=== PATIENT | female | born 1940 | race Caucasian/White ===

== ENCOUNTER → 2017-11-18 | Outpatient (CLI) | payer MEDICARE ==
--- NOTE | 2017-11-18 20:31 | PE ---
EXAMINATION TYPE: PET CT fusion skull to thigh DATE OF EXAM: 11/18/2017 COMPARISON: CT chest April 08, 2012. 3-D mammogram October 05, 2017 and right breast ultrasound same day. HISTORY: Breast cancer progress study. History of right breast surgery 1990 with radiation treatment completed chemotherapy 1991. Recent abnormal mammogram and ultrasound October 05 With repeat biopsy on biopsy October 2017. Not specified if was positive on patient screening sheet. TECHNIQUE: Following the intravenous administration of 14.4 mCi of F-18 FDG, whole body images are p erformed from the skull base to the midthigh. Images are reviewed on the computer in the coronal, ax ial, and sagittal planes. Reconstructed rotating images are created on independent workstation and r eviewed on the computer. A noncontrast CT is performed in conjunction with the PET scan. SCAN: Subsequent Scan FINDINGS: SKULL BASE AND NECK: No suspicious hypermetabolic uptake. CHEST, MEDIASTINUM, AND HILAR REGION: No suspicious hypermetabolic uptake. Surgical clips right axillary region are redemonstrated. There is biopsy clip along posterior aspect of higher right breast mass that corresponds to area of mammogram and ultrasound, mass lesion measure s 1.9 x 1.8 cm axial image 87 and is new from 2012 CT. Mass measures over 2.0 cm roughly 2.5 cm crani ocaudal dimension. There is subcentimeter fat plane from adjacent chest wall noted. There is stable prominent fibroglandular tissue superior and medial to this axial image 67 without hy permetabolic uptake from prior CT. No suspicious hypermetabolic or enlarged right axillary lymph node s are seen. No suspicious hypermetabolic uptake or masses are clearly identified in the left breast w hich shows heterogeneously dense tissue subareolar region symmetric to right breast. Numerous clips f rom lumpectomy medial aspect right breast are redemonstrated. ABDOMEN AND PELVIS: No suspicious hypermetabolic uptake is identified. OSSEOUS STRUCTURES: No suspicious hypermetabolic uptake is identified. OTHER CT: There is moderate to severe calcified plaque at bilateral carotid bulbs, consider carotid u ltrasound follow-up. Cardiomegaly is present. There is moderate biatrial dilatation. There is moderate coronary artery chhaya cification which is noted marker for coronary artery disease. There is enlarged main pulmonary artery measuring 3.6 cm in diameter on axial image 91, CT findings suggesting underlying pulmonary artery h ypertension. Cholecystectomy clips are identified. There are diverticula in the sigmoid colon. Uterus is surgically absent. There are pelvic calcified phleboliths. There is postsurgical change with laminectomy defects and spinous process resection in the lower lumb ar spine. There is moderate to severe multilevel facet arthropathy. There is multilevel disc space na rrowing. There is grade 1 anterolisthesis L4 on L5. There is multilevel spurring in the thoracolumbar spine. There is moderate to severe vascular desiccation abdominal aorta extending into branch vessel s. IMPRESSION: New right upper slightly lateral breast mass 10:[address] does not show hy permetabolic uptake. Correlate with pathology biopsy results. No hypermetabolic uptake or additional significant suspicious masses seen to suggest additional or metastatic malignancy.
== END | disposition home or self-care (01) ==
LOC: RADPETMAIN 07:30
PROVIDERS: ATTEND Internal Medicine Hematology & Oncology
DX: C50.411 Malignant neoplasm of upper-outer quadrant of right female breast (principal)
CPT/HCPCS: 78815; A9552

== ENCOUNTER 2018-01-26 13:49 | Inpatient (IN) | payer MEDICARE ==
[2018-01-26] MEDS ORDERED: SODIUM CHLORIDE 0.9% 500 ML IV STA (14:31)
[2018-01-26] MEDS ORDERED: SODIUM CHLORIDE 0.9% 1,000 ML IV STA (14:31)
--- NOTE | 2018-01-26 14:34 | ED ---
General Adult HPI - General Chief complaint: Weakness Stated complaint: Weakness Time Seen by Provider: 01/26/18 14:16 Source: patient, family, RN notes reviewed, old records reviewed Mode of arrival: wheelchair Limitations: no limitations - History of Present Illness Initial comments: 77-year-old female presenting with generalized weakness. Patient is currently undergoing chemotherapy for breast cancer. She received her last treatment 8 days ago. She has had progressive weakness over the past one week. She poured some mild cough which is nonproductive. She has some nausea and has had several small episodes of vomiting with liquids. She's had decreased appetite. No change in her bowel habits. No dysuria. No rectal bleeding. Denies abdominal pain. Denies chest pain or dyspnea. Patient denies fever or chills. Additional past medical history of hypertension and diabetes. Patient was scheduled for outpatient laboratory studies yesterday, she was unable to complete this secondary to her weakness. - Related Data Home Medications Medication Instructions Recorded Confirmed Atenolol/Chlorthalidone 1 tab PO DAILY 01/26/18 01/26/18 [Atenolol-Chlorthalidone 50-25] Atorvastatin [Lipitor] 20 mg PO HS 01/26/18 01/26/18 Lisinopril [Zestril] 10 mg PO DAILY 01/26/18 01/26/18 metFORMIN HCL ER [Glucophage Xr] 500 mg PO BID 01/26/18 01/26/18 Allergies Allergy/AdvReac Type Severity Reaction Status Date / Time No Known Allergies Allergy Verified 01/26/18 14:46 Review of Systems ROS Statement: Those systems with pertinent positive or pertinent negative responses have been documented in the HPI. ROS Other: All systems not noted in ROS Statement are negative. Past Medical History Past Medical History: Diabetes Mellitus, Hypertension Additional Past Medical History / Comment(s): Breast CA. History of Any Multi-Drug Resistant Organisms: None Reported Past Surgical History: Appendectomy, Back Surgery Additional Past Surgical History / Comment(s): Medi port, Past Psychological History: No Psychological Hx Reported Smoking Status: Never smoker Past Alcohol Use History: None Reported Past Drug Use History: None Reported General Exam Limitations: no limitations General appearance: alert, in no apparent distress Head exam: Present: atraumatic, normocephalic Eye exam: Present: normal appearance, PERRL, EOMI ENT exam: Present: mucous membranes dry Neck exam: Present: normal inspection. Absent: tenderness, meningismus Respiratory exam: Absent: normal lung sounds bilaterally, respiratory distress, wheezes Cardiovascular Exam: Present: normal rhythm, tachycardia GI/Abdominal exam: Present: soft. Absent: distended, tenderness, guarding Extremities exam: Present: normal inspection, full ROM, normal capillary refill. Absent: tenderness, calf tenderness Neurological exam: Present: alert, oriented X3, CN II-XII intact. Absent: motor sensory deficit Psychiatric exam: Present: normal affect, normal mood Skin exam: Present: warm, dry, intact, pallor (Patient is very pale.). Absent: cyanosis, diaphoretic Course Vital Signs 01/26/18 01/26/18 01/26/18 14:02 14:18 15:09 Temperature 96.9 F L Pulse Rate 74 161 H Respiratory 22 20 Rate Blood Pressure 161/104 112/52 O2 Sat by Pulse 95 95 Oximetry 01/26/18 01/26/18 15:43 16:28 Temperature Pulse Rate 150 H 148 H Respiratory 20 20 Rate Blood Pressure 120/54 124/47 O2 Sat by Pulse 100 95 Oximetry EKG Findings - EKG Comments: EKG Findings:: EKG, a flutter with RVR and variable AV block, rate of 157, no ST segment elevation, QRS duration 78, QTC 459. Medical Decision Making - Medical Decision Making 77-year-old female with active breast cancer on chemotherapy presenting with generalized weakness. She was found to be in A. flutter with RVR rate in the 150s. Patient appears very pale on exam. Blood pressure is stable. She is afebrile. Laboratory studies reveal hemoglobin 6.5. She will receive 2 unit transfusion of irradiated RBCs for this anemia. No blood cell count is 0.1, patient is profoundly neutropenic. Platelet count 35, this represents pancytopenia. Patient findings are discussed with Dr. Rios, she agrees with transfusion and recommends patient also be started on antibiotics prophylactically. She started on vancomycin and given a dose of cefepime in the emergency department. Regarding the patient's a flutter, patient is given Cardizem bolus, started on Cardizem infusion, heart rate improves modestly she is given metoprolol IV push. Laboratory studies reveal mild lactic acidosis of 2.1, patient does receive IV hydration for this. Creatinine 1.43 from previous of 1.06. Troponin is 0.087, this is likely demand ischemia, given the patient's hemoglobin, no blood thinners will be ordered at this time. Magnesium is 1.4 and this is replaced. Chest x-ray negative for pneumonia. Urinalysis and urine culture are pending. Blood culture is obtained prior to antibiotics. Patient will be admitted to [facility] with oncology and cardiology on consult. She is currently awaiting transfusion. Case discussed with Dr. Bowling who will accept the admission. - Lab Data Result diagrams: 01/26/18 15:10 01/26/18 15:10 Lab Results 01/26/18 01/26/18 01/26/18 Range/Units 15:10 15:10 15:10 WBC 0.1 L* (3.8-10.6) k/uL RBC 2.16 L (3.80-5.40) m/uL Hgb 6.5 L* (11.4-16.0) gm/dL Hct 18.2 L* (34.0-46.0) % MCV 84.6 (80.0-100.0) fL MCH 30.0 (25.0-35.0) pg MCHC 35.5 (31.0-37.0) g/dL RDW 14.2 (11.5-15.5) % Plt Count 35 L* (150-450) k/uL Neutrophils % Not Reportable Lymphocytes % Not Reportable Monocytes % Not Reportable Eosinophils % Not Reportable Basophils % Not Reportable Neutrophils # Not Reportable Lymphocytes # Not Reportable Monocytes # Not Reportable Eosinophils # Not Reportable Basophils # Not Reportable Manual Slide Review Performed Poikilocytosis (manual Present Rouleaux Present PT (9.0-12.0) sec INR (<1.2) APTT (22.0-30.0) sec Sodium 137 (137-145) mmol/L Potassium 4.1 (3.5-5.1) mmol/L Chloride 100 (98-107) mmol/L Carbon Dioxide 21 L (22-30) mmol/L Anion Gap 16 mmol/L BUN 46 H (7-17) mg/dL Creatinine 1.43 H (0.52-1.04) mg/dL Est GFR (CKD-EPI)AfAm 41 (>60 ml/min/1.73 sqM) Est GFR (CKD-EPI)NonAf 36 (>60 ml/min/1.73 sqM) Glucose 172 H (74-99) mg/dL Plasma Lactic Acid Héctor (0.7-2.0) mmol/L Calcium 8.7 (8.4-10.2) mg/dL Phosphorus 5.0 H (2.5-4.5) mg/dL Magnesium 1.4 L (1.6-2.3) mg/dL Total Bilirubin 1.0 (0.2-1.3) mg/dL AST 12 L (14-36) U/L ALT 25 (9-52) U/L Alkaline Phosphatase 60 (38-126) U/L Total Creatine Kinase 26 L (30-135) U/L CK-MB (CK-2) 0.4 (0.0-2.4) ng/mL CK-MB (CK-2) Rel Index 1.5 Troponin I 0.087 H* (0.000-0.034) ng/mL Total Protein 5.4 L (6.3-8.2) g/dL Albumin 3.1 L (3.5-5.0) g/dL Influenza Type A RNA (Not Detectd) Influenza Type B (PCR) (Not Detectd) 01/26/18 01/26/18 01/26/18 Range/Units 15:10 15:25 15:28 WBC (3.8-10.6) k/uL RBC (3.80-5.40) m/uL Hgb (11.4-16.0) gm/dL Hct (34.0-46.0) % MCV (80.0-100.0) fL MCH (25.0-35.0) pg MCHC (31.0-37.0) g/dL RDW (11.5-15.5) % Plt Count (150-450) k/uL Neutrophils % Lymphocytes % Monocytes % Eosinophils % Basophils % Neutrophils # Lymphocytes # Monocytes # Eosinophils # Basophils # Manual Slide Review Poikilocytosis (manual Rouleaux PT 12.5 H (9.0-12.0) sec INR 1.3 H (<1.2) APTT 23.7 (22.0-30.0) sec Sodium (137-145) mmol/L Potassium (3.5-5.1) mmol/L Chloride (98-107) mmol/L Carbon Dioxide (22-30) mmol/L Anion Gap mmol/L BUN (7-17) mg/dL Creatinine (0.52-1.04) mg/dL Est GFR (CKD-EPI)AfAm (>60 ml/min/1.73 sqM) Est GFR (CKD-EPI)NonAf (>60 ml/min/1.73 sqM) Glucose (74-99) mg/dL Plasma Lactic Acid Héctor 2.1 H* (0.7-2.0) mmol/L Calcium (8.4-10.2) mg/dL Phosphorus (2.5-4.5) mg/dL Magnesium (1.6-2.3) mg/dL Total Bilirubin (0.2-1.3) mg/dL AST (14-36) U/L ALT (9-52) U/L Alkaline Phosphatase (38-126) U/L Total Creatine Kinase (30-135) U/L CK-MB (CK-2) (0.0-2.4) ng/mL CK-MB (CK-2) Rel Index Troponin I (0.000-0.034) ng/mL Total Protein (6.3-8.2) g/dL Albumin (3.5-5.0) g/dL Influenza Type A RNA Not Detected (Not Detectd) Influenza Type B (PCR) Not Detected (Not Detectd) Critical Care Time Critical Care Time: Yes Total Critical Care Time: 35 Disposition Clinical Impression: Pancytopenia, Neutropenia, Atrial flutter with rapid ventricular response, Acute kidney injury Disposition: ADMITTED IP TO THIS [facility] Condition: Serious Referrals: Omkar Gotti MD [Primary Care Provider] - 1-2 days Decision to Admit Reason: Admit from EC Decision Date: 01/26/18 Decision Time: 17:16
[2018-01-26] MEDS ORDERED: DILTIAZEM 125 MG in SODIUM CHLORIDE 0.9% 100 ML IV ONE (14:41)
[2018-01-26] MEDS ORDERED: DILTIAZEM 5 MG/1 ML (25ML VIAL) IV STA ×2 (14:41→16:28)
[2018-01-26] MEDS ORDERED: DILTIAZEM 50 MG in SODIUM CHLORIDE 0.9% 40 ML IV ONE (14:45)
[2018-01-26 15:26] LABS: MCHC 35.5 g/dL (31.0-37.0); MCV 84.6 fL (80.0-100.0); RBC 2.16 m/uL (3.80-5.40); RDW 14.2 % (11.5-15.5)
[2018-01-26 15:36] LABS: INR 1.3 (<1.2); Partial Thromboplastin Time 23.7 sec (22.0-30.0); Prothrombin Time 12.5 sec (9.0-12.0)
[2018-01-26 15:40] LABS: HGB 6.5 gm/dL (11.4-16.0)
[2018-01-26 15:41] LABS: HCT 18.2 % (34.0-46.0)
[2018-01-26 15:45] LABS: Poikilocytosis (M) Present; WBC 0.1 k/uL (3.8-10.6)
[2018-01-26 15:46] LABS: Platelet Count 35 k/uL (150-450); Rouleaux Present
[2018-01-26 15:50] LABS: Creatine Kinase MB 0.4 ng/mL (0.0-2.4)
[2018-01-26] MEDS ORDERED: CEFEPIME 2 GM in SODIUM CHLORIDE 0.9% 50 ML IVPB STA (15:53)
[2018-01-26] MEDS ORDERED: VANCOMYCIN IV PER PHARMACY 1 EACH MISC MISCELLANE PRN (15:53)
[2018-01-26 15:55] LABS: Troponin I 0.087 ng/mL (0.000-0.034)
--- NOTE | 2018-01-26 16:01 | XR ---
EXAMINATION TYPE: XR chest 2V DATE OF EXAM: 01/26/2018 COMPARISON: NONE INDICATION: Weakness TECHNIQUE: Frontal and lateral views of the chest are obtained. FINDINGS: The heart size is normal. The pulmonary vasculature is normal. The lungs are clear. Postsurgical changes are within the right breast and right axillary region. Port is present on the left tip in the superior vena cava region. Spondylosis is through the thoracic spine. IMPRESSION: 1. No acute pulmonary process.
[2018-01-26 16:10] LABS: Albumin 3.1 g/dL (3.5-5.0); Calcium 8.7 mg/dL (8.4-10.2); Magnesium 1.4 mg/dL (1.6-2.3); Potassium 4.1 mmol/L (3.5-5.1); Total Protein 5.4 g/dL (6.3-8.2)
[2018-01-26] MEDS ORDERED: VANCOMYCIN 1,500 MG in SODIUM CHLORIDE 0.9% 250 ML IVPB STA (16:10)
[2018-01-26] MEDS ORDERED: SODIUM CHLORIDE 0.9% 500 ML IV ONE (16:27)
[2018-01-26] MEDS ORDERED: MAGNESIUM SULFATE-D5W PMX 1 GM in DEXTROSE/WATER 1 100ML.BAG IVPB ONE (17:04)
[2018-01-26] MEDS ORDERED: ACETAMINOPHEN TAB 325 MG TAB PO PRN (17:07)
[2018-01-26] MEDS ORDERED: NALOXONE 0.4 MG/ML 1 ML VIAL IV PRN (17:07)
[2018-01-26] MEDS ORDERED: ONDANSETRON 4 MG/2 ML VIAL IVP PRN (17:07)
[2018-01-26] MEDS: METOPROLOL TARTRATE 5 MG/5 ML VIAL IVP SCH ×6 (17:23→21:26)
[2018-01-26 20:54] LABS: Glucose,Whole Blood 134 mg/dL (75-99)
[2018-01-26] MEDS: MAGNESIUM OXIDE 400 MG TAB PO SCH (22:14)
--- NOTE | 2018-01-26 22:26 | HP ---
HISTORY AND PHYSICAL DATE OF ADMISSION: 01/26/2018 PRESENTING COMPLAINT: Weak, tired. HISTORY OF PRESENTING COMPLAINT: This is a very pleasant 77-year-old patient of Dr. Gotti who had a breast cancer back in 1990 that was treated with chemo and lumpectomy; recurred; now undergoing chemotherapy by Dr. Poole. Chemotherapy was about a week ago. The patient felt weak, tired, rundown today. Denied any fever. No chills. No urinary symptoms. No rash on the body; just extremity tired and rundown. The patient in the ER was found to be in atrial flutter with a rapid ventricular rate. She was put on a Cardizem drip. Also hemoglobin was found to be low at 6.5. A unit of blood has been ordered. Chronic stable medical conditions include diabetes, hyperlipidemia, hypertension. REVIEW OF SYSTEMS: CONSTITUTIONAL: Weak, tired. HEENT: Loss of hair. RESPIRATORY: None. CARDIOVASCULAR: As above. GASTROINTESTINAL: None. GENITOURINARY: None. MUSCULOSKELETAL: None. DERMATOLOGICAL: None. HEMATOLOGICAL: None. LYMPHATICS: None. PSYCHIATRY: None. NEUROLOGICAL: None. PAST MEDICAL HISTORY: 1. Diabetes. 2. Hypertension. 3. Hyperlipidemia. 4. Breast cancer. PAST SURGICAL HISTORY: 1. Appendectomy. 2. Back surgery. 3. Cholecystectomy. 4. Hysterectomy. 5. Tonsillectomy. 6. Mediport on the left chest. 7. Right breast lumpectomy. 8. EGD. 9. Colonoscopy. 10.Cataract surgery. SOCIAL HISTORY: . Patient smoked for 10 years, stopped in 1974. Alcohol none. FAMILY HISTORY: Close family member from colon cancer at age 66. HOME MEDICATIONS: 1. Metformin 500 mg p.o. b.i.d. 2. Zestril 10 mg p.o. daily. 3. Lipitor 20 mg p.o. at bedtime. 4. Atenolol/chlorthalidone 50/25 one tablet p.o. daily. ALLERGIES: NONE. PHYSICAL EXAMINATION: Temperature 98.2, pulse 140, respiration 20, blood pressure 107/61, pulse ox 100% on 2 L. GENERAL APPEARANCE: Average build. Lying in bed, tired-appearing. EYES: Pupils equal. Conjunctivae pale. HEENT: External appearance of nose and ears normal. Oral cavity normal. Loss of hair. NECK: JVD not raised. Mass not palpable. RESPIRATORY: Effort normal. LUNGS: Fair air entry. CARDIOVASCULAR: Heart sounds irregular. No edema. ABDOMEN: Soft, nontender. Liver and spleen not palpable. LYMPHATIC: No lymph node palpable in neck or axillae. PSYCHIATRY: Alert and oriented x3. Mood and affect normal. NEUROLOGICAL: Pupils equal. Cranial nerves grossly intact. Power and sensation grossly intact. INVESTIGATIONS: White count 0.1, hemoglobin 6.5, platelets 35, potassium 4.1, BUN 46, creatinine 1.43, phosphorus 5, magnesium 1.4. Troponin 0.087. Patient's BUN and creatinine were 23 and 1.06 on 01/17/2018. EKG shows atrial flutter with a rate up to 150s. ASSESSMENT: 1. New-onset atrial flutter, rate uncontrolled, present on admission. 2. Pancytopenia from chemotherapy. 3. Metabolic acidosis. 4. Acute renal failure. Cannot rule out a chronic component. 5. Hyperphosphatemia. 6. Hypomagnesemia. 7. Troponin leak, probably from uncontrolled rate. Cannot rule out underlying ischemia. 8. Diabetes mellitus, type 2, on oral hypoglycemic. 9. Hyperlipidemia. 10.Essential hypertension. 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 PLAN: Patient is put on IV Cardizem. Patient will need a 2-D echocardiogram. Patient's Accu- Cheks will be followed. Care was discussed with the patient and family at the bedside. Consultation requests were made to Oncology and Cardiology. Patient will filgrastim. Patient has been ordered 2 units of blood. MMODL / IJN: [id number] /
[2018-01-27 00:55] LABS: Appearance,Urine Turbid (Clear); Bacteria,Urine Few /hpf; Bilirubin,Urine Negative (Negative); Blood,Urine Trace (Negative); Color,Urine Yellow; Glucose,Urine (UA) Negative (Negative); Hyaline Casts,Urine 5 /lpf (0-2); Ketones,Urine Negative (Negative); Leukocyte Esterase,Urine Trace (Negative); Mucus,Urine Rare /hpf; Nitrite,Urine Negative (Negative); PH, Urine 5.5 (5.0-8.0); Protein,Urine 1+ (Negative); RBC,Urine 6 /hpf (0-5); Specific Gravity,Urine 1.016 (1.001-1.035); Squamous Epithelial Cell,Urine 14 /hpf (0-4); Urobilinogen,Urine <2.0 mg/dL (<2.0); WBC,Urine 50 /hpf (0-5)
[2018-01-27] MEDS: DILTIAZEM 50 MG in SODIUM CHLORIDE 0.9% 40 ML IV SCH ×3 (02:51→21:30)
[2018-01-27 06:33] LABS: Glucose,Whole Blood 130 mg/dL (75-99)
[2018-01-27 06:47] LABS: HCT 22.9 % (34.0-46.0); MCH 30.2 pg (25.0-35.0); MCHC 34.7 g/dL (31.0-37.0); RBC 2.63 m/uL (3.80-5.40); RDW 14.5 % (11.5-15.5)
[2018-01-27 06:49] LABS: WBC 0.2 k/uL (3.8-10.6)
[2018-01-27 06:50] LABS: Platelet Count 20 k/uL (150-450)
[2018-01-27 07:01] LABS: Albumin 2.8 g/dL (3.5-5.0); Calcium 8.6 mg/dL (8.4-10.2); Magnesium 1.7 mg/dL (1.6-2.3); Potassium 3.7 mmol/L (3.5-5.1); Total Bilirubin 1.5 mg/dL (0.2-1.3)
[2018-01-27] MEDS: MAGNESIUM OXIDE 400 MG TAB PO SCH ×3 (07:36→19:46)
[2018-01-27] MEDS: metFORMIN 500 MG TAB PO SCH ×2 (07:38→17:23)
--- NOTE | 2018-01-27 08:04 | P.CRDCN ---
History of Present Illness Consult date: 01/27/18 Chief complaint: Tired/fatigued History of present illness: This is a pleasant 77-year-old female patient with a past medical history significant for diabetes, hypertension, dyslipidemia, and history of breast cancer where she underwent surgery long time ago and recently she was found to have recurrence in her cancer by mammogram and she is receiving chemotherapy with the last dose of chemotherapy about a week ago presented to the hospital complaining of fatigue and tiredness. The patient stated that she felt that she has no energy. She felt dizzy and lightheaded. No chest pain and no chest discomfort. No shortness of breath. She decided to come to the emergency room where in the emergency room she was found to be pancytopenic. Beside that the EKG revealed atrial fibrillation/ atrial flutter and the patient was started on Cardizem drip. The patient is not aware of any prior cardiac history. She has no history of atrial fibrillation or atrial flutter. The EKG revealed atrial fibrillation. The cardiac enzymes were checked and came in to be slightly abnormal. Hemoglobin upon presenting to the hospital was 6.5 and the patient received 2 units of packed RBC with a hemoglobin above 7 now. Past Medical History Past Medical History: Cancer, Diabetes Mellitus, Hyperlipidemia, Hypertension Additional Past Medical History / Comment(s): rt Breast CA 1990 had lumpectomy/ lymph nodes removed, chemo/radiation. in reocurrance of cancer same (rt) breast-receiving chemo . History of Any Multi-Drug Resistant Organisms: None Reported Past Surgical History: Appendectomy, Back Surgery, Breast Surgery, Cholecystectomy, Hysterectomy, Tonsillectomy Additional Past Surgical History / Comment(s): Medi port lt chest, 1 upper dental implant, rt breast lumpectomy, lymph nodes removed, egd/colonoscopu/ polypectomt, cataracts-lens implants Past Anesthesia/Blood Transfusion Reactions: No Reported Reaction Smoking Status: Former smoker - Past Family History Mother Family Medical History: Cancer Additional Family Medical History / Comment(s): age 66 from colon cancer Father Family Medical History: CVA/TIA Additional Family Medical History / Comment(s): age 48 from a stroke Medications and Allergies Home Medications Medication Instructions Recorded Confirmed Type Atenolol/Chlorthalidone 1 tab PO DAILY 01/26/18 01/26/18 History [Atenolol-Chlorthalidone 50-25] Atorvastatin [Lipitor] 20 mg PO HS 01/26/18 01/26/18 History Lisinopril [Zestril] 10 mg PO DAILY 01/26/18 01/26/18 History metFORMIN HCL ER [Glucophage Xr] 500 mg PO BID 01/26/18 01/26/18 History Allergies Allergy/AdvReac Type Severity Reaction Status Date / Time No Known Allergies Allergy Verified 01/26/18 14:46 Physical Exam Vitals: Vital Signs Temp Pulse Pulse Resp BP BP Pulse Ox 01/27/18 05:00 97.6 F 104 H 16 102/75 99 01/27/18 04:00 97.6 F 104 H 16 102/75 99 01/27/18 02:38 98.2 F 100 16 104/60 99 01/27/18 02:08 97.7 F 99 16 122/59 100 01/27/18 01:58 99.1 F 144 H 16 146/72 100 01/27/18 00:54 98.5 F 146 H 16 135/70 100 01/27/18 00:00 97.8 F 152 H 16 126/69 100 01/26/18 22:32 97.8 F 152 H 16 126/69 100 01/26/18 22:02 98 F 155 H 16 105/58 100 01/26/18 21:52 98.4 F 156 H 18 120/58 100 01/26/18 19:33 98.2 F 131 H 20 107/61 100 01/26/18 18:30 142 H 20 120/58 100 01/26/18 17:30 133 H 20 108/60 100 01/26/18 16:28 148 H 20 124/47 95 01/26/18 15:43 150 H 20 120/54 100 01/26/18 15:09 161 H 20 112/52 95 01/26/18 14:18 161/104 01/26/18 14:02 96.9 F L 74 22 95 Intake and Output 01/26/18 01/27/18 01/27/18 22:59 06:59 14:59 Intake Total 120 620 Output Total 50 Balance 120 570 Intake: Oral 120 Blood Product 0 620 Rc Irr As3 Unit 0 310 [id number] Rc Irr As3 Unit 310 [id number] Output: Urine 50 Other: Voiding Method Bedpan # Voids 2 Weight 71.5 kg - Constitutional General appearance: no acute distress - Respiratory Respiratory: bilateral: CTA - Cardiovascular Rhythm: irregularly irregular Heart sounds: normal: S1, S2 Results 01/27/18 06:14 01/27/18 06:14 Cardiac Enzymes 01/26/18 01/26/18 01/27/18 Range/Units 15:10 15:10 06:14 AST 12 L 13 L (14-36) U/L CK-MB (CK-2) 0.4 (0.0-2.4) ng/mL Troponin I 0.087 H* (0.000-0.034) ng/mL Coagulation 01/26/18 Range/Units 15:10 PT 12.5 H (9.0-12.0) sec APTT 23.7 (22.0-30.0) sec CBC 01/26/18 01/27/18 Range/Units 15:10 06:14 WBC 0.1 L* 0.2 L* (3.8-10.6) k/uL RBC 2.16 L 2.63 L (3.80-5.40) m/uL Hgb 6.5 L* 8.0 L D (11.4-16.0) gm/dL Hct 18.2 L* 22.9 L (34.0-46.0) % Plt Count 35 L* 20 L* (150-450) k/uL Comprehensive Metabolic Panel 01/26/18 01/27/18 Range/Units 15:10 06:14 Sodium 137 140 (137-145) mmol/L Potassium 4.1 3.7 (3.5-5.1) mmol/L Chloride 100 104 (98-107) mmol/L Carbon Dioxide 21 L 21 L (22-30) mmol/L BUN 46 H 37 H (7-17) mg/dL Creatinine 1.43 H 0.90 (0.52-1.04) mg/dL Glucose 172 H 119 H (74-99) mg/dL Calcium 8.7 8.6 (8.4-10.2) mg/dL AST 12 L 13 L (14-36) U/L ALT 25 17 (9-52) U/L Alkaline Phosphatase 60 45 (38-126) U/L Total Protein 5.4 L 5.0 L (6.3-8.2) g/dL Albumin 3.1 L 2.8 L (3.5-5.0) g/dL Current Medications Generic Name Dose Route Start Last Admin Trade Name Freq PRN Reason Stop Dose Admin Acetaminophen 650 mg 01/26/18 17:07 Tylenol Tab PO Q6HR PRN Mild Pain or Fever > 100.5 Atenolol 50 mg 01/27/18 09:00 Tenormin PO BID [facility] Atorvastatin Calcium 20 mg 01/27/18 21:00 Lipitor PO HS [facility] Chlorthalidone 25 mg 01/27/18 09:00 [place]groton PO DAILY [facility] Vancomycin HCl 1,500 mg/ 250 mls @ 125 mls/hr 01/27/18 12:00 Sodium Chloride IVPB Q24H [facility] Diltiazem HCl 50 mg/ Sodium 50 mls @ 5 mls/hr 01/27/18 01:45 01/27/18 02:51 Chloride IV 5 mg/hr .Q10H [facility] 5 mls/hr Protocol Administration 5 MG/HR Magnesium Oxide 400 mg 01/26/18 22:00 01/27/18 07:36 Mag-Ox PO 400 mg TID MANINDER Administration Metformin HCl 500 mg 01/27/18 07:30 01/27/18 07:38 Glucophage PO Not Given BID-W/MEALS [facility] Naloxone HCl 0.2 mg 01/26/18 17:07 Narcan IV Q2M PRN Opioid Reversal Ondansetron HCl 4 mg 01/26/18 17:07 Zofran IVP Q8HR PRN Nausea And Vomiting Intake and Output 01/26/18 01/27/18 01/27/18 22:59 06:59 14:59 Intake Total 120 620 Output Total 50 Balance 120 570 Intake: Oral 120 Blood Product 0 620 Rc Irr As3 Unit 0 310 [id number] Rc Irr As3 Unit 310 [id number] Output: Urine 50 Other: Voiding Method Bedpan # Voids 2 Weight 71.5 kg 01/27/18 06:14 01/27/18 06:14 Assessment and Plan Assessment: Assessment #1 pancytopenia likely to be induced by chemotherapy #2 severe anemia and status post blood transfusion #3 mildly abnormal cardiac enzymes likely secondary to the severe anemia and tachycardia #4 new-onset atrial fibrillation/atrial flutter #5 history of breast cancer currently on chemotherapy #6 multiple comorbid conditions Plan #1 I will increase the dose of atenolol and try to wean the patient from Cardizem IV #2 the patient is not a candidate to receive any oral anticoagulation in view of her low platelet count #3 obtain an echocardiogram with Doppler #4 the mildly abnormal cardiac enzymes is likely secondary to the tachycardia as well as severe anemia was a type II I'll cardiac infarction in somebody who probably does have underlying coronary artery disease #5 we'll continue following up with the patient. We'll try to keep the hemoglobin above 7. We'll continue following up with the patient. Thank you for allowing us participate in her care
[2018-01-27] MEDS ORDERED: ATENOLOL 50 MG TAB PO SCH (09:00)
[2018-01-27] MEDS: CHLORTHALIDONE 25 MG TAB PO SCH (09:03)
[2018-01-27] MEDS: VANCOMYCIN 1,250 MG in SODIUM CHLORIDE 0.9% 250 ML IVPB SCH (11:40)
[2018-01-27] MEDS ORDERED: VANCOMYCIN 1,500 MG in SODIUM CHLORIDE 0.9% 250 ML IVPB SCH (12:00)
[2018-01-27 12:19] LABS: Glucose,Whole Blood 178 mg/dL (75-99)
--- NOTE | 2018-01-27 12:30 | ECHOF ---
Referral Reason:nstemi MEASUREMENTS -------- HEIGHT: 160.0 cm WEIGHT: 71.2 kg BP: 102/75 IVSd: 1.2 cm (0.6 - 1.1) LVIDd: 2.6 cm (3.9 - 5.3) LVPWd: 1.3 cm (0.6 - 1.1) IVSs: 1.6 cm LVIDs: 2.0 cm LVPWs: 1.3 cm LAESV Index (A-L): 28.25 ml/m Ao Diam: 2.8 cm (2.0 - 3.7) AV Cusp: 1.7 cm (1.5 - 2.6) LA Diam: 2.0 cm (2.7 - 3.8) RAP: 5.00 mmHg RVSP: 43.88 mmHg FINDINGS -------- Atrial fibrillation. This was a technically adequate study. The left ventricular size is normal. There is mild concentric left ventricular hypertrophy. Overa ll left ventricular systolic function is normal with, an EF between 55 - 60 %. The right ventricle is normal in size and function. Normal LA size by volume 22+/-6 ml/m2. The right atrium is normal in size. The aortic valve is trileaflet, and appears structurally normal. No aortic stenosis or regurgitation. The mitral valve leaflets are mildly thickened. Mild mitral regurgitation is present. Mild tricuspid regurgitation present. There is mild pulmonary hypertension. The right ventricular systolic pressure, as measured by Doppler, is 43.88mmHg. Pulmonic valve appears structurally normal. The aortic root size is normal. Normal inferior vena cava with normal inspiratory collapse consistent with estimated right atrial pre ssure of 5 mmHg. There is a small, generalized pericardial effusion present. CONCLUSIONS -------- 1. Atrial fibrillation. 2. This was a technically adequate study. 3. The left ventricular size is normal. 4. There is mild concentric left ventricular hypertrophy. 5. Overall left ventricular systolic function is normal with, an EF between 55 - 60 %. 6. The right ventricle is normal in size and function. 7. Normal LA size by volume 22+/-6 ml/m2. 8. The right atrium is normal in size. 9. The aortic valve is trileaflet, and appears structurally normal. No aortic stenosis or regurgitati on. 10. The mitral valve leaflets are mildly thickened. 11. Mild mitral regurgitation is present. 12. Mild tricuspid regurgitation present. 13. There is mild pulmonary hypertension. 14. The right ventricular systolic pressure, as measured by Doppler, is 43.88mmHg. 15. Pulmonic valve appears structurally normal. 16. The aortic root size is normal. 17. Normal inferior vena cava with normal inspiratory collapse consistent with estimated right atrial pressure of 5 mmHg. 18. There is a small, generalized pericardial effusion present. STUDIO DATA ANALYST: Molly Price RDCS
[2018-01-27 16:37] LABS: Glucose,Whole Blood 127 mg/dL (75-99)
--- NOTE | 2018-01-27 19:17 | P.CONS ---
History of Present Illness - Reason for Consult Consult date: 01/27/18 Breast cancer, on chemo with pancytopenia Requesting physician: Ramu Bowling - Chief Complaint Severe weakness/fatigue - History of Present Illness Mrs. 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 She recieved her last cycle of chemo, cycle 4 of ddAC, on 01/18, with neulasta administered on 01/19. She has been having increasing vomiting and weakness. Called me and advised to go to ED, where she was afebrile, however had OLLIE with Cr 1.4 and pancytopenia with WBC 0.1, Hgb 6.5, and plt 23. No bleeding. Also found to be in atrial fibrillation. Cardiology consulted and rate controlled. 2D echo done with normal EF. Transfused 2 units pRBC with improvement of her Hgb to 8. Hydrated and Cr downtrending. No fevers and infectious work up negative so far except for possible UTI (UA with casts as well as WBC seen). Overall now feeling slightly better but still weak. Review of Systems All systems: negative Constitutional: Reports as per HPI Past Medical History Past Medical History: Cancer, Diabetes Mellitus, Hyperlipidemia, Hypertension Additional Past Medical History / Comment(s): rt Breast CA 1990 had lumpectomy/ lymph nodes removed, chemo/radiation. in reocurrance of cancer same (rt) breast-receiving chemo . History of Any Multi-Drug Resistant Organisms: None Reported Past Surgical History: Appendectomy, Back Surgery, Breast Surgery, Cholecystectomy, Hysterectomy, Tonsillectomy Additional Past Surgical History / Comment(s): Medi port lt chest, 1 upper dental implant, rt breast lumpectomy, lymph nodes removed, egd/colonoscopu/ polypectomt, cataracts-lens implants Past Anesthesia/Blood Transfusion Reactions: No Reported Reaction Smoking Status: Former smoker - Past Family History Mother Family Medical History: Cancer Additional Family Medical History / Comment(s): age 66 from colon cancer Father Family Medical History: CVA/TIA Additional Family Medical History / Comment(s): age 48 from a stroke Medications and Allergies Home Medications Medication Instructions Recorded Confirmed Type Atenolol/Chlorthalidone 1 tab PO DAILY 01/26/18 01/26/18 History [Atenolol-Chlorthalidone 50-25] Atorvastatin [Lipitor] 20 mg PO HS 01/26/18 01/26/18 History Lisinopril [Zestril] 10 mg PO DAILY 01/26/18 01/26/18 History metFORMIN HCL ER [Glucophage Xr] 500 mg PO BID 01/26/18 01/26/18 History Allergies Allergy/AdvReac Type Severity Reaction Status Date / Time No Known Allergies Allergy Verified 01/26/18 14:46 Physical Exam Vitals: Vital Signs Temp Pulse Pulse Resp BP BP Pulse Ox 01/27/18 15:03 97.3 F L 156 H 18 111/60 98 01/27/18 12:00 97.1 F L 117 H 18 110/65 99 01/27/18 08:00 98.7 F 137 H 18 101/62 100 01/27/18 05:00 97.6 F 104 H 16 102/75 99 01/27/18 04:00 97.6 F 104 H 16 102/75 99 01/27/18 02:38 98.2 F 100 16 104/60 99 01/27/18 02:08 97.7 F 99 16 122/59 100 01/27/18 01:58 99.1 F 144 H 16 146/72 100 01/27/18 00:54 98.5 F 146 H 16 135/70 100 01/27/18 00:00 97.8 F 152 H 16 126/69 100 01/26/18 22:32 97.8 F 152 H 16 126/69 100 01/26/18 22:02 98 F 155 H 16 105/58 100 01/26/18 21:52 98.4 F 156 H 18 120/58 100 01/26/18 19:33 98.2 F 131 H 20 107/61 100 01/26/18 18:30 142 H 20 120/58 100 01/26/18 17:30 133 H 20 108/60 100 Intake and Output 01/27/18 01/27/18 01/27/18 06:59 14:59 22:59 Intake Total 620 774 Output Total 50 200 Balance 570 574 Intake: IV 240 .9 @ 20 240 Intake, IV Titration 294 Amount Diltiazem 50 mg In Sodium 44 Chloride 0.9% 40 ml @ 5 MG/HR 5 mls/hr IV .Q10H REPLACED BY [facility] Rx#:[id number] Vancomycin 1,500 mg In 250 Sodium Chloride 0.9% 250 ml @ 125 mls/hr IVPB ONCE STA Rx#:[id number] Oral 240 Blood Product 620 Rc Irr As3 Unit 310 [id number] Rc Irr As3 Unit 310 [id number] Output: Urine 50 200 Other: Voiding Method Bedpan # Voids 2 1 Weight 71.5 kg General: In no acute distress. HEENT: EOMI. No conjunctival pallor or scleral icterus. Mucosa moist. Alopecia. Neck: Neck supple. Lymph: No cervical/supraclavicular LAD. Lungs: CTA-B without wheezing or rhonchi. Heart: Regular rate but irregular rhythm. No LE edema. Abdomen: Soft, nontender, nondistended, with positive bowel sounds. MSK: 4/4 strength in all 4 extremities. Neuro: Alert and oriented 3. No obvious gross neurologic deficits. Skin: No jaundice or rash. Psych: Appropriate affect. Results CBC & Chem 7: 01/27/18 06:14 01/27/18 06:14 Labs: Abnormal Lab Results - Last 24 Hours (Table) 01/26/18 01/26/18 01/27/18 Range/Units 15:10 20:53 00:27 WBC (3.8-10.6) k/uL RBC (3.80-5.40) m/uL Hgb (11.4-16.0) gm/dL Hct (34.0-46.0) % Plt Count (150-450) k/uL Carbon Dioxide (22-30) mmol/L BUN (7-17) mg/dL Glucose (74-99) mg/dL POC Glucose (mg/dL) 134 H (75-99) mg/dL Total Bilirubin (0.2-1.3) mg/dL AST (14-36) U/L Total Protein (6.3-8.2) g/dL Albumin (3.5-5.0) g/dL Urine Appearance Turbid H (Clear) Urine Protein 1+ H (Negative) Urine Blood Trace H (Negative) Ur Leukocyte Esterase Trace H (Negative) Urine RBC 6 H (0-5) /hpf Urine WBC 50 H (0-5) /hpf Ur Squamous Epith Cells 14 H (0-4) /hpf Urine Bacteria Few H (None) /hpf Hyaline Casts 5 H (0-2) /lpf Urine Mucus Rare H (None) /hpf Crossmatch See Detail 01/27/18 01/27/18 01/27/18 Range/Units 06:14 06:14 06:27 WBC 0.2 L* (3.8-10.6) k/uL RBC 2.63 L (3.80-5.40) m/uL Hgb 8.0 L D (11.4-16.0) gm/dL Hct 22.9 L (34.0-46.0) % Plt Count 20 L* (150-450) k/uL Carbon Dioxide 21 L (22-30) mmol/L BUN 37 H (7-17) mg/dL Glucose 119 H (74-99) mg/dL POC Glucose (mg/dL) 130 H (75-99) mg/dL Total Bilirubin 1.5 H (0.2-1.3) mg/dL AST 13 L (14-36) U/L Total Protein 5.0 L (6.3-8.2) g/dL Albumin 2.8 L (3.5-5.0) g/dL Urine Appearance (Clear) Urine Protein (Negative) Urine Blood (Negative) Ur Leukocyte Esterase (Negative) Urine RBC (0-5) /hpf Urine WBC (0-5) /hpf Ur Squamous Epith Cells (0-4) /hpf Urine Bacteria (None) /hpf Hyaline Casts (0-2) /lpf Urine Mucus (None) /hpf Crossmatch 01/27/18 01/27/18 Range/Units 11:34 16:35 WBC (3.8-10.6) k/uL RBC (3.80-5.40) m/uL Hgb (11.4-16.0) gm/dL Hct (34.0-46.0) % Plt Count (150-450) k/uL Carbon Dioxide (22-30) mmol/L BUN (7-17) mg/dL Glucose (74-99) mg/dL POC Glucose (mg/dL) 178 H 127 H (75-99) mg/dL Total Bilirubin (0.2-1.3) mg/dL AST (14-36) U/L Total Protein (6.3-8.2) g/dL Albumin (3.5-5.0) g/dL Urine Appearance (Clear) Urine Protein (Negative) Urine Blood (Negative) Ur Leukocyte Esterase (Negative) Urine RBC (0-5) /hpf Urine WBC (0-5) /hpf Ur Squamous Epith Cells (0-4) /hpf Urine Bacteria (None) /hpf Hyaline Casts (0-2) /lpf Urine Mucus (None) /hpf Crossmatch Microbiology - Last 24 Hours (Table) 01/27/18 00:27 Urine Culture - Preliminary Urine,Voided Comments: 2D echo with atrial fibrillation and normal EF. Results reviewed. Chest x-ray: report reviewed Assessment and Plan Assessment: 1. Fatigue due to chemotherapy. 2. Pancytopenia due to chemotherapy. 3. OLLIE due to dehydration and vomiting. 4. Chemotherapy induced vomiting. 5. Atrial fibrillation. 6. Breast cancer on chemotherapy with 4th cycle of ddAC administered on 01/18 with neulasta support. Plan: Ms. Guerrero is a pleasant 77 yo female with breast cancer, IDC, triple negative, who is here for weakness and chemotherapy side effects after her 4th cycle of ddAC given on 01/18. She has significant weakness and nausea/decreased PO intake. Hgb 6.5, WBC 0.2, plt 20. No bleeding. Also found to be in atrial fibrillation with RVR and in OLLIE which is improving. Cardiology on board and managing atrial fibrillation which is now under better rate control. Transfused 2 units pRBC and with Hgb increased to 8. No fevers. At this time, would recommend supportive transfusions for Hgb <8 (due to atrial fibrillation) or plt <15 or bleeding for her chemotherapy induced pancytopenia. Hydration for OLLIE, which is improving. Encouraged Ensure/Boost for nutrition due to decreased PO intake. No G-CSF as she already received neulasta on 01/19, and is likely at her tayler with expected improvement of her ANC over the next couple days. No fevers, defer antibiotic use to primary team at this time. Otherwise, encourage movement/possible PT/OT, and pt should follow up with Dr. Poole after discharge, prior to her next cycle of chemotherapy (she is due to start taxol in 2 weeks, may delay depending on how she is doing over the next week or two, although possibly she may be able to start her taxol regimen as scheduled). Discussed with pt and her family and they are agreeable to the plan. All questions answered.
[2018-01-27] MEDS: ATENOLOL 50 MG TAB PO SCH (19:46)
[2018-01-27] MEDS: ATORVASTATIN 20 MG TAB PO SCH (19:46)
[2018-01-27 20:45] LABS: Glucose,Whole Blood 136 mg/dL (75-99)
--- NOTE | 2018-01-27 21:06 | PN ---
PROGRESS NOTE DATE OF SERVICE: 01/27/2018 PRESENT COMPLAINT: Weak, tired. INTERVAL HISTORY: This patient, who has had recurrence of breast cancer, getting chemotherapy, now presented with pancytopenia and atrial flutter, rate uncontrolled. Atrial flutter still running in the 130s to 140s. Patient Cardizem drip. The patient did get a unit of blood. The patient did tolerate some diet. at the bedside. REVIEW OF SYSTEMS: Done for constitutional, cardiovascular, GI, pulmonary; relevant findings as above. CURRENT MEDICATIONS: Include: 1. Cardizem drip. 2. Tenormin 50 mg p.o. b.i.d. EXAMINATION: Temperature 97.1, pulse 140, respirations 18, blood pressure 110/65, pulse ox 99% on room air. GENERAL APPEARANCE: Lying in bed, awake. EYES: Pupils equal. Conjunctivae normal. HEENT: External nose and ears normal. Oral cavity normal. Loss of hair. NECK: JVD not raised. Mass not palpable. RESPIRATORY: Effort normal. LUNGS: Fair air entry. CARDIOVASCULAR: Heart sounds irregular. No edema. ABDOMEN: Soft, nontender. Liver and spleen not palpable. PSYCHIATRY: Alert, oriented x3. Mood and affect normal. INVESTIGATIONS: White count 0.2, hemoglobin 8, platelets 20. Potassium 3.7, creatinine 0.9. Accu- Cheks are noted. ASSESSMENT: 1. Atrial flutter, rate uncontrolled on Cardizem drip. 2. Pancytopenia on chemotherapy. 3. Metabolic acidosis. 4. Acute renal failure, probably prerenal, improved. 5. Hyperphosphatemia. 6. Hypermagnesemia. 7. Troponin leak probably from uncontrolled heart rate. 8. Diabetes mellitus type 2 on oral hypoglycemic. 9. Hyperlipidemia. 10.Essential hypertension. 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 PLAN: The patient is on Cardizem drip and Tenormin dose was adjusted today. Will see how that goes. Per Dr. 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 Follow. MMODL / IJN: [id number] /
[2018-01-28] MEDS: VANCOMYCIN 1,250 MG in SODIUM CHLORIDE 0.9% 250 ML IVPB SCH ×2 (03:49→20:30)
[2018-01-28 06:09] LABS: Glucose,Whole Blood 132 mg/dL (75-99)
[2018-01-28] MEDS: metFORMIN 500 MG TAB PO SCH ×2 (06:46→17:06)
[2018-01-28 07:03] LABS: Anion Gap 12 mmol/L; Blood Urea Nitrogen 33 mg/dL (7-17); Calcium 8.4 mg/dL (8.4-10.2); Carbon Dioxide 18 mmol/L (22-30); Chloride 108 mmol/L (98-107); Glucose 109 mg/dL (74-99); Potassium 3.9 mmol/L (3.5-5.1); Sodium 138 mmol/L (137-145)
[2018-01-28 07:07] LABS: HCT 20.4 % (34.0-46.0); HGB 7.1 gm/dL (11.4-16.0); MCH 30.4 pg (25.0-35.0); MCHC 34.8 g/dL (31.0-37.0); MCV 87.3 fL (80.0-100.0); Mean Platelet Volume 10.4; Poikilocytosis Slight; RBC 2.34 m/uL (3.80-5.40); RDW 14.5 % (11.5-15.5)
[2018-01-28 07:17] LABS: WBC 0.5 k/uL (3.8-10.6)
[2018-01-28 07:18] LABS: Platelet Count 19 k/uL (150-450)
[2018-01-28] MEDS: ATENOLOL 50 MG TAB PO SCH ×2 (08:01→21:40)
[2018-01-28] MEDS: DILTIAZEM 50 MG in SODIUM CHLORIDE 0.9% 40 ML IV SCH ×2 (08:01→17:57)
[2018-01-28] MEDS: CHLORTHALIDONE 25 MG TAB PO SCH (08:02)
[2018-01-28] MEDS: MAGNESIUM OXIDE 400 MG TAB PO SCH ×3 (08:02→21:40)
[2018-01-28 08:54] LABS: Large Platelets Present
[2018-01-28 11:18] LABS: Glucose,Whole Blood 144 mg/dL (75-99)
--- NOTE | 2018-01-28 12:12 | P.PN ---
Subjective Progress Note Date: 01/28/18 Principal diagnosis: fatigue This is a pleasant 77-year-old female patient with past medical history significant for diabetes, hypertension, hyperlipidemia, breast cancer for which she underwent surgery several years ago, recently the patient was found to have recurrence in her cancer by mammogram. She is currently receiving chemotherapy and presented to the hospital with symptoms of fatigue and weakness. Patient was found to be in atrial fibrillation, and was initiated on a Cardizem drip. Last evening patient was put back on a Cardizem drip because the heart rate was elevated, this morning's heart rate is in the 1 teens. We will discontinue the Cardizem drip and increase beta alex to 75 twice a day she did have an echo performed which revealed an LV function of 55- 60%, hemoglobin down to 7.1 today. Patient did receive blood transfusion on admission here. Objective - Vital Signs Vital signs: Vital Signs Temp 97.3 F L 01/28/18 11:32 Pulse 116 H 01/28/18 11:32 Resp 18 01/28/18 11:32 BP 106/58 01/28/18 11:32 Pulse Ox 99 01/28/18 11:32 Intake & Output 01/27/18 01/28/18 01/28/18 18:59 06:59 18:59 Intake Total 954 169.25 410 Output Total 200 150 350 Balance 754 19.25 60 Weight 71.3 kg Intake: IV 240 240 .9 @ 20 240 240 Intake, IV Titration 294 49.25 50 Amount Diltiazem 50 mg In Sodium 44 49.25 50 Chloride 0.9% 40 ml @ 5 MG/HR 5 mls/hr IV .Q10H [facility] Rx#:[id number] Vancomycin 1,500 mg In 250 Sodium Chloride 0.9% 250 ml @ 125 mls/hr IVPB ONCE STA Rx#:[id number] Oral 420 120 120 Output: Urine 200 150 350 Other: Voiding Method Toilet # Voids 1 1 1 # Bowel Movements 1 - Exam PHYSICAL EXAMINATION: HEENT: Head is atraumatic, normocephalic. Pupils equal, round. Neck is supple. There is no elevated jugular venous pressure. HEART EXAMINATION: S1 and S2 irregularly irregular CHEST EXAMINATION: Lungs are clear to auscultation and precussion. No chest wall tenderness is noted on palpation or with deep breathing. ABDOMEN: Soft, nontender. Bowel sounds are heard. No organomegaly noted. EXTREMITIES: 2+ peripheral pulses with no evidence of peripheral edema and no calf tenderness noted. NEUROLOGIC patient is awake, alert and oriented -3. . - Labs CBC & Chem 7: 01/28/18 05:58 01/28/18 05:58 Labs: Abnormal Lab Results - Last 24 Hours (Table) 01/26/18 01/27/18 01/27/18 Range/Units 15:10 11:34 16:35 WBC (3.8-10.6) k/uL RBC (3.80-5.40) m/uL Hgb (11.4-16.0) gm/dL Hct (34.0-46.0) % Plt Count (150-450) k/uL Chloride (98-107) mmol/L Carbon Dioxide (22-30) mmol/L BUN (7-17) mg/dL Glucose (74-99) mg/dL POC Glucose (mg/dL) 178 H 127 H (75-99) mg/dL Crossmatch See Detail 01/27/18 01/28/18 01/28/18 Range/Units 20:44 05:58 05:58 WBC 0.5 L* (3.8-10.6) k/uL RBC 2.34 L (3.80-5.40) m/uL Hgb 7.1 L (11.4-16.0) gm/dL Hct 20.4 L (34.0-46.0) % Plt Count 19 L* (150-450) k/uL Chloride 108 H (98-107) mmol/L Carbon Dioxide 18 L (22-30) mmol/L BUN 33 H (7-17) mg/dL Glucose 109 H (74-99) mg/dL POC Glucose (mg/dL) 136 H (75-99) mg/dL Crossmatch 01/28/18 01/28/18 Range/Units 06:07 11:16 WBC (3.8-10.6) k/uL RBC (3.80-5.40) m/uL Hgb (11.4-16.0) gm/dL Hct (34.0-46.0) % Plt Count (150-450) k/uL Chloride (98-107) mmol/L Carbon Dioxide (22-30) mmol/L BUN (7-17) mg/dL Glucose (74-99) mg/dL POC Glucose (mg/dL) 132 H 144 H (75-99) mg/dL Crossmatch Microbiology - Last 24 Hours (Table) 01/26/18 15:10 Blood Culture - Preliminary Blood No Growth after 24 hours 01/27/18 00:27 Urine Culture - Preliminary Urine,Voided Assessment and Plan Plan: Assessment and plan #1 atypical atrial flutter, paroxysmal #2 pancytopenia #3 acute on chronic renal failure, improved #4 mild troponin abnormality, likely secondary to atrial fibrillation with rapid ventricular response #5 hypertension #6 diabetes #7 hyperlipidemia #8 breast cancer on chemotherapy #9 anemia requiring blood transfusion Plan Echocardiogram with Doppler study revealed normal left ventricular systolic function. We will discontinue the IV Cardizem and increase the dose of beta alex to 75 mg by mouth twice a day. Patient is not a candidate for anticoagulation. DNP note has been reviewed, I agree with a documented findings and plan of care. Patient was seen and examined.
[2018-01-28] MEDS: LACTATED RINGERS 1,000 ML IV SCH (13:52)
--- NOTE | 2018-01-28 14:10 | PN ---
PROGRESS NOTE DATE OF SERVICE: January 28, 2018. PRESENTING COMPLAINT: Weak, tired. INTERVAL HISTORY: This is a patient has had recurrence of breast cancer, did get a chemotherapy about a week ago, presented with pancytopenia and atrial flutter. The patient remains on Cardizem drip and beta alex. Heart rate is still uncontrolled running in 130s to 140s. Patient does feel weak and tired. The patient had 2 loose stools, totally watery, no abdominal pain. No fever. Just feels tired and run down. REVIEW OF SYSTEMS: Done for constitutional, cardiovascular, GI, pulmonary; relevant findings as above. CURRENT MEDICATIONS: Reviewed that include Cardizem drip and Tenormin 75 twice a day. PHYSICAL EXAMINATION: Temperature 96.8, pulse 140, respiration 18, blood pressure 128/88, pulse ox 90% on room air. General appearance: Lying in bed, tired appearing. Eyes: Pupils equal. Conjunctivae pale. HEENT: External appearance of nose and ears normal. Oral cavity normal, loss of hair. Neck JVD not raised. Mass not palpable. Respiratory effort lungs fair entry. Cardiovascular HEART: Sounds irregular. No edema. ABDOMEN: Soft, nontender. Liver and spleen not palpable. Psychiatry: Alert and oriented x3. Mood and affect normal. INVESTIGATIONS: White count 0.5, hemoglobin 7.1, platelets 19, bicarb 18, BUN 32, creatinine 0.70. ASSESSMENT: 1. New onset atrial flutter with rapid ventricular rate uncontrolled on Cardizem drip. 2. Pancytopenia on chemotherapy, slow to respond. Patient did get stimulating factor. The patient has probably expected to come up. 3. Metabolic acidosis. 4. Acute renal failure probably prerenal improving. 5. Hyperphosphatemia. 6. Hypomagnesemia. 7. Troponin leak probably from uncontrolled heart rate. 8. Diabetes mellitus type 2 on oral hypoglycemics. 9. Hyperlipidemia. 10.Essential hypertension. 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 12.New onset diarrhea could be from metformin not eating more. It is not behaving like C diff, but need to check it out once she has had more than 3 bowel movements. Care was discussed with the patient. Will add IV fluids. Keep a close eye on the CBC and follow. MMODL / IJN: [id number] /
[2018-01-28 16:10] LABS: Glucose,Whole Blood 146 mg/dL (75-99)
[2018-01-28 21:03] LABS: Glucose,Whole Blood 114 mg/dL (75-99)
[2018-01-28] MEDS: ATORVASTATIN 20 MG TAB PO SCH (21:40)
[2018-01-29] MEDS: LACTATED RINGERS 1,000 ML IV SCH ×3 (04:30→20:16)
[2018-01-29] MEDS: DILTIAZEM 50 MG in SODIUM CHLORIDE 0.9% 40 ML IV SCH (04:30)
[2018-01-29 05:56] LABS: Glucose,Whole Blood 119 mg/dL (75-99)
[2018-01-29] MEDS: metFORMIN 500 MG TAB PO SCH ×2 (06:15→17:07)
[2018-01-29 06:53] LABS: Poikilocytosis Slight
[2018-01-29 07:00] LABS: Basophils % (A) 1 %; Eosinophils % (A) 0 %; HCT 25.3 % (34.0-46.0); HGB 8.9 gm/dL (11.4-16.0); Lymphocytes # (A) 0.2 k/uL (1.0-4.8); Lymphocytes % (A) 9 %; MCH 30.6 pg (25.0-35.0); MCV 87.2 fL (80.0-100.0); Mean Platelet Volume 10.9; Monocytes # (A) 0.2 k/uL (0-1.0); Monocytes % (A) 8 %; Neutrophils # (A) 1.9 k/uL (1.3-7.7); Neutrophils % (A) 79 %; RBC 2.89 m/uL (3.80-5.40); RDW 14.6 % (11.5-15.5); WBC 2.3 k/uL (3.8-10.6)
[2018-01-29 07:02] LABS: Platelet Count 32 k/uL (150-450)
[2018-01-29 07:13] LABS: Calcium 8.8 mg/dL (8.4-10.2); Magnesium 1.8 mg/dL (1.6-2.3); Potassium 4.4 mmol/L (3.5-5.1)
[2018-01-29] MEDS: CHLORTHALIDONE 25 MG TAB PO SCH (08:49)
[2018-01-29] MEDS: ATENOLOL 50 MG TAB PO SCH ×2 (08:49→20:18)
[2018-01-29] MEDS: MAGNESIUM OXIDE 400 MG TAB PO SCH ×3 (08:49→20:18)
[2018-01-29] MEDS: MAGNESIUM SULFATE-D5W PMX 1 GM in DEXTROSE/WATER 1 100ML.BAG IVPB SCH ×2 (09:32→10:36)
--- NOTE | 2018-01-29 09:57 | P.PN ---
Subjective Progress Note Date: 01/29/18 Principal diagnosis: fatigue This is a pleasant 77-year-old female patient with past medical history significant for diabetes, hypertension, hyperlipidemia, breast cancer for which she underwent surgery several years ago, recently the patient was found to have recurrence in her cancer by mammogram. She is currently receiving chemotherapy and presented to the hospital with symptoms of fatigue and weakness. Patient was found to be in atrial fibrillation, and was initiated on a Cardizem drip. Last evening patient was put back on a Cardizem drip because the heart rate was elevated, this morning's heart rate is in the 1 teens. We will discontinue the Cardizem drip and increase beta alex to 75 twice a day she did have an echo performed which revealed an LV function of 55- 60%, hemoglobin down to 7.1 today. Patient did receive blood transfusion on admission here. 01/29/2018 Patient seen and examined this morning, feeling well overall. No complaints this morning. Converted to normal sinus rhythm. Blood pressure 132/70 with a heart rate in the 70s. White blood cell count 2.3, hemoglobin 8.9, platelet count 32. Sodium 139, potassium 4.4, BUN 37, creatinine 0.8. Magnesium 1.8. Objective - Vital Signs Vital signs: Vital Signs Temp 96.9 F L 01/29/18 08:52 Pulse 72 01/29/18 08:52 Resp 18 01/29/18 08:52 BP 133/71 01/29/18 08:52 Pulse Ox 97 01/29/18 08:52 Intake & Output 01/28/18 01/29/18 01/29/18 18:59 06:59 18:59 Intake Total 1419.667 50 Output Total 600 2 Balance 819.667 48 Weight 74.4 kg Intake: IV 240 .9 @ 20 240 Intake, IV Titration 549.667 50 Amount Diltiazem 50 mg In Sodium 99.667 50 Chloride 0.9% 40 ml @ 5 MG/HR 5 mls/hr IV .Q10H [facility] Rx#:[id number] Lactated Ringers 1,000 ml 450 @ 75 mls/hr IV .[id number] [facility] Rx#:[id number] Oral 320 Blood Product 310 Rc Irr As3 Unit 310 [id number] Output: Urine 600 Urine/Stool Mix 2 Other: Voiding Method Toilet # Voids 1 1 # Bowel Movements 1 - Exam PHYSICAL EXAMINATION: HEENT: Head is atraumatic, normocephalic. Pupils equal, round. Neck is supple. There is no elevated jugular venous pressure. HEART EXAMINATION: S1 and S2 normal CHEST EXAMINATION: Lungs are clear to auscultation and precussion. No chest wall tenderness is noted on palpation or with deep breathing. ABDOMEN: Soft, nontender. Bowel sounds are heard. No organomegaly noted. EXTREMITIES: 2+ peripheral pulses with no evidence of peripheral edema and no calf tenderness noted. NEUROLOGIC patient is awake, alert and oriented -3. . - Labs CBC & Chem 7: 01/29/18 06:39 01/29/18 06:39 Labs: Abnormal Lab Results - Last 24 Hours (Table) 01/26/18 01/28/18 01/28/18 Range/Units 15:10 11:16 16:09 WBC (3.8-10.6) k/uL RBC (3.80-5.40) m/uL Hgb (11.4-16.0) gm/dL Hct (34.0-46.0) % Plt Count (150-450) k/uL Lymphocytes # (1.0-4.8) k/uL Carbon Dioxide (22-30) mmol/L BUN (7-17) mg/dL Glucose (74-99) mg/dL POC Glucose (mg/dL) 144 H 146 H (75-99) mg/dL Crossmatch See Detail 01/28/18 01/29/18 01/29/18 Range/Units 21:02 05:55 06:39 WBC (3.8-10.6) k/uL RBC (3.80-5.40) m/uL Hgb (11.4-16.0) gm/dL Hct (34.0-46.0) % Plt Count (150-450) k/uL Lymphocytes # (1.0-4.8) k/uL Carbon Dioxide 21 L (22-30) mmol/L BUN 37 H (7-17) mg/dL Glucose 134 H (74-99) mg/dL POC Glucose (mg/dL) 114 H 119 H (75-99) mg/dL Crossmatch 01/29/18 Range/Units 06:39 WBC 2.3 L (3.8-10.6) k/uL RBC 2.89 L (3.80-5.40) m/uL Hgb 8.9 L D (11.4-16.0) gm/dL Hct 25.3 L (34.0-46.0) % Plt Count 32 L* D (150-450) k/uL Lymphocytes # 0.2 L (1.0-4.8) k/uL Carbon Dioxide (22-30) mmol/L BUN (7-17) mg/dL Glucose (74-99) mg/dL POC Glucose (mg/dL) (75-99) mg/dL Crossmatch Microbiology - Last 24 Hours (Table) 01/26/18 15:10 Blood Culture - Preliminary Blood No Growth after 48 hours 01/27/18 00:27 Urine Culture - Final Urine,Voided Assessment and Plan Plan: Assessment and plan #1 atypical atrial flutter, paroxysmal #2 pancytopenia #3 acute on chronic renal failure, improved #4 mild troponin abnormality, likely secondary to atrial fibrillation with rapid ventricular response #5 hypertension #6 diabetes #7 hyperlipidemia #8 breast cancer on chemotherapy #9 anemia requiring blood transfusion Plan Echocardiogram with Doppler study revealed normal left ventricular systolic function. Patient converted to normal sinus rhythm this morning. Hemodynamically stable. We will continue the current dose of beta alex, replace magnesium. DNP note has been reviewed, I agree with a documented findings and plan of care. Patient was seen and examined.
[2018-01-29] MEDS ORDERED: VANCOMYCIN TROUGH DUE 1 EACH MISC MISCELLANE ONE (11:00)
[2018-01-29 11:37] LABS: Glucose,Whole Blood 149 mg/dL (75-99)
[2018-01-29] MEDS: VANCOMYCIN 1,250 MG in SODIUM CHLORIDE 0.9% 250 ML IVPB SCH (11:50)
--- NOTE | 2018-01-29 12:20 | P.PN ---
Subjective Progress Note Date: 01/29/18 Principal diagnosis: Breast Cancer, Pancytopenia, Febrile Neutroopenia Mrs. Guerrero is feeling better today, her blood counts are improving and she has remained afebrile over night. She initially presented with persistent diarrhea, she states she still has diarrhea unable to control. Intermittent abdominal cramping. Objective - Vital Signs Vital signs: Vital Signs Temp 97.6 F 01/29/18 04:00 Pulse 72 01/29/18 04:00 Resp 16 01/29/18 04:00 BP 134/62 01/29/18 04:00 Pulse Ox 95 01/29/18 04:00 Intake & Output 01/28/18 01/29/18 01/29/18 18:59 06:59 18:59 Intake Total 1419.667 50 Output Total 600 2 Balance 819.667 48 Weight 74.4 kg Intake: IV 240 .9 @ 20 240 Intake, IV Titration 549.667 50 Amount Diltiazem 50 mg In Sodium 99.667 50 Chloride 0.9% 40 ml @ 5 MG/HR 5 mls/hr IV .Q10H [facility] Rx#:[id number] Lactated Ringers 1,000 ml 450 @ 75 mls/hr IV .[id number] [facility] Rx#:[id number] Oral 320 Blood Product 310 Rc Irr As3 Unit 310 [id number] Output: Urine 600 Urine/Stool Mix 2 Other: # Voids 1 1 # Bowel Movements 1 - Exam Alopecia, Calm Cooroperative, NAD - Constitutional General appearance: Present: average body habitus, no acute distress - EENT Eyes: Present: EOMI, PERRLA, dentition normal ENT: Present: NA/AT, normal oropharynx, other (Oral Thrush noted on posterior pharynx and posterior tonigue) - Neck Details: Supple and Trachea Midline Neck: Present: normal ROM - Respiratory Respiratory: bilateral: CTA (No increased effort) - Cardiovascular Heart rate: 110 Rhythm: irregularly irregular - Gastrointestinal General gastrointestinal: Present: normal bowel sounds, soft - Neurologic Neurologic Comment(s): No focal Defecits Neurologic: Present: CNII-XII intact - Musculoskeletal Musculoskeletal: Present: gait normal, strength equal bilaterally - Psychiatric Psychiatric: Present: A&O x's 3, appropriate affect, intact judgment & insight - Labs CBC & Chem 7: 01/29/18 06:39 01/29/18 06:39 Labs: Abnormal Lab Results - Last 24 Hours (Table) 01/26/18 01/28/18 01/28/18 Range/Units 15:10 05:58 11:16 WBC 0.5 L* (3.8-10.6) k/uL RBC 2.34 L (3.80-5.40) m/uL Hgb 7.1 L (11.4-16.0) gm/dL Hct 20.4 L (34.0-46.0) % Plt Count 19 L* (150-450) k/uL Lymphocytes # (1.0-4.8) k/uL Carbon Dioxide (22-30) mmol/L BUN (7-17) mg/dL Glucose (74-99) mg/dL POC Glucose (mg/dL) 144 H (75-99) mg/dL Crossmatch See Detail 01/28/18 01/28/18 01/29/18 Range/Units 16:09 21:02 05:55 WBC (3.8-10.6) k/uL RBC (3.80-5.40) m/uL Hgb (11.4-16.0) gm/dL Hct (34.0-46.0) % Plt Count (150-450) k/uL Lymphocytes # (1.0-4.8) k/uL Carbon Dioxide (22-30) mmol/L BUN (7-17) mg/dL Glucose (74-99) mg/dL POC Glucose (mg/dL) 146 H 114 H 119 H (75-99) mg/dL Crossmatch 01/29/18 01/29/18 Range/Units 06:39 06:39 WBC 2.3 L (3.8-10.6) k/uL RBC 2.89 L (3.80-5.40) m/uL Hgb 8.9 L D (11.4-16.0) gm/dL Hct 25.3 L (34.0-46.0) % Plt Count 32 L* D (150-450) k/uL Lymphocytes # 0.2 L (1.0-4.8) k/uL Carbon Dioxide 21 L (22-30) mmol/L BUN 37 H (7-17) mg/dL Glucose 134 H (74-99) mg/dL POC Glucose (mg/dL) (75-99) mg/dL Crossmatch Microbiology - Last 24 Hours (Table) 01/26/18 15:10 Blood Culture - Preliminary Blood No Growth after 48 hours 01/27/18 00:27 Urine Culture - Final Urine,Voided Assessment and Plan (1) Triple negative malignant neoplasm of breast Current Visit: Yes Status: Acute Code(s): C50.919 - MALIGNANT NEOPLASM OF UNSP SITE OF UNSPECIFIED FEMALE BREAST SNOMED Code(s): 236240643 (2) Acute kidney injury Current Visit: Yes Status: Acute Code(s): N17.9 - ACUTE KIDNEY FAILURE, UNSPECIFIED SNOMED Code(s): 37155473 (3) Atrial flutter with rapid ventricular response Current Visit: Yes Status: Acute Code(s): I48.92 - UNSPECIFIED ATRIAL FLUTTER SNOMED Code(s): 2584430 (4) Pancytopenia Current Visit: Yes Status: Acute Code(s): D61.818 - OTHER PANCYTOPENIA SNOMED Code(s): 042212391 (5) Diarrhea Current Visit: Yes Status: Acute Code(s): R19.7 - DIARRHEA, UNSPECIFIED SNOMED Code(s): 58775722 Plan: Assessment and Plan 1. 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 Pancytopenia due to chemotherapy. S/P Cycle 4 of Dose Dense AC on 01/18, received Neulasta on 01/19. - No [place] Stimulating Factor Support required at this time secondary to patient receiving Neulasta on 01/19 *Agree with antibiotics - Monitor Daily CBC with differential and provide supportive transfusions PRN. *Hemoglobin less then 8 (secondary to Atrial fibrillation will benefit from a lower threshold for transfusion support) *Platelets less than 15 (secondary to thrombocytopenia due to chemotherapy ), if signs of bleeding transfuse platelets to maintain greater than 50 3. OLLIE due to dehydration and diarrhea/vomiting. - Renal Function improved 4. Chemotherapy induced vomiting. - Supportive care with antiemetics 5. Persistent Diarrhea - Infectious versus chemotherapy - Patient states the diarrhea has worsened - Obtain stool culture, C-diff - After result if no signs of infectious diarrhea may order lomotil or imodium - Questran ok while awaiting stools to result 6. Atrial fibrillation RVR - Per Cardiology 7. Decreased PO Intake and Fatigue due to chemotherapy. - Continue with Protein supplementation, not eating meat 8. Oral Thrush - Add Nystatin Swish and Spit Physician Attestation: I have completed the complete history and physical of this patient, discussed and agree with Shelia Sharp NP above dictation, who has documented as scribe.
[2018-01-29] MEDS: NYSTATIN 100,000 UNIT/ML SUSP 500,000 UNIT/5 ML CUP PO SCH ×3 (12:29→22:46)
[2018-01-29] MEDS: LOPERAMIDE 2 MG CAP PO PRN (14:57)
[2018-01-29 17:10] LABS: Glucose,Whole Blood 122 mg/dL (75-99)
[2018-01-29] MEDS: ATORVASTATIN 20 MG TAB PO SCH (20:18)
[2018-01-29 21:00] LABS: Glucose,Whole Blood 142 mg/dL (75-99)
[2018-01-30] MEDS: VANCOMYCIN 1,250 MG in SODIUM CHLORIDE 0.9% 250 ML IVPB SCH ×2 (04:48→20:55)
[2018-01-30 06:09] LABS: Glucose,Whole Blood 140 mg/dL (75-99)
[2018-01-30] MEDS: metFORMIN 500 MG TAB PO SCH ×2 (06:28→17:03)
[2018-01-30] MEDS: LOPERAMIDE 2 MG CAP PO PRN (06:48)
[2018-01-30 07:23] LABS: Calcium 8.5 mg/dL (8.4-10.2); Potassium 3.7 mmol/L (3.5-5.1)
[2018-01-30] MEDS: ATENOLOL 50 MG TAB PO SCH ×2 (08:28→20:58)
[2018-01-30] MEDS: NYSTATIN 100,000 UNIT/ML SUSP 500,000 UNIT/5 ML CUP PO SCH ×5 (08:28→21:00)
[2018-01-30] MEDS: MAGNESIUM OXIDE 400 MG TAB PO SCH ×3 (08:28→21:00)
[2018-01-30] MEDS: CHLORTHALIDONE 25 MG TAB PO SCH (08:28)
--- NOTE | 2018-01-30 09:45 | P.PN ---
Subjective Progress Note Date: 01/30/18 Principal diagnosis: Breast Cancer, Pancytopenia, Febrile Neutroopenia Mrs. Guerrero is feeling better today, still complains of diarrhea, c-diff was negatiove. She also complains of nausea in am. at bedside, overall she is feeling ok. Her thrush has already resolved Objective - Vital Signs Vital signs: Vital Signs Temp 96.8 F L 01/30/18 08:28 Pulse 80 01/30/18 08:28 Resp 18 01/30/18 08:28 BP 143/75 01/30/18 08:28 Pulse Ox 92 L 01/30/18 08:28 Intake & Output 01/29/18 01/30/18 01/30/18 18:59 06:59 18:59 Intake Total 635 800 100 Balance 635 800 100 Weight 75.5 kg Intake: Intake, IV Titration 275 800 Amount Lactated Ringers 1,000 ml 75 800 @ 75 mls/hr IV .[id number] [facility] Rx#:[id number] Magnesium Sulfate-D5w Pmx 200 1 gm In Dextrose/Water 1 100ml.bag @ 100 mls/hr IVPB Q1H [facility] Rx#: [id number] Oral 360 100 Other: Voiding Method Toilet Toilet Toilet # Voids 1 2 # Bowel Movements 1 - Exam Alopecia, Calm Cooroperative, NAD - Constitutional General appearance: Present: cooperative, no acute distress - EENT Eyes: Present: EOMI, PERRLA, dentition normal ENT: Present: hard of hearing, NA/AT, normal oropharynx - Neck Neck: Present: normal ROM - Respiratory Respiratory: bilateral: CTA (No increased effort) - Cardiovascular Rhythm: regular Heart sounds: normal: S1, S2 - Gastrointestinal General gastrointestinal: Present: normal bowel sounds, soft, tenderness - Integumentary Integumentary: Present: normal, pale - Neurologic Neurologic Comment(s): No focal Defects Neurologic: Present: CNII-XII intact - Musculoskeletal Musculoskeletal: Present: gait normal, generalized weakness - Psychiatric Psychiatric: Present: A&O x's 3, appropriate affect, intact judgment & insight - Labs CBC & Chem 7: 01/29/18 06:39 01/30/18 06:05 Labs: Abnormal Lab Results - Last 24 Hours (Table) 01/29/18 01/29/18 01/29/18 Range/Units 11:34 16:46 20:57 Carbon Dioxide (22-30) mmol/L BUN (7-17) mg/dL Glucose (74-99) mg/dL POC Glucose (mg/dL) 149 H 122 H 142 H (75-99) mg/dL 01/30/18 01/30/18 Range/Units 06:05 06:08 Carbon Dioxide 20 L (22-30) mmol/L BUN 36 H (7-17) mg/dL Glucose 126 H (74-99) mg/dL POC Glucose (mg/dL) 140 H (75-99) mg/dL Microbiology - Last 24 Hours (Table) 01/26/18 15:10 Blood Culture - Preliminary Blood No Growth after 72 hours Assessment and Plan (1) Triple negative malignant neoplasm of breast Current Visit: Yes Status: Acute Code(s): C50.919 - MALIGNANT NEOPLASM OF UNSP SITE OF UNSPECIFIED FEMALE BREAST SNOMED Code(s): 720820501 (2) Acute kidney injury Current Visit: Yes Status: Acute Code(s): N17.9 - ACUTE KIDNEY FAILURE, UNSPECIFIED SNOMED Code(s): 52798705 (3) Atrial flutter with rapid ventricular response Current Visit: Yes Status: Acute Code(s): I48.92 - UNSPECIFIED ATRIAL FLUTTER SNOMED Code(s): 2976030 (4) Pancytopenia Current Visit: Yes Status: Acute Code(s): D61.818 - OTHER PANCYTOPENIA SNOMED Code(s): 925518750 (5) Diarrhea Current Visit: Yes Status: Acute Code(s): R19.7 - DIARRHEA, UNSPECIFIED SNOMED Code(s): 74534510 Plan: Assessment and Plan 1. 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 Pancytopenia due to chemotherapy. S/P Cycle 4 of Dose Dense AC on 01/18, received Neulasta on 01/19. - No [place] Stimulating Factor Support required at this time secondary to patient receiving Neulasta on 01/19 *Agree with antibiotics - Monitor Daily CBC with differential and provide supportive transfusions PRN. *Hemoglobin less then 8 (secondary to Atrial fibrillation will benefit from a lower threshold for transfusion support) *Platelets less than 15 (secondary to thrombocytopenia due to chemotherapy ), if signs of bleeding transfuse platelets to maintain greater than 50 3. OLLIE due to dehydration and diarrhea/vomiting. - Renal Function improved 4. Chemotherapy induced vomiting. - Supportive care with antiemetics - Increased frequency for Jennifer as she was not asking for this. 5. Persistent Diarrhea - Infectious versus chemotherapy - Patient states the diarrhea has worsened - Obtain stool culture, C-diff Negative - Imodium without relief, started Lomotil and added questran. 6. Atrial fibrillation RVR - Per Cardiology 7. Decreased PO Intake and Fatigue due to chemotherapy. - Continue with Protein supplementation, not eating meat 8. Oral Thrush - Add Nystatin Swish and Spit - Resolved 9. Encourage Jennifer to get up and out of bed during the day to avoid muscle atrophy and increased weakness. Physician Attestation: I have completed the complete history and physical of this patient, discussed and agree with Shelia Sharp NP above dictation, who has documented as scribe.
[2018-01-30 09:57] LABS: HCT 23.9 % (34.0-46.0); HGB 8.2 gm/dL (11.4-16.0); MCH 30.4 pg (25.0-35.0); MCHC 34.4 g/dL (31.0-37.0); MCV 88.4 fL (80.0-100.0); Mean Platelet Volume 12.4; RDW 14.8 % (11.5-15.5); WBC 4.2 k/uL (3.8-10.6)
[2018-01-30] MEDS ORDERED: CHOLESTYRAMINE (WITH SUGAR) 4 GM PACKET PO SCH (10:00)
[2018-01-30 10:02] LABS: Platelet Count 40 k/uL (150-450)
[2018-01-30 10:32] LABS: Band Neutrophils % 4 %; Basophils # (M) 0.04 k/uL (0-0.2); Large Platelets Present; Lymphocytes # (M) 0.21 k/uL (1.0-4.8); Metamyelocytes # (M) 0.04 k/uL (0); Metamyelocytes % 1 %; Monocytes # (M) 0.59 k/uL (0-1.0); Myelocytes # (M) 0.04 k/uL (0); Myelocytes % 1 %; Neutrophils % (M) 76 %; Nucleated Red Blood Cells 1 /100 WBC (0-0); Total Cells Counted 200
[2018-01-30] MEDS: ONDANSETRON 4 MG/2 ML VIAL IVP PRN ×2 (11:55→18:31)
[2018-01-30] MEDS: DIPHENOX-ATROP 2.5-0.025 MG 1 EACH TAB PO PRN ×2 (11:55→21:13)
[2018-01-30] MEDS: LACTATED RINGERS 1,000 ML IV SCH (11:55)
[2018-01-30 12:04] LABS: Glucose,Whole Blood 124 mg/dL (75-99)
--- NOTE | 2018-01-30 12:04 | P.PN ---
Subjective Progress Note Date: 01/30/18 Principal diagnosis: fatigue This is a pleasant 77-year-old female patient with past medical history significant for diabetes, hypertension, hyperlipidemia, breast cancer for which she underwent surgery several years ago, recently the patient was found to have recurrence in her cancer by mammogram. She is currently receiving chemotherapy and presented to the hospital with symptoms of fatigue and weakness. Patient was found to be in atrial fibrillation, and was initiated on a Cardizem drip. Last evening patient was put back on a Cardizem drip because the heart rate was elevated, this morning's heart rate is in the 1 teens. We will discontinue the Cardizem drip and increase beta alex to 75 twice a day she did have an echo performed which revealed an LV function of 55- 60%, hemoglobin down to 7.1 today. Patient did receive blood transfusion on admission here. 01/29/2018 Patient seen and examined this morning, feeling well overall. No complaints this morning. Converted to normal sinus rhythm. Blood pressure 132/70 with a heart rate in the 70s. White blood cell count 2.3, hemoglobin 8.9, platelet count 32. Sodium 139, potassium 4.4, BUN 37, creatinine 0.8. Magnesium 1.8. 01/30/2018 Patient seen and examined this morning, she is remaining in normal sinus rhythm. Hemodynamically stable. Her main complaint this morning is of feeling nauseated, and she states that she's having diarrhea stool. Other than that, overall she feels well. Her hemoglobin today is 8.2 platelet count is 40. Objective - Vital Signs Vital signs: Vital Signs Temp 97.2 F L 01/30/18 11:00 Pulse 76 01/30/18 11:00 Resp 18 01/30/18 11:00 BP 125/70 01/30/18 11:00 Pulse Ox 93 L 01/30/18 11:00 Intake & Output 01/29/18 01/30/18 01/30/18 18:59 06:59 18:59 Intake Total 635 800 100 Balance 635 800 100 Weight 75.5 kg Intake: Intake, IV Titration 275 800 Amount Lactated Ringers 1,000 ml 75 800 @ 75 mls/hr IV .[id number] [facility] Rx#:[id number] Magnesium Sulfate-D5w Pmx 200 1 gm In Dextrose/Water 1 100ml.bag @ 100 mls/hr IVPB Q1H [facility] Rx#: [id number] Oral 360 100 Other: Voiding Method Toilet Toilet Toilet # Voids 1 2 # Bowel Movements 1 - Exam PHYSICAL EXAMINATION: HEENT: Head is atraumatic, normocephalic. Pupils equal, round. Neck is supple. There is no elevated jugular venous pressure. HEART EXAMINATION: S1 and S2 normal CHEST EXAMINATION: Lungs are clear to auscultation and precussion. No chest wall tenderness is noted on palpation or with deep breathing. ABDOMEN: Soft, nontender. Bowel sounds are heard. No organomegaly noted. EXTREMITIES: 2+ peripheral pulses with no evidence of peripheral edema and no calf tenderness noted. NEUROLOGIC patient is awake, alert and oriented -3. . - Labs CBC & Chem 7: 01/30/18 06:05 01/30/18 06:05 Labs: Abnormal Lab Results - Last 24 Hours (Table) 01/29/18 01/29/18 01/30/18 Range/Units 16:46 20:57 06:05 RBC (3.80-5.40) m/uL Hgb (11.4-16.0) gm/dL Hct (34.0-46.0) % Plt Count (150-450) k/uL Lymphocytes # (Manual) (1.0-4.8) k/uL Metamyelocytes # (Man) (0) k/uL Myelocytes # (Manual) (0) k/uL Nucleated RBCs (0-0) /100 WBC Carbon Dioxide 20 L (22-30) mmol/L BUN 36 H (7-17) mg/dL Glucose 126 H (74-99) mg/dL POC Glucose (mg/dL) 122 H 142 H (75-99) mg/dL 01/30/18 01/30/18 Range/Units 06:05 06:08 RBC 2.70 L (3.80-5.40) m/uL Hgb 8.2 L (11.4-16.0) gm/dL Hct 23.9 L (34.0-46.0) % Plt Count 40 L* (150-450) k/uL Lymphocytes # (Manual) 0.21 L (1.0-4.8) k/uL Metamyelocytes # (Man) 0.04 H (0) k/uL Myelocytes # (Manual) 0.04 H (0) k/uL Nucleated RBCs 1 H (0-0) /100 WBC Carbon Dioxide (22-30) mmol/L BUN (7-17) mg/dL Glucose (74-99) mg/dL POC Glucose (mg/dL) 140 H (75-99) mg/dL Microbiology - Last 24 Hours (Table) 01/26/18 15:10 Blood Culture - Preliminary Blood No Growth after 72 hours Assessment and Plan Plan: Assessment and plan #1 atypical atrial flutter, paroxysmal currently in normal sinus rhythm #2 pancytopenia #3 acute on chronic renal failure, improved #4 mild troponin abnormality, likely secondary to atrial fibrillation with rapid ventricular response #5 hypertension #6 diabetes #7 hyperlipidemia #8 breast cancer on chemotherapy #9 anemia requiring blood transfusion Plan Echocardiogram with Doppler study revealed normal left ventricular systolic function. Patient continues to be in a normal sinus rhythm this morning. Hemodynamically stable. We will continue the current dose of beta alex. Upon discharge, follow-up appointment with Dr. Victoria in the office. DNP note has been reviewed, I agree with a documented findings and plan of care. Patient was seen and examined.
--- NOTE | 2018-01-30 14:37 | P.PN ---
Progress Note - Text Progress Note Date: 01/30/18 This is an addendum to the cardiology progress note dictated. Patient's mild troponin abnormality, likely secondary to atrial flutter with rapid ventricular response. DNP note has been reviewed, I agree with a documented findings and plan of care. Patient was seen and examined.
[2018-01-30 17:02] LABS: Glucose,Whole Blood 131 mg/dL (75-99)
[2018-01-30 20:11] LABS: Glucose,Whole Blood 127 mg/dL (75-99)
[2018-01-30] MEDS: CHOLESTYRAMINE (WITH SUGAR) 4 GM PACKET PO SCH (21:00)
[2018-01-30] MEDS: ATORVASTATIN 20 MG TAB PO SCH (21:00)
[2018-01-31 07:30] LABS: Glucose,Whole Blood 130 mg/dL (75-99)
[2018-01-31 08:02] LABS: HCT 24.6 % (34.0-46.0); HGB 8.7 gm/dL (11.4-16.0); MCH 30.8 pg (25.0-35.0); MCHC 35.2 g/dL (31.0-37.0); MCV 87.4 fL (80.0-100.0); Mean Platelet Volume 10.8; Poikilocytosis Slight; RBC 2.81 m/uL (3.80-5.40); RDW 15.7 % (11.5-15.5)
[2018-01-31 08:05] LABS: Platelet Count 65 k/uL (150-450)
[2018-01-31 09:02] LABS: Band Neutrophils % 3 %; Metamyelocytes % 2 %; Myelocytes % 3 %; Neutrophils % (M) 76 %; Nucleated Red Blood Cells 2 /100 WBC (0-0); Total Cells Counted 200
[2018-01-31 09:03] LABS: Lymphocytes # (M) 0.49 k/uL (1.0-4.8); Metamyelocytes # (M) 0.16 k/uL (0); Monocytes # (M) 0.97 k/uL (0-1.0); Myelocytes # (M) 0.24 k/uL (0); Polychromasia Present; WBC 8.1 k/uL (3.8-10.6)
[2018-01-31] MEDS: ATENOLOL 50 MG TAB PO SCH ×2 (09:08→21:13)
[2018-01-31] MEDS: metFORMIN 500 MG TAB PO SCH ×2 (09:08→17:29)
[2018-01-31] MEDS: DIPHENOX-ATROP 2.5-0.025 MG 1 EACH TAB PO PRN (09:09)
[2018-01-31] MEDS: CHLORTHALIDONE 25 MG TAB PO SCH (09:09)
[2018-01-31] MEDS: NYSTATIN 100,000 UNIT/ML SUSP 500,000 UNIT/5 ML CUP PO SCH ×4 (09:09→21:14)
[2018-01-31] MEDS: MAGNESIUM OXIDE 400 MG TAB PO SCH ×3 (09:09→21:14)
[2018-01-31] MEDS: LACTATED RINGERS 1,000 ML IV SCH (12:23)
[2018-01-31 12:24] LABS: Glucose,Whole Blood 118 mg/dL (75-99)
[2018-01-31] MEDS: VANCOMYCIN 1,250 MG in SODIUM CHLORIDE 0.9% 250 ML IVPB SCH (12:42)
[2018-01-31 14:27] VITALS: BMI 29.5
--- NOTE | 2018-01-31 16:56 | CDI ---
Last Revision, September 2017 Documentation Clarification Form Date: 01/31/18 From: Ashanti Phillip RN, CCDS Admit Date: 01/26/2018 5:07:00 PM Patient Name: Jennifer Guerrero Visit Number: [id number] Discharge Date: ATTENTION: The Clinical Documentation Specialists (CDI) and [facility] Coding Staff appreciate your assistance in clarifying documentation. Please respond to the clarification below the line at the bottom and electronically sign. The CDI & [facility] Coding staff will review the response and follow-up if needed. Please note: Queries are made part of the Legal Health Record. If you have any questions, please contact the author of this message via ITS. Dr. Dhiraj Barboza History/Risk Factors: Breast Cancer on Chemo Anemia due to Chemotherapy Clinical Indicators: Chronic renal failure is in your progress notes beginning on 01/28/18 On admission: BUN 46, CR 1.43, GFR 36 01/30/18 BUN 36 CR 0.87 GFR 66 Treatment: Monitor Labs IV Fluids In order to capture the severity of condition, please further clarify if the condition signifies: CKD Stage 1 (GFR > 90) CKD Stage 2 (GFR 60-89) CKD Stage 3 (GFR 30-59) CKD Stage 4 (GFR 15-29) CKD Stage 5 (GFR <15) ESRD Other, please specify Unable to determine Please continue to document in your progress notes and discharge summary in order to capture severity of illness and risk of mortality. Include clinical findings that support your diagnosis. Paroxysmal MTDD
[2018-01-31 17:39] LABS: Glucose,Whole Blood 106 mg/dL (75-99)
[2018-01-31 20:28] LABS: Glucose,Whole Blood 118 mg/dL (75-99)
[2018-01-31] MEDS: CHOLESTYRAMINE (WITH SUGAR) 4 GM PACKET PO SCH (21:10)
[2018-01-31] MEDS: LOPERAMIDE 2 MG CAP PO PRN (21:13)
[2018-01-31] MEDS: ATORVASTATIN 20 MG TAB PO SCH (21:14)
--- NOTE | 2018-01-31 23:34 | P.PN ---
Subjective Progress Note Date: 01/29/18 Principal diagnosis: Pancytopenia and atrial fibrillation with rapid regular rate This is a pleasant 77-year-old female patient with past medical history significant for diabetes, hypertension, hyperlipidemia, breast cancer for which she underwent surgery several years ago, recently the patient was found to have recurrence in her cancer by mammogram. She is currently receiving chemotherapy and presented to the hospital with symptoms of fatigue and weakness. 01/29/2011 Hemoglobin 8.9 today. Otherwise patient is still having generalized weakness and diarrhea. Patient is pancytopenic. Platelet count around 42. Cardiology is following. Patient is being continued on atenolol. Patient was converted to sinus rhythm. Heart rate is controlled and 70s. No fever no chills. Cultures have been negative. 2-D echo showed normal EF. All other review of systems negative except the above Current medications reviewed. Objective - Vital Signs Vital signs: Vital Signs Temp 97.4 F L 01/29/18 15:00 Pulse 71 01/29/18 15:00 Resp 18 01/29/18 15:00 BP 109/59 01/29/18 15:00 Pulse Ox 92 L 01/29/18 15:00 Intake & Output 01/28/18 01/29/18 01/29/18 18:59 06:59 18:59 Intake Total 1419.667 50 515 Output Total 600 2 Balance 819.667 48 515 Weight 74.4 kg Intake: IV 240 .9 @ 20 240 Intake, IV Titration 549.667 50 275 Amount Diltiazem 50 mg In Sodium 99.667 50 Chloride 0.9% 40 ml @ 5 MG/HR 5 mls/hr IV .Q10H [facility] Rx#:[id number] Lactated Ringers 1,000 ml 450 75 @ 75 mls/hr IV .[id number] [facility] Rx#:[id number] Magnesium Sulfate-D5w Pmx 200 1 gm In Dextrose/Water 1 100ml.bag @ 100 mls/hr IVPB Q1H [facility] Rx#: [id number] Oral 320 240 Blood Product 310 Rc Irr As3 Unit 310 [id number] Output: Urine 600 Urine/Stool Mix 2 Other: Voiding Method Toilet # Voids 1 1 1 # Bowel Movements 1 1 - Exam PHYSICAL EXAMINATION: Patient is lying in the bed comfortably, no acute distress, awake alert and oriented.. HEENT: Normocephalic. Neck is supple. Pupils reactive. Nostrils clear. Oral cavity is moist. Ears reveal no drainage. Neck reveals no JVD, carotid bruits, or thyromegaly. CHEST EXAMINATION: Trachea is central. Symmetrical expansion. Lung maza clear to auscultation and percussion. CARDIAC: Normal S1, S2 with no gallops. No murmurs ABDOMEN: Soft. Bowel sounds normal. No organomegaly. No abdominal bruits. Extremities: reveal no edema. No clubbing or cyanosis Neurologically awake, alert, oriented x3 with well-coordinated movements. No focal deficits noted Skin: No rash or skin lesions. Psychiatric: Coperative. Nonsuicidal Musculoskeletal: No joint swelling or deformity. Normal range of motion. - Labs CBC & Chem 7: 01/31/18 07:38 01/30/18 06:05 Labs: Abnormal Lab Results - Last 24 Hours (Table) 01/26/18 01/28/18 01/29/18 Range/Units 15:10 21:02 05:55 WBC (3.8-10.6) k/uL RBC (3.80-5.40) m/uL Hgb (11.4-16.0) gm/dL Hct (34.0-46.0) % Plt Count (150-450) k/uL Lymphocytes # (1.0-4.8) k/uL Carbon Dioxide (22-30) mmol/L BUN (7-17) mg/dL Glucose (74-99) mg/dL POC Glucose (mg/dL) 114 H 119 H (75-99) mg/dL Crossmatch See Detail 01/29/18 01/29/18 01/29/18 Range/Units 06:39 06:39 11:34 WBC 2.3 L (3.8-10.6) k/uL RBC 2.89 L (3.80-5.40) m/uL Hgb 8.9 L D (11.4-16.0) gm/dL Hct 25.3 L (34.0-46.0) % Plt Count 32 L* D (150-450) k/uL Lymphocytes # 0.2 L (1.0-4.8) k/uL Carbon Dioxide 21 L (22-30) mmol/L BUN 37 H (7-17) mg/dL Glucose 134 H (74-99) mg/dL POC Glucose (mg/dL) 149 H (75-99) mg/dL Crossmatch Microbiology - Last 24 Hours (Table) 01/26/18 15:10 Blood Culture - Preliminary Blood No Growth after 48 hours 01/27/18 00:27 Urine Culture - Final Urine,Voided Assessment and Plan Assessment: New onset paroxysmal atrial flutter. Rate is controlled now. Continued on atenolol. Pancytopenia due to chemotherapy Metabolic acidosis Acute kidney injury. Improved Mild troponin elevation likely due to atrial fibrillation with rapid regular rate Hypertension Diabetes type 2 Hypomagnesemia Neutropenia, anemia and thrombocytopenia. Requiring PRBC transfusion. No active bleeding noted. Breast cancer currently undergoing chemotherapy Diarrhea Plan: Patient will be continued on IV hydration. Patient is being continued on empiric antibiotics. Cultures have been negative. Cardiology is following. Heart rate is better controlled now. Continue the current management and home medications. Further recommendations based on the clinical course. Time with Patient: Greater than 30
--- NOTE | 2018-01-31 23:36 | P.PN ---
Subjective Progress Note Date: 01/30/18 Principal diagnosis: Pancytopenia and atrial fibrillation with rapid regular rate This is a pleasant 77-year-old female patient with past medical history significant for diabetes, hypertension, hyperlipidemia, breast cancer for which she underwent surgery several years ago, recently the patient was found to have recurrence in her cancer by mammogram. She is currently receiving chemotherapy and presented to the hospital with symptoms of fatigue and weakness. 01/29/2011 Hemoglobin 8.9 today. Otherwise patient is still having generalized weakness and diarrhea. Patient is pancytopenic. Platelet count around 42. Cardiology is following. Patient is being continued on atenolol. Patient was converted to sinus rhythm. Heart rate is controlled and 70s. No fever no chills. Cultures have been negative. 2-D echo showed normal EF. 01/30/2011 Hemoglobin 8.2 today. Otherwise patient is complaining of diarrhea. C. diff toxin is negative. Cultures have been negative so far. Heart rate is better controlled. Cardiology and oncology is following. Encourage ambulation and oral intake. All other review of systems negative except the above Current medications reviewed. Objective - Vital Signs Vital signs: Vital Signs Temp 97.2 F L 01/30/18 20:57 Pulse 75 01/30/18 20:57 Resp 17 01/30/18 20:57 BP 118/66 01/30/18 20:57 Pulse Ox 93 L 01/30/18 20:57 Intake & Output 01/30/18 01/30/18 01/31/18 06:59 18:59 06:59 Intake Total 800 530 475 Output Total 201 Balance 800 329 475 Weight 75.5 kg Intake: Intake, IV Titration 800 475 Amount Lactated Ringers 1,000 ml 800 225 @ 75 mls/hr IV .[id number] [facility] Rx#:[id number] Vancomycin 1,250 mg In 250 Sodium Chloride 0.9% 250 ml @ 125 mls/hr IVPB Q16H [facility] Rx#:[id number] Oral 530 Output: Urine 200 Stool 1 Other: Voiding Method Toilet Toilet # Voids 2 # Bowel Movements 1 - Exam PHYSICAL EXAMINATION: Patient is lying in the bed comfortably, no acute distress, awake alert and oriented.. HEENT: Normocephalic. Neck is supple. Pupils reactive. Nostrils clear. Oral cavity is moist. Ears reveal no drainage. Neck reveals no JVD, carotid bruits, or thyromegaly. CHEST EXAMINATION: Trachea is central. Symmetrical expansion. Lung maza clear to auscultation and percussion. CARDIAC: Normal S1, S2 with no gallops. No murmurs ABDOMEN: Soft. Bowel sounds normal. No organomegaly. No abdominal bruits. Extremities: reveal no edema. No clubbing or cyanosis Neurologically awake, alert, oriented x3 with well-coordinated movements. No focal deficits noted Skin: No rash or skin lesions. Psychiatric: Coperative. Nonsuicidal Musculoskeletal: No joint swelling or deformity. Normal range of motion. - Labs CBC & Chem 7: 01/31/18 07:38 01/30/18 06:05 Labs: Abnormal Lab Results - Last 24 Hours (Table) 01/30/18 01/30/18 01/30/18 Range/Units 06:05 06:05 06:08 RBC 2.70 L (3.80-5.40) m/uL Hgb 8.2 L (11.4-16.0) gm/dL Hct 23.9 L (34.0-46.0) % Plt Count 40 L* (150-450) k/uL Lymphocytes # (Manual) 0.21 L (1.0-4.8) k/uL Metamyelocytes # (Man) 0.04 H (0) k/uL Myelocytes # (Manual) 0.04 H (0) k/uL Nucleated RBCs 1 H (0-0) /100 WBC Carbon Dioxide 20 L (22-30) mmol/L BUN 36 H (7-17) mg/dL Glucose 126 H (74-99) mg/dL POC Glucose (mg/dL) 140 H (75-99) mg/dL 01/30/18 01/30/18 01/30/18 Range/Units 11:37 16:42 20:09 RBC (3.80-5.40) m/uL Hgb (11.4-16.0) gm/dL Hct (34.0-46.0) % Plt Count (150-450) k/uL Lymphocytes # (Manual) (1.0-4.8) k/uL Metamyelocytes # (Man) (0) k/uL Myelocytes # (Manual) (0) k/uL Nucleated RBCs (0-0) /100 WBC Carbon Dioxide (22-30) mmol/L BUN (7-17) mg/dL Glucose (74-99) mg/dL POC Glucose (mg/dL) 124 H 131 H 127 H (75-99) mg/dL Microbiology - Last 24 Hours (Table) 01/26/18 15:10 Blood Culture - Preliminary Blood No Growth after 96 hours 01/30/18 03:20 Stool Culture - Preliminary Stool Assessment and Plan Assessment: New onset paroxysmal atrial flutter. Rate is controlled now. Continued on atenolol. Pancytopenia due to chemotherapy Metabolic acidosis Acute kidney injury. Improved Mild troponin elevation likely due to atrial fibrillation with rapid regular rate Hypertension Diabetes type 2 Hypomagnesemia Neutropenia, anemia and thrombocytopenia. Requiring PRBC transfusion. No active bleeding noted. Breast cancer currently undergoing chemotherapy Diarrhea. C. diff negative. Stool culture is pending. Plan: Patient will be continued on IV hydration. Patient is being continued on empiric antibiotics. Cultures have been negative. Cardiology is following. Heart rate is better controlled now. Continue the current management and home medications. Further recommendations based on the clinical course. Time with Patient: Greater than 30
--- NOTE | 2018-01-31 23:39 | P.PN ---
Subjective Progress Note Date: 01/31/18 Principal diagnosis: Pancytopenia and atrial fibrillation with rapid regular rate This is a pleasant 77-year-old female patient with past medical history significant for diabetes, hypertension, hyperlipidemia, breast cancer for which she underwent surgery several years ago, recently the patient was found to have recurrence in her cancer by mammogram. She is currently receiving chemotherapy and presented to the hospital with symptoms of fatigue and weakness. 01/29/2018 Hemoglobin 8.9 today. Otherwise patient is still having generalized weakness and diarrhea. Patient is pancytopenic. Platelet count around 42. Cardiology is following. Patient is being continued on atenolol. Patient was converted to sinus rhythm. Heart rate is controlled and 70s. No fever no chills. Cultures have been negative. 2-D echo showed normal EF. 01/30/2018 Hemoglobin 8.2 today. Otherwise patient is complaining of diarrhea. C. diff toxin is negative. Cultures have been negative so far. Heart rate is better controlled. Cardiology and oncology is following. Encourage ambulation and oral intake. 01/31/2018 Patient says that she is feeling better today. Diarrhea is improved and patient is having formed stool. Hemoglobin improved to 8.7. Platelets 65 and neutropenia resolved. No fever no chills. Cultures have been negative. No other acute overnight issues. All other review of systems negative except the above Current medications reviewed. Active Medications Generic Name Dose Route Start Last Admin Trade Name Freq PRN Reason Stop Dose Admin Acetaminophen 650 mg 01/26/18 17:07 Tylenol Tab PO Q6HR PRN Mild Pain or Fever > 100.5 Atenolol 75 mg 01/28/18 11:14 01/31/18 21:13 Tenormin PO 75 mg BID [facility] Administration Atorvastatin Calcium 20 mg 01/27/18 21:00 01/31/18 21:14 Lipitor PO 20 mg HS [facility] Administration Chlorthalidone 25 mg 01/27/18 09:00 01/31/18 09:09 Hygroton PO 25 mg DAILY [facility] Administration Cholestyramine Resin 4 gm 01/30/18 21:00 01/31/18 21:10 Questran PO Not Given HS [facility] Diphenoxylate HCl/Atropine 1 each 01/30/18 09:38 01/31/18 09:09 Lomotil PO 1 each QID PRN Administration Diarrhea Vancomycin HCl 1,250 mg/ 250 mls @ 125 mls/hr 01/27/18 12:00 01/31/18 12:42 Sodium Chloride IVPB 125 mls/hr Q16H [facility] Administration Lactated Ringer's 1,000 mls @ 75 mls/hr 01/28/18 12:30 01/31/18 12:23 Lactated Ringers IV Not Given .[id number] [facility] Loperamide HCl 2 mg 01/29/18 13:23 01/31/18 21:13 Imodium PO 2 mg QID PRN Administration Diarrhea Magnesium Oxide 400 mg 01/26/18 22:00 01/31/18 21:14 Mag-Ox PO 400 mg TID [facility] Administration Metformin HCl 500 mg 01/27/18 07:30 01/31/18 17:29 Glucophage PO 500 mg BID-W/MEALS [facility] Administration Naloxone HCl 0.2 mg 01/26/18 17:07 Narcan IV Q2M PRN Opioid Reversal Nystatin 500,000 unit 01/29/18 13:00 01/31/18 21:14 Mycostatin Oral Susp PO Not Given QID [facility] Ondansetron HCl 4 mg 01/30/18 09:38 01/30/18 18:31 Zofran IVP 4 mg Q6HR PRN Administration Nausea And Vomiting Objective - Vital Signs Vital signs: Vital Signs Temp 96.9 F L 01/31/18 07:20 Pulse 73 01/31/18 09:31 Resp 17 01/31/18 09:31 BP 109/56 01/31/18 07:20 Pulse Ox 93 L 01/30/18 20:57 Intake & Output 01/30/18 01/31/18 01/31/18 18:59 06:59 18:59 Intake Total 530 1225 240 Output Total 201 1 Balance 329 1224 240 Weight 75.5 kg Intake: Intake, IV Titration 1225 Amount Lactated Ringers 1,000 ml 975 @ 75 mls/hr IV .[id number] [facility] Rx#:[id number] Vancomycin 1,250 mg In 250 Sodium Chloride 0.9% 250 ml @ 125 mls/hr IVPB Q16H [facility] Rx#:[id number] Oral 530 240 Output: Urine 200 Stool 1 1 Other: Voiding Method Toilet Toilet Bedside Commode # Voids 1 2 # Bowel Movements 1 1 - Exam PHYSICAL EXAMINATION: Patient is lying in the bed comfortably, no acute distress, awake alert and oriented.. HEENT: Normocephalic. Neck is supple. Pupils reactive. Nostrils clear. Oral cavity is moist. Ears reveal no drainage. Neck reveals no JVD, carotid bruits, or thyromegaly. CHEST EXAMINATION: Trachea is central. Symmetrical expansion. Lung maza clear to auscultation and percussion. CARDIAC: Normal S1, S2 with no gallops. No murmurs ABDOMEN: Soft. Bowel sounds normal. No organomegaly. No abdominal bruits. Extremities: reveal no edema. No clubbing or cyanosis Neurologically awake, alert, oriented x3 with well-coordinated movements. No focal deficits noted Skin: No rash or skin lesions. Psychiatric: Coperative. Nonsuicidal Musculoskeletal: No joint swelling or deformity. Normal range of motion. - Labs CBC & Chem 7: 01/31/18 07:38 01/30/18 06:05 Labs: Abnormal Lab Results - Last 24 Hours (Table) 01/30/18 01/31/18 01/31/18 Range/Units 20:09 07:27 07:38 RBC 2.81 L (3.80-5.40) m/uL Hgb 8.7 L (11.4-16.0) gm/dL Hct 24.6 L (34.0-46.0) % RDW 15.7 H (11.5-15.5) % Plt Count 65 L D (150-450) k/uL Lymphocytes # (Manual) 0.49 L (1.0-4.8) k/uL Metamyelocytes # (Man) 0.16 H (0) k/uL Myelocytes # (Manual) 0.24 H (0) k/uL Nucleated RBCs 2 H (0-0) /100 WBC POC Glucose (mg/dL) 127 H 130 H (75-99) mg/dL 01/31/18 01/31/18 Range/Units 12:07 17:34 RBC (3.80-5.40) m/uL Hgb (11.4-16.0) gm/dL Hct (34.0-46.0) % RDW (11.5-15.5) % Plt Count (150-450) k/uL Lymphocytes # (Manual) (1.0-4.8) k/uL Metamyelocytes # (Man) (0) k/uL Myelocytes # (Manual) (0) k/uL Nucleated RBCs (0-0) /100 WBC POC Glucose (mg/dL) 118 H 106 H (75-99) mg/dL Microbiology - Last 24 Hours (Table) 01/26/18 15:10 Blood Culture - Preliminary Blood No Growth after 120 hours 01/30/18 03:20 Stool Culture - Preliminary Stool Assessment and Plan Assessment: New onset paroxysmal atrial flutter. Rate is controlled now. Continued on atenolol. Pancytopenia due to chemotherapy Metabolic acidosis Acute kidney injury. Improved Mild troponin elevation likely due to atrial fibrillation with rapid regular rate Hypertension Diabetes type 2 Hypomagnesemia Neutropenia, anemia and thrombocytopenia. Requiring PRBC transfusion. No active bleeding noted. Breast cancer currently undergoing chemotherapy Diarrhea. C. diff negative. Stool culture is pending. Plan: Patient will be continued on IV hydration. Patient is being continued on empiric antibiotics. Cultures have been negative. Cardiology is following. Heart rate is better controlled now. Diarrhea is improving. Anticipate discharge in next 1-2 days. Continue the current management and home medications. Further recommendations based on the clinical course. Time with Patient: Greater than 30
[2018-02-01] MEDS: VANCOMYCIN 1,250 MG in SODIUM CHLORIDE 0.9% 250 ML IVPB SCH ×2 (03:44→21:11)
[2018-02-01] MEDS: LACTATED RINGERS 1,000 ML IV SCH (05:18)
[2018-02-01 07:03] LABS: Glucose,Whole Blood 132 mg/dL (75-99)
[2018-02-01 07:13] LABS: Calcium 8.7 mg/dL (8.4-10.2)
[2018-02-01] MEDS: metFORMIN 500 MG TAB PO SCH ×2 (08:04→18:08)
[2018-02-01] MEDS: DIPHENOX-ATROP 2.5-0.025 MG 1 EACH TAB PO PRN ×3 (08:04→21:21)
[2018-02-01] MEDS: ATENOLOL 50 MG TAB PO SCH ×2 (08:04→21:20)
[2018-02-01] MEDS: MAGNESIUM OXIDE 400 MG TAB PO SCH ×3 (08:05→21:21)
[2018-02-01] MEDS: NYSTATIN 100,000 UNIT/ML SUSP 500,000 UNIT/5 ML CUP PO SCH ×4 (08:05→21:21)
[2018-02-01] MEDS: CHLORTHALIDONE 25 MG TAB PO SCH (08:05)
[2018-02-01 11:24] LABS: Glucose,Whole Blood 112 mg/dL (75-99)
--- NOTE | 2018-02-01 12:40 | P.PN ---
Subjective Progress Note Date: 02/01/18 Principal diagnosis: Breast Cancer, Pancytopenia, Febrile Neutroopenia Mrs. Guerrero seen in follow-up today. She is stilling having quite a bit of diarrhea and states she was up all night with it, although she has not started the questran ordered a couple days ago and/or has been taking the lomotil as much as she could. She has been re-educated on this. She denies any abdominal pain, her nausea has improved. Objective - Vital Signs Vital signs: Vital Signs Temp 98 F 02/01/18 07:10 Pulse 67 02/01/18 07:10 Resp 18 02/01/18 07:10 BP 122/68 02/01/18 07:10 Pulse Ox 93 L 02/01/18 07:10 Intake & Output 01/31/18 02/01/18 02/01/18 18:59 06:59 18:59 Intake Total 240 Output Total 1 Balance 240 -1 Weight 75.5 kg Intake: Oral 240 Output: Stool 1 Other: Voiding Method Bedside Commode Bedside Commode Bedside Commode # Voids 2 1 1 # Bowel Movements 3 - Constitutional General appearance: Present: average body habitus, cooperative, no acute distress - EENT EENT Comment(s): Bilateral conjuctivitis Eyes: Present: EOMI, PERRLA, dentition normal ENT: Present: NA/AT, normal oropharynx - Neck Details: Supple, Trachea Midline Neck: Present: normal ROM - Respiratory Respiratory: bilateral: CTA (No increased effort) - Cardiovascular Rhythm: regular Heart sounds: normal: S1, S2 - Gastrointestinal General gastrointestinal: Present: normal bowel sounds, soft - Integumentary Integumentary: Present: normal - Neurologic Neurologic: Present: CNII-XII intact - Musculoskeletal Musculoskeletal: Present: gait normal, generalized weakness, strength equal bilaterally - Psychiatric Psychiatric: Present: A&O x's 3, appropriate affect, intact judgment & insight - Labs CBC & Chem 7: 01/31/18 07:38 02/01/18 06:39 Labs: Abnormal Lab Results - Last 24 Hours (Table) 01/31/18 01/31/18 02/01/18 Range/Units 17:34 20:27 06:39 Carbon Dioxide 21 L (22-30) mmol/L BUN 42 H (7-17) mg/dL Creatinine 1.17 H (0.52-1.04) mg/dL Glucose 112 H (74-99) mg/dL POC Glucose (mg/dL) 106 H 118 H (75-99) mg/dL 02/01/18 02/01/18 Range/Units 06:57 11:20 Carbon Dioxide (22-30) mmol/L BUN (7-17) mg/dL Creatinine (0.52-1.04) mg/dL Glucose (74-99) mg/dL POC Glucose (mg/dL) 132 H 112 H (75-99) mg/dL Microbiology - Last 24 Hours (Table) 01/30/18 03:20 Stool Culture - Preliminary Stool 01/26/18 15:10 Blood Culture - Preliminary Blood No Growth after 120 hours Assessment and Plan (1) Triple negative malignant neoplasm of breast Current Visit: Yes Status: Acute Code(s): C50.919 - MALIGNANT NEOPLASM OF UNSP SITE OF UNSPECIFIED FEMALE BREAST SNOMED Code(s): 265021852 (2) Acute kidney injury Current Visit: Yes Status: Acute Code(s): N17.9 - ACUTE KIDNEY FAILURE, UNSPECIFIED SNOMED Code(s): 83562518 (3) Atrial flutter with rapid ventricular response Current Visit: Yes Status: Acute Code(s): I48.92 - UNSPECIFIED ATRIAL FLUTTER SNOMED Code(s): 9876475 (4) Pancytopenia Current Visit: Yes Status: Acute Code(s): D61.818 - OTHER PANCYTOPENIA SNOMED Code(s): 643599078 (5) Diarrhea Current Visit: Yes Status: Acute Code(s): R19.7 - DIARRHEA, UNSPECIFIED SNOMED Code(s): 84480839 Plan: Assessment and Plan 1. 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 Pancytopenia due to chemotherapy. S/P Cycle 4 of Dose Dense AC on 01/18, received Neulasta on 01/19. - No [place] Stimulating Factor Support required at this time secondary to patient receiving Neulasta on 01/19 *Agree with antibiotics - Monitor Daily CBC with differential and provide supportive transfusions PRN. *Hemoglobin less then 8 (secondary to Atrial fibrillation will benefit from a lower threshold for transfusion support) *Platelets less than 15 (secondary to thrombocytopenia due to chemotherapy ), if signs of bleeding transfuse platelets to maintain greater than 50 3. OLLIE due to dehydration and diarrhea/vomiting. - Renal Function improved 4. Chemotherapy induced vomiting. - Supportive care with antiemetics - Increased frequency for Jennifer as she was not asking for this. 5. Persistent Diarrhea - Infectious versus chemotherapy - Patient states the diarrhea has worsened - Obtain stool culture, C-diff Negative - Imodium without relief, started Lomotil and added questran. - Re-educated today on purpose of questran and patient agreed to utilize when offered at night as well as re--educated on lomotil and imodium use. - Check CMP and Magnesium in am to reassess electrolytes and renal function - COntinue IVF 6. Atrial fibrillation RVR - Per Cardiology 7. Decreased PO Intake and Fatigue due to chemotherapy. - Continue with Protein supplementation, not eating meat 8. Oral Thrush - Add Nystatin Swish and Spit - Resolved 9. Encourage Jennifer to get up and out of bed during the day to avoid muscle atrophy and increased weakness. 10. Bilateral COnjunctivities - Likely side effect from chemotherapy although with immunocompromised state may be underlying bacterial component - Add maxitrol eye drops Physician Attestation: I have completed the complete history and physical of this patient, discussed and agree with Shelia Sharp NP above dictation, who has documented as scribe.
[2018-02-01] MEDS: LOPERAMIDE 2 MG CAP PO PRN ×2 (12:46→18:08)
[2018-02-01] MEDS: NEOMYCIN-POLYMYXIN-DEXAMETH (3.5-10,000-0.1) DROPS 5 ML BTL BOTH EYES SCH ×3 (15:06→21:19)
[2018-02-01 17:16] LABS: Glucose,Whole Blood 112 mg/dL (75-99)
[2018-02-01 20:09] LABS: Glucose,Whole Blood 122 mg/dL (75-99)
[2018-02-01] MEDS: ATORVASTATIN 20 MG TAB PO SCH (21:20)
[2018-02-01] MEDS: CHOLESTYRAMINE (WITH SUGAR) 4 GM PACKET PO SCH (21:21)
--- NOTE | 2018-02-01 23:29 | P.PN ---
Subjective Progress Note Date: 02/01/18 Principal diagnosis: Pancytopenia and atrial fibrillation with rapid regular rate This is a pleasant 77-year-old female patient with past medical history significant for diabetes, hypertension, hyperlipidemia, breast cancer for which she underwent surgery several years ago, recently the patient was found to have recurrence in her cancer by mammogram. She is currently receiving chemotherapy and presented to the hospital with symptoms of fatigue and weakness. 01/29/2018 Hemoglobin 8.9 today. Otherwise patient is still having generalized weakness and diarrhea. Patient is pancytopenic. Platelet count around 42. Cardiology is following. Patient is being continued on atenolol. Patient was converted to sinus rhythm. Heart rate is controlled and 70s. No fever no chills. Cultures have been negative. 2-D echo showed normal EF. 01/30/2018 Hemoglobin 8.2 today. Otherwise patient is complaining of diarrhea. C. diff toxin is negative. Cultures have been negative so far. Heart rate is better controlled. Cardiology and oncology is following. Encourage ambulation and oral intake. 01/31/2018 Patient says that she is feeling better today. Diarrhea is improved and patient is having formed stool. Hemoglobin improved to 8.7. Platelets 65 and neutropenia resolved. No fever no chills. Cultures have been negative. No other acute overnight issues. 02 01 2018 Patient had multiple episodes of diarrhea this morning. Stool studies were sent again. Cholestyramine dose has been increased. Otherwise patient feels symptomatically better today. We'll recheck CBC and BMP tomorrow. No fever no chills no chest pain no shortness of breath. No other acute overnight issues. Renal function has been stable continued on IV hydration.. All other review of systems negative except the above Current medications reviewed. Active Medications Generic Name Dose Route Start Last Admin Trade Name Freq PRN Reason Stop Dose Admin Acetaminophen 650 mg 01/26/18 17:07 Tylenol Tab PO Q6HR PRN Mild Pain or Fever > 100.5 Atenolol 75 mg 01/28/18 11:14 01/31/18 21:13 Tenormin PO 75 mg BID [facility] Administration Atorvastatin Calcium 20 mg 01/27/18 21:00 01/31/18 21:14 Lipitor PO 20 mg HS [facility] Administration Chlorthalidone 25 mg 01/27/18 09:00 01/31/18 09:09 Hygroton PO 25 mg DAILY [facility] Administration Cholestyramine Resin 4 gm 01/30/18 21:00 01/31/18 21:10 Questran PO Not Given HS [facility] Diphenoxylate HCl/Atropine 1 each 01/30/18 09:38 01/31/18 09:09 Lomotil PO 1 each QID PRN Administration Diarrhea Vancomycin HCl 1,250 mg/ 250 mls @ 125 mls/hr 01/27/18 12:00 01/31/18 12:42 Sodium Chloride IVPB 125 mls/hr Q16H [facility] Administration Lactated Ringer's 1,000 mls @ 75 mls/hr 01/28/18 12:30 01/31/18 12:23 Lactated Ringers IV Not Given .[id number] [facility] Loperamide HCl 2 mg 01/29/18 13:23 01/31/18 21:13 Imodium PO 2 mg QID PRN Administration Diarrhea Magnesium Oxide 400 mg 01/26/18 22:00 01/31/18 21:14 Mag-Ox PO 400 mg TID [facility] Administration Metformin HCl 500 mg 01/27/18 07:30 01/31/18 17:29 Glucophage PO 500 mg BID-W/MEALS [facility] Administration Naloxone HCl 0.2 mg 01/26/18 17:07 Narcan IV Q2M PRN Opioid Reversal Nystatin 500,000 unit 01/29/18 13:00 01/31/18 21:14 Mycostatin Oral Susp PO Not Given QID [facility] Ondansetron HCl 4 mg 01/30/18 09:38 01/30/18 18:31 Zofran IVP 4 mg Q6HR PRN Administration Nausea And Vomiting Objective - Vital Signs Vital signs: Vital Signs Temp 97.4 F L 02/01/18 14:40 Pulse 68 02/01/18 16:10 Resp 16 02/01/18 14:40 BP 130/88 02/01/18 14:40 Pulse Ox 99 02/01/18 14:40 Intake & Output 01/31/18 02/01/18 02/01/18 18:59 06:59 18:59 Intake Total 240 Output Total 1 Balance 240 -1 Weight 75.5 kg Intake: Oral 240 Output: Stool 1 Other: Voiding Method Bedside Commode Bedside Commode Bedside Commode # Voids 2 1 3 # Bowel Movements 3 3 - Exam PHYSICAL EXAMINATION: Patient is lying in the bed comfortably, no acute distress, awake alert and oriented.. HEENT: Normocephalic. Neck is supple. Pupils reactive. Nostrils clear. Oral cavity is moist. Ears reveal no drainage. Neck reveals no JVD, carotid bruits, or thyromegaly. CHEST EXAMINATION: Trachea is central. Symmetrical expansion. Lung maza clear to auscultation and percussion. CARDIAC: Normal S1, S2 with no gallops. No murmurs ABDOMEN: Soft. Bowel sounds normal. No organomegaly. No abdominal bruits. Extremities: reveal no edema. No clubbing or cyanosis Neurologically awake, alert, oriented x3 with well-coordinated movements. No focal deficits noted Skin: No rash or skin lesions. Psychiatric: Coperative. Nonsuicidal Musculoskeletal: No joint swelling or deformity. Normal range of motion. - Labs CBC & Chem 7: 01/31/18 07:38 02/01/18 06:39 Labs: Abnormal Lab Results - Last 24 Hours (Table) 01/31/18 01/31/18 02/01/18 Range/Units 17:34 20:27 06:39 Carbon Dioxide 21 L (22-30) mmol/L BUN 42 H (7-17) mg/dL Creatinine 1.17 H (0.52-1.04) mg/dL Glucose 112 H (74-99) mg/dL POC Glucose (mg/dL) 106 H 118 H (75-99) mg/dL 02/01/18 02/01/18 02/01/18 Range/Units 06:57 11:20 17:02 Carbon Dioxide (22-30) mmol/L BUN (7-17) mg/dL Creatinine (0.52-1.04) mg/dL Glucose (74-99) mg/dL POC Glucose (mg/dL) 132 H 112 H 112 H (75-99) mg/dL Microbiology - Last 24 Hours (Table) 01/26/18 15:10 Blood Culture - Final Blood No Growth after 144 hours 01/30/18 03:20 Stool Culture - Preliminary Stool Assessment and Plan Assessment: New onset paroxysmal atrial flutter. Rate is controlled now. Continued on atenolol. Pancytopenia due to chemotherapy Diarrhea. C. diff negative. Stool culture is pending. Metabolic acidosis. Improving Acute kidney injury. Improved Mild troponin elevation likely due to atrial fibrillation with rapid regular rate Hypertension Diabetes type 2 Hypomagnesemia Neutropenia, anemia and thrombocytopenia. Requiring PRBC transfusion. No active bleeding noted. Breast cancer currently undergoing chemotherapy Plan: Patient will be continued on IV hydration. Patient is being continued on empiric antibiotics. Cultures have been negative. Cardiology is following. Heart rate is better controlled now. Diarrhea is improving. Anticipate discharge in next 1-2 days. Continue the current management and home medications. Further recommendations based on the clinical course. Time with Patient: Greater than 30
[2018-02-02] MEDS: LOPERAMIDE 2 MG CAP PO PRN ×2 (00:33→08:05)
[2018-02-02] MEDS: NEOMYCIN-POLYMYXIN-DEXAMETH (3.5-10,000-0.1) DROPS 5 ML BTL BOTH EYES SCH ×6 (00:34→21:15)
[2018-02-02] MEDS: LACTATED RINGERS 1,000 ML IV SCH ×3 (00:56→14:19)
[2018-02-02] MEDS: DIPHENOX-ATROP 2.5-0.025 MG 1 EACH TAB PO PRN ×2 (04:12→10:55)
[2018-02-02 07:04] LABS: Glucose,Whole Blood 106 mg/dL (75-99)
[2018-02-02 07:51] LABS: Albumin 2.7 g/dL (3.5-5.0); Calcium 8.7 mg/dL (8.4-10.2); Magnesium 2.1 mg/dL (1.6-2.3); Potassium 3.7 mmol/L (3.5-5.1); Total Bilirubin 0.6 mg/dL (0.2-1.3); Total Protein 4.8 g/dL (6.3-8.2)
[2018-02-02] MEDS: metFORMIN 500 MG TAB PO SCH (08:03)
[2018-02-02 08:04] LABS: Anisocytosis Slight; HCT 24.4 % (34.0-46.0); HGB 8.6 gm/dL (11.4-16.0); MCH 31.2 pg (25.0-35.0); MCHC 35.1 g/dL (31.0-37.0); MCV 88.9 fL (80.0-100.0); Mean Platelet Volume 10.2; Platelet Count 66 k/uL (150-450); Poikilocytosis Slight; RBC 2.75 m/uL (3.80-5.40); RDW 18.1 % (11.5-15.5); WBC 13.1 k/uL (3.8-10.6)
[2018-02-02] MEDS: ATENOLOL 50 MG TAB PO SCH ×2 (08:04→21:15)
[2018-02-02] MEDS: NYSTATIN 100,000 UNIT/ML SUSP 500,000 UNIT/5 ML CUP PO SCH ×4 (08:05→21:15)
[2018-02-02] MEDS: MAGNESIUM OXIDE 400 MG TAB PO SCH ×3 (08:05→21:15)
[2018-02-02] MEDS: CHLORTHALIDONE 25 MG TAB PO SCH (08:05)
[2018-02-02 09:25] LABS: Band Neutrophils % 3 %; Lymphocytes # (M) 0.26 k/uL (1.0-4.8); Metamyelocytes # (M) 0.52 k/uL (0); Metamyelocytes % 4 %; Monocytes # (M) 1.31 k/uL (0-1.0); Myelocytes # (M) 0.13 k/uL (0); Myelocytes % 1 %; Neutrophils % (M) 81 %; Nucleated Red Blood Cells 0 /100 WBC (0-0); Total Cells Counted 200
[2018-02-02 09:26] LABS: Polychromasia Present; Spherocytes Present
[2018-02-02 11:06] LABS: Glucose,Whole Blood 117 mg/dL (75-99)
[2018-02-02] MEDS ORDERED: RX INFO: IV CONTRAST WAS GIVEN 1 EACH MISC MISCELLANE PRN (14:17)
[2018-02-02] MEDS: VANCOMYCIN 1,250 MG in SODIUM CHLORIDE 0.9% 250 ML IVPB SCH (14:19)
--- NOTE | 2018-02-02 16:23 | P.PN ---
Subjective Progress Note Date: 02/02/18 The patient has noted significant improvement in her diarrhea and had about 3- 4 episodes today. Appetite is improving. She feels that she is getting adequate fluids. She denies any nausea, vomiting, fever, chills, or mouth sores. Overall she feels somewhat stronger. Objective - Vital Signs Vital signs: Vital Signs Temp 97.7 F 02/02/18 15:03 Pulse 68 02/02/18 15:03 Resp 16 02/02/18 15:03 BP 101/65 02/02/18 15:03 Pulse Ox 96 02/02/18 15:03 Intake & Output 02/01/18 02/02/18 02/02/18 18:59 06:59 18:59 Intake Total 750 Balance 750 Intake: Intake, IV Titration 750 Amount Lactated Ringers 1,000 ml 750 @ 75 mls/hr IV .[id number] [facility] Rx#:[id number] Other: Voiding Method Bedside Commode Bedside Commode Bedside Commode # Voids 3 2 1 # Bowel Movements 3 1 - Constitutional General appearance: Present: no acute distress - EENT Eyes: Present: EOMI, PERRLA ENT: Present: hearing grossly normal, normal oropharynx - Neck Thyroid: bilateral: normal size - Respiratory Respiratory: bilateral: CTA - Cardiovascular Rhythm: regular Heart sounds: normal: S1, S2 - Gastrointestinal General gastrointestinal: Present: normal bowel sounds, soft - Integumentary Integumentary: Present: normal - Neurologic Neurologic: Present: CNII-XII intact - Musculoskeletal Musculoskeletal: Present: generalized weakness, strength equal bilaterally - Psychiatric Psychiatric: Present: A&O x's 3, appropriate affect - Labs CBC & Chem 7: 02/02/18 07:05 02/02/18 07:05 Labs: Abnormal Lab Results - Last 24 Hours (Table) 02/01/18 02/01/18 02/02/18 Range/Units 17:02 20:08 06:56 WBC (3.8-10.6) k/uL RBC (3.80-5.40) m/uL Hgb (11.4-16.0) gm/dL Hct (34.0-46.0) % RDW (11.5-15.5) % Plt Count (150-450) k/uL Neutrophils # (Manual) (1.3-7.7) k/uL Lymphocytes # (Manual) (1.0-4.8) k/uL Monocytes # (Manual) (0-1.0) k/uL Metamyelocytes # (Man) (0) k/uL Myelocytes # (Manual) (0) k/uL BUN (7-17) mg/dL Creatinine (0.52-1.04) mg/dL POC Glucose (mg/dL) 112 H 122 H 106 H (75-99) mg/dL AST (14-36) U/L ALT (9-52) U/L Alkaline Phosphatase (38-126) U/L Total Protein (6.3-8.2) g/dL Albumin (3.5-5.0) g/dL 02/02/18 02/02/18 02/02/18 Range/Units 07:05 07:05 11:04 WBC 13.1 H (3.8-10.6) k/uL RBC 2.75 L (3.80-5.40) m/uL Hgb 8.6 L (11.4-16.0) gm/dL Hct 24.4 L (34.0-46.0) % RDW 18.1 H (11.5-15.5) % Plt Count 66 L (150-450) k/uL Neutrophils # (Manual) 11.00 H (1.3-7.7) k/uL Lymphocytes # (Manual) 0.26 L (1.0-4.8) k/uL Monocytes # (Manual) 1.31 H (0-1.0) k/uL Metamyelocytes # (Man) 0.52 H (0) k/uL Myelocytes # (Manual) 0.13 H (0) k/uL BUN 38 H (7-17) mg/dL Creatinine 1.09 H (0.52-1.04) mg/dL POC Glucose (mg/dL) 117 H (75-99) mg/dL AST 80 H (14-36) U/L ALT 184 H (9-52) U/L Alkaline Phosphatase 160 H (38-126) U/L Total Protein 4.8 L (6.3-8.2) g/dL Albumin 2.7 L (3.5-5.0) g/dL Microbiology - Last 24 Hours (Table) 01/30/18 03:20 Stool Culture - Final Stool 01/26/18 15:10 Blood Culture - Final Blood No Growth after 144 hours Assessment and Plan (1) Diarrhea Narrative/Plan: The patient's diarrhea had worsened yesterday, but is somewhat improved today with more regular use of antidiarrheals. CT of the abdomen and pelvis will be ordered. We'll also consider consultation to GI. However if diarrhea continues to improve with recommended use of antidiarrheals, the patient can likely be discharged in the near future, assuming no significant abnormalities noted on CT scans. Current Visit: Yes Status: Acute Code(s): R19.7 - DIARRHEA, UNSPECIFIED SNOMED Code(s): 31706656 (2) Acute kidney injury Narrative/Plan: This has progressively improved with ongoing IV hydration Current Visit: Yes Status: Acute Code(s): N17.9 - ACUTE KIDNEY FAILURE, UNSPECIFIED SNOMED Code(s): 97046045 (3) Pancytopenia Narrative/Plan: Neutropenia low platelets have resolved. Hemoglobin is also slowly improving as she gets further away from chemotherapy. Current Visit: Yes Status: Acute Code(s): D61.818 - OTHER PANCYTOPENIA SNOMED Code(s): 714619432 (4) Triple negative malignant neoplasm of breast Narrative/Plan: The patient's scheduled chemotherapy (cycle #1 of dose dense Taxol) has been held and rescheduled for next week. Current Visit: Yes Status: Acute Code(s): C50.919 - MALIGNANT NEOPLASM OF UNSP SITE OF UNSPECIFIED FEMALE BREAST SNOMED Code(s): 202868693
[2018-02-02 17:13] LABS: Glucose,Whole Blood 101 mg/dL (75-99)
[2018-02-02 19:28] LABS: Glucose,Whole Blood 101 mg/dL (75-99)
[2018-02-02] MEDS: IOPAMIDOL-300 CONTRAST 30 ML VIAL (ORAL USE) PO PRN ×2 (19:30→20:34)
--- NOTE | 2018-02-02 19:52 | US ---
EXAMINATION TYPE: US abdomen complete DATE OF EXAM: 02/02/2018 COMPARISON: PET Scan CLINICAL HISTORY: elevated liver function, diarrhea, . EXAM MEASUREMENTS: Liver Length: 16.6 cm Gallbladder Wall: Surgically absent CBD: 0.9 cm Spleen: 9.5 cm Right Kidney: 11.0 x 4.7 x 4.2 cm Left Kidney: 9.6 x 4.3 x 4.8 cm Patient of large body habitus, with extensive overlying bowel gas. Technically difficult study. Right pleural effusion noted. Pancreas: portions visualized wnl partially obscured by overlying bowel gas Liver: wnl Gallbladder: Surgically absent Evidence for sonographic Johns's sign: no CBD: wnl Spleen: wnl Right Kidney: Inferior pole partially obscured by bowel gas, no mass or hydro identified Left Kidney: Inferior pole partially obscured by bowel gas, no mass or hydro identified Upper IVC: wnl Abd Aorta: px portions only viewed due to bowel gas, appeared wnl IMPRESSION: Right pleural effusion. No focal liver defect. No dilated ducts. Limited exam due to the obesity.
[2018-02-02] MEDS: CHOLESTYRAMINE (WITH SUGAR) 4 GM PACKET PO SCH (21:15)
--- NOTE | 2018-02-02 21:33 | CT ---
EXAMINATION TYPE: CT abdomen pelvis w con DATE OF EXAM: 02/02/2018 COMPARISON: NONE HISTORY: Diarrhea and generalized abd pain. CT DLP: 1046 mGycm Automated exposure control for dose reduction was used. TECHNIQUE: Helical acquisition of images was performed from the lung bases through the pelvis. CONTRAST: Performed with Oral Contrast and with IV Contrast, patient injected with 80ml mL of Isovue 300. FINDINGS: The heart is enlarged. There are bilateral pleural effusions larger on the right side. There is some atelectasis at both lung bases and more on the right side. There is some heterogeneity in the liver. I see no definite discrete liver mass. The spleen has carey l size. There is no evidence of pancreatic mass. Bile ducts are not dilated. There are clips from cho lecystectomy. There is no adrenal mass. Kidneys show satisfactory contrast opacification. There is no hydronephrosi s. Bladder distends smoothly. There is no ascites. There is no free fluid in the pelvis. I see no pel jesús mass. Uterus is absent. Appendix is not seen. There is no sign of appendicitis. There is minimal fat stranding around both kidneys. There is no retroperitoneal adenopathy. Abdominal aorta is atherom atous. I see no intestinal wall thickening. There are no dilated loops. There is mild subcutaneous edema sumit und the abdomen. There is laminectomy defect in the lower lumbar spine. I see no bony destructive pro cess. There is a degenerative 6 mm subluxation spondylolisthesis at L4-5. There is no compression fra cture. There is moderate narrowing of the disc spaces in the lower and mid lumbar spine. Urinary blad rajeev is enlarged and measures 17 cm in length. There is minimal fluid in the paracolic gutters. IMPRESSION: CARDIOMEGALY. BILATERAL PLEURAL EFFUSIONS WITH BASILAR PULMONARY ATELECTASIS AND MILD INFILTRATE. SUBCUTANEOUS EDEMA. MILD FAT STRANDING AROUND THE KIDNEYS. THIS PROBABLY RELATES TO CHRONIC CONGESTIV E HEART FAILURE. SPONDYLOTIC CHANGES IN THE LUMBAR SPINE. NO FRACTURE. URINARY BLADDER ENLARGEMENT SUGGESTIVE OF BLADDER OUTLET OBSTRUCTION.
[2018-02-02] MEDS: ATORVASTATIN 20 MG TAB PO SCH (21:40)
[2018-02-03] MEDS: NEOMYCIN-POLYMYXIN-DEXAMETH (3.5-10,000-0.1) DROPS 5 ML BTL BOTH EYES SCH ×7 (00:36→23:43)
[2018-02-03] MEDS: VANCOMYCIN 1,250 MG in SODIUM CHLORIDE 0.9% 250 ML IVPB SCH ×2 (04:03→20:07)
[2018-02-03] MEDS: LACTATED RINGERS 1,000 ML IV SCH ×3 (04:04→21:51)
[2018-02-03 07:42] LABS: Calcium 8.6 mg/dL (8.4-10.2); Potassium 3.7 mmol/L (3.5-5.1)
[2018-02-03 07:46] LABS: Glucose,Whole Blood 110 mg/dL (75-99)
[2018-02-03] MEDS: CHLORTHALIDONE 25 MG TAB PO SCH (08:18)
[2018-02-03] MEDS: ATENOLOL 50 MG TAB PO SCH ×2 (08:18→21:51)
[2018-02-03] MEDS: MAGNESIUM OXIDE 400 MG TAB PO SCH ×3 (08:18→21:51)
[2018-02-03] MEDS: NYSTATIN 100,000 UNIT/ML SUSP 500,000 UNIT/5 ML CUP PO SCH ×4 (08:18→21:52)
[2018-02-03 11:32] LABS: Glucose,Whole Blood 122 mg/dL (75-99)
[2018-02-03 17:04] LABS: Anisocytosis Slight; HCT 26.1 % (34.0-46.0); HGB 8.7 gm/dL (11.4-16.0); MCHC 33.1 g/dL (31.0-37.0); MCV 90.7 fL (80.0-100.0); Mean Platelet Volume 10.2; Poikilocytosis Slight; RBC 2.88 m/uL (3.80-5.40); RDW 19.2 % (11.5-15.5)
[2018-02-03 17:08] LABS: Platelet Count 115 k/uL (150-450)
[2018-02-03 17:23] LABS: Metamyelocytes % 1 %; Nucleated Red Blood Cells 5 /100 WBC (0-0)
[2018-02-03 17:27] LABS: Anisocytosis (M) Present; Band Neutrophils % 6 %; Large Platelets Present; Lymphocytes # (M) 2.39 k/uL (1.0-4.8); Metamyelocytes # (M) 0.16 k/uL (0); Monocytes # (M) 0.16 k/uL (0-1.0); Neutrophils % (M) 78 %; Polychromasia Present; Reactive Lymphocytes Present; Total Cells Counted 200; WBC 15.9 k/uL (3.8-10.6)
[2018-02-03 17:44] LABS: Glucose,Whole Blood 134 mg/dL (75-99)
[2018-02-03] MEDS ORDERED: VANCOMYCIN IV PER PHARMACY 1 EACH MISC MISCELLANE PRN (18:28)
[2018-02-03 19:56] LABS: Glucose,Whole Blood 122 mg/dL (75-99)
[2018-02-03] MEDS: ATORVASTATIN 20 MG TAB PO SCH (21:51)
[2018-02-03] MEDS: CHOLESTYRAMINE (WITH SUGAR) 4 GM PACKET PO SCH (21:52)
[2018-02-03] MEDS: PIPERACILLIN-TAZOBACTAM 3.375 GM in DEXTROSE/WATER 1 50ML.BAG IVPB SCH (23:42)
--- NOTE | 2018-02-04 01:12 | P.PN ---
Subjective Progress Note Date: 02/02/18 Principal diagnosis: Pancytopenia and atrial fibrillation with rapid regular rate This is a pleasant 77-year-old female patient with past medical history significant for diabetes, hypertension, hyperlipidemia, breast cancer for which she underwent surgery several years ago, recently the patient was found to have recurrence in her cancer by mammogram. She is currently receiving chemotherapy and presented to the hospital with symptoms of fatigue and weakness. 01/29/2018 Hemoglobin 8.9 today. Otherwise patient is still having generalized weakness and diarrhea. Patient is pancytopenic. Platelet count around 42. Cardiology is following. Patient is being continued on atenolol. Patient was converted to sinus rhythm. Heart rate is controlled and 70s. No fever no chills. Cultures have been negative. 2-D echo showed normal EF. 01/30/2018 Hemoglobin 8.2 today. Otherwise patient is complaining of diarrhea. C. diff toxin is negative. Cultures have been negative so far. Heart rate is better controlled. Cardiology and oncology is following. Encourage ambulation and oral intake. 01/31/2018 Patient says that she is feeling better today. Diarrhea is improved and patient is having formed stool. Hemoglobin improved to 8.7. Platelets 65 and neutropenia resolved. No fever no chills. Cultures have been negative. No other acute overnight issues. 02 01 2018 Patient had multiple episodes of diarrhea this morning. Stool studies were sent again. Cholestyramine dose has been increased. Otherwise patient feels symptomatically better today. We'll recheck CBC and BMP tomorrow. No fever no chills no chest pain no shortness of breath. No other acute overnight issues. Renal function has been stable continued on IV hydration.. 02/02/2018 Patient is still having diarrhea. But improving as per patient. WBC 13.1 today. Ultrasound of the abdomen was done due to elevated liver enzymes which showed right pleural effusion. No focal liver defect. No dilated ducts. Oncology is following. Otherwise no fever no chills. No acute overnight issues. All other review of systems negative except the above Current medications reviewed. Active Medications Generic Name Dose Route Start Last Admin Trade Name Freq PRN Reason Stop Dose Admin Acetaminophen 650 mg 01/26/18 17:07 Tylenol Tab PO Q6HR PRN Mild Pain or Fever > 100.5 Atenolol 75 mg 01/28/18 11:14 01/31/18 21:13 Tenormin PO 75 mg BID [facility] Administration Atorvastatin Calcium 20 mg 01/27/18 21:00 01/31/18 21:14 Lipitor PO 20 mg HS [facility] Administration Chlorthalidone 25 mg 01/27/18 09:00 01/31/18 09:09 Hygroton PO 25 mg DAILY [facility] Administration Cholestyramine Resin 4 gm 01/30/18 21:00 01/31/18 21:10 Questran PO Not Given HS [facility] Diphenoxylate HCl/Atropine 1 each 01/30/18 09:38 01/31/18 09:09 Lomotil PO 1 each QID PRN Administration Diarrhea Vancomycin HCl 1,250 mg/ 250 mls @ 125 mls/hr 01/27/18 12:00 01/31/18 12:42 Sodium Chloride IVPB 125 mls/hr Q16H [facility] Administration Lactated Ringer's 1,000 mls @ 75 mls/hr 01/28/18 12:30 01/31/18 12:23 Lactated Ringers IV Not Given .[id number] [facility] Loperamide HCl 2 mg 01/29/18 13:23 01/31/18 21:13 Imodium PO 2 mg QID PRN Administration Diarrhea Magnesium Oxide 400 mg 01/26/18 22:00 01/31/18 21:14 Mag-Ox PO 400 mg TID [facility] Administration Metformin HCl 500 mg 01/27/18 07:30 01/31/18 17:29 Glucophage PO 500 mg BID-W/MEALS [facility] Administration Naloxone HCl 0.2 mg 01/26/18 17:07 Narcan IV Q2M PRN Opioid Reversal Nystatin 500,000 unit 01/29/18 13:00 01/31/18 21:14 Mycostatin Oral Susp PO Not Given QID [facility] Ondansetron HCl 4 mg 01/30/18 09:38 01/30/18 18:31 Zofran IVP 4 mg Q6HR PRN Administration Nausea And Vomiting Objective - Vital Signs Vital signs: Vital Signs Temp 97.7 F 02/02/18 15:03 Pulse 68 02/02/18 15:03 Resp 16 02/02/18 15:03 BP 101/65 02/02/18 15:03 Pulse Ox 96 02/02/18 15:03 Intake & Output 02/02/18 02/02/18 02/03/18 06:59 18:59 06:59 Intake Total 750 Output Total 1 Balance 750 -1 Intake: Intake, IV Titration 750 Amount Lactated Ringers 1,000 ml 750 @ 75 mls/hr IV .[id number] [facility] Rx#:[id number] Output: Stool 1 Other: Voiding Method Bedside Commode Bedside Commode # Voids 2 1 # Bowel Movements 1 - Exam PHYSICAL EXAMINATION: Patient is lying in the bed comfortably, no acute distress, awake alert and oriented.. HEENT: Normocephalic. Neck is supple. Pupils reactive. Nostrils clear. Oral cavity is moist. Ears reveal no drainage. Neck reveals no JVD, carotid bruits, or thyromegaly. CHEST EXAMINATION: Trachea is central. Symmetrical expansion. Lung maza clear to auscultation and percussion. CARDIAC: Normal S1, S2 with no gallops. No murmurs ABDOMEN: Soft. Bowel sounds normal. No organomegaly. No abdominal bruits. Extremities: reveal no edema. No clubbing or cyanosis Neurologically awake, alert, oriented x3 with well-coordinated movements. No focal deficits noted Skin: No rash or skin lesions. Psychiatric: Coperative. Nonsuicidal Musculoskeletal: No joint swelling or deformity. Normal range of motion. - Labs CBC & Chem 7: 02/03/18 16:56 02/03/18 06:54 Labs: Abnormal Lab Results - Last 24 Hours (Table) 02/02/18 02/02/18 02/02/18 Range/Units 06:56 07:05 07:05 WBC 13.1 H (3.8-10.6) k/uL RBC 2.75 L (3.80-5.40) m/uL Hgb 8.6 L (11.4-16.0) gm/dL Hct 24.4 L (34.0-46.0) % RDW 18.1 H (11.5-15.5) % Plt Count 66 L (150-450) k/uL Neutrophils # (Manual) 11.00 H (1.3-7.7) k/uL Lymphocytes # (Manual) 0.26 L (1.0-4.8) k/uL Monocytes # (Manual) 1.31 H (0-1.0) k/uL Metamyelocytes # (Man) 0.52 H (0) k/uL Myelocytes # (Manual) 0.13 H (0) k/uL BUN 38 H (7-17) mg/dL Creatinine 1.09 H (0.52-1.04) mg/dL POC Glucose (mg/dL) 106 H (75-99) mg/dL AST 80 H (14-36) U/L ALT 184 H (9-52) U/L Alkaline Phosphatase 160 H (38-126) U/L Total Protein 4.8 L (6.3-8.2) g/dL Albumin 2.7 L (3.5-5.0) g/dL 02/02/18 02/02/18 02/02/18 Range/Units 11:04 17:12 19:27 WBC (3.8-10.6) k/uL RBC (3.80-5.40) m/uL Hgb (11.4-16.0) gm/dL Hct (34.0-46.0) % RDW (11.5-15.5) % Plt Count (150-450) k/uL Neutrophils # (Manual) (1.3-7.7) k/uL Lymphocytes # (Manual) (1.0-4.8) k/uL Monocytes # (Manual) (0-1.0) k/uL Metamyelocytes # (Man) (0) k/uL Myelocytes # (Manual) (0) k/uL BUN (7-17) mg/dL Creatinine (0.52-1.04) mg/dL POC Glucose (mg/dL) 117 H 101 H 101 H (75-99) mg/dL AST (14-36) U/L ALT (9-52) U/L Alkaline Phosphatase (38-126) U/L Total Protein (6.3-8.2) g/dL Albumin (3.5-5.0) g/dL Microbiology - Last 24 Hours (Table) 01/30/18 03:20 Stool Culture - Final Stool 01/26/18 15:10 Blood Culture - Final Blood No Growth after 144 hours Assessment and Plan Assessment: New onset paroxysmal atrial flutter. Rate is controlled now. Continued on atenolol. Pancytopenia due to chemotherapy Diarrhea. C. diff negative. Stool culture is negative. Elevated liver enzymes Metabolic acidosis. Improving Acute kidney injury. Improved Mild troponin elevation likely due to atrial fibrillation with rapid regular rate Hypertension Diabetes type 2 Hypomagnesemia Neutropenia, anemia and thrombocytopenia. Requiring PRBC transfusion. No active bleeding noted. Breast cancer currently undergoing chemotherapy Plan: Patient will be continued on IV hydration. Patient is being continued on empiric antibiotics. Cultures have been negative. Cardiology is following. Heart rate is better controlled now. Diarrhea is improving. Anticipate discharge in next 1-2 days. Continue the current management and home medications. Further recommendations based on the clinical course. Time with Patient: Greater than 30
--- NOTE | 2018-02-04 01:17 | P.PN ---
Subjective Progress Note Date: 02/03/18 Principal diagnosis: Pancytopenia and atrial fibrillation with rapid regular rate This is a pleasant 77-year-old female patient with past medical history significant for diabetes, hypertension, hyperlipidemia, breast cancer for which she underwent surgery several years ago, recently the patient was found to have recurrence in her cancer by mammogram. She is currently receiving chemotherapy and presented to the hospital with symptoms of fatigue and weakness. 01/29/2018 Hemoglobin 8.9 today. Otherwise patient is still having generalized weakness and diarrhea. Patient is pancytopenic. Platelet count around 42. Cardiology is following. Patient is being continued on atenolol. Patient was converted to sinus rhythm. Heart rate is controlled and 70s. No fever no chills. Cultures have been negative. 2-D echo showed normal EF. 01/30/2018 Hemoglobin 8.2 today. Otherwise patient is complaining of diarrhea. C. diff toxin is negative. Cultures have been negative so far. Heart rate is better controlled. Cardiology and oncology is following. Encourage ambulation and oral intake. 01/31/2018 Patient says that she is feeling better today. Diarrhea is improved and patient is having formed stool. Hemoglobin improved to 8.7. Platelets 65 and neutropenia resolved. No fever no chills. Cultures have been negative. No other acute overnight issues. 02 01 2018 Patient had multiple episodes of diarrhea this morning. Stool studies were sent again. Cholestyramine dose has been increased. Otherwise patient feels symptomatically better today. We'll recheck CBC and BMP tomorrow. No fever no chills no chest pain no shortness of breath. No other acute overnight issues. Renal function has been stable continued on IV hydration.. 02/02/2018 Patient is still having diarrhea. But improving as per patient. WBC 13.1 today. Ultrasound of the abdomen was done due to elevated liver enzymes which showed right pleural effusion. No focal liver defect. No dilated ducts. Oncology is following. Otherwise no fever no chills. No acute overnight issues. 02/03/2018 Patient denied any complaints of chest pain or shortness of breath. Afebrile. Otherwise patient has leukocytosis 15.9 CT abdomen and pelvis showed cardiomegaly, bilateral pleural effusion, with basilar pulmonary atelectasis and mild infiltrate. Patient was started on antibiotics in the form of vancomycin and Zosyn. Encourage incentive spirometry. Patient had bladder scan showed greater than 600 cc and this straight catheter as needed was ordered if the patient does not wide spontaneously. IV fluids decreased to KVO and encourage oral intake. Diarrhea seems to improving. All other review of systems negative except the above Current medications reviewed. Active Medications Generic Name Dose Route Start Last Admin Trade Name Freq PRN Reason Stop Dose Admin Acetaminophen 650 mg 01/26/18 17:07 Tylenol Tab PO Q6HR PRN Mild Pain or Fever > 100.5 Atenolol 75 mg 01/28/18 11:14 01/31/18 21:13 Tenormin PO 75 mg BID [facility] Administration Atorvastatin Calcium 20 mg 01/27/18 21:00 01/31/18 21:14 Lipitor PO 20 mg HS [facility] Administration Chlorthalidone 25 mg 01/27/18 09:00 01/31/18 09:09 Hygroton PO 25 mg DAILY [facility] Administration Cholestyramine Resin 4 gm 01/30/18 21:00 01/31/18 21:10 Questran PO Not Given HS [facility] Diphenoxylate HCl/Atropine 1 each 01/30/18 09:38 01/31/18 09:09 Lomotil PO 1 each QID PRN Administration Diarrhea Vancomycin HCl 1,250 mg/ 250 mls @ 125 mls/hr 01/27/18 12:00 01/31/18 12:42 Sodium Chloride IVPB 125 mls/hr Q16H [facility] Administration Lactated Ringer's 1,000 mls @ 75 mls/hr 01/28/18 12:30 01/31/18 12:23 Lactated Ringers IV Not Given .[id number] [facility] Loperamide HCl 2 mg 01/29/18 13:23 01/31/18 21:13 Imodium PO 2 mg QID PRN Administration Diarrhea Magnesium Oxide 400 mg 01/26/18 22:00 01/31/18 21:14 Mag-Ox PO 400 mg TID [facility] Administration Metformin HCl 500 mg 01/27/18 07:30 01/31/18 17:29 Glucophage PO 500 mg BID-W/MEALS [facility] Administration Naloxone HCl 0.2 mg 01/26/18 17:07 Narcan IV Q2M PRN Opioid Reversal Nystatin 500,000 unit 01/29/18 13:00 01/31/18 21:14 Mycostatin Oral Susp PO Not Given QID [facility] Ondansetron HCl 4 mg 01/30/18 09:38 01/30/18 18:31 Zofran IVP 4 mg Q6HR PRN Administration Nausea And Vomiting Objective - Vital Signs Vital signs: Vital Signs Temp 97.8 F 02/03/18 15:36 Pulse 70 02/03/18 16:00 Resp 16 02/03/18 16:00 BP 131/73 02/03/18 15:36 Pulse Ox 90 L 02/03/18 15:36 Intake & Output 02/03/18 02/03/18 02/04/18 06:59 18:59 06:59 Intake Total 1190 240 Output Total 1168 Balance 1190 -928 Intake: Intake, IV Titration 600 Amount Lactated Ringers 1,000 ml 600 @ 75 mls/hr IV .[id number] [facility] Rx#:[id number] Oral 590 240 Output: Urine 500 Post Void Residual 663 Stool 5 Other: Voiding Method Bedside Commode Bedside Commode # Voids 3 2 # Bowel Movements 3 - Exam PHYSICAL EXAMINATION: Patient is lying in the bed comfortably, no acute distress, awake alert and oriented.. HEENT: Normocephalic. Neck is supple. Pupils reactive. Nostrils clear. Oral cavity is moist. Ears reveal no drainage. Neck reveals no JVD, carotid bruits, or thyromegaly. CHEST EXAMINATION: Trachea is central. Symmetrical expansion. Lung maza clear to auscultation and percussion. Left basilar crackles. CARDIAC: Normal S1, S2 with no gallops. No murmurs ABDOMEN: Soft. Bowel sounds normal. No organomegaly. No abdominal bruits. Extremities: reveal no edema. No clubbing or cyanosis Neurologically awake, alert, oriented x3 with well-coordinated movements. No focal deficits noted Skin: No rash or skin lesions. Psychiatric: Coperative. Nonsuicidal Musculoskeletal: No joint swelling or deformity. Normal range of motion. - Labs CBC & Chem 7: 02/03/18 16:56 02/03/18 06:54 Labs: Abnormal Lab Results - Last 24 Hours (Table) 02/03/18 02/03/18 02/03/18 Range/Units 06:54 07:44 11:31 WBC (3.8-10.6) k/uL RBC (3.80-5.40) m/uL Hgb (11.4-16.0) gm/dL Hct (34.0-46.0) % RDW (11.5-15.5) % Plt Count (150-450) k/uL Neutrophils # (Manual) (1.3-7.7) k/uL Metamyelocytes # (Man) (0) k/uL Nucleated RBCs (0-0) /100 WBC BUN 36 H (7-17) mg/dL Creatinine 1.14 H (0.52-1.04) mg/dL POC Glucose (mg/dL) 110 H 122 H (75-99) mg/dL 02/03/18 02/03/18 02/03/18 Range/Units 16:56 17:42 19:55 WBC 15.9 H (3.8-10.6) k/uL RBC 2.88 L (3.80-5.40) m/uL Hgb 8.7 L (11.4-16.0) gm/dL Hct 26.1 L (34.0-46.0) % RDW 19.2 H (11.5-15.5) % Plt Count 115 L D (150-450) k/uL Neutrophils # (Manual) 13.30 H (1.3-7.7) k/uL Metamyelocytes # (Man) 0.16 H (0) k/uL Nucleated RBCs 5 H (0-0) /100 WBC BUN (7-17) mg/dL Creatinine (0.52-1.04) mg/dL POC Glucose (mg/dL) 134 H 122 H (75-99) mg/dL Microbiology - Last 24 Hours (Table) 01/30/18 03:20 Stool Culture - Final Stool Assessment and Plan Assessment: New onset paroxysmal atrial flutter. Rate is controlled now. Continued on atenolol. Pancytopenia due to chemotherapy. Improving Bibasilar atelectasis with infiltrate. Possible pneumonia Diarrhea. C. diff negative. Stool culture is negative. Elevated liver enzymes Metabolic acidosis. Improving Acute kidney injury. Improved Mild troponin elevation likely due to atrial fibrillation with rapid regular rate Hypertension Diabetes type 2 Hypomagnesemia Neutropenia, anemia and thrombocytopenia. Requiring PRBC transfusion. No active bleeding noted. Breast cancer currently undergoing chemotherapy Plan: Patient will be continued on gentle IV hydration. Patient is being continued on empiric antibiotics. Cultures have been negative. Cardiology is following. Heart rate is better controlled now. Diarrhea is improving. Continue the current management and home medications. Further recommendations based on the clinical course. Time with Patient: Greater than 30
[2018-02-04] MEDS: NEOMYCIN-POLYMYXIN-DEXAMETH (3.5-10,000-0.1) DROPS 5 ML BTL BOTH EYES SCH ×5 (03:15→21:13)
[2018-02-04 07:32] LABS: Glucose,Whole Blood 123 mg/dL (75-99)
[2018-02-04 07:35] LABS: Albumin 2.7 g/dL (3.5-5.0); Calcium 8.3 mg/dL (8.4-10.2); Potassium 3.6 mmol/L (3.5-5.1); Total Bilirubin 0.8 mg/dL (0.2-1.3); Total Protein 4.7 g/dL (6.3-8.2)
[2018-02-04] MEDS: CHLORTHALIDONE 25 MG TAB PO SCH (08:43)
[2018-02-04] MEDS: PIPERACILLIN-TAZOBACTAM 3.375 GM in DEXTROSE/WATER 1 50ML.BAG IVPB SCH ×2 (08:43→17:09)
[2018-02-04] MEDS: MAGNESIUM OXIDE 400 MG TAB PO SCH ×3 (08:43→21:12)
[2018-02-04] MEDS: ATENOLOL 50 MG TAB PO SCH ×2 (08:43→21:12)
[2018-02-04] MEDS: NYSTATIN 100,000 UNIT/ML SUSP 500,000 UNIT/5 ML CUP PO SCH ×4 (08:44→21:11)
[2018-02-04 11:26] LABS: Glucose,Whole Blood 161 mg/dL (75-99)
[2018-02-04 13:14] LABS: Anisocytosis Moderate; HCT 24.5 % (34.0-46.0); HGB 8.4 gm/dL (11.4-16.0); MCH 31.5 pg (25.0-35.0); MCHC 34.3 g/dL (31.0-37.0); Macrocytosis Slight; Mean Platelet Volume 10.6; Poikilocytosis Moderate; RBC 2.66 m/uL (3.80-5.40); RDW 20.7 % (11.5-15.5)
[2018-02-04 13:15] LABS: Platelet Count 96 k/uL (150-450)
[2018-02-04] MEDS: VANCOMYCIN 1,250 MG in SODIUM CHLORIDE 0.9% 250 ML IVPB SCH (13:27)
[2018-02-04 13:42] LABS: Band Neutrophils % 5 %; Metamyelocytes % 4 %; Myelocytes % 5 %; Neutrophils % (M) 74 %; Nucleated Red Blood Cells 3 /100 WBC (0-0); Promyelocytes % 1 %; Total Cells Counted 200
[2018-02-04 13:43] LABS: Basophils # (M) 0.14 k/uL (0-0.2); Lymphocytes # (M) 0.42 k/uL (1.0-4.8); Metamyelocytes # (M) 0.56 k/uL (0); Monocytes # (M) 1.41 k/uL (0-1.0); Myelocytes # (M) 0.71 k/uL (0); Promyelocytes # (M) 0.14 k/uL (0); WBC 14.1 k/uL (3.8-10.6)
[2018-02-04 13:44] LABS: Polychromasia Present; Toxic Granulation Present; Toxic Vacuolation Present
[2018-02-04] MEDS: LACTATED RINGERS 1,000 ML IV SCH ×2 (17:10→19:53)
[2018-02-04 17:23] LABS: Glucose,Whole Blood 131 mg/dL (75-99)
[2018-02-04 17:38] LABS: Appearance,Urine Cloudy (Clear); Bilirubin,Urine Negative (Negative); Blood,Urine Negative (Negative); Color,Urine Yellow; Glucose,Urine (UA) Negative (Negative); Ketones,Urine Negative (Negative); Leukocyte Esterase,Urine Negative (Negative); Nitrite,Urine Negative (Negative); PH, Urine 5.5 (5.0-8.0); Protein,Urine Trace (Negative); RBC,Urine 1 /hpf (0-5); Specific Gravity,Urine 1.021 (1.001-1.035); Squamous Epithelial Cell,Urine <1 /hpf (0-4); Uric Acid Crystals,Urine Occasional /hpf; Urobilinogen,Urine <2.0 mg/dL (<2.0); WBC,Urine 5 /hpf (0-5)
[2018-02-04 20:26] LABS: Glucose,Whole Blood 132 mg/dL (75-99)
[2018-02-04] MEDS: ATORVASTATIN 20 MG TAB PO SCH (21:12)
[2018-02-04] MEDS: CHOLESTYRAMINE (WITH SUGAR) 4 GM PACKET PO SCH (21:12)
--- NOTE | 2018-02-04 23:12 | P.PN ---
Subjective Progress Note Date: 02/04/18 Principal diagnosis: Pancytopenia and atrial fibrillation with rapid regular rate This is a pleasant 77-year-old female patient with past medical history significant for diabetes, hypertension, hyperlipidemia, breast cancer for which she underwent surgery several years ago, recently the patient was found to have recurrence in her cancer by mammogram. She is currently receiving chemotherapy and presented to the hospital with symptoms of fatigue and weakness. 01/29/2018 Hemoglobin 8.9 today. Otherwise patient is still having generalized weakness and diarrhea. Patient is pancytopenic. Platelet count around 42. Cardiology is following. Patient is being continued on atenolol. Patient was converted to sinus rhythm. Heart rate is controlled and 70s. No fever no chills. Cultures have been negative. 2-D echo showed normal EF. 01/30/2018 Hemoglobin 8.2 today. Otherwise patient is complaining of diarrhea. C. diff toxin is negative. Cultures have been negative so far. Heart rate is better controlled. Cardiology and oncology is following. Encourage ambulation and oral intake. 01/31/2018 Patient says that she is feeling better today. Diarrhea is improved and patient is having formed stool. Hemoglobin improved to 8.7. Platelets 65 and neutropenia resolved. No fever no chills. Cultures have been negative. No other acute overnight issues. 02 01 2018 Patient had multiple episodes of diarrhea this morning. Stool studies were sent again. Cholestyramine dose has been increased. Otherwise patient feels symptomatically better today. We'll recheck CBC and BMP tomorrow. No fever no chills no chest pain no shortness of breath. No other acute overnight issues. Renal function has been stable continued on IV hydration.. 02/02/2018 Patient is still having diarrhea. But improving as per patient. WBC 13.1 today. Ultrasound of the abdomen was done due to elevated liver enzymes which showed right pleural effusion. No focal liver defect. No dilated ducts. Oncology is following. Otherwise no fever no chills. No acute overnight issues. 02/03/2018 Patient denied any complaints of chest pain or shortness of breath. Afebrile. Otherwise patient has leukocytosis 15.9 CT abdomen and pelvis showed cardiomegaly, bilateral pleural effusion, with basilar pulmonary atelectasis and mild infiltrate. Patient was started on antibiotics in the form of vancomycin and Zosyn. Encourage incentive spirometry. Patient had bladder scan showed greater than 600 cc and this straight catheter as needed was ordered if the patient does not wide spontaneously. IV fluids decreased to KVO and encourage oral intake. Diarrhea seems to improving. 02/04/2018 Patient denied any abdominal pain today. Diarrhea is much improved. Otherwise patient feels nauseated and unable to tolerate oral diet. Continued on IV hydration. Continue with antibiotics in form of Zosyn. We will repeat chest x- ray tomorrow. Patient is using incentive spirometry. Otherwise leukocytosis slightly improved. No fever no chills overnight. No chest pain no shortness of breath no cough or sputum production. No dysuria or hematuria. All other review of systems negative except the above Current medications reviewed. Active Medications Generic Name Dose Route Start Last Admin Trade Name Freq PRN Reason Stop Dose Admin Acetaminophen 650 mg 01/26/18 17:07 Tylenol Tab PO Q6HR PRN Mild Pain or Fever > 100.5 Atenolol 75 mg 01/28/18 11:14 02/04/18 21:12 Tenormin PO 75 mg BID MANINDER Administration Atorvastatin Calcium 20 mg 01/27/18 21:00 02/04/18 21:12 Lipitor PO 20 mg HS MANINDER Administration Chlorthalidone 25 mg 01/27/18 09:00 02/04/18 08:43 Hygroton PO 25 mg DAILY MANINDER Administration Cholestyramine Resin 4 gm 01/30/18 21:00 02/04/18 21:12 Questran PO Not Given HS MANINDER Diphenoxylate HCl/Atropine 1 each 01/30/18 09:38 02/02/18 10:55 Lomotil PO 1 each QID PRN Administration Diarrhea Enoxaparin Sodium 30 mg 02/05/18 09:00 Lovenox SQ DAILY MANINDER Lactated Ringer's 1,000 mls @ 75 mls/hr 02/03/18 16:45 02/04/18 19:53 Lactated Ringers IV Not Given .[id number] MANINDER Piperacillin/Tazobactam/ 50 mls @ 12.5 mls/hr 02/04/18 00:00 02/04/18 17:09 Dextrose 3.375 gm/ IV Solution IVPB 12.5 mls/hr Q8HR MANINDER Administration Loperamide HCl 2 mg 01/29/18 13:23 02/02/18 08:05 Imodium PO 2 mg QID PRN Administration Diarrhea Magnesium Oxide 400 mg 01/26/18 22:00 02/04/18 21:12 Mag-Ox PO 400 mg TID MANINDER Administration Naloxone HCl 0.2 mg 01/26/18 17:07 Narcan IV Q2M PRN Opioid Reversal Neomycin/Polymyxin/Dexamethasone 1 drops 02/01/18 13:00 02/04/18 21:13 Maxitrol Ophth Susp BOTH EYES 1 drops Q4HR [facility] Administration Nystatin 500,000 unit 01/29/18 13:00 02/04/18 21:11 Mycostatin Oral Susp PO Not Given QID [facility] Ondansetron HCl 4 mg 01/30/18 09:38 01/30/18 18:31 Zofran IVP 4 mg Q6HR PRN Administration Nausea And Vomiting Objective - Vital Signs Vital signs: Vital Signs Temp 97.8 F 02/04/18 17:48 Pulse 68 02/04/18 17:48 Resp 18 02/04/18 17:48 BP 123/69 02/04/18 17:48 Pulse Ox 94 L 02/04/18 17:48 Intake & Output 02/04/18 02/04/18 02/05/18 06:59 18:59 06:59 Intake Total 1130 240 Output Total 593 Balance 1130 -353 Weight 85.5 kg Intake: Intake, IV Titration 540 Amount Lactated Ringers 1,000 ml 240 @ 40 mls/hr IV .Q24H [facility] Rx#:[id number] Piperacillin-Tazobactam 3 50 .375 gm In Dextrose/Water 1 50ml.bag @ 12.5 mls/hr IVPB Q8HR [facility] Rx#: [id number] Vancomycin 1,250 mg In 250 Sodium Chloride 0.9% 250 ml @ 125 mls/hr IVPB Q16H [facility] Rx#:[id number] Oral 590 240 Output: Urine 500 Post Void Residual 90 Stool 3 Other: Voiding Method Bedside Commode Bedside Commode # Voids 3 3 - Exam PHYSICAL EXAMINATION: Patient is lying in the bed comfortably, no acute distress, awake alert and oriented.. HEENT: Normocephalic. Neck is supple. Pupils reactive. Nostrils clear. Oral cavity is moist. Ears reveal no drainage. Neck reveals no JVD, carotid bruits, or thyromegaly. CHEST EXAMINATION: Trachea is central. Symmetrical expansion. Lung maza clear to auscultation and no wheezing. Left basilar crackles. CARDIAC: Normal S1, S2 with no gallops. No murmurs ABDOMEN: Soft. Bowel sounds normal. No organomegaly. No abdominal bruits. Extremities: reveal no edema. No clubbing or cyanosis Neurologically awake, alert, oriented x3 with well-coordinated movements. No focal deficits noted Skin: No rash or skin lesions. Psychiatric: Coperative. Nonsuicidal Musculoskeletal: No joint swelling or deformity. Normal range of motion. - Labs CBC & Chem 7: 02/04/18 06:45 02/04/18 06:45 Labs: Abnormal Lab Results - Last 24 Hours (Table) 02/04/18 02/04/18 02/04/18 Range/Units 06:45 06:45 07:30 WBC 14.1 H (3.8-10.6) k/uL RBC 2.66 L (3.80-5.40) m/uL Hgb 8.4 L (11.4-16.0) gm/dL Hct 24.5 L (34.0-46.0) % RDW 20.7 H (11.5-15.5) % Plt Count 96 L (150-450) k/uL Neutrophils # (Manual) 11.10 H (1.3-7.7) k/uL Lymphocytes # (Manual) 0.42 L (1.0-4.8) k/uL Monocytes # (Manual) 1.41 H (0-1.0) k/uL Metamyelocytes # (Man) 0.56 H (0) k/uL Myelocytes # (Manual) 0.71 H (0) k/uL Promyelocytes # (Man) 0.14 H (0) k/uL Nucleated RBCs 3 H (0-0) /100 WBC BUN 32 H (7-17) mg/dL Creatinine 1.10 H (0.52-1.04) mg/dL Glucose 103 H (74-99) mg/dL POC Glucose (mg/dL) 123 H (75-99) mg/dL Calcium 8.3 L (8.4-10.2) mg/dL AST 52 H (14-36) U/L ALT 139 H (9-52) U/L Alkaline Phosphatase 198 H (38-126) U/L Total Protein 4.7 L (6.3-8.2) g/dL Albumin 2.7 L (3.5-5.0) g/dL Urine Appearance (Clear) Urine Protein (Negative) Uric Acid Crystals (None) /hpf 02/04/18 02/04/18 02/04/18 Range/Units 11:24 17:21 17:25 WBC (3.8-10.6) k/uL RBC (3.80-5.40) m/uL Hgb (11.4-16.0) gm/dL Hct (34.0-46.0) % RDW (11.5-15.5) % Plt Count (150-450) k/uL Neutrophils # (Manual) (1.3-7.7) k/uL Lymphocytes # (Manual) (1.0-4.8) k/uL Monocytes # (Manual) (0-1.0) k/uL Metamyelocytes # (Man) (0) k/uL Myelocytes # (Manual) (0) k/uL Promyelocytes # (Man) (0) k/uL Nucleated RBCs (0-0) /100 WBC BUN (7-17) mg/dL Creatinine (0.52-1.04) mg/dL Glucose (74-99) mg/dL POC Glucose (mg/dL) 161 H 131 H (75-99) mg/dL Calcium (8.4-10.2) mg/dL AST (14-36) U/L ALT (9-52) U/L Alkaline Phosphatase (38-126) U/L Total Protein (6.3-8.2) g/dL Albumin (3.5-5.0) g/dL Urine Appearance Cloudy H (Clear) Urine Protein Trace H (Negative) Uric Acid Crystals Occasional H (None) /hpf 02/04/18 Range/Units 20:16 WBC (3.8-10.6) k/uL RBC (3.80-5.40) m/uL Hgb (11.4-16.0) gm/dL Hct (34.0-46.0) % RDW (11.5-15.5) % Plt Count (150-450) k/uL Neutrophils # (Manual) (1.3-7.7) k/uL Lymphocytes # (Manual) (1.0-4.8) k/uL Monocytes # (Manual) (0-1.0) k/uL Metamyelocytes # (Man) (0) k/uL Myelocytes # (Manual) (0) k/uL Promyelocytes # (Man) (0) k/uL Nucleated RBCs (0-0) /100 WBC BUN (7-17) mg/dL Creatinine (0.52-1.04) mg/dL Glucose (74-99) mg/dL POC Glucose (mg/dL) 132 H (75-99) mg/dL Calcium (8.4-10.2) mg/dL AST (14-36) U/L ALT (9-52) U/L Alkaline Phosphatase (38-126) U/L Total Protein (6.3-8.2) g/dL Albumin (3.5-5.0) g/dL Urine Appearance (Clear) Urine Protein (Negative) Uric Acid Crystals (None) /hpf Assessment and Plan Assessment: New onset paroxysmal atrial flutter. Rate is controlled now. Continued on atenolol. Pancytopenia due to chemotherapy. Improving Bibasilar atelectasis with infiltrate. Possible pneumonia Diarrhea. C. diff negative. Stool culture is negative. Diarrhea is improving now. Elevated liver enzymes Metabolic acidosis. Improving Acute kidney injury. Mild troponin elevation likely due to atrial fibrillation with rapid regular rate Hypertension Diabetes type 2 Hypomagnesemia Neutropenia, anemia and thrombocytopenia. Requiring PRBC transfusion. No active bleeding noted. Breast cancer currently undergoing chemotherapy Plan: Patient will be continued on gentle IV hydration. Patient is being continued on antibiotics. Repeat chest x-ray tomorrow. Follow-up CBC and BMP. Cultures have been negative. Cardiology is following. Heart rate is better controlled now. Diarrhea is improving. Continue the current management and home medications. Further recommendations based on the clinical course. Time with Patient: Greater than 30
[2018-02-04 23:41] VITALS: RESP 16
[2018-02-05] MEDS: LACTATED RINGERS 1,000 ML IV SCH ×2 (00:08→09:02)
[2018-02-05] MEDS: PIPERACILLIN-TAZOBACTAM 3.375 GM in DEXTROSE/WATER 1 50ML.BAG IVPB SCH ×3 (00:08→17:09)
[2018-02-05] MEDS: NEOMYCIN-POLYMYXIN-DEXAMETH (3.5-10,000-0.1) DROPS 5 ML BTL BOTH EYES SCH ×5 (00:09→17:10)
--- NOTE | 2018-02-05 05:30 | CONS ---
CONSULTATION DATE OF SERVICE: 02/04/2018 REASON FOR CONSULTATION: Urinary tract infection. HISTORY OF PRESENT ILLNESS: The patient is a 77-year-old female with a past medical history significant for breast cancer that was initially treated with lumpectomy and chemo. Subsequently did have recurrence and is currently undergoing chemotherapy, the last chemo about a week ago. The patient presented to the ER at [facility] on 2017 with chief complaints of weak, tired and run down. There was no clear history of any high- grade fever, rigors or any chills. On arrival to the ER, patient noticed to be neutropenic with a white count of 0.1. Her hemoglobin was 6.5. The patient did have a UA that was mildly positive. The patient also complaining of diarrhea. The patient did have blood culture has been negative and urine came back to be negative as well as stool culture was negative and stool for C difficile was negative as well. The patient subsequently has been admitted to the hospital and has undergone workup with a CT of abdomen and pelvis completed on 02/02/2018, which did show some cardiomegaly, bilateral pleural effusion, subcutaneous edema and urinary bladder enlargement suggestive of bladder outlet obstruction. The patient noticed to have significant postvoid residual, but no significant burning with concern for possible urinary tract infection. The patient was started on Zosyn. Infectious Disease was consulted for further recommendation regarding antibiotic therapy. REVIEW OF SYSTEMS: CONSTITUTIONAL: Positive for weakness, but no high-grade fever. EYES: No complaint. ENT: No complaint. RESPIRATORY: No complaint, CARDIOVASCULAR: No complaint. GENITOURINARY: As per HPI. GASTROINTESTINAL: As per HPI. MUSCULOSKELETAL: No complaint. INTEGUMENTARY: No complaint. PSYCHOLOGICAL: No complaint. ENDOCRINE: No complaint, NEUROLOGIC: No complaint. PAST MEDICAL HISTORY: Diabetes mellitus, hypertension, breast cancer. PAST SURGICAL HISTORY: Appendectomy, back surgery, Mediport placement. SOCIAL HISTORY: No history of smoking, drinking, or drug use. FAMILY HISTORY: No pertinent findings noticed. ALLERGIES: No known drug allergies. MEDICATIONS: Medications include the patient is currently on Tylenol, Tenormin, Lipitor, Questran, Lomotil, Lovenox, Imodium, magnesium oxide, Narcan, nystatin swish and swallow, Zofran, and piperacillin tazobactam. PHYSICAL EXAMINATION: On examination, blood pressure is 126/78, pulse is 67, temperature 97.3. She is 91% on room air. General description is an elderly female lying in bed in no distress. HEENT EXAMINATION: Pallor, no scleral icterus. Oral mucous membranes dry. No pharyngeal erythema or thrush. NECK: Trachea central. No thyromegaly. LUNGS: Unlabored breathing, decreased breath sounds in the bases. No wheeze or crackle. HEART: S1, S2. Regular rate and rhythm. ABDOMEN: Soft, no tenderness. No guarding or rigidity. EXTREMITIES: No edema of the feet. SKIN EXAMINATION: No rashes or mass palpable. NEUROLOGICAL: The patient is awake, alert, oriented x3. Mood and affect normal. LABS: Hemoglobin 8.4, white count 14.1.BUN of 32, creatinine 1.10. Admission UA slightly positive. Repeat UA has been requested, currently pending. Stool culture negative. Stool for C difficile was negative. DIAGNOSTIC IMPRESSION AND PLAN: 1. Patient with recurrent breast cancer. Currently has been on chemotherapy admitted to the hospital with generalized weakness in a patient who did have evidence of neutropenia that subsequently has resolved and now has evidence of leukocytosis, more likely drug-induced and clinically doubt secondary to any infectious etiology. The patient is currently not running any fever. 2. Patient who does have some symptoms of urinary outlet obstruction, but no significant burning. She did have mild positive urine though the culture negative. PLAN: 1. We will recommend to obtain a repeat UA and culture. 2. May continue short course of antibiotic while waiting for the repeat urine culture to finalize. 3. Depending upon the clinical response as well as cultures will adjust her medications further if needed. Thank you for this consultation. Will follow this patient along with you. MMODL / IJN: [id number] / GARY
[2018-02-05 07:14] LABS: Glucose,Whole Blood 127 mg/dL (75-99)
[2018-02-05 08:05] LABS: Calcium 8.6 mg/dL (8.4-10.2); Potassium 3.2 mmol/L (3.5-5.1)
[2018-02-05 08:21] LABS: Anisocytosis Moderate; HCT 24.6 % (34.0-46.0); HGB 8.6 gm/dL (11.4-16.0); Hyperchromasia Slight; MCH 31.2 pg (25.0-35.0); MCHC 34.9 g/dL (31.0-37.0); MCV 89.6 fL (80.0-100.0); Macrocytosis Slight; Mean Platelet Volume 9.9; Platelet Count 115 k/uL (150-450); Poikilocytosis Moderate; RBC 2.74 m/uL (3.80-5.40); RDW 21.7 % (11.5-15.5)
[2018-02-05] MEDS: ATENOLOL 50 MG TAB PO SCH (08:59)
[2018-02-05] MEDS ORDERED: ENOXAPARIN 30 MG/0.3 ML SYRINGE SQ SCH (09:00)
[2018-02-05] MEDS: CHLORTHALIDONE 25 MG TAB PO SCH (09:01)
[2018-02-05] MEDS: MAGNESIUM OXIDE 400 MG TAB PO SCH ×2 (09:02→17:11)
[2018-02-05] MEDS: NYSTATIN 100,000 UNIT/ML SUSP 500,000 UNIT/5 ML CUP PO SCH ×3 (09:02→17:16)
[2018-02-05 09:55] LABS: Band Neutrophils % 4 %; Eosinophils # (M) 0.16 k/uL (0-0.7); Lymphocytes # (M) 0.47 k/uL (1.0-4.8); Metamyelocytes # (M) 0.31 k/uL (0); Metamyelocytes % 2 %; Monocytes # (M) 0.62 k/uL (0-1.0); Myelocytes # (M) 0.31 k/uL (0); Myelocytes % 2 %; Neutrophils % (M) 86 %; Nucleated Red Blood Cells 2 /100 WBC (0-0); Total Cells Counted 200; WBC 15.6 k/uL (3.8-10.6)
[2018-02-05 09:57] LABS: Poikilocytosis (M) Present; Spherocytes Present
[2018-02-05 10:57] LABS: Glucose,Whole Blood 124 mg/dL (75-99)
--- NOTE | 2018-02-05 11:25 | XR ---
EXAMINATION TYPE: XR chest 1V DATE OF EXAM: 02/05/2018 COMPARISON: 01/26/2018 HISTORY: 77 year-old female shortness of breath TECHNIQUE: Single frontal view of the chest is obtained. FINDINGS: Left-sided chest wall injection port with catheter tip at the mid SVC level. Heart mildly enlarged. S mall left greater than right pleural effusions are new with patchy bibasilar densities. Some perihila r densities. Surgical clips in the right axilla and right breast. IMPRESSION: 1. Correlate for mild CHF with pulmonary vascular congestion. 2. New small pleural effusions with adjacent atelectasis and/or consolidation.
[2018-02-05 16:52] VITALS: BP 139/81; PULSE 66; TEMP 97.9
[2018-02-05] MEDS ORDERED: POTASSIUM CHLORIDE ER 20 MEQ TAB.ER PO STA (16:52)
--- NOTE | 2018-02-05 22:46 | PN ---
PROGRESS NOTE DATE OF SERVICE: 02/05/2018. REASON FOR FOLLOWUP: UTI. INTERVAL HISTORY: The patient is seen on rounds this morning. The patient has been afebrile. She has been breathing comfortably. Denies having any chest pain, shortness of breath, cough. No abdominal pain and no difficulty urination or any burning. EXAMINATION: Blood pressure 139/81 with a pulse of 56, temperature 97.9. She is 92% on room air. General description is an elderly female, lying in bed in no distress. Respiratory system: Unlabored breathing, clear to auscultation anteriorly. Heart S1, S2. Regular rate and rhythm. Abdomen soft, no tenderness. LABS: Hemoglobin 8.6, white count 15.6 with a BUN of 28, creatinine 1.13. Urine yesterday was negative. Culture negative. DIAGNOSTIC IMPRESSION AND PLAN: 1. Patient with possible concern for urinary tract infection. However, the urine is negative. The patient do have some urinary retention/ obstruction and not the urinary tract infection. Antibiotic can be safely discontinued. 2. Patient with elevated white count more likely secondary to the drug effect. Continue supportive care. MMODL / IJN: [id number] / GARY
--- NOTE | 2018-02-06 06:59 | DS ---
DISCHARGE SUMMARY DATE OF ADMISSION: 01/26/2018 DATE OF DISCHARGE: 02/05/2018 FINAL DIAGNOSES: 1. Paroxysmal atrial flutter with rapid ventricular rate, present on admission. 2. Severe pancytopenia due to chemotherapy. 3. Metabolic acidosis. 4. Acute renal failure, possibly prerenal, present on admission. 5. Hyperphosphatemia. 6. Hypomagnesemia. 7. Troponin leak likely due to uncontrolled heart rate. 8. Diabetes mellitus type 2 on oral hypoglycemic. 9. Hyperlipidemia. 10.Essential hypertension. 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 12.Noninfectious diarrhea, acute. HOSPITAL COURSE: This patient who has a recurrence of breast cancer, received chemotherapy, presented with pancytopenia and atrial flutter with rapid ventricular rate. A 2-D echo showed preserved LV function. The patient went back into sinus rhythm. Seen by Dr. Barboza from Cardiology. At this point decided not to put the patient on anticoagulation. The patient cultures all came back negative and eventually patient's white count did go up. The patient did receive colony-stimulating factor prior to coming in. The patient's appetite is still not very good and some of that she attributed to the hospital food. On the day of discharge, care was discussed with the patient and her also spoke to patient's son at length. CONSULTATIONS: Dr. Poole from Oncology; Dr. Scanlon from Infectious Disease; Dr. Barboza from Cardiology. DISCHARGE MEDICATIONS: 1. Atenolol chlorthalidone 50/25 one tablet p.o. daily. 2. Lipitor 20 mg p.o. at bedtime. 3. Questran 4 grams p.o. at bedtime. 4. Imodium 2 mg q.i.d. p.r.n. 5. Magnesium oxide 400 mg p.o. daily. The patient's metformin has been held for now and is probably contributing to her diarrhea including from not eating much. If the appetite goes up, she can go back on the metformin. Followup with her oncologist in one week; Dr. Barboza in one week; Dr. Omkar Gotti in 3 days. LABS: BMP in 3 days. Discussion and discharge planning more than 35 minutes. MMODL / IJN: [id number] /
--- NOTE | 2018-02-06 13:53 | CDI ---
Last Revision, September 2017 Documentation Clarification Form Date: 02/06/18 From: Aiyana Lakhwinder Fawn Harman, Res Counselor between 8:30 am & 5 pm Elena Admit Date: 01/26/2018 5:07:00 PM Patient Name: Jennifer Guerrero Visit Number: [id number] Discharge Date: 02/05/18 ATTENTION: The Clinical Documentation Specialists (CDI) and [facility] Coding Staff appreciate your assistance in clarifying documentation. Please respond to the clarification below the line at the bottom and electronically sign. The CDI & [facility] Coding staff will review the response and follow-up if needed. Please note: Queries are made part of the Legal Health Record. If you have any questions, please contact the author of this message via ITS. Dr. Dhiraj Barboza Atrial fibrillation is documented in the your consult, echo and PNs.She has atypical atrial flutter, OLLIE, breast cancer under treatment, HTN w CKD disease, anemia and DM. Treatment: IV Cardizem, discharged on Atenolol. In your professional opinion, can you please clarify the type of atrial fibrillation, if known? Chronic/Permanent Paroxysmal Persistent Other, please specify Unable to determine Please continue to document in your progress notes and discharge summary in order to capture severity of illness and risk of mortality. Include clinical findings that support your diagnosis. MTDD
== END 2018-02-05 17:45 | disposition home or self-care (01) | DRG 308 ==
LOC: EC 13:49 → 6SEL 17:07 → 5MS5E 01-30 19:12 → 5ONC 01-31 20:55
PROVIDERS: ADMIT Hospitalist; ATTEND Hospitalist
PROC: 30233N1 Transfusion of Nonautologous Red Blood Cells into Peripheral Vein, Percutaneous Approach (ICD-10-PCS; principal; 2018-01-26)
DX: I48.4 Atypical atrial flutter (principal); D61.810 Antineoplastic chemotherapy induced pancytopenia; N17.9 Acute kidney failure, unspecified; J90 Pleural effusion, not elsewhere classified; E87.2 Acidosis; K52.1 Toxic gastroenteritis and colitis; B37.0 Candidal stomatitis; J98.11 Atelectasis; D69.59 Other secondary thrombocytopenia; E11.22 Type 2 diabetes mellitus with diabetic chronic kidney disease; E83.39 Other disorders of phosphorus metabolism; E83.42 Hypomagnesemia; E86.0 Dehydration; C50.911 Malignant neoplasm of unspecified site of right female breast; I48.91 Unspecified atrial fibrillation; I13.10 Hypertensive heart and chronic kidney disease without heart failure, with stage 1 through stage 4 chronic kidney disease, or unspecified chronic kidney disease; N18.9 Chronic kidney disease, unspecified; E78.5 Hyperlipidemia, unspecified; N32.0 Bladder-neck obstruction; R50.81 Fever presenting with conditions classified elsewhere; R11.2 Nausea with vomiting, unspecified; H10.9 Unspecified conjunctivitis; R33.9 Retention of urine, unspecified; L65.9 Nonscarring hair loss, unspecified; T45.1X5A Adverse effect of antineoplastic and immunosuppressive drugs, initial encounter; T38.3X5A Adverse effect of insulin and oral hypoglycemic [antidiabetic] drugs, initial encounter; Z79.84 Long term (current) use of oral hypoglycemic drugs; Z79.899 Other long term (current) drug therapy; Z17.1 Estrogen receptor negative status [ER-]; Z87.891 Personal history of nicotine dependence; Z90.11 Acquired absence of right breast and nipple; Z90.49 Acquired absence of other specified parts of digestive tract; Z90.710 Acquired absence of both cervix and uterus; Z98.42 Cataract extraction status, left eye; Z98.41 Cataract extraction status, right eye; Z96.1 Presence of intraocular lens; Z80.0 Family history of malignant neoplasm of digestive organs; Z82.3 Family history of stroke
CPT/HCPCS: 36415; 71045; 71046; 74177; 76700; 80048; 80053; 80202; 81001; 82550; 82553; 83605; 83735; 84100; 84484; 85025; 85610; 85730; 86850; 86900; 86901; 86920; 87040; 87045; 87046; 87086; 87324; 87328; 87329; 87502; 93005; 93306; 94760; 96365; 96366; 96368; 96375; 96376; 99291

== ENCOUNTER 2018-02-05 21:21 | Inpatient (IN) | payer MEDICARE ==
[2018-02-05] MEDS ORDERED: SODIUM CHLORIDE 0.9% 500 ML IV STA (21:46)
--- NOTE | 2018-02-05 21:51 | ED ---
General Adult HPI - General Chief complaint: Weakness Stated complaint: WEAKNESS Time Seen by Provider: 02/05/18 21:25 Source: patient, EMS, RN notes reviewed Mode of arrival: EMS Limitations: no limitations - History of Present Illness Initial comments: This is a 77-year-old female presents emergency Department with a past medical history significant for breast cancer. Patient's has been on chemotherapy and she was admitted to the hospital for a little over a week and was just released yesterday. Patient states when she was in the hospital she was able to ambulate with the use of a walking device. Patient states at home she was unable to get up at all so she eventually came back to the hospital. Patient denies any headache patient denies lightheadedness or dizziness. Patient denies any chest pain palpitations difficulty breathing shortness breath per patient denies any abdominal pain patient denies nausea vomiting diarrhea. Patient denies any fever patient denies any chills. Patient denies any recent cough. Patient denies any dysuria hematuria urinary frequency. Patient states her only complaint is she's just weak overall. - Related Data Home Medications Medication Instructions Recorded Confirmed Atenolol/Chlorthalidone 1 tab PO DAILY 01/26/18 02/05/18 [Atenolol-Chlorthalidone 50-25] Atorvastatin [Lipitor] 20 mg PO HS 01/26/18 02/05/18 Previous Rx's Medication Instructions Recorded Cholestyramine (with Sugar) 4 gm PO HS #14 packet 02/05/18 [Questran Packet] Loperamide [Imodium] 2 mg PO QID PRN #0 cap 02/05/18 Magnesium Oxide [Mag-Ox] 400 mg PO DAILY #30 tab 02/05/18 Ufikkuvj-Nmvjcnueo-Aokltoxc 1 drops BOTH EYES Q4HR bottle 02/05/18 [Maxitrol Ophth Susp] Allergies Allergy/AdvReac Type Severity Reaction Status Date / Time No Known Allergies Allergy Verified 02/05/18 21:25 Review of Systems ROS Statement: Those systems with pertinent positive or pertinent negative responses have been documented in the HPI. ROS Other: All systems not noted in ROS Statement are negative. Past Medical History Past Medical History: Cancer, Diabetes Mellitus, Hyperlipidemia, Hypertension Additional Past Medical History / Comment(s): rt Breast CA 1990 had lumpectomy/ lymph nodes removed, chemo/radiation. in 1-2018 reocurrance of cancer same (rt) breast-receiving chemo . History of Any Multi-Drug Resistant Organisms: None Reported Past Surgical History: Appendectomy, Back Surgery, Breast Surgery, Cholecystectomy, Hysterectomy, Tonsillectomy Additional Past Surgical History / Comment(s): Medi port lt chest, 1 upper dental implant, rt breast lumpectomy, lymph nodes removed, egd/colonoscopu/ polypectomt, cataracts-lens implants Past Anesthesia/Blood Transfusion Reactions: No Reported Reaction Past Psychological History: No Psychological Hx Reported Smoking Status: Former smoker Past Alcohol Use History: None Reported Past Drug Use History: None Reported - Past Family History Mother Family Medical History: Cancer Additional Family Medical History / Comment(s): age 66 from colon cancer Father Family Medical History: CVA/TIA Additional Family Medical History / Comment(s): age 48 from a stroke General Exam - General Exam Comments Initial Comments: GENERAL: Patient is well-developed and well-nourished. Patient is nontoxic and well- hydrated and is in mild distress. ENT: Neck is soft and supple. No significant lymphadenopathy is noted. Oropharynx is clear. Moist mucous membranes. Neck has full range of motion without eliciting any pain. EYES: The sclera were anicteric and conjunctiva were pink and moist. Extraocular movements were intact and pupils were equal round and reactive to light. Eyelids were unremarkable. PULMONARY: Unlabored respirations. Good breath sounds bilaterally. No audible rales rhonchi or wheezing was noted. CARDIOVASCULAR: There is a regular rate and rhythm without any murmurs gallops or rubs. ABDOMEN: Soft and nontender with normal bowel sounds. No palpable organomegaly was noted. There is no palpable pulsatile mass. SKIN: Pale skin NEUROLOGIC: Patient is alert and oriented x3. Cranial nerves II through XII are grossly intact. Motor and sensory are also intact. Normal speech, volume and content. Symmetrical smile. MUSCULOSKELETAL: Normal extremities with adequate strength and full range of motion. LYMPHATICS: No significant lymphadenopathy is noted PSYCHIATRIC: Normal psychiatric evaluation. Normal interpersonal interactions appears functionally intact in deals appropriately with others. No signs of depression. No signs of anxiety. Limitations: no limitations Course Vital Signs 02/05/18 02/06/18 21:25 01:05 Temperature 98.4 F 97.4 F L Pulse Rate 75 68 Respiratory 18 18 Rate Blood Pressure 138/62 134/72 O2 Sat by Pulse 92 L 97 Oximetry Medical Decision Making - Medical Decision Making EKG shows sinus rhythm 75 bpm with occasional PVC patient's MN interval is 152 QRS is 96 Q-T intervals 460 QTC is 513 per patient's EKG shows T-wave inversions in precordial leads V3 through V6. Patient refused chest x-ray. Patient remained weak in the emergency department family stated she couldn't even make it into the house without quite a bit of assistance. - Lab Data Result diagrams: 02/05/18 22:27 02/05/18 22:27 Lab Results 02/05/18 02/05/18 02/05/18 Range/Units 22:27 22:27 22:27 WBC 14.8 H (3.8-10.6) k/uL RBC 2.85 L (3.80-5.40) m/uL Hgb 8.7 L (11.4-16.0) gm/dL Hct 25.8 L (34.0-46.0) % MCV 90.8 (80.0-100.0) fL MCH 30.6 (25.0-35.0) pg MCHC 33.8 (31.0-37.0) g/dL RDW 21.6 H (11.5-15.5) % Plt Count 126 L (150-450) k/uL Neutrophils % (Manual) 84 % Band Neutrophils % 2 % Lymphocytes % (Manual) 3 % Monocytes % (Manual) 8 % Myelocytes % 4 % Neutrophils # (Manual) 12.70 H (1.3-7.7) k/uL Lymphocytes # (Manual) 0.44 L (1.0-4.8) k/uL Monocytes # (Manual) 1.18 H (0-1.0) k/uL Myelocytes # (Manual) 0.59 H (0) k/uL Nucleated RBCs 5 H (0-0) /100 WBC Manual Slide Review Performed Polychromasia Present Hypochromasia Slight Poikilocytosis Moderate Anisocytosis Moderate Macrocytosis Slight PT 13.9 H (9.0-12.0) sec INR 1.5 H (<1.2) APTT 25.3 (22.0-30.0) sec Sodium 141 (137-145) mmol/L Potassium 3.4 L (3.5-5.1) mmol/L Chloride 102 (98-107) mmol/L Carbon Dioxide 24 (22-30) mmol/L Anion Gap 15 mmol/L BUN 28 H (7-17) mg/dL Creatinine 1.20 H (0.52-1.04) mg/dL Est GFR (CKD-EPI)AfAm 51 (>60 ml/min/1.73 sqM) Est GFR (CKD-EPI)NonAf 44 (>60 ml/min/1.73 sqM) Glucose 141 H (74-99) mg/dL Lactic Ac Sepsis Rflx Plasma Lactic Acid Héctor (0.7-2.0) mmol/L Calcium 8.8 (8.4-10.2) mg/dL Magnesium 2.0 (1.6-2.3) mg/dL Total Bilirubin 1.1 (0.2-1.3) mg/dL AST 59 H (14-36) U/L ALT 123 H (9-52) U/L Alkaline Phosphatase 259 H (38-126) U/L Total Creatine Kinase (30-135) U/L CK-MB (CK-2) (0.0-2.4) ng/mL CK-MB (CK-2) Rel Index Troponin I (0.000-0.034) ng/mL Total Protein 4.9 L (6.3-8.2) g/dL Albumin 2.9 L (3.5-5.0) g/dL Urine Color Urine Appearance (Clear) Urine pH (5.0-8.0) Ur Specific [place] (1.001-1.035) Urine Protein (Negative) Urine Glucose (UA) (Negative) Urine Ketones (Negative) Urine Blood (Negative) Urine Nitrite (Negative) Urine Bilirubin (Negative) Urine Urobilinogen (<2.0) mg/dL Ur Leukocyte Esterase (Negative) Urine RBC (0-5) /hpf Urine WBC (0-5) /hpf Ur Squamous Epith Cells (0-4) /hpf Urine Mucus (None) /hpf Blood Type Blood Type Recheck Antibody Screen Spec Expiration Date 02/05/18 02/05/18 02/05/18 Range/Units 22:27 22:27 22:27 WBC (3.8-10.6) k/uL RBC (3.80-5.40) m/uL Hgb (11.4-16.0) gm/dL Hct (34.0-46.0) % MCV (80.0-100.0) fL MCH (25.0-35.0) pg MCHC (31.0-37.0) g/dL RDW (11.5-15.5) % Plt Count (150-450) k/uL Neutrophils % (Manual) % Band Neutrophils % % Lymphocytes % (Manual) % Monocytes % (Manual) % Myelocytes % % Neutrophils # (Manual) (1.3-7.7) k/uL Lymphocytes # (Manual) (1.0-4.8) k/uL Monocytes # (Manual) (0-1.0) k/uL Myelocytes # (Manual) (0) k/uL Nucleated RBCs (0-0) /100 WBC Manual Slide Review Polychromasia Hypochromasia Poikilocytosis Anisocytosis Macrocytosis PT (9.0-12.0) sec INR (<1.2) APTT (22.0-30.0) sec Sodium (137-145) mmol/L Potassium (3.5-5.1) mmol/L Chloride (98-107) mmol/L Carbon Dioxide (22-30) mmol/L Anion Gap mmol/L BUN (7-17) mg/dL Creatinine (0.52-1.04) mg/dL Est GFR (CKD-EPI)AfAm (>60 ml/min/1.73 sqM) Est GFR (CKD-EPI)NonAf (>60 ml/min/1.73 sqM) Glucose (74-99) mg/dL Lactic Ac Sepsis Rflx Plasma Lactic Acid Héctor 3.3 H* (0.7-2.0) mmol/L Calcium (8.4-10.2) mg/dL Magnesium (1.6-2.3) mg/dL Total Bilirubin (0.2-1.3) mg/dL AST (14-36) U/L ALT (9-52) U/L Alkaline Phosphatase (38-126) U/L Total Creatine Kinase 302 H (30-135) U/L CK-MB (CK-2) 4.0 H* (0.0-2.4) ng/mL CK-MB (CK-2) Rel Index 1.3 Troponin I 0.043 H* (0.000-0.034) ng/mL Total Protein (6.3-8.2) g/dL Albumin (3.5-5.0) g/dL Urine Color Urine Appearance (Clear) Urine pH (5.0-8.0) Ur Specific [place] (1.001-1.035) Urine Protein (Negative) Urine Glucose (UA) (Negative) Urine Ketones (Negative) Urine Blood (Negative) Urine Nitrite (Negative) Urine Bilirubin (Negative) Urine Urobilinogen (<2.0) mg/dL Ur Leukocyte Esterase (Negative) Urine RBC (0-5) /hpf Urine WBC (0-5) /hpf Ur Squamous Epith Cells (0-4) /hpf Urine Mucus (None) /hpf Blood Type A Negative Blood Type Recheck No Antibody Screen NEGATIVE Spec Expiration Date 02/08/2018 - 232602/05/18 02/05/18 Range/Units 22:57 23:00 WBC (3.8-10.6) k/uL RBC (3.80-5.40) m/uL Hgb (11.4-16.0) gm/dL Hct (34.0-46.0) % MCV (80.0-100.0) fL MCH (25.0-35.0) pg MCHC (31.0-37.0) g/dL RDW (11.5-15.5) % Plt Count (150-450) k/uL Neutrophils % (Manual) % Band Neutrophils % % Lymphocytes % (Manual) % Monocytes % (Manual) % Myelocytes % % Neutrophils # (Manual) (1.3-7.7) k/uL Lymphocytes # (Manual) (1.0-4.8) k/uL Monocytes # (Manual) (0-1.0) k/uL Myelocytes # (Manual) (0) k/uL Nucleated RBCs (0-0) /100 WBC Manual Slide Review Polychromasia Hypochromasia Poikilocytosis Anisocytosis Macrocytosis PT (9.0-12.0) sec INR (<1.2) APTT (22.0-30.0) sec Sodium (137-145) mmol/L Potassium (3.5-5.1) mmol/L Chloride (98-107) mmol/L Carbon Dioxide (22-30) mmol/L Anion Gap mmol/L BUN (7-17) mg/dL Creatinine (0.52-1.04) mg/dL Est GFR (CKD-EPI)AfAm (>60 ml/min/1.73 sqM) Est GFR (CKD-EPI)NonAf (>60 ml/min/1.73 sqM) Glucose (74-99) mg/dL Lactic Ac Sepsis Rflx Y Plasma Lactic Acid Héctor (0.7-2.0) mmol/L Calcium (8.4-10.2) mg/dL Magnesium (1.6-2.3) mg/dL Total Bilirubin (0.2-1.3) mg/dL AST (14-36) U/L ALT (9-52) U/L Alkaline Phosphatase (38-126) U/L Total Creatine Kinase (30-135) U/L CK-MB (CK-2) (0.0-2.4) ng/mL CK-MB (CK-2) Rel Index Troponin I (0.000-0.034) ng/mL Total Protein (6.3-8.2) g/dL Albumin (3.5-5.0) g/dL Urine Color Yellow Urine Appearance Clear (Clear) Urine pH 5.5 (5.0-8.0) Ur Specific [place] 1.021 (1.001-1.035) Urine Protein Trace H (Negative) Urine Glucose (UA) Negative (Negative) Urine Ketones Negative (Negative) Urine Blood Trace H (Negative) Urine Nitrite Negative (Negative) Urine Bilirubin Negative (Negative) Urine Urobilinogen <2.0 (<2.0) mg/dL Ur Leukocyte Esterase Negative (Negative) Urine RBC <1 (0-5) /hpf Urine WBC <1 (0-5) /hpf Ur Squamous Epith Cells <1 (0-4) /hpf Urine Mucus Rare H (None) /hpf Blood Type Blood Type Recheck Antibody Screen Spec Expiration Date Disposition Clinical Impression: History of breast cancer, Generalized weakness Disposition: ADMITTED IP TO THIS HOSP Is patient prescribed a controlled substance at discharge?: No Time of Disposition: 00:35
[2018-02-05 22:36] LABS: Anisocytosis Moderate; HCT 25.8 % (34.0-46.0); HGB 8.7 gm/dL (11.4-16.0); Hypochromasia Slight; MCH 30.6 pg (25.0-35.0); MCHC 33.8 g/dL (31.0-37.0); MCV 90.8 fL (80.0-100.0); Macrocytosis Slight; Mean Platelet Volume 10.7; Platelet Count 126 k/uL (150-450); Poikilocytosis Moderate; RBC 2.85 m/uL (3.80-5.40); RDW 21.6 % (11.5-15.5)
[2018-02-05 22:47] LABS: Albumin 2.9 g/dL (3.5-5.0); Calcium 8.8 mg/dL (8.4-10.2); Potassium 3.4 mmol/L (3.5-5.1); Total Bilirubin 1.1 mg/dL (0.2-1.3); Total Protein 4.9 g/dL (6.3-8.2)
[2018-02-05 22:49] LABS: INR 1.5 (<1.2); Partial Thromboplastin Time 25.3 sec (22.0-30.0); Prothrombin Time 13.9 sec (9.0-12.0)
[2018-02-05 23:06] LABS: Band Neutrophils % 2 %; Lymphocytes # (M) 0.44 k/uL (1.0-4.8); Monocytes # (M) 1.18 k/uL (0-1.0); Myelocytes # (M) 0.59 k/uL (0); Myelocytes % 4 %; Neutrophils % (M) 84 %; Nucleated Red Blood Cells 5 /100 WBC (0-0); Total Cells Counted 200; WBC 14.8 k/uL (3.8-10.6)
[2018-02-05 23:07] LABS: Polychromasia Present
[2018-02-05 23:10] LABS: Appearance,Urine Clear (Clear); Bilirubin,Urine Negative (Negative); Blood,Urine Trace (Negative); Color,Urine Yellow; Glucose,Urine (UA) Negative (Negative); Ketones,Urine Negative (Negative); Leukocyte Esterase,Urine Negative (Negative); Mucus,Urine Rare /hpf; Nitrite,Urine Negative (Negative); PH, Urine 5.5 (5.0-8.0); Protein,Urine Trace (Negative); RBC,Urine <1 /hpf (0-5); Specific Gravity,Urine 1.021 (1.001-1.035); Squamous Epithelial Cell,Urine <1 /hpf (0-4); Urobilinogen,Urine <2.0 mg/dL (<2.0); WBC,Urine <1 /hpf (0-5)
[2018-02-05] MEDS ORDERED: SODIUM CHLORIDE 0.9% 500 ML IV ONE (23:12)
[2018-02-05 23:36] LABS: Troponin I 0.043 ng/mL (0.000-0.034)
[2018-02-06] MEDS ORDERED: SODIUM CHLORIDE 0.9% 1,000 ML IV ONE (00:35)
[2018-02-06 01:58] VITALS: BMI 34.2
[2018-02-06 07:49] LABS: Glucose,Whole Blood 127 mg/dL (75-99)
[2018-02-06] MEDS ORDERED: LOPERAMIDE 2 MG CAP PO PRN (10:13)
[2018-02-06] MEDS ORDERED: NALOXONE 0.4 MG/ML 1 ML VIAL IV PRN (10:14)
[2018-02-06] MEDS ORDERED: ONDANSETRON 4 MG/2 ML VIAL IVP PRN (10:14)
[2018-02-06] MEDS ORDERED: MELATONIN 3 MG TABLET PO PRN (10:14)
[2018-02-06] MEDS ORDERED: ACETAMINOPHEN TAB 325 MG TAB PO PRN (10:14)
[2018-02-06] MEDS ORDERED: CALCIUM CARBONATE 500 MG CHEWABLE PO PRN (10:14)
[2018-02-06] MEDS ORDERED: ALPRAZolam 0.25 MG TAB PO PRN (10:14)
[2018-02-06 11:16] LABS: Glucose,Whole Blood 183 mg/dL (75-99)
[2018-02-06 11:31] LABS: Albumin 2.7 g/dL (3.5-5.0); Calcium 8.3 mg/dL (8.4-10.2); Potassium 3.2 mmol/L (3.5-5.1); Total Bilirubin 0.9 mg/dL (0.2-1.3); Total Protein 4.9 g/dL (6.3-8.2)
[2018-02-06 12:03] LABS: Anisocytosis Moderate; HCT 26.7 % (34.0-46.0); HGB 8.9 gm/dL (11.4-16.0); Hypochromasia Slight; MCH 31.1 pg (25.0-35.0); MCHC 33.3 g/dL (31.0-37.0); MCV 93.4 fL (80.0-100.0); Macrocytosis Slight; Mean Platelet Volume 10.3; Platelet Count 139 k/uL (150-450); Poikilocytosis Moderate; RBC 2.86 m/uL (3.80-5.40); RDW 21.9 % (11.5-15.5)
--- NOTE | 2018-02-06 12:19 | P.CONS ---
History of Present Illness - Reason for Consult Consult date: 02/06/18 Breast Cancer Status Post Chemo Requesting physician: He Loomis - Chief Complaint Progressive Weakness - History of Present Illness Mrs. 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 She recieved her last cycle of chemo, cycle 4 of ddAC, on 01/18, with neulasta administered on 01/19. She was recently hospitalized and discharged yesterday with increasing vomiting and weakness. During hospital stay developed continuous diarrhea, which has now improved. Although when she went home she was so weak she could not walk into house. She states there is only one step into house and could not lift leg up to walk in. During assessment this am, she is also wearing ocygen. She had not been wearing ocygen previously. She denies chest pain but does have increased effort of breathing when talking. Recent Chest xray does show atelectasis. Review of Systems A 14 point review of systems assessed and completed and all negative except HPI Past Medical History Past Medical History: Cancer, Diabetes Mellitus, Hyperlipidemia, Hypertension Additional Past Medical History / Comment(s): rt Breast CA 1990 had lumpectomy/ lymph nodes removed, chemo/radiation. in reocurrance of cancer same (rt) breast-receiving chemo . History of Any Multi-Drug Resistant Organisms: None Reported Past Surgical History: Appendectomy, Back Surgery, Breast Surgery, Cholecystectomy, Hysterectomy, Tonsillectomy Additional Past Surgical History / Comment(s): Medi port lt chest, 1 upper dental implant, rt breast lumpectomy, lymph nodes removed, egd/colonoscopu/ polypectomt, cataracts-lens implants Past Anesthesia/Blood Transfusion Reactions: No Reported Reaction Past Psychological History: No Psychological Hx Reported Smoking Status: Former smoker Past Alcohol Use History: None Reported Past Drug Use History: None Reported - Past Family History Mother Family Medical History: Cancer Additional Family Medical History / Comment(s): age 66 from colon cancer Father Family Medical History: CVA/TIA Additional Family Medical History / Comment(s): age 48 from a stroke Medications and Allergies Home Medications Medication Instructions Recorded Confirmed Type Atenolol/Chlorthalidone 1 tab PO DAILY 01/26/18 02/05/18 History [Atenolol-Chlorthalidone 50-25] Atorvastatin [Lipitor] 20 mg PO HS 01/26/18 02/05/18 History Cholestyramine (with Sugar) 4 gm PO HS #14 packet 02/05/18 02/05/18 Rx [Questran Packet] Loperamide [Imodium] 2 mg PO QID PRN #0 cap 02/05/18 02/05/18 Rx Magnesium Oxide [Mag-Ox] 400 mg PO DAILY #30 tab 02/05/18 02/05/18 Rx Ujmechas-Xspxwuiqs-Gzamwjiv 1 drops BOTH EYES Q4HR bottle 02/05/18 02/05/18 Rx [Maxitrol Ophth Susp] Allergies Allergy/AdvReac Type Severity Reaction Status Date / Time No Known Allergies Allergy Verified 02/05/18 21:25 Physical Exam Vitals: Vital Signs Temp Pulse Pulse Resp BP BP Pulse Ox 02/06/18 10:11 72 16 94 L 02/06/18 07:45 98.6 F 71 18 151/90 87 L 02/06/18 01:59 18 02/06/18 01:13 98.7 F 66 18 154/67 97 02/06/18 01:05 97.4 F L 68 18 134/72 97 02/05/18 21:25 98.4 F 75 18 138/62 92 L Intake and Output 02/05/18 02/06/18 02/06/18 22:59 06:59 14:59 Intake Total 300 Output Total 500 275 Balance -200 -275 Intake: Intake, IV Titration 300 Amount Sodium Chloride 0.9% 1, 300 000 ml @ 75 mls/hr IV . [id number] Rx#:[id number] Output: Urine 500 275 Uretheral (Juarez) 500 Other: Voiding Method Indwelling Catheter # Bowel Movements 1 Weight 87.543 kg 87.5 kg - Constitutional General appearance: average body habitus, cooperative, no acute distress - EENT Left eye with a little conjuctiva swelling and right with crusting, improved from previously Eyes: PERRLA ENT: hard of hearing, NA/AT, normal oropharynx - Neck Neck: normal ROM - Respiratory Respiratory: bilateral: diminished (Bilateral Bases, Mild Increased Effort, with talking) - Cardiovascular Rhythm: regular Heart sounds: normal: S1, S2 - Gastrointestinal General gastrointestinal: normal bowel sounds, soft, tenderness - Integumentary Integumentary: normal, pale - Neurologic Neurologic: CNII-XII intact - Musculoskeletal Musculoskeletal: generalized weakness, right sided weakness, left sided weakness - Psychiatric Psychiatric: A&O x's 3, appropriate affect, intact judgment & insight Results CBC & Chem 7: 02/06/18 10:35 02/06/18 10:35 Labs: Abnormal Lab Results - Last 24 Hours (Table) 02/05/18 02/05/18 02/05/18 Range/Units 22:27 22:27 22:27 WBC 14.8 H (3.8-10.6) k/uL RBC 2.85 L (3.80-5.40) m/uL Hgb 8.7 L (11.4-16.0) gm/dL Hct 25.8 L (34.0-46.0) % RDW 21.6 H (11.5-15.5) % Plt Count 126 L (150-450) k/uL Neutrophils # (Manual) 12.70 H (1.3-7.7) k/uL Lymphocytes # (Manual) 0.44 L (1.0-4.8) k/uL Monocytes # (Manual) 1.18 H (0-1.0) k/uL Myelocytes # (Manual) 0.59 H (0) k/uL Nucleated RBCs 5 H (0-0) /100 WBC PT 13.9 H (9.0-12.0) sec INR 1.5 H (<1.2) Potassium 3.4 L (3.5-5.1) mmol/L BUN 28 H (7-17) mg/dL Creatinine 1.20 H (0.52-1.04) mg/dL Glucose 141 H (74-99) mg/dL POC Glucose (mg/dL) (75-99) mg/dL Plasma Lactic Acid Héctor (0.7-2.0) mmol/L AST 59 H (14-36) U/L ALT 123 H (9-52) U/L Alkaline Phosphatase 259 H (38-126) U/L Total Creatine Kinase (30-135) U/L CK-MB (CK-2) (0.0-2.4) ng/mL Troponin I (0.000-0.034) ng/mL Total Protein 4.9 L (6.3-8.2) g/dL Albumin 2.9 L (3.5-5.0) g/dL Urine Protein (Negative) Urine Blood (Negative) Urine Mucus (None) /hpf 02/05/18 02/05/18 02/05/18 Range/Units 22:27 22:27 23:00 WBC (3.8-10.6) k/uL RBC (3.80-5.40) m/uL Hgb (11.4-16.0) gm/dL Hct (34.0-46.0) % RDW (11.5-15.5) % Plt Count (150-450) k/uL Neutrophils # (Manual) (1.3-7.7) k/uL Lymphocytes # (Manual) (1.0-4.8) k/uL Monocytes # (Manual) (0-1.0) k/uL Myelocytes # (Manual) (0) k/uL Nucleated RBCs (0-0) /100 WBC PT (9.0-12.0) sec INR (<1.2) Potassium (3.5-5.1) mmol/L BUN (7-17) mg/dL Creatinine (0.52-1.04) mg/dL Glucose (74-99) mg/dL POC Glucose (mg/dL) (75-99) mg/dL Plasma Lactic Acid Héctor 3.3 H* (0.7-2.0) mmol/L AST (14-36) U/L ALT (9-52) U/L Alkaline Phosphatase (38-126) U/L Total Creatine Kinase 302 H (30-135) U/L CK-MB (CK-2) 4.0 H* (0.0-2.4) ng/mL Troponin I 0.043 H* (0.000-0.034) ng/mL Total Protein (6.3-8.2) g/dL Albumin (3.5-5.0) g/dL Urine Protein Trace H (Negative) Urine Blood Trace H (Negative) Urine Mucus Rare H (None) /hpf 02/06/18 02/06/18 02/06/18 Range/Units 02:54 07:47 10:08 WBC (3.8-10.6) k/uL RBC (3.80-5.40) m/uL Hgb (11.4-16.0) gm/dL Hct (34.0-46.0) % RDW (11.5-15.5) % Plt Count (150-450) k/uL Neutrophils # (Manual) (1.3-7.7) k/uL Lymphocytes # (Manual) (1.0-4.8) k/uL Monocytes # (Manual) (0-1.0) k/uL Myelocytes # (Manual) (0) k/uL Nucleated RBCs (0-0) /100 WBC PT (9.0-12.0) sec INR (<1.2) Potassium (3.5-5.1) mmol/L BUN (7-17) mg/dL Creatinine (0.52-1.04) mg/dL Glucose (74-99) mg/dL POC Glucose (mg/dL) 127 H (75-99) mg/dL Plasma Lactic Acid Héctor 2.1 H* 2.4 H* (0.7-2.0) mmol/L AST (14-36) U/L ALT (9-52) U/L Alkaline Phosphatase (38-126) U/L Total Creatine Kinase (30-135) U/L CK-MB (CK-2) (0.0-2.4) ng/mL Troponin I (0.000-0.034) ng/mL Total Protein (6.3-8.2) g/dL Albumin (3.5-5.0) g/dL Urine Protein (Negative) Urine Blood (Negative) Urine Mucus (None) /hpf Assessment and Plan (1) Generalized weakness Current Visit: Yes Status: Acute Code(s): R53.1 - WEAKNESS SNOMED Code(s) : 64360693 (2) History of breast cancer Current Visit: Yes Status: Acute Code(s): Z85.3 - PERSONAL HISTORY OF MALIGNANT NEOPLASM OF BREAST SNOMED Code(s): 236530938 (3) Triple negative malignant neoplasm of breast Current Visit: No Status: Acute Code(s): C50.919 - MALIGNANT NEOPLASM OF UNSP SITE OF UNSPECIFIED FEMALE BREAST SNOMED Code(s): 012898285 Plan: Assessment and Recommendations: 1. Triple Negative Breast Cancer: Status Post 4 cycles Adriamycin and Cytoxan with neulasta - Was suppose to start chemotherapy with second half this week, although secondary to recent hospitalization and now progressive weakness will hold chemotherapy until patient is completed with rehabilitation. - Recheck CBC and CMP today 2. Acute Hypoxia - Requiring Oxygen - May be secondary to recent effusions and atelectesis - Pulmonary Embolism cannot be excluded as she has been inactive, known breast cancer. Will need to await renal function prior to ordering CTA to evaluate further - Chest xtray ordered - 2Decho for evaluation after anthracyclycine was recently completed and reviewed 01/27/18 - EF 55-60% 3. Leukocytosis - Likely reactive. Recent Neulasta as well 4. Normocytic Anemia - Recent Chemotherapy, will monitor CBC 5. Mild thrombocytopenia - Recovering appropriately after chemotherapy 6. Acute Illness Myopathy - Agree with PT/OT - Incentive Spirometer at bedside and encourage patient to get up and out of bed during day. I have discussed this with student assistant as well as patient and . - Plan for Sub-acute Rehab. Hopefully intensive therapy will increase her strength so we can aim to give her next dose of chemotherapy next week.
[2018-02-06] MEDS: MAGNESIUM OXIDE 400 MG TAB PO SCH (12:30)
[2018-02-06] MEDS: ATENOLOL 50 MG TAB PO SCH (12:30)
[2018-02-06] MEDS: NEOMYCIN-POLYMYXIN-DEXAMETH (3.5-10,000-0.1) DROPS 5 ML BTL BOTH EYES SCH ×3 (12:30→21:08)
[2018-02-06 13:30] LABS: Band Neutrophils % 8 %; Neutrophils % (M) 77 %; Nucleated Red Blood Cells 1 /100 WBC (0-0)
[2018-02-06 13:35] LABS: Lymphocytes # (M) 0.45 k/uL (1.0-4.8); Metamyelocytes % 2 %; Myelocytes # (M) 0.75 k/uL (0); Myelocytes % 5 %; Total Cells Counted 200
[2018-02-06 13:36] LABS: Polychromasia Present
--- NOTE | 2018-02-06 13:40 | XR ---
EXAMINATION TYPE: XR chest 2V DATE OF EXAM: 02/06/2018 COMPARISON: Chest x-ray from yesterday and older studies. PET/CT November 18, 2017. HISTORY: Shortness of breath requiring oxygen. TECHNIQUE: Frontal and lateral views of the chest are obtained. FINDINGS: There is stable left internal jugular Mediport catheter. There is persistent cardiomegaly w ith small to moderate-sized bilateral pleural effusions and central vascular congestion and associate d bibasilar atelectasis. No pneumothorax is seen bilaterally. Osseous structures are intact. Right ax illary surgical clips and overlying surgical clips right breast are redemonstrated at site of lumpect sejal. IMPRESSION: Suspect CHF exacerbation as there is cardiomegaly with moderate central vascular congest ion and small to moderate-sized bilateral pleural effusions redemonstrated. No significant interval c hange from one day earlier.
[2018-02-06] MEDS: CHLORTHALIDONE 25 MG TAB PO SCH (13:49)
[2018-02-06 14:16] LABS: Hemoglobin A1C 6.7 % (4.0-6.0)
[2018-02-06] MEDS ORDERED: POTASSIUM CHLORIDE ER 20 MEQ TAB.ER PO STA (14:40)
--- NOTE | 2018-02-06 16:41 | HP ---
HISTORY AND PHYSICAL DATE OF ADMISSION: 02/06/18. DATE OF SERVICE: 02/06/18. PRESENTING COMPLAINT: Tired. HISTORY OF PRESENTING COMPLAINT: This is a very pleasant 77-year-old patient who was just admitted to the hospital on 01/26/18 and discharged yesterday. The patient did follow with Dr. Gotti who is the family doctor. The patient had breast cancer in 1990, was treated with chemo and lumpectomy and had recurrence and then underwent chemotherapy by Dr. Poole 1 week prior to the last presentation. The patient was then found to be in atrial flutter with rapid ventricular rate and the patient is given antiarrhythmics and patient did finally revert to sinus rhythm. The patient also received a colony-stimulating factor and the patient's white count had come up prior to discharge. The patient also did receive blood transfusion. The patient's appetite had not been very good though picking up and she was not very keen about hospital food when she left. The patient states when she went home, she felt rather weak and tired more so and not even able to get up and came back. The patient is slightly short of breath, tired, run down. at the bedside. REVIEW OF SYSTEMS: CONSTITUTIONAL: Weak, tired HEENT: Loss of hair. RESPIRATORY: Some shortness of breath. CARDIOVASCULAR: Mild edema. GASTROINTESTINAL: None. GENITOURINARY: None. MUSCULOSKELETAL: None. DERMATOLOGICAL: None. HEMATOLOGIC: None. LYMPHATICS: Some swelling of both the arms. PSYCHIATRY: None. NEUROLOGICAL: None. Additionally patient's swelling of the arm is chronic. 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 PAST SURGICAL HISTORY: Appendectomy, back surgery, breast surgery, cholecystectomy, hysterectomy, tonsillectomy, MediPort in the left chest, right breast lumpectomy, lymph node removed, EGD, colonoscopy with polypectomy, cataract with lens implant. SOCIAL HISTORY: . The patient did smoke for 10 years, stopped in 1974. Alcohol none. FAMILY HISTORY: Colon cancer. HOME MEDICATIONS: 1. Questran 4 mg q.h.s. 2. Lipitor 20 mg q.h.s. 3. Maxitrol eyedrops 1 drop to both eyes q.4h. 4. Magnesium oxide 400 mg p.o. daily. 5. Imodium 2 mg p.o. q.i.d. p.r.n. 6. Atenolol chlorthalidone 50/25 1 tab p.o. daily. ALLERGIES: None. PHYSICAL EXAMINATION: VITAL SIGNS ON PRESENTATION: Temperature 98.4, pulse 75, respiration 18, blood pressure 130/62, pulse ox 92% on room air. GENERAL APPEARANCE: Well built, BMI 35.2. Sitting on edge of bed, tired-appearing. EYES: Pupils equal, conjunctivae pale. HEENT: External nose and ears normal. Oral cavity normal. No hair on the scalp. NECK: JVD unable to assess. Mass not palpable. RESPIRATORY: Effort increased. Lungs, some basal crackles. CARDIOVASCULAR: 1st an d2nd sounds normal. Mild edema. ABDOMEN: Soft, nontender. Liver and spleen not palpable. LYMPHATIC: Some swelling of both the arms, which is chronic. PSYCHIATRY: Alert and oriented x3. Mood and affect normal. NEUROLOGICAL: Pupils equal. Cranial nerves grossly intact. Power and sensation grossly intact. INVESTIGATIONS: White count 15, hemoglobin 8.9, platelets 139, potassium 3.2, BUN 25, creatinine 1.12. AST 15, ALT 112, albumin 2.7. Chest x-ray shows cardiomegaly, some venous prominence and small pleural effusions. 2D echo done recently last admission shows EF of 55-60%. ASSESSMENT: 1. Acute congestive heart failure exacerbation from diastolic dysfunction. Ejection fraction 55-60%. 2. Paroxysmal atrial flutter, on last admission. 3. Diabetes mellitus type 2 on oral hypoglycemic. 4. Hyperlipidemia. 5. Essential hypertension. 6. 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 7. Recurrent breast cancer. PLAN: At this point, patient will be put on IV Lasix 60 q.8h. Will put the patient on telemetry. Home medications are resumed. Follow electrolytes closely. PT, OT will be consulted. Patient's EKG did show nonspecific T-wave changes. Care was discussed with the patient and and follow. MMODL / IJN: [id number] /
[2018-02-06] MEDS: FUROSEMIDE 10 MG/ML 10 ML VIAL IV SCH (17:05)
[2018-02-06 17:13] LABS: Glucose,Whole Blood 149 mg/dL (75-99)
[2018-02-06] MEDS ORDERED: ATORVASTATIN 20 MG TAB PO SCH (21:00)
[2018-02-06 21:06] LABS: Glucose,Whole Blood 134 mg/dL (75-99)
[2018-02-06] MEDS: CHOLESTYRAMINE (WITH SUGAR) 4 GM PACKET PO SCH (21:08)
[2018-02-07] MEDS ORDERED: FUROSEMIDE 10 MG/ML 10 ML VIAL ONE
[2018-02-07 07:09] LABS: Glucose,Whole Blood 111 mg/dL (75-99)
[2018-02-07] MEDS: FUROSEMIDE 10 MG/ML 10 ML VIAL IV SCH ×3 (08:46→15:52)
[2018-02-07] MEDS: NEOMYCIN-POLYMYXIN-DEXAMETH (3.5-10,000-0.1) DROPS 5 ML BTL BOTH EYES SCH ×6 (08:47→21:22)
[2018-02-07] MEDS: ATENOLOL 50 MG TAB PO SCH (08:58)
[2018-02-07] MEDS: CHLORTHALIDONE 25 MG TAB PO SCH (08:58)
[2018-02-07] MEDS: MAGNESIUM OXIDE 400 MG TAB PO SCH (08:58)
[2018-02-07 11:02] LABS: Glucose,Whole Blood 154 mg/dL (75-99)
--- NOTE | 2018-02-07 13:40 | P.CRDCN ---
History of Present Illness Consult date: 02/07/18 History of present illness: Mrs. Guerrero is a pleasant 77-year-old female past medical history significant for breast cancer currently undergoing chemo therapy, diabetes mellitus, hypertension, dyslipdemia and paroxysmal atrial fibrillation not on anticoagulation secondary to comorbid conditions. This was a new diagnosis earlier this month and she converted back to sinus rhythm after being on a cardizem drip for 2 days. She was started on atenolol for beta alex. She was discharged home yesterday after being here for a week. We have been asked to see her in consultation for symptoms of heart failure. She presented to the hospital with complaints of generalized weakness and fatigue. She also has exertional shortness of breath and is requiring oxygen to maintain oxygen saturations. She denies symptoms of chest pain, dizziness, palpitations, diaphoresis, nausea or vomiting. Also denies symptoms of PND or orthopnea. She has chronic lymphedema in the right arm. EKG reveals sinus mechanism with PVCs. Incomplete right bundle branch block and non-specific ST abnormalities in precordial leads. Chest x-ray reveals cardiomegaly with moderate central vascular congestion and small to moderate-sized bilateral pleural effusions. Laboratory data reviewed, WBC 15.0, hemoglobin 8.9, platelets 139, sodium 142, potassium 3.2, creatinine 1.12, GFR 48, lactic acid 2.4, AST 51, ALT 112, alk phos 255. Current cardiac medications include atorvastatin 20 mg daily and atenolol/ chlorthalidone 50/25 mg daily. Echocardiogram performed 01/28/2018 reveals preserved LV systolic function with EF 55-60% with mild pulmonary hypertension RVSP 43.88 mmHg. Review of Systems At the time of my exam: CONSTITUTIONAL: Denies fever. Denies chills. EYES: Denies blurred vision. Denies vision changes. Denies eye pain. EARS, NOSE, MOUTH & THROAT: Denies headache. Denies sore throat. Denies ear pain. CARDIOVASCULAR: Denies chest pain. Complains of exertional shortness of breath. Denies orthopnea. Denies PND. Denies palpitations. RESPIRATORY: Denies cough. GASTROINTESTINAL: Denies abdominal pain. Denies diarrhea. Denies constipation. Denies nausea. Denies vomiting. MUSCULOSKELETAL: Denies myalgias. INTEGUMENTARY: Denies pruitis. Denies rash. NEUROLOGIC: Denies numbness. Denies tingling. Complains of generalized weakness. PSYCHIATRIC: Denies anxiety. Denies depression. ENDOCRINE: Denies fatigue. Denies weight change. Denies polydipsia. Denies polyurina. GENITOURINARY: Denies burning, hematuria or urgency with micturation. HEMATOLOGIC: Denies history of anemia. Denies bleeding. Past Medical History Past Medical History: Cancer, Diabetes Mellitus, Hyperlipidemia, Hypertension Additional Past Medical History / Comment(s): rt Breast CA 1990 had lumpectomy/ lymph nodes removed, chemo/radiation. in reocurrance of cancer same (rt) breast-receiving chemo . History of Any Multi-Drug Resistant Organisms: None Reported Past Surgical History: Appendectomy, Back Surgery, Breast Surgery, Cholecystectomy, Hysterectomy, Tonsillectomy Additional Past Surgical History / Comment(s): Medi port lt chest, 1 upper dental implant, rt breast lumpectomy, lymph nodes removed, egd/colonoscopu/ polypectomt, cataracts-lens implants Past Anesthesia/Blood Transfusion Reactions: No Reported Reaction Past Psychological History: No Psychological Hx Reported Smoking Status: Former smoker Past Alcohol Use History: None Reported Past Drug Use History: None Reported - Past Family History Mother Family Medical History: Cancer Additional Family Medical History / Comment(s): age 66 from colon cancer Father Family Medical History: CVA/TIA Additional Family Medical History / Comment(s): age 48 from a stroke Medications and Allergies Home Medications Medication Instructions Recorded Confirmed Type Atenolol/Chlorthalidone 1 tab PO DAILY 01/26/18 02/05/18 History [Atenolol-Chlorthalidone 50-25] Atorvastatin [Lipitor] 20 mg PO HS 01/26/18 02/05/18 History Cholestyramine (with Sugar) 4 gm PO HS #14 packet 02/05/18 02/05/18 Rx [Questran Packet] Loperamide [Imodium] 2 mg PO QID PRN #0 cap 02/05/18 02/05/18 Rx Magnesium Oxide [Mag-Ox] 400 mg PO DAILY #30 tab 02/05/18 02/05/18 Rx Vvrtscmm-Gtphvlrlu-Ncnkshqj 1 drops BOTH EYES Q4HR bottle 02/05/18 02/05/18 Rx [Maxitrol Ophth Susp] Allergies Allergy/AdvReac Type Severity Reaction Status Date / Time No Known Allergies Allergy Verified 02/05/18 21:25 Physical Exam Vitals: Vital Signs Temp Pulse Resp BP Pulse Ox 02/07/18 10:00 74 02/07/18 07:15 97.9 F 54 L 18 119/62 100 02/06/18 20:50 97.6 F 56 L 16 158/95 92 L 02/06/18 14:38 62 18 136/74 99 02/06/18 13:00 72 16 Intake and Output 02/06/18 02/07/18 02/07/18 22:59 06:59 14:59 Intake Total 590 590 Output Total 1650 350 Balance 590 -1060 -350 Intake: Oral 590 590 Output: Urine 1650 350 Uretheral (Juarez) 350 Other: Voiding Method Bedside Commode Indwelling Catheter Indwelling Catheter # Voids 2 # Bowel Movements 2 Blood pressure 119/62 heart rate 54 afebrile maintaining oxygen saturations on 2 L nasal cannula GENERAL: This is a 77-year-old female in no apparent distress at the time of my examination. Obese. HEENT: Head is atraumatic, normocephalic. Pupils are equal, round. Sclerae anicteric. Conjunctivae are clear. Mucous membranes of the mouth are moist. Neck is supple. There is no jugular venous distention. No carotid bruit is heard. LUNGS: Bibasilar rales. No wheezes or rhonchi. No chest wall tenderness is noted on palpation or with deep breathing. HEART: Regular rate and rhythm with murmur at the base, no rubs or gallops. S1 and S2 heard. ABDOMEN: Soft, nontender. Bowel sounds are heard. No organomegaly noted. EXTREMITIES: Right upper extremity nonpitting lymphedema. Bilateral lower extremity nonpitting edema. No calf tenderness bilaterally. VASCULAR: Radial and dorsalis pedis pulses palpated, no evidence of clubbing. NEUROLOGIC: Patient is awake, alert and oriented x3. Results 02/06/18 10:35 02/07/18 13:40 CBC 02/06/18 Range/Units 10:35 WBC 15.0 H (3.8-10.6) k/uL Current Medications Generic Name Dose Route Start Last Admin Trade Name Freq PRN Reason Stop Dose Admin Acetaminophen 650 mg 02/06/18 10:14 Tylenol Tab PO Q6HR PRN Mild Pain or Fever > 100.5 Alprazolam 0.25 mg 02/06/18 10:14 Xanax PO Q6HR PRN Anxiety Atenolol 50 mg 02/06/18 10:30 02/07/18 08:58 Tenormin PO 50 mg DAILY MANINDER Administration Atorvastatin Calcium 20 mg 02/06/18 21:00 02/06/18 21:08 Lipitor PO 20 mg HS MANINDER Administration Calcium Carbonate/Glycine 1,000 mg 02/06/18 10:14 Tums PO Q4HR PRN Dyspepsia Chlorthalidone 25 mg 02/06/18 13:00 02/07/18 08:58 Hygroton PO 25 mg DAILY MANINDER Administration Cholestyramine Resin 4 gm 02/06/18 21:00 02/06/18 21:08 Questran PO 4 gm HS MANINDER Administration Furosemide 60 mg 02/06/18 16:00 02/07/18 08:54 Lasix IV 60 mg Q8HR MANINDER Administration Loperamide HCl 2 mg 02/06/18 10:13 Imodium PO QID PRN Diarrhea Magnesium Oxide 400 mg 02/06/18 10:15 02/07/18 08:58 Mag-Ox PO 400 mg DAILY MANINDER Administration Melatonin 3 mg 02/06/18 10:14 Melatonin PO HS PRN Insomnia Naloxone HCl 0.2 mg 02/06/18 10:14 Narcan IV Q2M PRN Opioid Reversal Neomycin/Polymyxin/Dexamethasone 1 drops 02/06/18 12:00 02/07/18 11:57 Maxitrol Ophth Susp BOTH EYES 1 drops Q4HR MANINDER Administration Ondansetron HCl 4 mg 02/06/18 10:14 Zofran IVP Q8HR PRN Nausea And Vomiting Intake and Output 02/06/18 02/07/18 02/07/18 22:59 06:59 14:59 Intake Total 590 590 Output Total 1650 350 Balance 590 -1060 -350 Intake: Oral 590 590 Output: Urine 1650 350 Uretheral (Juarez) 350 Other: Voiding Method Bedside Commode Indwelling Catheter Indwelling Catheter # Voids 2 # Bowel Movements 2 02/06/18 10:35 02/06/18 10:35 Assessment and Plan Assessment: ASSESSMENT 1. Acute diastolic heart failure with preserved ejection fraction 2. Paroxysmal atrial fibrillation currently maintaining sinus mechanism 3. Right breast cancer with recent chemotherapy 4. Dyslipidemia 5. Hypertension 6. Diabetes mellitus 7. Leukocytosis 8. Thrombocytopenia 9. Anemia 10. Hypokalemia, replaced. 11. Acute kidney injury 12. Lactic acidosis 13. Elevated liver enzymes, discontinue atorvastatin PLAN Check proBNP level. Agree with cautious diuresis secondary to renal function. Obtain daily weights. Strict intake and output. Follow electrolytes and renal function daily. Replace potassium per protocol. Check repeat level now. Further recommendations to follow. Thank you kindly for this consultation. The above impression and plan of care have been discussed and directed by the signing physician. Anisa Chacon, nurse practitioner, acting as scribe for signing physician.
--- NOTE | 2018-02-07 14:11 | P.PN ---
Subjective Progress Note Date: 02/07/18 Principal diagnosis: breast Cancer - Debility Jenniefr worked with therapy yesterday. Her LFTs are trending down which means likely related to chemotherapy and should continue to trend this way. She is laying in bed, we had another long discussion about out of bed, in chair with ALL meals. Objective - Vital Signs Vital signs: Vital Signs Temp 97.9 F 02/07/18 07:15 Pulse 74 02/07/18 10:00 Resp 18 02/07/18 07:15 BP 119/62 02/07/18 07:15 Pulse Ox 100 02/07/18 07:15 Intake & Output 02/06/18 02/07/18 02/07/18 18:59 06:59 18:59 Intake Total 450 1180 Output Total 275 1650 1150 Balance 175 -470 -1150 Intake: IV 450 Sodium Chloride 0.9% 1, 450 000 ml @ 75 mls/hr IV . [id number] ONE Rx#:[id number] Oral 1180 Output: Urine 275 1650 1150 Uretheral (Juarez) 1150 Other: Voiding Method Bedside Commode Indwelling Catheter Indwelling Catheter # Voids 2 # Bowel Movements 1 2 - Constitutional General appearance: Present: cooperative, no acute distress - EENT Eyes: Present: EOMI, dentition normal ENT: Present: NA/AT, normal oropharynx - Neck Details: Supple, trachea midline Neck: Present: normal ROM - Respiratory Respiratory: bilateral: diminished (Lower lobes, no increased effort) - Cardiovascular Rhythm: regular - Gastrointestinal General gastrointestinal: Present: soft - Integumentary Integumentary: Present: pale - Neurologic Neurologic: Present: CNII-XII intact - Musculoskeletal Musculoskeletal: Present: generalized weakness, strength equal bilaterally - Psychiatric Psychiatric: Present: A&O x's 3, appropriate affect, intact judgment & insight - Labs CBC & Chem 7: 02/06/18 10:35 02/06/18 10:35 Labs: Abnormal Lab Results - Last 24 Hours (Table) 02/06/18 02/06/18 02/06/18 Range/Units 02:54 17:10 21:04 POC Glucose (mg/dL) 149 H 134 H (75-99) mg/dL Hemoglobin A1c 6.7 H (4.0-6.0) % 02/07/18 02/07/18 Range/Units 07:08 11:00 POC Glucose (mg/dL) 111 H 154 H (75-99) mg/dL Hemoglobin A1c (4.0-6.0) % Assessment and Plan (1) Generalized weakness Current Visit: Yes Status: Acute Code(s): R53.1 - WEAKNESS SNOMED Code(s) : 14104728 (2) History of breast cancer Current Visit: Yes Status: Acute Code(s): Z85.3 - PERSONAL HISTORY OF MALIGNANT NEOPLASM OF BREAST SNOMED Code(s): 361022370 (3) Triple negative malignant neoplasm of breast Current Visit: No Status: Acute Code(s): C50.919 - MALIGNANT NEOPLASM OF UNSP SITE OF UNSPECIFIED FEMALE BREAST SNOMED Code(s): 278237633 Plan: Assessment and Recommendations: 1. Triple Negative Breast Cancer: Status Post 4 cycles Adriamycin and Cytoxan with neulasta - Was suppose to start chemotherapy with second half this week, although secondary to recent hospitalization and now progressive weakness will hold chemotherapy until patient is completed with rehabilitation. - Recheck CBC and CMP today 2. Acute Hypoxia - Requiring Oxygen - May be secondary to recent effusions and atelectesis - Pulmonary Embolism cannot be excluded as she has been inactive, known breast cancer. Will need to await renal function prior to ordering CTA to evaluate further - Chest xtray ordered - 2Decho for evaluation after anthracyclycine was recently completed and reviewed 01/27/18 - EF 55-60% 3. Leukocytosis - Likely reactive. Recent Neulasta as well 4. Normocytic Anemia - Recent Chemotherapy, will monitor CBC 5. Mild thrombocytopenia - Recovering appropriately after chemotherapy 6. Acute Illness Myopathy - Agree with PT/OT - Incentive Spirometer at bedside and encourage patient to get up and out of bed during day. I have discussed this with billing assistant as well as patient and . - Plan for Sub-acute Rehab. Hopefully intensive therapy will increase her strength so we can aim to give her next dose of chemotherapy next week.
[2018-02-07] MEDS: POTASSIUM CHLORIDE ER 20 MEQ TAB.ER PO SCH ×2 (15:51→18:02)
[2018-02-07] MEDS ORDERED: POTASSIUM CHLORIDE ER 20 MEQ TAB.ER PO SCH (16:00)
[2018-02-07 17:14] LABS: Glucose,Whole Blood 127 mg/dL (75-99)
[2018-02-07 20:08] LABS: Glucose,Whole Blood 155 mg/dL (75-99)
--- NOTE | 2018-02-07 21:15 | PN ---
PROGRESS NOTE DATE OF SERVICE: 02/07/2018 PRESENTING COMPLAINT: Edema. INTERVAL HISTORY: Patient admitted with CHF exacerbation, on IV Lasix. Still has edema, but diuresing well. Breathing is a bit better. Did tolerate some diet. at the bedside. REVIEW OF SYSTEMS: Done for constitutional, cardiovascular, GI, pulmonary; relevant findings as above. CURRENT MEDICATIONS: Include IV Lasix. EXAMINATION: Temperature 97.9, pulse 54, respirations 18, blood pressure 109/62, pulse 100% on 2L. GENERAL APPEARANCE: Sitting up in a chair, tired-appearing. EYES: Pupils are pale. HEENT: External nose and ears normal. Oral cavity normal. NECK: JVD pulse not raised. Mass not palpable. RESPIRATORY: Effort increased. LUNGS: Some basal crackles. CARDIOVASCULAR: 1st and 2nd sounds normal. No edema present. ABDOMEN: Soft nontender. Liver, spleen not palpable. PSYCHIATRY: Alert and oriented x3. Mood and affect normal. INVESTIGATIONS: Potassium 2.8. ProBNP 19,500. ASSESSMENT: 1. Acute congestive heart failure exacerbation from diastolic dysfunction, ejection fraction 55%-60%, slow to respond. 2. Paroxysmal atrial flutter, currently in sinus rhythm. 3. Diabetes mellitus type 2 on oral hypoglycemic. 4. Hyperlipidemia. 5. Essential hypertension. 6. 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 7. Recurrent breast cancer, status post chemotherapy. 8. Severe hypokalemia from aggressive diuresis. PLAN: Continue patient on IV Lasix. Will replace potassium aggressively. Will add potassium to the normal schedule. Care was discussed with the patient. The patient probably needs inpatient rehab when she leaves from here. MMODL / IJN: [id number] /
[2018-02-07] MEDS: CHOLESTYRAMINE (WITH SUGAR) 4 GM PACKET PO SCH (21:22)
[2018-02-08] MEDS: FUROSEMIDE 10 MG/ML 10 ML VIAL IV SCH ×3 (00:39→17:45)
[2018-02-08] MEDS: NEOMYCIN-POLYMYXIN-DEXAMETH (3.5-10,000-0.1) DROPS 5 ML BTL BOTH EYES SCH ×6 (00:39→20:45)
[2018-02-08 07:11] LABS: Glucose,Whole Blood 113 mg/dL (75-99)
[2018-02-08 08:16] LABS: Calcium 8.7 mg/dL (8.4-10.2); Potassium 3.2 mmol/L (3.5-5.1)
[2018-02-08] MEDS: CARVEDILOL 6.25 MG TAB PO SCH ×2 (09:07→17:45)
[2018-02-08] MEDS: POTASSIUM CHLORIDE ER 20 MEQ TAB.ER PO SCH (09:08)
[2018-02-08] MEDS: MAGNESIUM OXIDE 400 MG TAB PO SCH (09:13)
[2018-02-08 09:43] LABS: Albumin 2.7 g/dL (3.5-5.0); Bilirubin, Delta 0.4 mg/dL (0.0-0.2); Bilirubin,Unconjugated 0.4 mg/dL (0.0-1.1); Total Bilirubin 0.8 mg/dL (0.2-1.3); Total Protein 4.7 g/dL (6.3-8.2)
[2018-02-08 11:38] LABS: Glucose,Whole Blood 142 mg/dL (75-99)
[2018-02-08 11:40] LABS: Anisocytosis Moderate; Basophils % (A) 0 %; Eosinophils % (A) 0 %; HCT 26.4 % (34.0-46.0); HGB 8.8 gm/dL (11.4-16.0); Hypochromasia Slight; Lymphocytes # (A) 0.2 k/uL (1.0-4.8); Lymphocytes % (A) 2 %; MCH 30.9 pg (25.0-35.0); MCHC 33.3 g/dL (31.0-37.0); MCV 92.8 fL (80.0-100.0); Macrocytosis Slight; Mean Platelet Volume 9.8; Monocytes # (A) 0.7 k/uL (0-1.0); Monocytes % (A) 6 %; Neutrophils # (A) 12.3 k/uL (1.3-7.7); Neutrophils % (A) 92 %; Platelet Count 121 k/uL (150-450); Poikilocytosis Moderate; RBC 2.85 m/uL (3.80-5.40); RDW 22.5 % (11.5-15.5); WBC 13.4 k/uL (3.8-10.6)
--- NOTE | 2018-02-08 11:51 | P.PN ---
Subjective Progress Note Date: 02/08/18 Mrs. Guerrero is a pleasant 77-year-old female past medical history significant for breast cancer currently undergoing chemo therapy, diabetes mellitus, hypertension, dyslipdemia and paroxysmal atrial fibrillation not on anticoagulation secondary to comorbid conditions. This was a new diagnosis earlier this month and she converted back to sinus rhythm after being on a cardizem drip for 2 days. She was started on atenolol for beta alex. She was discharged home yesterday after being here for a week. We have been asked to see her in consultation for symptoms of heart failure. She presented to the hospital with complaints of generalized weakness and fatigue. She also has exertional shortness of breath and is requiring oxygen to maintain oxygen saturations. She denies symptoms of chest pain, dizziness, palpitations, diaphoresis, nausea or vomiting. Also denies symptoms of PND or orthopnea. She has chronic lymphedema in the right arm. EKG reveals sinus mechanism with PVCs. Incomplete right bundle branch block and non-specific ST abnormalities in precordial leads. Chest x-ray reveals cardiomegaly with moderate central vascular congestion and small to moderate-sized bilateral pleural effusions. Laboratory data reviewed, WBC 15.0, hemoglobin 8.9, platelets 139, sodium 142, potassium 3.2, creatinine 1.12, GFR 48, lactic acid 2.4, AST 51, ALT 112, alk phos 255. Current cardiac medications include atorvastatin 20 mg daily and atenolol/ chlorthalidone 50/25 mg daily. Echocardiogram performed 01/28/2018 reveals preserved LV systolic function with EF 55-60% with mild pulmonary hypertension RVSP 43.88 mmHg. 02/08/2018 Mrs. Guerrero is seen and examined this morning. Potassium yesterday was low at 2.8 after replacement this morning 3.2. ProBNP 19,500, creatinine 1.02. She is diuresing well with a negative fluid balance of 3,150 over the previous 24 hours. Her weight is down 10 kg since admission. Blood pressure 145/63 herat rate 72 afebrile and maintain oxygen saturations on nasal cannula 2 liters. Objective - Vital Signs Vital signs: Vital Signs Temp 97.6 F 02/08/18 07:00 Pulse 72 02/08/18 07:00 Resp 18 02/08/18 07:00 BP 145/63 02/08/18 07:00 Pulse Ox 98 02/07/18 21:21 Intake & Output 02/07/18 02/08/18 02/08/18 18:59 06:59 18:59 Output Total 1150 1999 1800 Balance -1149 -1999 -1799 Output: Urine 1150 1999 1800 Uretheral ([place]) 1150 1999 Other: Voiding Method Indwelling Catheter Indwelling Catheter - Exam GENERAL: Well-appearing, well-nourished and in no acute distress. NECK: Supple without JVD or thyromegaly. LUNGS: Bibasilar rales worse on the right. Respiration equal and unlabored. No wheezes or rhonchi. HEART: Regular rate and rhythm with murmur at the base, no rubs or gallops. S1 and S2 heard. EXTREMITIES: Right upper extremity nonpitting lymphedema. Bilateral lower extremity nonpitting edema. No calf tenderness bilaterally. Peripheral pulses intact. - Labs CBC & Chem 7: 02/06/18 10:35 02/08/18 07:00 Labs: Abnormal Lab Results - Last 24 Hours (Table) 02/07/18 02/07/18 02/07/18 Range/Units 11:00 13:40 17:12 Potassium 2.8 L* (3.5-5.1) mmol/L Chloride (98-107) mmol/L Carbon Dioxide (22-30) mmol/L BUN (7-17) mg/dL POC Glucose (mg/dL) 154 H 127 H (75-99) mg/dL 02/07/18 02/08/18 02/08/18 Range/Units 20:06 07:00 07:09 Potassium 3.2 L (3.5-5.1) mmol/L Chloride 97 L (98-107) mmol/L Carbon Dioxide 33 H (22-30) mmol/L BUN 26 H (7-17) mg/dL POC Glucose (mg/dL) 155 H 113 H (75-99) mg/dL Assessment and Plan Assessment: ASSESSMENT 1. Acute diastolic heart failure with preserved ejection fraction 2. Paroxysmal atrial fibrillation currently maintaining sinus mechanism 3. Right breast cancer with recent chemotherapy 4. Dyslipidemia 5. Hypertension 6. Diabetes mellitus 7. Leukocytosis 8. Thrombocytopenia 9. Anemia 10. Hypokalemia, replaced. 11. Acute kidney injury 12. Lactic acidosis 13. Elevated liver enzymes, discontinue atorvastatin PLAN Continue with diuresis and potassium supplementation on a regular schedule. Obtain daily weights. Strict intake and output. Follow electrolytes and renal function daily. The above impression and plan of care have been discussed and directed by the signing physician. Anisa Chacon, nurse practitioner, acting as scribe for signing physician.
--- NOTE | 2018-02-08 13:05 | P.PN ---
Subjective Progress Note Date: 02/08/18 Principal diagnosis: breast Cancer - Debility Jennifer seen and examined in follow-up today. No changes overnight. Objective - Vital Signs Vital signs: Vital Signs Temp 97.6 F 02/08/18 07:00 Pulse 72 02/08/18 09:57 Resp 18 02/08/18 09:57 BP 145/63 02/08/18 07:00 Pulse Ox 98 02/07/18 21:21 Intake & Output 02/07/18 02/08/18 02/08/18 18:59 06:59 18:59 Output Total 1150 1999 1800 Balance -1150 -1999 -1799 Weight 77.4 kg Output: Urine 1150 1999 1800 Uretheral ([place]) [id number] Other: Voiding Method Indwelling Catheter Indwelling Catheter Indwelling Catheter - Constitutional General appearance: Present: cooperative, no acute distress - EENT Eyes: Present: EOMI, PERRLA, dentition normal ENT: Present: NA/AT, normal oropharynx - Neck Details: Supple, Trachea Midline Neck: Present: normal ROM - Respiratory Respiratory: bilateral: diminished (Lower Lobes) - Cardiovascular Rhythm: regular Heart sounds: normal: S1, S2 - Gastrointestinal General gastrointestinal: Present: normal bowel sounds, soft - Integumentary Integumentary: Present: pale - Neurologic Neurologic Comment(s): No focal Defects Neurologic: Present: CNII-XII intact - Musculoskeletal Musculoskeletal: Present: generalized weakness, strength equal bilaterally - Psychiatric Psychiatric: Present: A&O x's 3, appropriate affect, intact judgment & insight - Labs CBC & Chem 7: 02/08/18 10:50 02/08/18 07:00 Labs: Abnormal Lab Results - Last 24 Hours (Table) 02/07/18 02/07/18 02/07/18 Range/Units 13:40 17:12 20:06 WBC (3.8-10.6) k/uL RBC (3.80-5.40) m/uL Hgb (11.4-16.0) gm/dL Hct (34.0-46.0) % RDW (11.5-15.5) % Plt Count (150-450) k/uL Neutrophils # (1.3-7.7) k/uL Lymphocytes # (1.0-4.8) k/uL Potassium 2.8 L* (3.5-5.1) mmol/L Chloride (98-107) mmol/L Carbon Dioxide (22-30) mmol/L BUN (7-17) mg/dL POC Glucose (mg/dL) 127 H 155 H (75-99) mg/dL Delta Bilirubin (0.0-0.2) mg/dL ALT (9-52) U/L Alkaline Phosphatase (38-126) U/L Total Protein (6.3-8.2) g/dL Albumin (3.5-5.0) g/dL 02/08/18 02/08/18 02/08/18 Range/Units 07:00 07:00 07:09 WBC (3.8-10.6) k/uL RBC (3.80-5.40) m/uL Hgb (11.4-16.0) gm/dL Hct (34.0-46.0) % RDW (11.5-15.5) % Plt Count (150-450) k/uL Neutrophils # (1.3-7.7) k/uL Lymphocytes # (1.0-4.8) k/uL Potassium 3.2 L (3.5-5.1) mmol/L Chloride 97 L (98-107) mmol/L Carbon Dioxide 33 H (22-30) mmol/L BUN 26 H (7-17) mg/dL POC Glucose (mg/dL) 113 H (75-99) mg/dL Delta Bilirubin 0.4 H (0.0-0.2) mg/dL ALT 77 H (9-52) U/L Alkaline Phosphatase 164 H (38-126) U/L Total Protein 4.7 L (6.3-8.2) g/dL Albumin 2.7 L (3.5-5.0) g/dL 02/08/18 02/08/18 Range/Units 10:50 11:36 WBC 13.4 H (3.8-10.6) k/uL RBC 2.85 L (3.80-5.40) m/uL Hgb 8.8 L (11.4-16.0) gm/dL Hct 26.4 L (34.0-46.0) % RDW 22.5 H (11.5-15.5) % Plt Count 121 L (150-450) k/uL Neutrophils # 12.3 H (1.3-7.7) k/uL Lymphocytes # 0.2 L (1.0-4.8) k/uL Potassium (3.5-5.1) mmol/L Chloride (98-107) mmol/L Carbon Dioxide (22-30) mmol/L BUN (7-17) mg/dL POC Glucose (mg/dL) 142 H (75-99) mg/dL Delta Bilirubin (0.0-0.2) mg/dL ALT (9-52) U/L Alkaline Phosphatase (38-126) U/L Total Protein (6.3-8.2) g/dL Albumin (3.5-5.0) g/dL Assessment and Plan (1) Generalized weakness Current Visit: Yes Status: Acute Code(s): R53.1 - WEAKNESS SNOMED Code(s) : 86051190 (2) History of breast cancer Current Visit: Yes Status: Acute Code(s): Z85.3 - PERSONAL HISTORY OF MALIGNANT NEOPLASM OF BREAST SNOMED Code(s): 817855436 (3) Triple negative malignant neoplasm of breast Current Visit: No Status: Acute Code(s): C50.919 - MALIGNANT NEOPLASM OF UNSP SITE OF UNSPECIFIED FEMALE BREAST SNOMED Code(s): 896761614 Plan: Assessment and Recommendations: 1. Triple Negative Breast Cancer: Status Post 4 cycles Adriamycin and Cytoxan with neulasta - Was suppose to start chemotherapy with second half this week, although secondary to recent hospitalization and now progressive weakness will hold chemotherapy until patient is completed with rehabilitation. - Recheck CBC and CMP today 2. Acute Hypoxia - Requiring Oxygen - May be secondary to recent effusions and atelectesis - Pulmonary Embolism cannot be excluded as she has been inactive, known breast cancer. Will need to await renal function prior to ordering CTA to evaluate further - Chest xtray ordered - 2Decho for evaluation after anthracyclycine was recently completed and reviewed 01/27/18 - EF 55-60% 3. Leukocytosis - Likely reactive. Recent Neulasta as well 4. Normocytic Anemia - Recent Chemotherapy, will monitor CBC 5. Mild thrombocytopenia - Recovering appropriately after chemotherapy 6. Acute Illness Myopathy - Agree with PT/OT - Incentive Spirometer at bedside and encourage patient to get up and out of bed during day. 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 7. Elevated Liver Enzymes: Likely from chemotherapy as this has started to recover. GI consult resonable, although continue to monitor decrease and recent CT scan failed to show acute etiology. 8. DISPO PLan: - Plan for Sub-acute Rehab. Hopefully intensive therapy will increase her strength so we can aim to give her next dose of chemotherapy next week. Physician Attestation: I have completed the full history and physical on this patient and discussed and agree with above dictation by Shelia Sharp NP, Documented as a scribe
[2018-02-08 17:27] LABS: Glucose,Whole Blood 122 mg/dL (75-99)
[2018-02-08 19:46] LABS: Glucose,Whole Blood 162 mg/dL (75-99)
[2018-02-08] MEDS: CHOLESTYRAMINE (WITH SUGAR) 4 GM PACKET PO SCH (20:45)
--- NOTE | 2018-02-08 22:25 | PN ---
PROGRESS NOTE DATE OF SERVICE: 02/08/2018 PRESENTING COMPLAINT: Edema. INTERVAL HISTORY: Patient was admitted with CHF exacerbation. Remains on IV Lasix. Making good urine output. Still has edema; slowly getting better. Tired. Oral intake is there. Does get dizzy when she stands up. REVIEW OF SYSTEMS: Done for constitutional, cardiovascular, GI, pulmonary; relevant findings as above. CURRENT MEDICATIONS: Reviewed. They include IV Lasix 60 q.8 and Coreg. PHYSICAL EXAMINATION: Temperature 98, pulse 79, respiration 18, blood pressure 111/50, pulse ox 95% on 2 L. GENERAL APPEARANCE: Sitting up in a chair. Tired. Awake. EYES: Pupils equal. Conjunctivae pale. HEENT: External appearance of nose and ears normal. Oral cavity normal. NECK: JVD unable to assess. Mass not palpable. RESPIRATORY: Effort increased. LUNGS: Decreased breath sounds. CARDIOVASCULAR: First and second sounds normal. Significant edema present, though better than before. ABDOMEN: Soft, nontender. Liver and spleen not palpable. PSYCHIATRY: Alert and oriented x3. Mood and affect normal. INVESTIGATIONS: White count 13.4, hemoglobin 8.8, potassium 3.2, bicarb 33, BUN 26, creatinine 1.02. Accu-Cheks noted. Albumin 2.7. ASSESSMENT: 1. Acute congestive heart failure exacerbation from diastolic dysfunction, ejection fraction 55% to 60%, slow to respond. 2. Paroxysmal atrial flutter, currently in sinus rhythm. 3. Severe hypokalemia from diuresis. 4. Diabetes mellitus, type 2, on oral hypoglycemic. 5. Hyperlipidemia. 6. Essential hypertension. 7. 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 8. Recurrent breast cancer, status post chemotherapy. 9. Hypoalbuminemia from moderate protein-calorie malnutrition from decreased oral intake. 10.Metabolic alkalosis from diuresis. PLAN: Care was discussed with the patient. Continue with potassium replacement and continue with IV Lasix. The patient has metabolic alkalosis, probably from the diuresis. Will add some Diamox. MMODL / IJN: [id number] /
[2018-02-08] MEDS: acetaZOLAMIDE 250 MG TAB PO SCH (22:34)
[2018-02-09] MEDS: FUROSEMIDE 10 MG/ML 10 ML VIAL IV SCH ×2 (00:09→09:54)
[2018-02-09] MEDS: NEOMYCIN-POLYMYXIN-DEXAMETH (3.5-10,000-0.1) DROPS 5 ML BTL BOTH EYES SCH ×6 (00:10→20:49)
[2018-02-09 07:23] LABS: Glucose,Whole Blood 127 mg/dL (75-99)
--- NOTE | 2018-02-09 08:15 | XR ---
EXAMINATION TYPE: XR chest 2V DATE OF EXAM: 02/09/2018 COMPARISON: Chest x-ray from 3 days ago. HISTORY: History of CHF progress study. TECHNIQUE: Frontal and lateral views of the chest are obtained. FINDINGS: There is stable left internal jugular Mediport catheter. Surgical clips in right axilla and overlying right breast are redemonstrated. There is persistent small bilateral pleural effusions and associated bibasilar atelectasis and/or infiltrate. The cardiac silhouette size is less prominent w ith improving central vascular congestion. The osseous structures are intact. IMPRESSION: Improving central vascular congestion. Persistent small bilateral pleural effusions and associated bibasilar atelectasis and/or infiltrate is noted.
[2018-02-09 08:34] LABS: Calcium 8.6 mg/dL (8.4-10.2)
[2018-02-09 08:44] LABS: Potassium 2.6 mmol/L (3.5-5.1)
[2018-02-09] MEDS ORDERED: Potassium Replacement Protocol 1 EACH MISC MISCELLANE PRN ×3 (08:47→08:59)
[2018-02-09] MEDS: CARVEDILOL 6.25 MG TAB PO SCH (08:49)
[2018-02-09] MEDS ORDERED: POTASSIUM CHLORIDE 10 MEQ in WATER FOR INJECTION 1 100ML.BAG IVPB SCH (09:00)
[2018-02-09] MEDS: acetaZOLAMIDE 250 MG TAB PO SCH ×2 (09:39→20:48)
[2018-02-09] MEDS: MAGNESIUM OXIDE 400 MG TAB PO SCH (09:39)
[2018-02-09] MEDS: POTASSIUM CHLORIDE ER 20 MEQ TAB.ER PO SCH ×4 (09:41→20:48)
[2018-02-09] MEDS: POTASSIUM CHLORIDE 10 MEQ in WATER FOR INJECTION 1 100ML.BAG IVPB SCH ×2 (09:55→10:30)
[2018-02-09 11:28] LABS: Glucose,Whole Blood 180 mg/dL (75-99)
--- NOTE | 2018-02-09 12:39 | P.PN ---
Subjective Progress Note Date: 02/09/18 Mrs. Guerrero is a pleasant 77-year-old female past medical history significant for breast cancer currently undergoing chemo therapy, diabetes mellitus, hypertension, dyslipdemia and paroxysmal atrial fibrillation not on anticoagulation secondary to comorbid conditions. This was a new diagnosis earlier this month and she converted back to sinus rhythm after being on a cardizem drip for 2 days. She was started on atenolol for beta alex. She was discharged home yesterday after being here for a week. We have been asked to see her in consultation for symptoms of heart failure. She presented to the hospital with complaints of generalized weakness and fatigue. She also has exertional shortness of breath and is requiring oxygen to maintain oxygen saturations. She denies symptoms of chest pain, dizziness, palpitations, diaphoresis, nausea or vomiting. Also denies symptoms of PND or orthopnea. She has chronic lymphedema in the right arm. EKG reveals sinus mechanism with PVCs. Incomplete right bundle branch block and non-specific ST abnormalities in precordial leads. Chest x-ray reveals cardiomegaly with moderate central vascular congestion and small to moderate-sized bilateral pleural effusions. Laboratory data reviewed, WBC 15.0, hemoglobin 8.9, platelets 139, sodium 142, potassium 3.2, creatinine 1.12, GFR 48, lactic acid 2.4, AST 51, ALT 112, alk phos 255. Current cardiac medications include atorvastatin 20 mg daily and atenolol/ chlorthalidone 50/25 mg daily. Echocardiogram performed 01/28/2018 reveals preserved LV systolic function with EF 55-60% with mild pulmonary hypertension RVSP 43.88 mmHg. 02/08/2018 Mrs. Guerrero is seen and examined this morning. Potassium yesterday was low at 2.8 after replacement this morning 3.2. ProBNP 19,500, creatinine 1.02. She is diuresing well with a negative fluid balance of 3,150 over the previous 24 hours. Her weight is down 10 kg since admission. Blood pressure 145/63 herat rate 72 afebrile and maintain oxygen saturations on nasal cannula 2 liters. 02/09/2018 Potassium remains low on oral supplementation, IV has been ordered. Creatinine 1.23. Blood pressure 113/76 herat rate in the 50s. Blood pressure on the lower side this morning with systolic in the 80s. 2,601 negative fluid balance in the last 24 hrs. Chest xray this morning shows improving vascular congestion with persistent small b/l pleural effusions and bibasilar atelectasis. She relates that she is feeling better overall. Objective - Vital Signs Vital signs: Vital Signs Temp 97.9 F 02/09/18 07:20 Pulse 51 L 02/09/18 09:55 Resp 18 02/09/18 09:55 BP 113/76 02/09/18 08:18 Pulse Ox 95 02/09/18 07:20 Intake & Output 02/08/18 02/09/18 02/09/18 18:59 06:59 18:59 Output Total 2600 1 1 Balance -2600 -1 -1 Weight 77.4 kg 76 kg 76.3 kg Output: Urine 2600 Stool 1 1 Other: Voiding Method Indwelling Catheter Bedside Commode Bedside Commode # Voids 1 # Bowel Movements 3 1 1 - Exam GENERAL: Well-appearing, well-nourished and in no acute distress. NECK: Supple without JVD or thyromegaly. LUNGS: Respiration equal and unlabored. No wheezes, rales or rhonchi. HEART: Regular rate and rhythm with murmur at the base, no rubs or gallops. S1 and S2 heard. EXTREMITIES: Right upper extremity nonpitting lymphedema. Bilateral lower extremity nonpitting edema. No calf tenderness bilaterally. Peripheral pulses intact. - Labs CBC & Chem 7: 02/08/18 10:50 02/09/18 07:36 Labs: Abnormal Lab Results - Last 24 Hours (Table) 02/08/18 02/08/18 02/09/18 Range/Units 17:25 19:43 07:04 Potassium (3.5-5.1) mmol/L Chloride (98-107) mmol/L Carbon Dioxide (22-30) mmol/L BUN (7-17) mg/dL Creatinine (0.52-1.04) mg/dL Glucose (74-99) mg/dL POC Glucose (mg/dL) 122 H 162 H 127 H (75-99) mg/dL 02/09/18 02/09/18 Range/Units 07:36 11:27 Potassium 2.6 L* (3.5-5.1) mmol/L Chloride 88 L (98-107) mmol/L Carbon Dioxide 39 H (22-30) mmol/L BUN 25 H (7-17) mg/dL Creatinine 1.23 H (0.52-1.04) mg/dL Glucose 111 H (74-99) mg/dL POC Glucose (mg/dL) 180 H (75-99) mg/dL Assessment and Plan Assessment: ASSESSMENT 1. Acute diastolic heart failure with preserved ejection fraction 2. Paroxysmal atrial fibrillation currently maintaining sinus mechanism 3. Right breast cancer with recent chemotherapy 4. Dyslipidemia 5. Hypertension with episode of hypotension 6. Diabetes mellitus 7. Leukocytosis 8. Thrombocytopenia 9. Anemia 10. Hypokalemia, replaced. 11. Acute kidney injury 12. Lactic acidosis 13. Elevated liver enzymes, discontinue atorvastatin PLAN Transition to oral diuretics, lasix 80 mg BID. Can be tapered down at the time of discharge. Continue replacing potassium, repeat level this afternoon. Episodes of hypotension may be related to diuresis, however will put her back on her regimen of atenolol 50 mg and discontinue coreg. Stable from a cardiac perspective, continue with ongoing medical management. We will see her as needed during the remainder of this hospitalization. Please feel free to call with further questions of concerns. The above impression and plan of care have been discussed and directed by the signing physician. Anisa Chacon, nurse practitioner, acting as scribe for signing physician.
[2018-02-09] MEDS: FUROSEMIDE 80 MG TAB PO SCH (16:49)
[2018-02-09 17:35] LABS: Glucose,Whole Blood 127 mg/dL (75-99)
--- NOTE | 2018-02-09 18:14 | PN ---
PROGRESS NOTE DATE OF SERVICE: 02/09/2018 PRESENTING COMPLAINT: CHF. INTERVAL HISTORY: Patient was admitted with CHF, has been on IV Lasix. Doing better today with the therapy. Today actually walked out in the hallway. Eating better. Edema has significantly gone down. Potassium has been really low, getting replaced. REVIEW OF SYSTEMS: Done for constitutional, cardiovascular, GI, pulmonary; relevant findings as above. CURRENT MEDICATIONS: Reviewed. They include IV Lasix this morning. PHYSICAL EXAMINATION: Temperature 97.8, pulse 74, respiration 16, blood pressure 97/52, pulse ox 96% on 2 L. GENERAL APPEARANCE: Sitting on edge of the bed. Awake. EYES: Pupils equal. Conjunctivae pale. HEENT: External appearance of nose and ears normal. Oral cavity normal. NECK: JVD unable to assess. Mass not palpable. RESPIRATORY: Effort increased. LUNGS: Decreased breath sounds. CARDIOVASCULAR: First and second sounds normal. Some edema is present. ABDOMEN: Soft, nontender. Liver and spleen not palpable. PSYCHIATRY: Alert and oriented x3. Mood and affect normal. INVESTIGATIONS: Potassium 2.6, BUN 25, creatinine 1.23. ProBNP 906 0. Chest x-ray shows pulmonary much improved. ASSESSMENT: 1. Acute congestive heart failure exacerbation from diastolic dysfunction, ejection fraction 55% to 60%, much improved. 2. Severe hypokalemia from diuresis. 3. Paroxysmal atrial flutter, currently in sinus rhythm. 4. Diabetes mellitus, type 2, on oral hypoglycemic. 5. Hyperlipidemia. 6. Essential hypertension. 7. 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 8. Recurrent breast cancer, status post chemotherapy. 9. Hypoalbuminemia from moderate protein-calorie malnutrition from decreased oral intake. 10.Metabolic alkalosis from diuresis. PLAN: Patient's potassium will be aggressively replaced. Looking at patient going to the [facility] tomorrow. I did talk to the patient and her . Also spoke to the social media specialist. MMODL / IJN: [id number] /
[2018-02-09 20:14] LABS: Glucose,Whole Blood 157 mg/dL (75-99)
[2018-02-09] MEDS: CHOLESTYRAMINE (WITH SUGAR) 4 GM PACKET PO SCH (20:48)
[2018-02-09 20:57] VITALS: RESP 18
[2018-02-10] MEDS: NEOMYCIN-POLYMYXIN-DEXAMETH (3.5-10,000-0.1) DROPS 5 ML BTL BOTH EYES SCH ×3 (01:28→08:43)
[2018-02-10 06:21] LABS: Calcium 8.4 mg/dL (8.4-10.2); Potassium 3.3 mmol/L (3.5-5.1)
[2018-02-10 08:24] VITALS: BP 116/56; PULSE 90; TEMP 98.5
[2018-02-10] MEDS: MAGNESIUM OXIDE 400 MG TAB PO SCH (08:43)
[2018-02-10] MEDS: POTASSIUM CHLORIDE ER 20 MEQ TAB.ER PO SCH (08:43)
[2018-02-10] MEDS: acetaZOLAMIDE 250 MG TAB PO SCH (08:43)
[2018-02-10] MEDS: FUROSEMIDE 80 MG TAB PO SCH (08:44)
[2018-02-10] MEDS ORDERED: ATENOLOL 50 MG TAB PO SCH (09:00)
[2018-02-10 11:01] LABS: Glucose,Whole Blood 152 mg/dL (75-99)
--- NOTE | 2018-02-10 11:36 | DS ---
DISCHARGE SUMMARY DATE OF ADMISSION: 02/06/2018. DATE OF DISCHARGE: 02/10/2018 FINAL DIAGNOSES: 1. Acute congestive heart failure exacerbation from diastolic dysfunction, ejection fraction 55% to 60%, from underlying hypertension. 2. Severe hypokalemia from diuresis. 3. Paroxysmal atrial flutter, currently in sinus rhythm. 4. Diabetes mellitus, type 2, on oral hypoglycemic. 5. Hyperlipidemia. 6. Essential hypertension. 7. 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 8. Recurrent breast cancer, status post chemotherapy. 9. Hypoalbuminemia from moderate protein-calorie malnutrition from decreased oral intake. 10.Metabolic alkalosis from diuresis. HOSPITAL COURSE: This patient was just sent home, readmitted with CHF exacerbation. She was put on IV Lasix, diuresed rather well. Eating better. Switched over to oral Lasix. Today patient's BUN is 24, creatinine 1.20. CONSULTATIONS: 1. Dr. Rachel Hoskins from Cardiology. 2. Dr. Poole from Oncology. PHYSICAL EXAMINATION: LUNGS: Decreased breath sounds. Decreased edema. PSYCH: Alert and oriented x3. DISCHARGE MEDICATIONS: 1. Atenolol chlorthalidone 50/25 one tablet p.o. daily. 2. Lipitor 20 mg at bedtime. 3. Questran 4 grams p.o. at bedtime. 4. Imodium 2 mg q.i.d. p.r.n. 5. Magnesium oxide 400 mg p.o. daily. 6. Maxitrol ophthalmic suspension 1 drop to both eyes q.4. 7. Lasix 80 mg b.i.d. 8. Melatonin 3 mg at bedtime p.r.n. 9. Potassium 40 mEq p.o. daily. DISPOSITION: [facility]. Follow up with Dr. Flores on 02/11/2018. Follow up with Dr. Gotti upon discharge from the [facility]. Follow up with our oncologist as scheduled. Labs: CBC, BMP, magnesium in 3 days. MMODL / IJN: [id number] /
[2018-02-12 11:12] LABS: Glucose,Whole Blood 107 mg/dL (75-99)
== END 2018-02-10 13:30 | DRG 292 ==
LOC: EC 21:21 → 5ONC 02-06 00:35
PROVIDERS: ADMIT Hospitalist; ATTEND Hospitalist
DX: I11.0 Hypertensive heart disease with heart failure (principal); E44.0 Moderate protein-calorie malnutrition; E87.4 Mixed disorder of acid-base balance; N17.9 Acute kidney failure, unspecified; D69.6 Thrombocytopenia, unspecified; I27.20 Pulmonary hypertension, unspecified; G72.89 Other specified myopathies; I48.0 Paroxysmal atrial fibrillation; I48.92 Unspecified atrial flutter; C50.911 Malignant neoplasm of unspecified site of right female breast; J98.11 Atelectasis; D64.9 Anemia, unspecified; D72.829 Elevated white blood cell count, unspecified; E11.9 Type 2 diabetes mellitus without complications; E78.5 Hyperlipidemia, unspecified; E87.6 Hypokalemia; I45.10 Unspecified right bundle-branch block; I50.33 Acute on chronic diastolic (congestive) heart failure; I89.0 Lymphedema, not elsewhere classified; T45.1X5A Adverse effect of antineoplastic and immunosuppressive drugs, initial encounter; Z17.1 Estrogen receptor negative status [ER-]; Z79.899 Other long term (current) drug therapy; Z80.0 Family history of malignant neoplasm of digestive organs; Z82.3 Family history of stroke; Z87.891 Personal history of nicotine dependence; Z90.710 Acquired absence of both cervix and uterus; Z96.1 Presence of intraocular lens; Z98.42 Cataract extraction status, left eye; Z98.41 Cataract extraction status, right eye; L65.8 Other specified nonscarring hair loss; R09.02 Hypoxemia; R74.8 Abnormal levels of other serum enzymes
CPT/HCPCS: 36415; 51702; 71046; 80048; 80053; 80076; 81001; 82550; 82553; 83036; 83605; 83735; 83880; 84132; 84484; 85025; 85610; 85730; 86850; 86900; 86901; 93005; 96360; 96361; 99285

== ENCOUNTER 2018-04-29 20:42 | Inpatient (IN) | payer MEDICARE ==
[2018-04-29] MEDS ORDERED: IPRATROPIUM-ALBUTEROL 3 ML NEB INHALATION STA ×2 (21:21→23:20)
--- NOTE | 2018-04-29 21:59 | XR ---
EXAMINATION TYPE: XR chest 2V DATE OF EXAM: 04/29/2018 COMPARISON: 02/09/2018 HISTORY: 78-year-old female difficulty breathing and shortness of breath TECHNIQUE: AP and lateral views FINDINGS: Left anterior chest wall injection port with catheter tip at the mid to lower SVC level. Heart border line enlarged. Mild atherosclerotic arch calcifications. Mild hyperinflation may relate to depth of i nspiration or underlying emphysema. Improved aeration at the lung bases compared to prior exam. No co nsolidation or pleural effusion. Surgical clips relating to right breast lumpectomy and axillary node dissection. IMPRESSION: Possible underlying COPD. No acute process seen. Status post right lumpectomy and axillary node disse ction.
--- NOTE | 2018-04-29 22:32 | ED ---
General Adult HPI - General Chief complaint: Shortness of Breath Stated complaint: Shortness of Breath Time Seen by Provider: 04/29/18 21:21 Source: patient, family, EMS, RN notes reviewed, old records reviewed Mode of arrival: EMS Limitations: no limitations - History of Present Illness Initial comments: This is a 78-year-old female the ER for evaluation of weakness dizziness shortness of breath. Severe exertional dyspnea. Patient is positive breath CVA , going to chemotherapy. Patient does develop significant shortness of breath when she receives chemotherapy. Patient has been hospitalized prior and had multiple blood transfusions as well. Patient denies any blood in her stool. Does feel lightheaded and dizzy, no signs or symptoms of recent syncope - Related Data Home Medications Medication Instructions Recorded Confirmed Atenolol/Chlorthalidone 1 tab PO DAILY 01/26/18 04/29/18 [Atenolol-Chlorthalidone 50-25] Atorvastatin [Lipitor] 20 mg PO HS 01/26/18 04/29/18 Previous Rx's Medication Instructions Recorded Cholestyramine (with Sugar) 4 gm PO HS #14 packet 02/05/18 [Questran Packet] Loperamide [Imodium] 2 mg PO QID PRN #0 cap 02/05/18 Magnesium Oxide [Mag-Ox] 400 mg PO DAILY #30 tab 02/05/18 Zyhsyvzp-Pavehztyb-Ltjmyegz 1 drops BOTH EYES Q4HR bottle 02/05/18 [Maxitrol Ophth Susp] Furosemide [Lasix] 80 mg PO BID@0900,1600 tab 02/10/18 Melatonin 3 mg PO HS PRN tablet 02/10/18 Potassium Chloride ER [K-Dur 20] 40 meq PO DAILY tab.er.prt 02/10/18 Allergies Allergy/AdvReac Type Severity Reaction Status Date / Time No Known Allergies Allergy Verified 04/29/18 20:56 Review of Systems ROS Statement: Those systems with pertinent positive or pertinent negative responses have been documented in the HPI. ROS Other: All systems not noted in ROS Statement are negative. Past Medical History Past Medical History: Cancer, Diabetes Mellitus, Hyperlipidemia, Hypertension Additional Past Medical History / Comment(s): rt Breast CA 1990 had lumpectomy/ lymph nodes removed, chemo/radiation. in reocurrance of cancer same (rt) breast-receiving chemo . History of Any Multi-Drug Resistant Organisms: None Reported Past Surgical History: Appendectomy, Back Surgery, Breast Surgery, Cholecystectomy, Hysterectomy, Tonsillectomy Additional Past Surgical History / Comment(s): Medi port lt chest, 1 upper dental implant, rt breast lumpectomy, lymph nodes removed, egd/colonoscopu/ polypectomt, cataracts-lens implants Past Anesthesia/Blood Transfusion Reactions: No Reported Reaction Past Psychological History: No Psychological Hx Reported Smoking Status: Former smoker Past Alcohol Use History: None Reported Past Drug Use History: None Reported - Past Family History Mother Family Medical History: Cancer Additional Family Medical History / Comment(s): age 66 from colon cancer Father Family Medical History: CVA/TIA Additional Family Medical History / Comment(s): age 48 from a stroke General Exam Limitations: no limitations General appearance: alert, in no apparent distress Head exam: Present: atraumatic, normocephalic, normal inspection Eye exam: Present: normal appearance, PERRL, EOMI. Absent: scleral icterus, conjunctival injection, periorbital swelling ENT exam: Present: normal exam, mucous membranes moist Neck exam: Present: normal inspection. Absent: tenderness, meningismus, lymphadenopathy Respiratory exam: Present: normal lung sounds bilaterally. Absent: respiratory distress, wheezes, rales, rhonchi, stridor Cardiovascular Exam: Present: regular rate, normal rhythm, normal heart sounds. Absent: systolic murmur, diastolic murmur, rubs, gallop, clicks GI/Abdominal exam: Present: soft, normal bowel sounds. Absent: distended, tenderness, guarding, rebound, rigid Extremities exam: Present: normal inspection, full ROM, normal capillary refill. Absent: tenderness, pedal edema, joint swelling, calf tenderness Back exam: Present: normal inspection Neurological exam: Present: alert, oriented X3, CN II-XII intact Psychiatric exam: Present: normal affect, normal mood Skin exam: Present: warm, dry, intact, normal color. Absent: rash Course Vital Signs 04/29/18 04/29/18 04/29/18 20:52 21:57 22:07 Temperature 97 F L Pulse Rate 89 84 88 Respiratory 18 16 16 Rate Blood Pressure 112/56 O2 Sat by Pulse 97 Oximetry 04/29/18 04/29/18 04/29/18 22:23 22:41 23:02 Temperature Pulse Rate 83 82 94 Respiratory 19 18 17 Rate Blood Pressure 93/55 76/52 112/54 O2 Sat by Pulse 100 100 100 Oximetry - Reevaluation(s) Reevaluation #1: 04/29/18 23:22 Medical records thoroughly reviewed, patient with mild to minor improvement in breathing treatment EKG Findings - EKG Comments: EKG Findings:: EKG shows sinus rhythm rate of 91, VA 150, QRS 80, QTC 455 Medical Decision Making - Medical Decision Making 78 female the ER is continuous and recurrent shortness of breath, symptoms of weakness as well increasing for days. Patient's anemic, and he does have mild improvement breathing treatment. Patient will be admitted for further evaluation consultation by oncology - Lab Data Result diagrams: 04/29/18 22:26 04/29/18 22:26 Lab Results 04/29/18 04/29/18 04/29/18 Range/Units 22:26 22:26 22:26 WBC 3.3 L (3.8-10.6) k/uL RBC 2.52 L (3.80-5.40) m/uL Hgb 8.1 L (11.4-16.0) gm/dL Hct 23.5 L (34.0-46.0) % MCV 93.4 D (80.0-100.0) fL MCH 32.1 (25.0-35.0) pg MCHC 34.4 (31.0-37.0) g/dL RDW 17.4 H (11.5-15.5) % Plt Count 109 L (150-450) k/uL Neutrophils % (Manual) 41 % Band Neutrophils % 3 % Lymphocytes % (Manual) 49 % Monocytes % (Manual) 5 % Eosinophils % (Manual) 2 % Neutrophils # (Manual) 1.40 (1.3-7.7) k/uL Lymphocytes # (Manual) 1.62 (1.0-4.8) k/uL Monocytes # (Manual) 0.17 (0-1.0) k/uL Eosinophils # (Manual) 0.07 (0-0.7) k/uL Nucleated RBCs 0 (0-0) /100 WBC Manual Slide Review Performed Dohle Bodies Present Poikilocytosis Slight Anisocytosis Slight PT 10.4 (9.0-12.0) sec INR 1.1 (<1.2) APTT 22.9 (22.0-30.0) sec Sodium 136 L (137-145) mmol/L Potassium 3.3 L (3.5-5.1) mmol/L Chloride 101 (98-107) mmol/L Carbon Dioxide 22 (22-30) mmol/L Anion Gap 13 mmol/L BUN 18 H (7-17) mg/dL Creatinine 0.90 (0.52-1.04) mg/dL Est GFR (CKD-EPI)AfAm 72 (>60 ml/min/1.73 sqM) Est GFR (CKD-EPI)NonAf 63 (>60 ml/min/1.73 sqM) Glucose 103 H (74-99) mg/dL Calcium 8.8 (8.4-10.2) mg/dL Magnesium 1.2 L (1.6-2.3) mg/dL Total Bilirubin 0.7 (0.2-1.3) mg/dL AST 17 (14-36) U/L ALT 31 (9-52) U/L Alkaline Phosphatase 87 (38-126) U/L Total Creatine Kinase (30-135) U/L CK-MB (CK-2) (0.0-2.4) ng/mL CK-MB (CK-2) Rel Index Troponin I (0.000-0.034) ng/mL NT-Pro-B Natriuret Pep pg/mL Total Protein 5.4 L (6.3-8.2) g/dL Albumin 3.2 L (3.5-5.0) g/dL 04/29/18 04/29/18 Range/Units 22:26 22:26 WBC (3.8-10.6) k/uL RBC (3.80-5.40) m/uL Hgb (11.4-16.0) gm/dL Hct (34.0-46.0) % MCV (80.0-100.0) fL MCH (25.0-35.0) pg MCHC (31.0-37.0) g/dL RDW (11.5-15.5) % Plt Count (150-450) k/uL Neutrophils % (Manual) % Band Neutrophils % % Lymphocytes % (Manual) % Monocytes % (Manual) % Eosinophils % (Manual) % Neutrophils # (Manual) (1.3-7.7) k/uL Lymphocytes # (Manual) (1.0-4.8) k/uL Monocytes # (Manual) (0-1.0) k/uL Eosinophils # (Manual) (0-0.7) k/uL Nucleated RBCs (0-0) /100 WBC Manual Slide Review Dohle Bodies Poikilocytosis Anisocytosis PT (9.0-12.0) sec INR (<1.2) APTT (22.0-30.0) sec Sodium (137-145) mmol/L Potassium (3.5-5.1) mmol/L Chloride (98-107) mmol/L Carbon Dioxide (22-30) mmol/L Anion Gap mmol/L BUN (7-17) mg/dL Creatinine (0.52-1.04) mg/dL Est GFR (CKD-EPI)AfAm (>60 ml/min/1.73 sqM) Est GFR (CKD-EPI)NonAf (>60 ml/min/1.73 sqM) Glucose (74-99) mg/dL Calcium (8.4-10.2) mg/dL Magnesium (1.6-2.3) mg/dL Total Bilirubin (0.2-1.3) mg/dL AST (14-36) U/L ALT (9-52) U/L Alkaline Phosphatase (38-126) U/L Total Creatine Kinase <20 L (30-135) U/L CK-MB (CK-2) 0.3 (0.0-2.4) ng/mL CK-MB (CK-2) Rel Index Troponin I 0.044 H* (0.000-0.034) ng/mL NT-Pro-B Natriuret Pep 2310 pg/mL Total Protein (6.3-8.2) g/dL Albumin (3.5-5.0) g/dL - Radiology Data Radiology results: report reviewed (Chest x-ray shows no acute disease), image reviewed Disposition Clinical Impression: Generalized weakness, Acute exacerbation of chronic obstructive airways disease , Anemia, Hypokalemia, Hypomagnesemia Disposition: ADMITTED IP TO THIS [facility] Condition: Good Is patient prescribed a controlled substance at d/c from ED?: No Referrals: Omkar Gotti MD [Primary Care Provider] - 1-2 days
[2018-04-29 22:34] LABS: Anisocytosis Slight; HCT 23.5 % (34.0-46.0); HGB 8.1 gm/dL (11.4-16.0); MCH 32.1 pg (25.0-35.0); MCHC 34.4 g/dL (31.0-37.0); Mean Platelet Volume 9.7; Poikilocytosis Slight; RBC 2.52 m/uL (3.80-5.40); RDW 17.4 % (11.5-15.5); WBC 3.3 k/uL (3.8-10.6)
[2018-04-29 22:43] LABS: Albumin 3.2 g/dL (3.5-5.0); Calcium 8.8 mg/dL (8.4-10.2); INR 1.1 (<1.2); Magnesium 1.2 mg/dL (1.6-2.3); Partial Thromboplastin Time 22.9 sec (22.0-30.0); Potassium 3.3 mmol/L (3.5-5.1); Prothrombin Time 10.4 sec (9.0-12.0); Total Bilirubin 0.7 mg/dL (0.2-1.3); Total Protein 5.4 g/dL (6.3-8.2)
[2018-04-29] MEDS ORDERED: SODIUM CHLORIDE 0.9% 1,000 ML IV STA (22:45)
[2018-04-29] MEDS ORDERED: KETOROLAC 30 MG/ML 1 ML VIAL IVP STA (22:47)
[2018-04-29 22:51] LABS: MCV 93.4 fL (80.0-100.0)
[2018-04-29 22:52] LABS: Platelet Count 109 k/uL (150-450)
[2018-04-29 22:56] LABS: Creatine Kinase <20 U/L (30-135)
[2018-04-29 23:04] LABS: Band Neutrophils % 3 %; Dohle Bodies Present; Eosinophils # (M) 0.07 k/uL (0-0.7); Lymphocytes # (M) 1.62 k/uL (1.0-4.8); Monocytes # (M) 0.17 k/uL (0-1.0); Neutrophils % (M) 41 %; Nucleated Red Blood Cells 0 /100 WBC (0-0); Total Cells Counted 100
[2018-04-29 23:09] LABS: Creatine Kinase MB 0.3 ng/mL (0.0-2.4); Troponin I 0.044 ng/mL (0.000-0.034)
[2018-04-29] MEDS ORDERED: MAGNESIUM OXIDE 400 MG TAB PO STA (23:14)
[2018-04-29] MEDS ORDERED: POTASSIUM BICARBONATE/CIT AC 20 MEQ TABLET.EFF PO ONE (23:14)
[2018-04-29] MEDS ORDERED: methylPREDNISolone SOD SUCCI 125 MG/2 ML VIAL IV STA (23:20)
[2018-04-29] MEDS: MAGNESIUM SULFATE-D5W PMX 1 GM in DEXTROSE/WATER 1 100ML.BAG IVPB SCH (23:51)
[2018-04-29] MEDS: SODIUM CHLORIDE 0.9% 1,000 ML IV SCH (23:54)
[2018-04-30] MEDS: methylPREDNISolone SOD SUCCI 125 MG/2 ML VIAL IV SCH ×4 (00:52→17:19)
[2018-04-30 01:04] VITALS: BMI 24.6
[2018-04-30] MEDS: MAGNESIUM SULFATE-D5W PMX 1 GM in DEXTROSE/WATER 1 100ML.BAG IVPB SCH (01:31)
[2018-04-30 06:11] LABS: Glucose,Whole Blood 205 mg/dL (75-99)
[2018-04-30] MEDS: IPRATROPIUM-ALBUTEROL 3 ML NEB INHALATION SCH ×5 (08:40→19:11)
[2018-04-30 09:13] LABS: Calcium 8.5 mg/dL (8.4-10.2); Magnesium 2.1 mg/dL (1.6-2.3); Potassium 4.8 mmol/L (3.5-5.1)
[2018-04-30 09:23] LABS: Anisocytosis Slight; Basophils % (A) 1 %; Eosinophils % (A) 0 %; HCT 23.6 % (34.0-46.0); HGB 7.8 gm/dL (11.4-16.0); Hypochromasia Slight; Lymphocytes # (A) 0.3 k/uL (1.0-4.8); Lymphocytes % (A) 9 %; MCH 32.2 pg (25.0-35.0); MCHC 33.1 g/dL (31.0-37.0); MCV 97.4 fL (80.0-100.0); Macrocytosis Slight; Mean Platelet Volume 8.5; Monocytes # (A) 0.2 k/uL (0-1.0); Monocytes % (A) 6 %; Neutrophils # (A) 2.9 k/uL (1.3-7.7); Neutrophils % (A) 80 %; Platelet Count 125 k/uL (150-450); Poikilocytosis Slight; RBC 2.42 m/uL (3.80-5.40); RDW 17.7 % (11.5-15.5); WBC 3.6 k/uL (3.8-10.6)
[2018-04-30] MEDS: ENOXAPARIN 40 MG/0.4 ML SYRINGE SQ SCH (09:32)
[2018-04-30] MEDS: SODIUM CHLORIDE 0.9% 1,000 ML IV SCH ×2 (09:32→20:16)
[2018-04-30 10:51] LABS: Polychromasia Present
[2018-04-30 11:43] LABS: Glucose,Whole Blood 269 mg/dL (75-99)
[2018-04-30] MEDS: INSULIN ASPART 100 UNIT/ML 1 ML 10 ML VIAL SQ SCH ×3 (12:39→21:29)
[2018-04-30] MEDS ORDERED: MELATONIN 3 MG TABLET PO PRN (13:33)
[2018-04-30] MEDS: LORATADINE 10 MG TAB PO SCH (15:35)
[2018-04-30] MEDS: ATENOLOL 25 MG TAB PO SCH (15:35)
[2018-04-30 17:16] LABS: Glucose,Whole Blood 228 mg/dL (75-99)
[2018-04-30] MEDS: metFORMIN 500 MG TAB PO SCH (17:58)
--- NOTE | 2018-04-30 18:05 | P.CONS ---
History of Present Illness - Reason for Consult Consult date: 04/30/18 On Current Chemotherapy for Breast Cancer Requesting physician: Ramu Bowling - Chief Complaint Acute Dyspnea - History of Present Illness Mrs. Guerrero is a pleasant white female, who was found on routine mammogram, done on 10/05/17 to have a new 2.4 cm oval mass in the upper outer quadrant of the right breast. She had an ultrasound done on the same day, confirming the presence of a 3.91.52.2 cm irregular spiculated solid hypoechoic lesion at 10: 00. There was also 0.7 over lymph node noted in the axillary tail. The patient underwent an ultrasound-guided core biopsy of the breast mass on . 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 The case was discussed in detail in the [facility] breast [facility]. The patient actually had a history of breast cancer in 1990 in the same breast, treated with lumpectomy, chemotherapy, radiation as well as 5 years of tamoxifen. She was 51 and premenopausal at the time of diagnosis. The treatment occurred in [place]. Based on her presentation, ultrasound-guided core biopsy of the lymph node was recommended, which was performed on 11/09/17. This was negative for malignancy. Patient was referred here for further evaluation and recommendations. She does not recall the name of her initial chemotherapy regimen. She has been getting mammograms regularly, with the previous one been performed in . She had a PET done which showed no metastatic disease. Her ECHO showed normal LVEF. Labs and tumor markers were also WNL Genetic testing was negative. Based on her history, it appeared that she had had CMF previously. She was thus started on DD AC -> T 12/05/17 - Jennifer presents for Chemoteach for treatment with DD AC followed by T , neulasta day after 12/12/17 - Follow-up after cycle one of DD AC with Neulasta. She is s/p 4 cycles of AC, completing those on 01/18/18. She was then admitted to [facility] on 02/06/18 with uncontrolled diarrhea, dehydration , and muscle weakness. She improved with supportive care and was discharged to [facility], for a 2 week stay. Post discharge from the [facility], she remained weak, with slow improvement. She was seen by Cardiology for CHF and cleared to resume chemo. She started DD Taxol on 03/26/18 and at this point received 3 of 4 treatments of the Taxol. Last on 04/23/18. After each treatment she develops Bone Pain, Ribs and long bones. She also apears to have difficulty in Breathing, which quickly resolves after a day or two. The claritin and PRN pain management has controlled the bone pain from neulasta injection up till now, although this past cycle her shortness of breath persisted through the weekend and therefore she presented to the Emergency Room for further assessment. 04/30/18 - During todays evaluation her is at bedside. She is feeling good since having pain medication and breathing treatment in Emergency department. She has no acute complaints today. Prior chemo cycles she has struggles with diarrhea, although since taking PO iron supplements at home she complains of more constipation. She denies nausea, vomting, headache, pain or shortness of breath. Review of Systems A 14 point review of systems was assessed and completed and all negative except HPI Past Medical History Past Medical History: Cancer, Diabetes Mellitus, Hyperlipidemia, Hypertension Additional Past Medical History / Comment(s): rt Breast CA 1990 had lumpectomy/ lymph nodes removed, chemo/radiation. in reocurrance of cancer same (rt) breast-receiving chemo . History of Any Multi-Drug Resistant Organisms: None Reported Past Surgical History: Appendectomy, Back Surgery, Breast Surgery, Cholecystectomy, Hysterectomy, Tonsillectomy Additional Past Surgical History / Comment(s): Medi port lt chest, 1 upper dental implant, rt breast lumpectomy, lymph nodes removed, egd/colonoscopu/ polypectomt, cataracts-lens implants Past Anesthesia/Blood Transfusion Reactions: No Reported Reaction Past Psychological History: No Psychological Hx Reported Additional Psychological History / Comment(s): pt lives with spouse., no home care services recieved. has glucometer. Smoking Status: Former smoker Past Alcohol Use History: None Reported Additional Past Alcohol Use History / Comment(s): started smoking 1964 and quit 1974 smoked less than 1 ppd. Past Drug Use History: None Reported - Past Family History Mother Family Medical History: Cancer Additional Family Medical History / Comment(s): age 66 from colon cancer Father Family Medical History: CVA/TIA Additional Family Medical History / Comment(s): age 48 from a stroke Medications and Allergies Home Medications Medication Instructions Recorded Confirmed Type Atorvastatin [Lipitor] 20 mg PO HS 01/26/18 04/30/18 History Loperamide [Imodium] 2 mg PO QID PRN #0 cap 02/05/18 04/30/18 Rx Melatonin 3 mg PO HS PRN tablet 02/10/18 04/30/18 Rx Aspirin EC [Ecotrin Low Dose] 81 mg PO DAILY 04/30/18 04/30/18 History Atenolol [Tenormin] 25 mg PO DAILY 04/30/18 04/30/18 History Cholecalciferol [Vitamin D3] 1,000 unit PO DAILY 04/30/18 04/30/18 History Fexofenadine HCl [Bettie Allergy] 180 mg PO DAILY 04/30/18 04/30/18 History Furosemide [Lasix] 40 mg PO DAILY 04/30/18 04/30/18 History Magnesium Oxide [Mag-Ox] 400 mg PO HS 04/30/18 04/30/18 History Multivitamins, Thera [Multivitamin 1 tab PO DAILY 04/30/18 04/30/18 History (formulary)] Potassium Chloride ER [K-Dur 20] 20 meq PO HS 04/30/18 04/30/18 History metFORMIN HCL [Glucophage Xr] 500 mg PO PC-SUPPER 04/30/18 04/30/18 History Allergies Allergy/AdvReac Type Severity Reaction Status Date / Time No Known Allergies Allergy Verified 04/30/18 08:13 Physical Exam Vitals: Vital Signs Temp Pulse Pulse Resp BP BP Pulse Ox 04/30/18 15:41 94 18 129/60 99 04/30/18 12:09 88 04/30/18 12:00 84 18 115/58 99 04/30/18 11:57 88 04/30/18 08:54 84 04/30/18 08:40 84 04/30/18 08:00 96.9 F L 90 17 128/77 100 04/30/18 04:00 97.7 F 82 16 121/57 100 04/30/18 01:45 86 04/30/18 01:30 97.4 F L 86 18 104/52 100 04/30/18 01:01 97.1 F L 88 17 145/66 100 04/29/18 23:02 94 17 112/54 100 04/29/18 22:41 82 18 76/52 100 07/08/18 22:23 83 19 93/55 100 04/29/18 22:07 88 16 04/29/18 21:57 84 16 04/29/18 20:52 97 F L 89 18 112/56 97 Intake and Output 04/30/18 04/30/18 04/30/18 06:59 14:59 22:59 Intake Total 800 1307 Output Total 400 Balance 800 907 Intake: Intake, IV Titration 800 700 Amount Sodium Chloride 0.9% 1, 800 700 000 ml @ 100 mls/hr IV . Q10H [facility] Rx#:[id number] Oral 607 Output: Urine 400 Other: Voiding Method Bedside Commode # Voids 1 Weight 60 kg - Constitutional General appearance: cooperative, no acute distress - EENT Eyes: EOMI, PERRLA, dentition normal, normal appearance ENT: hard of hearing, NA/AT, normal oropharynx - Neck Neck Supple, Trachea Midline Neck: normal ROM - Respiratory Respiratory: bilateral: CTA (No increased effort) - Cardiovascular Rhythm: regular Heart sounds: normal: S1, S2 - Gastrointestinal General gastrointestinal: soft - Integumentary Integumentary: pale - Neurologic No focal Defects Neurologic: CNII-XII intact - Musculoskeletal Musculoskeletal: gait normal, generalized weakness, strength equal bilaterally - Psychiatric Psychiatric: A&O x's 3, appropriate affect, intact judgment & insight Results CBC & Chem 7: 04/30/18 08:45 04/30/18 08:45 Labs: Abnormal Lab Results - Last 24 Hours (Table) 04/29/18 04/29/18 04/29/18 Range/Units 22:26 22:26 22:26 WBC 3.3 L (3.8-10.6) k/uL RBC 2.52 L (3.80-5.40) m/uL Hgb 8.1 L (11.4-16.0) gm/dL Hct 23.5 L (34.0-46.0) % RDW 17.4 H (11.5-15.5) % Plt Count 109 L (150-450) k/uL Lymphocytes # (1.0-4.8) k/uL Sodium 136 L (137-145) mmol/L Potassium 3.3 L (3.5-5.1) mmol/L BUN 18 H (7-17) mg/dL Glucose 103 H (74-99) mg/dL POC Glucose (mg/dL) (75-99) mg/dL Magnesium 1.2 L (1.6-2.3) mg/dL Total Creatine Kinase <20 L (30-135) U/L Troponin I 0.044 H* (0.000-0.034) ng/mL Total Protein 5.4 L (6.3-8.2) g/dL Albumin 3.2 L (3.5-5.0) g/dL 04/30/18 04/30/18 04/30/18 Range/Units 06:10 08:45 08:45 WBC 3.6 L (3.8-10.6) k/uL RBC 2.42 L (3.80-5.40) m/uL Hgb 7.8 L (11.4-16.0) gm/dL Hct 23.6 L (34.0-46.0) % RDW 17.7 H (11.5-15.5) % Plt Count 125 L (150-450) k/uL Lymphocytes # 0.3 L (1.0-4.8) k/uL Sodium (137-145) mmol/L Potassium (3.5-5.1) mmol/L BUN 19 H (7-17) mg/dL Glucose 232 H (74-99) mg/dL POC Glucose (mg/dL) 205 H (75-99) mg/dL Magnesium (1.6-2.3) mg/dL Total Creatine Kinase (30-135) U/L Troponin I (0.000-0.034) ng/mL Total Protein (6.3-8.2) g/dL Albumin (3.5-5.0) g/dL 04/30/18 04/30/18 Range/Units 11:40 16:55 WBC (3.8-10.6) k/uL RBC (3.80-5.40) m/uL Hgb (11.4-16.0) gm/dL Hct (34.0-46.0) % RDW (11.5-15.5) % Plt Count (150-450) k/uL Lymphocytes # (1.0-4.8) k/uL Sodium (137-145) mmol/L Potassium (3.5-5.1) mmol/L BUN (7-17) mg/dL Glucose (74-99) mg/dL POC Glucose (mg/dL) 269 H 228 H (75-99) mg/dL Magnesium (1.6-2.3) mg/dL Total Creatine Kinase (30-135) U/L Troponin I (0.000-0.034) ng/mL Total Protein (6.3-8.2) g/dL Albumin (3.5-5.0) g/dL Chest x-ray: report reviewed Assessment and Plan Plan: Assessment and Recommendations: 1. Right Breast Cancer, Triple Negative ER-, VT-, HER2/mikal -. - Currently Undergoing Chemotherapy with Dose Dense AC-T with Neulasta - Status Post DD AC x4, and 3 of 4 Taxol with Neulasta, Last treatment 04/23/18 - Follow-up as outpatient to receive Cycle 4 of Treatment 2. Generalized Weakness and Associated Dizziness: - Likely secondary to Dehydration, Anemia, and Chemotherapy - Supportive Measures initiated and Patient is feeling better 3. Bone/Rib Pain - Secondary to Neulasta - Pain Managment and Bowel Regimen for risk of opiod induced constipation - Continue on Claritin 4. Shortness of Breath - Recurs after last few chemo cycles - Multifactoral including her anemia is worsening from chemotherapy and underlying COPD - With the exposure to adriamycin she has seen cardiology in past and most recent Echocardiogram on 01/2018. If symptoms persist consider repeat Echo or MUGA scan. We will also plan to monitor closely every 6 months for first two years after treatment ends. - this is currently resolved during todays assessment 5. Pancytopenia: Secondary to chemotherapy * Normocytic Anemia - Monitor CBC, Transfuse Hemoglobin less than 7. - Continue PO Iron after patients constipation resolves *Thrombocytopenia - Stable - Monitor for signs or symptoms of bleeding - Transfuse platlet count less than 10 *Leukopenia - Stable - She received Neulasta on 04/24/18 - Monitor Daily CBC with DIff - Monitor Signs and Symptoms of Infection - She has remained afebrile and without signs of acute infection this hospitalization. 6. Constipation: Secondary to Iron and Chemotherapy - Bowel Regimen (Stool Softeners and Laxatives) Thank you for allowing us to follow along with you on this patient. Shelia Sharp NP Medical Oncology
[2018-04-30] MEDS: ATORVASTATIN 20 MG TAB PO SCH (20:16)
[2018-04-30] MEDS: MAGNESIUM OXIDE 400 MG TAB PO SCH (20:16)
--- NOTE | 2018-04-30 21:15 | HP ---
HISTORY AND PHYSICAL DATE OF ADMISSION: 04/29/2018. DATE OF SERVICE: 04/30/2018. PRESENTING COMPLAINT: Short of breath. HISTORY OF PRESENTING COMPLAINT: This is a very pleasant 78-year-old patient of Dr. Omkar Gotti with a rather extensive history. The patient had breast cancer first diagnosed in 1990, was treated with chemo and lumpectomy and subsequently had a recurrence and is now being treated with chemotherapy by Dr. Poole. The patient gets a week of chemotherapy every 2 weeks. Last one was about a week ago. The patient presented dizzy and lightheaded. No nausea or vomiting. No fever. Appetite is fair. No BM. Short of breath. No cough. No congestion. The patient has been also having some back pain and tingling in the feet and fingers. Not much edema. PAST MEDICAL HISTORY: Patient's chronic stable medical conditions include paroxysmal atrial fibrillation, diabetes, hypertension, hyperlipidemia. REVIEW OF SYSTEMS: CONSTITUTIONAL: Tired. HEENT: Loss of hair. RESPIRATORY: As above. CARDIOVASCULAR: As above. GASTROINTESTINAL: None. GENITOURINARY: None. DERMATOLOGIC: None. HEMATOLOGIC: None. LYMPHATICS: None. PSYCHIATRY: None. NEUROLOGICAL: Numbness and tingling in hands and feet. MUSCULOSKELETAL: Pain in the lower back. PAST MEDICAL HISTORY: Diabetes mellitus type 2, hyperlipidemia, hypertension, breast cancer in 1990 with recurrence. PAST SURGICAL HISTORY: Appendectomy, back surgery, breast surgery, cholecystectomy, hysterectomy, tonsillectomy, MediPort on the left chest, lymph nodes removed, right breast lumpectomy, cataract with lens implant. SOCIAL HISTORY: . The patient smoked for about 10 years, stopped in 1974. No alcohol. FAMILY HISTORY: Colon cancer. HOME MEDICATIONS: 1. Glucophage XR 5 mg with supper. 2. Potassium 20 mEq at bedtime. 3. Multivitamin tab p.o. daily. 4. Melatonin 3 mg at bedtime p.r.n. 5. Magnesium oxide 100 mg at bedtime. 6. Imodium 2 mg q.i.d. p.r.n. 7. Lasix 40 mg p.o. daily. 8. Bettie 180 mg p.o. daily. 9. Vitamin D3, 1000 units p.o. daily. 10.Lipitor 20 mg at bedtime. 11.Tenormin 25 mg p.o. daily. 12.Aspirin 81 mg p.o. daily. ALLERGIES: None. PHYSICAL EXAMINATION: Vital signs on presentation, temperature 97.1, pulse 72, respirations 17, blood pressure was down to 112/56, pulse ox 97% room air. GENERAL APPEARANCE: Average built. Sitting up, tired appearing. EYES: Pupils equal. Conjunctivae pale. HEENT: External appearance of nose and ears normal. Oral cavity normal. Loss of scalp hair. NECK: JVD not raised. Mass not palpable. Respiratory effort normal. LUNGS: Slightly decreased breath sounds. CARDIOVASCULAR: 1st and 2nd sounds, no edema. ABDOMEN: Soft, nontender. Liver and spleen not palpable. LYMPHATICS: No lymph palpable in the neck or axillae. PSYCHIATRY: Alert and oriented x3. Mood and affect normal. NEUROLOGIC: Pupils equal. Cranial nerves grossly intact. Power and sensation grossly intact. INVESTIGATIONS: White count 3.3, hemoglobin 8.1, platelets 109,000. Potassium 3.3, BUN 18, creatinine 0.90. Accu-Cheks noted. Troponin 0.044. ProBNP 2310. Chest x-ray, no obvious infiltrate. ASSESSMENT: 1. Pleasant 78-year-old patient who presents with shortness of breath, dizzy, with a elevated proBNP. There is no obvious fluid overload of the chest x-ray, but the patient may have raised diastolic end-diastolic pressure. Will give a trial of Lasix to see if that patient feels better. 2. Possible pulmonary embolism in the setting of malignancy, rule out the same. 3. Chronic congestive heart failure from diastolic dysfunction. Ejection fraction 55 to 60%. 4. Paroxysmal atrial fibrillation, currently in sinus rhythm. 5. Diabetes mellitus type 2, on oral hypoglycemics. 6. Hyperlipidemia. 7. Essential hypertension. 8. Recurrent breast cancer. The patient is undergoing chemotherapy. 9. Pancytopenia from chemotherapy. 10.Small troponin leak, probably from congestive heart failure. PLAN: At this point we will give patient 2 doses of Lasix 60 mg x1 right now and once in the morning. Will do a CT angio of the chest to rule out any PE. Home medications to be continued. Potassium is being replaced. Oncology was consulted. Will get an opinion from Cardiology. Care was discussed with the patient. Questions were answered. MMODL / IJN: [id number] /
[2018-04-30 21:26] LABS: Glucose,Whole Blood 182 mg/dL (75-99)
[2018-04-30] MEDS: FUROSEMIDE 10 MG/ML 10 ML VIAL IV SCH (21:29)
--- NOTE | 2018-04-30 21:39 | CT ---
EXAMINATION TYPE: CT angio chest DATE OF EXAM: 04/30/2018 9:27 PM COMPARISON: None HISTORY: R/O PE CT DLP: 176.6 mGycm Automated exposure control for dose reduction was used. CONTRAST: CTA scan of the thorax is performed with IV Contrast, patient injected with 55 mL of Isovue 370, pulm onary embolism protocol. There are 3-D post processed images.. FINDINGS: There are patchy reticular interstitial peripheral pulmonary infiltrates. There is some coalescent de nsity at the right posterior lung base. There is mild wall thickening at the right lung base. I see n o pulmonary mass. Thoracic aorta is atheromatous. There is no evidence of aneurysm or dissection. The re are large central pulmonary arteries. I see no filling defects in the pulmonary arteries. There ar e a few mediastinal lymph nodes that measure less than 1 cm. There are no hilar masses. Heart is enla rged. There is spurring in the thoracic spine. There is 10% compression fracture of T12, this could b e an acute fracture. IMPRESSION: CARDIOMEGALY. PULMONARY INTERSTITIAL FIBROTIC CHANGES. PLEURAL SCARRING ON THE RIGHT SIDE. NO EVIDENC E OF PULMONARY EMBOLISM. CHANGES CONSISTENT WITH PULMONARY HYPERTENSION. THERE IS NEW T12 COMPRESSION FRACTURE COMPARED TO OLD CT SCAN OF 02/02/2018.
[2018-05-01] MEDS: NAPROXEN 250 MG TAB PO SCH ×4 (00:24→22:11)
[2018-05-01 05:56] LABS: Glucose,Whole Blood 168 mg/dL (75-99)
[2018-05-01] MEDS: INSULIN ASPART 100 UNIT/ML 1 ML 10 ML VIAL SQ SCH ×4 (06:39→21:10)
[2018-05-01] MEDS: metFORMIN 500 MG TAB PO SCH ×2 (06:39→18:01)
[2018-05-01 06:49] LABS: Glucose,Whole Blood 165 mg/dL (75-99)
[2018-05-01 06:56] LABS: Calcium 8.7 mg/dL (8.4-10.2); Potassium 3.9 mmol/L (3.5-5.1)
[2018-05-01 08:01] LABS: Anisocytosis Slight; HCT 20.1 % (34.0-46.0); MCHC 33.4 g/dL (31.0-37.0); MCV 95.8 fL (80.0-100.0); Macrocytosis Slight; Mean Platelet Volume 8.1; Platelet Count 157 k/uL (150-450); Poikilocytosis Slight; RDW 18.2 % (11.5-15.5); WBC 10.3 k/uL (3.8-10.6)
[2018-05-01 08:08] LABS: HGB 6.7 gm/dL (11.4-16.0)
[2018-05-01] MEDS: LORATADINE 10 MG TAB PO SCH (08:18)
[2018-05-01] MEDS: ENOXAPARIN 40 MG/0.4 ML SYRINGE SQ SCH (08:18)
[2018-05-01] MEDS: FUROSEMIDE 10 MG/ML 10 ML VIAL IV SCH (08:18)
[2018-05-01] MEDS: ATENOLOL 25 MG TAB PO SCH (08:18)
[2018-05-01 08:34] LABS: Band Neutrophils % 6 %; Lymphocytes # (M) 3.09 k/uL (1.0-4.8); Metamyelocytes # (M) 0.41 k/uL (0); Metamyelocytes % 4 %; Monocytes # (M) 1.03 k/uL (0-1.0); Myelocytes % 1 %; Neutrophils % (M) 50 %; Nucleated Red Blood Cells 0 /100 WBC (0-0); Polychromasia Present; Total Cells Counted 200
[2018-05-01] MEDS: IPRATROPIUM-ALBUTEROL 3 ML NEB INHALATION SCH ×4 (08:46→20:30)
[2018-05-01] MEDS ORDERED: FUROSEMIDE 10 MG/ML 2 ML VIAL IV PRN (10:00)
[2018-05-01] MEDS ORDERED: DILTIAZEM DRIP BOLUS FROM BAG 1 MG SOLN IV ONE (10:30)
[2018-05-01 11:44] LABS: Glucose,Whole Blood 204 mg/dL (75-99)
[2018-05-01] MEDS: DILTIAZEM 50 MG in SODIUM CHLORIDE 0.9% 40 ML IV SCH ×2 (12:24→19:37)
[2018-05-01] MEDS: MULTIVITAMINS, THERA 1 EACH TAB PO SCH (12:24)
--- NOTE | 2018-05-01 12:41 | P.CRDCN ---
History of Present Illness Consult date: 05/01/18 Chief complaint: Shortness of breath History of present illness: This is a pleasant 78-year-old female patient with a past medical history significant for breast cancer who is currently receiving chemotherapy as well as history of paroxysmal atrial fibrillation, chronic diastolic congestive heart failure, diabetes, hypertension, dyslipidemia, presented to the emergency room because she was not feeling well overall. The patient has been feeling tired and fatigued and also she has been feeling dizzy and lightheaded. Beside that she was more short of breath. No chest pain or chest discomfort and no syncope. In the emergency room, the patient was found to be severely anemic with a hemoglobin around 6.7 and she was admitted for further evaluation and for blood transfusion. During her hospitalization she went into an A. fib with RVR. She does have history of paroxysmal atrial fibrillation but this time may the A. fib was triggered by the severe anemia. The patient is not bleeding. She does have chronic anemia. Currently the patient is in atrial fibrillation with heart rate around 120 beats permanent and the blood pressure seems to be within normal limits. I am going to start the patient on Cardizem drip. Beside that she is not a candidate to receive any anticoagulation at this point in view of her anemia. She is on atenolol which we will continue and probably increase the dose down the line. Recent echocardiogram from January 2018 revealed normal LV function without any significant valvular abnormalities. Past Medical History Past Medical History: Cancer, Diabetes Mellitus, Hyperlipidemia, Hypertension Additional Past Medical History / Comment(s): rt Breast CA 1990 had lumpectomy/ lymph nodes removed, chemo/radiation. in reocurrance of cancer same (rt) breast-receiving chemo . History of Any Multi-Drug Resistant Organisms: None Reported Past Surgical History: Appendectomy, Back Surgery, Breast Surgery, Cholecystectomy, Hysterectomy, Tonsillectomy Additional Past Surgical History / Comment(s): Medi port lt chest, 1 upper dental implant, rt breast lumpectomy, lymph nodes removed, egd/colonoscopu/ polypectomt, cataracts-lens implants Past Anesthesia/Blood Transfusion Reactions: No Reported Reaction Past Psychological History: No Psychological Hx Reported Additional Psychological History / Comment(s): pt lives with spouse., no home care services recieved. has glucometer. Smoking Status: Former smoker Past Alcohol Use History: None Reported Additional Past Alcohol Use History / Comment(s): started smoking 1964 and quit 1974 smoked less than 1 ppd. Past Drug Use History: None Reported - Past Family History Mother Family Medical History: Cancer Additional Family Medical History / Comment(s): age 66 from colon cancer Father Family Medical History: CVA/TIA Additional Family Medical History / Comment(s): age 48 from a stroke Medications and Allergies Home Medications Medication Instructions Recorded Confirmed Type Atorvastatin [Lipitor] 20 mg PO HS 01/26/18 04/30/18 History Loperamide [Imodium] 2 mg PO QID PRN #0 cap 02/05/18 04/30/18 Rx Melatonin 3 mg PO HS PRN tablet 02/10/18 04/30/18 Rx Aspirin EC [Ecotrin Low Dose] 81 mg PO DAILY 04/30/18 04/30/18 History Atenolol [Tenormin] 25 mg PO DAILY 04/30/18 04/30/18 History Cholecalciferol [Vitamin D3] 1,000 unit PO DAILY 04/30/18 04/30/18 History Fexofenadine HCl [Bettie Allergy] 180 mg PO DAILY 04/30/18 04/30/18 History Furosemide [Lasix] 40 mg PO DAILY 04/30/18 04/30/18 History Magnesium Oxide [Mag-Ox] 400 mg PO HS 04/30/18 04/30/18 History Multivitamins, Thera [Multivitamin 1 tab PO DAILY 04/30/18 04/30/18 History (formulary)] Potassium Chloride ER [K-Dur 20] 20 meq PO HS 04/30/18 04/30/18 History metFORMIN HCL [Glucophage Xr] 500 mg PO PC-SUPPER 04/30/18 04/30/18 History Allergies Allergy/AdvReac Type Severity Reaction Status Date / Time No Known Allergies Allergy Verified 04/30/18 08:13 Physical Exam Vitals: Vital Signs Temp Pulse Pulse Resp BP Pulse Ox 05/01/18 12:00 97.9 F 126 H 18 119/50 98 05/01/18 09:14 88 05/01/18 09:01 88 05/01/18 08:00 97.1 F L 87 18 119/59 96 05/01/18 04:00 83 16 107/53 95 05/01/18 00:00 98.1 F 87 17 119/56 98 07/09/18 20:00 97.2 F L 94 16 114/55 97 04/30/18 19:23 88 04/30/18 19:13 86 04/30/18 15:41 94 18 129/60 99 Intake and Output 04/30/18 05/01/18 05/01/18 22:59 06:59 14:59 Intake Total 240 100 240 Output Total 100 2100 900 Balance 140 -2000 -660 Intake: IV 100 Sodium Chloride 0.9% 1, 100 000 ml @ 100 mls/hr IV . Q10H [facility] Rx#:[id number] Oral 240 240 Output: Urine 100 2100 900 Other: Voiding Method Bedside Commode Toilet Bedside Commode # Voids 1 # Bowel Movements 1 Weight 64.9 kg - Constitutional General appearance: no acute distress - Respiratory Respiratory: bilateral: CTA - Cardiovascular Rhythm: irregularly irregular Heart sounds: normal: S1, S2 Results 05/01/18 05:55 05/01/18 05:55 Cardiac Enzymes 04/30/18 Range/Units 21:19 Troponin I 0.036 H* (0.000-0.034) ng/mL CBC 05/01/18 Range/Units 05:55 WBC 10.3 (3.8-10.6) k/uL RBC 2.10 L (3.80-5.40) m/uL Hgb 6.7 L* (11.4-16.0) gm/dL Hct 20.1 L (34.0-46.0) % Plt Count 157 (150-450) k/uL Comprehensive Metabolic Panel 05/01/18 Range/Units 05:55 Sodium 137 (137-145) mmol/L Potassium 3.9 (3.5-5.1) mmol/L Chloride 100 (98-107) mmol/L Carbon Dioxide 27 (22-30) mmol/L BUN 16 (7-17) mg/dL Creatinine 0.80 (0.52-1.04) mg/dL Glucose 134 H (74-99) mg/dL Calcium 8.7 (8.4-10.2) mg/dL Current Medications Generic Name Dose Route Start Last Admin Trade Name Freq PRN Reason Stop Dose Admin Albuterol/Ipratropium 3 ml 04/30/18 08:00 05/01/18 11:50 Duoneb 0.5 Mg-3 Mg/3 Ml Soln INHALATION Not Given RT-QID [facility] Atenolol 25 mg 04/30/18 13:45 05/01/18 08:18 Tenormin PO 25 mg DAILY [facility] Administration Atorvastatin Calcium 20 mg 04/30/18 21:00 04/30/18 20:16 Lipitor PO 20 mg HS [facility] Administration Enoxaparin Sodium 40 mg 04/30/18 09:00 05/01/18 08:18 Lovenox SQ Not Given DAILY [facility] Furosemide 20 mg 05/01/18 10:00 Lasix IV 05/31/18 10:01 ONCE PRN Blood Transfusion Complete Diltiazem HCl 50 mg/ Sodium 50 mls @ 5 mls/hr 05/01/18 10:30 05/01/18 12:24 Chloride IV 5 mg/hr .Q10H [facility] 5 mls/hr Administration 5 MG/HR Insulin Aspart 0 unit 04/30/18 12:30 05/01/18 12:25 Novolog SQ 6 unit ACHS [facility] Administration Protocol Loratadine 10 mg 04/30/18 13:45 05/01/18 08:18 Claritin PO 10 mg DAILY [facility] Administration Magnesium Oxide 400 mg 04/30/18 21:00 04/30/18 20:16 Mag-Ox PO 400 mg HS [facility] Administration Melatonin 3 mg 04/30/18 13:33 Melatonin PO HS PRN Insomnia Metformin HCl 250 mg 04/30/18 17:30 05/01/18 06:39 Glucophage PO 250 mg AC-BID [facility] Administration Multivitamins 1 each 05/01/18 12:00 05/01/18 12:24 Theragran PO 1 each 1200 [facility] Administration Naproxen 250 mg 04/30/18 23:15 05/01/18 04:06 Naprosyn PO 250 mg Q8H [facility] Administration Intake and Output 04/30/18 05/01/18 05/01/18 22:59 06:59 14:59 Intake Total 240 100 240 Output Total 100 2100 900 Balance 140 -2000 -660 Intake: IV 100 Sodium Chloride 0.9% 1, 100 000 ml @ 100 mls/hr IV . Q10H [facility] Rx#:[id number] Oral 240 240 Output: Urine 100 2100 900 Other: Voiding Method Bedside Commode Toilet Bedside Commode # Voids 1 # Bowel Movements 1 Weight 64.9 kg 05/01/18 05:55 05/01/18 05:55 Assessment and Plan Assessment: Assessment #1 A. fib with RVR. The patient does have history of for excisional atrial fibrillation. #2 chronic diastolic congestive heart failure. The patient seems to be euvolemic at this point #3 history of breast cancer and currently the patient is on chemotherapy #4 anemia with a hemoglobin of 6.7 #5 multiple comorbid conditions including diabetes, hypertension, dyslipidemia Plan #1 start the patient on Cardizem drip. #2 continue the current dose of atenolol and probably increase the dose if the pressure is okay #3 the patient is not a candidate to receive anticoagulation at this point #4 recent echocardiogram revealed normal LV function #5 follow-up with the patient. Thank you for allowing us participate in her care
[2018-05-01 17:55] LABS: Glucose,Whole Blood 136 mg/dL (75-99)
[2018-05-01] MEDS: MAGNESIUM OXIDE 400 MG TAB PO SCH (19:42)
[2018-05-01] MEDS: ATORVASTATIN 20 MG TAB PO SCH (19:42)
[2018-05-01 21:12] LABS: Glucose,Whole Blood 137 mg/dL (75-99)
[2018-05-01] MEDS ORDERED: MELATONIN 3 MG TABLET ONE (23:10)
--- NOTE | 2018-05-02 01:16 | PN ---
PROGRESS NOTE DATE OF SERVICE: 05/01/2018. PRESENTING COMPLAINT: Short of breath. INTERVAL HISTORY: This is a patient with recurrent breast cancer, presented with element of congestive heart failure, went into A. fib. with rapid ventricular rate, subsequently started on Cardizem drip. This morning, also hemoglobin dropped to 6.7. I ordered a he unit of blood. I did give patient 2 doses of IV Lasix. The patient's breathing actually felt better this morning. REVIEW OF SYSTEMS: Done for constitutional, cardiovascular, GI, pulmonary; relevant findings as above. CURRENT MEDICATIONS: Reviewed that include: 1. IV Cardizem drip. 2. The patient is getting a unit of blood. EXAMINATION: Temperature 98.1, pulse 138, respirations 18, blood pressure 92/52, pulse ox 100%. GENERAL APPEARANCE: Lying in bed, tired. EYES: Pupils equal. Conjunctivae pale. HEENT: External nose and ears normal. Oral cavity normal. NECK: JVD not raised. Mass not palpable. RESPIRATORY: Effort normal. LUNGS: Fair air entry. CARDIOVASCULAR: Heart sounds irregular. No edema. ABDOMEN: Soft, nontender. Liver and spleen not palpable. PSYCHIATRY: Alert and oriented x3. Mood and affect normal. INVESTIGATIONS: Troponin 0.044, 0.078. Hemoglobin 6.7. Chest CTA negative for PE. ASSESSMENT: 1. Possible acute on chronic congestive heart failure exacerbation from diastolic dysfunction, ejection fraction 55%-60%. 2. Paroxysmal atrial fibrillation, currently in atrial fibrillation with rapid ventricular rate on a Cardizem drip, uncontrolled. 3. Diabetes mellitus type 2 on oral hypoglycemic. 4. Hyperlipidemia. 5. Essential hypertension. 6. Recurrent breast cancer. Patient undergoing chemotherapy. 7. Pancytopenia from chemotherapy. 8. Symptomatic anemia, probably from chemotherapy. The patient has been ordered a unit of blood, as patient is hypotensive. 9. Troponin leak, probably from congestive heart failure. No acute coronary syndrome. PLAN: Patient getting a unit of blood, is on a Cardizem drip. Repeat hemoglobin in the morning. Care was discussed with the patient. The patient was seen by Dr. Barboza from cardiology. MMODL / IJN: [id number] /
[2018-05-02 04:51] LABS: Anisocytosis Slight; HCT 25.4 % (34.0-46.0); MCH 30.6 pg (25.0-35.0); MCHC 33.1 g/dL (31.0-37.0); MCV 92.4 fL (80.0-100.0); Magnesium 1.7 mg/dL (1.6-2.3); Mean Platelet Volume 8.3; Platelet Count 156 k/uL (150-450); Poikilocytosis Slight; RBC 2.75 m/uL (3.80-5.40); RDW 19.3 % (11.5-15.5)
[2018-05-02 04:52] LABS: HGB 8.4 gm/dL (11.4-16.0)
[2018-05-02 04:54] LABS: Total Cells Counted 200
[2018-05-02 04:56] LABS: Band Neutrophils % 16 %; Metamyelocytes % 4 %; Neutrophils % (M) 47 %
[2018-05-02 04:57] LABS: Eosinophils # (M) 0.18 k/uL (0-0.7); Metamyelocytes # (M) 0.72 k/uL (0); Monocytes # (M) 3.24 k/uL (0-1.0); Nucleated Red Blood Cells 5 /100 WBC (0-0); Polychromasia Present; Toxic Vacuolation Present
[2018-05-02] MEDS: DILTIAZEM 50 MG in SODIUM CHLORIDE 0.9% 40 ML IV SCH ×3 (05:31→20:09)
[2018-05-02 06:06] LABS: Glucose,Whole Blood 116 mg/dL (75-99)
[2018-05-02] MEDS: INSULIN ASPART 100 UNIT/ML 1 ML 10 ML VIAL SQ SCH ×4 (06:08→20:56)
[2018-05-02] MEDS: metFORMIN 500 MG TAB PO SCH ×2 (06:45→17:30)
[2018-05-02] MEDS: NAPROXEN 250 MG TAB PO SCH ×3 (06:45→23:23)
[2018-05-02 07:41] LABS: Anisocytosis Slight; HGB 8.7 gm/dL (11.4-16.0); MCHC 33.5 g/dL (31.0-37.0); MCV 92.4 fL (80.0-100.0); Macrocytosis Slight; Mean Platelet Volume 8.3; Platelet Count 160 k/uL (150-450); Poikilocytosis Slight; RBC 2.81 m/uL (3.80-5.40); RDW 19.5 % (11.5-15.5)
[2018-05-02 07:47] LABS: Calcium 8.8 mg/dL (8.4-10.2); Potassium 3.9 mmol/L (3.5-5.1)
[2018-05-02 08:16] LABS: Band Neutrophils % 4 %; Basophils # (M) 0.22 k/uL (0-0.2); Eosinophils # (M) 0.22 k/uL (0-0.7); Lymphocytes # (M) 0.88 k/uL (1.0-4.8); Metamyelocytes # (M) 1.31 k/uL (0); Metamyelocytes % 6 %; Monocytes # (M) 4.16 k/uL (0-1.0); Myelocytes % 5 %; Neutrophils % (M) 62 %; Nucleated Red Blood Cells 2 /100 WBC (0-0); Promyelocytes # (M) 0.22 k/uL (0); Promyelocytes % 1 %; Total Cells Counted 200; WBC 21.9 k/uL (3.8-10.6)
[2018-05-02 08:17] LABS: Polychromasia Present; Toxic Granulation Present
[2018-05-02] MEDS: IPRATROPIUM-ALBUTEROL 3 ML NEB INHALATION SCH ×4 (08:46→19:24)
[2018-05-02] MEDS: ONDANSETRON 4 MG/2 ML VIAL IVP PRN (09:00)
[2018-05-02] MEDS: LORATADINE 10 MG TAB PO SCH (09:00)
[2018-05-02] MEDS: ATENOLOL 25 MG TAB PO SCH (09:00)
[2018-05-02] MEDS: ENOXAPARIN 40 MG/0.4 ML SYRINGE SQ SCH (09:01)
--- NOTE | 2018-05-02 10:02 | P.PN ---
Subjective Progress Note Date: 05/02/18 Principal diagnosis: Atrial fibrillation with RVR. This is a pleasant 78-year-old female patient with a past medical history significant for breast cancer who is currently receiving chemotherapy as well as history of paroxysmal atrial fibrillation, chronic diastolic congestive heart failure, diabetes, hypertension, dyslipidemia, presented to the emergency room because she was not feeling well overall. The patient has been feeling tired and fatigued and also she has been feeling dizzy and lightheaded. Beside that she was more short of breath. No chest pain or chest discomfort and no syncope. In the emergency room, the patient was found to be severely anemic with a hemoglobin around 6.7 and she was admitted for further evaluation and for blood transfusion. During her hospitalization she went into an A. fib with RVR. She does have history of paroxysmal atrial fibrillation but this time may the A. fib was triggered by the severe anemia. The patient is not bleeding. She does have chronic anemia. Currently the patient is in atrial fibrillation with heart rate around 120 beats permanent and the blood pressure seems to be within normal limits. Recent echocardiogram showed normal LV function. On follow-up with the patient today, she continues to be in A. fib with RVR and the blood pressure continues to be within normal limits. She is not feeling well overall and she feels nauseated without any chest pain or discomfort, shortness of breath, or feeling of any heart racing or fluttering. I am going to increase the dose of Cardizem drip to 10 mg per hour and also I would increase the dose of atenolol. If the patient continues to be tachycardic I will consider add amiodarone bolus and drip to the current medical regimen. Objective - Vital Signs Vital signs: Vital Signs Temp 98.0 F 05/02/18 08:00 Pulse 129 H 05/02/18 08:00 Resp 14 05/02/18 08:00 BP 107/69 05/02/18 08:00 Pulse Ox 93 L 05/02/18 08:00 Intake & Output 05/01/18 05/02/18 05/02/18 18:59 06:59 18:59 Intake Total 1292.5 36.416 Output Total 900 300 Balance 392.5 -263.584 Weight 65.8 kg Intake: Intake, IV Titration 22.5 36.416 Amount Diltiazem 50 mg In Sodium 22.5 36.416 Chloride 0.9% 40 ml @ 5 MG/HR 5 mls/hr IV .Q10H [facility] Rx#:[id number] Oral 960 Blood Product 310 Rc Pheresis As-3 Unit 310 [id number] Output: Urine 900 300 Other: Voiding Method Toilet Bedside Commode # Voids 2 1 # Bowel Movements 1 1 - Constitutional General appearance: Present: no acute distress - Respiratory Respiratory: bilateral: CTA - Cardiovascular Rhythm: irregularly irregular Heart sounds: normal: S1, S2 - Labs CBC & Chem 7: 05/02/18 06:29 05/02/18 06:29 Labs: Abnormal Lab Results - Last 24 Hours (Table) 04/30/18 05/01/18 05/01/18 Range/Units 00:05 11:16 11:41 WBC (3.8-10.6) k/uL RBC (3.80-5.40) m/uL Hgb (11.4-16.0) gm/dL Hct (34.0-46.0) % RDW (11.5-15.5) % Neutrophils # (Manual) (1.3-7.7) k/uL Lymphocytes # (Manual) (1.0-4.8) k/uL Monocytes # (Manual) (0-1.0) k/uL Basophils # (Manual) (0-0.2) k/uL Metamyelocytes # (Man) (0) k/uL Myelocytes # (Manual) (0) k/uL Promyelocytes # (Man) (0) k/uL Nucleated RBCs (0-0) /100 WBC Sodium (137-145) mmol/L BUN (7-17) mg/dL POC Glucose (mg/dL) 204 H (75-99) mg/dL Troponin I 0.044 H* (0.000-0.034) ng/mL Crossmatch See Detail 05/01/18 05/01/18 05/01/18 Range/Units 17:39 20:03 21:07 WBC (3.8-10.6) k/uL RBC (3.80-5.40) m/uL Hgb (11.4-16.0) gm/dL Hct (34.0-46.0) % RDW (11.5-15.5) % Neutrophils # (Manual) (1.3-7.7) k/uL Lymphocytes # (Manual) (1.0-4.8) k/uL Monocytes # (Manual) (0-1.0) k/uL Basophils # (Manual) (0-0.2) k/uL Metamyelocytes # (Man) (0) k/uL Myelocytes # (Manual) (0) k/uL Promyelocytes # (Man) (0) k/uL Nucleated RBCs (0-0) /100 WBC Sodium (137-145) mmol/L BUN (7-17) mg/dL POC Glucose (mg/dL) 136 H 137 H (75-99) mg/dL Troponin I 0.078 H* (0.000-0.034) ng/mL Crossmatch 05/01/18 05/01/18 05/02/18 Range/Units 23:15 23:15 06:05 WBC 18.0 H (3.8-10.6) k/uL RBC 2.75 L (3.80-5.40) m/uL Hgb 8.4 L D (11.4-16.0) gm/dL Hct 25.4 L (34.0-46.0) % RDW 19.3 H (11.5-15.5) % Neutrophils # (Manual) 11.30 H (1.3-7.7) k/uL Lymphocytes # (Manual) (1.0-4.8) k/uL Monocytes # (Manual) 3.24 H (0-1.0) k/uL Basophils # (Manual) (0-0.2) k/uL Metamyelocytes # (Man) 0.72 H (0) k/uL Myelocytes # (Manual) (0) k/uL Promyelocytes # (Man) (0) k/uL Nucleated RBCs 5 H (0-0) /100 WBC Sodium 136 L (137-145) mmol/L BUN (7-17) mg/dL POC Glucose (mg/dL) 116 H (75-99) mg/dL Troponin I (0.000-0.034) ng/mL Crossmatch 05/02/18 05/02/18 Range/Units 06:29 06:29 WBC 21.9 H (3.8-10.6) k/uL RBC 2.81 L (3.80-5.40) m/uL Hgb 8.7 L (11.4-16.0) gm/dL Hct 26.0 L (34.0-46.0) % RDW 19.5 H (11.5-15.5) % Neutrophils # (Manual) 14.40 H (1.3-7.7) k/uL Lymphocytes # (Manual) 0.88 L (1.0-4.8) k/uL Monocytes # (Manual) 4.16 H (0-1.0) k/uL Basophils # (Manual) 0.22 H (0-0.2) k/uL Metamyelocytes # (Man) 1.31 H (0) k/uL Myelocytes # (Manual) 1.10 H (0) k/uL Promyelocytes # (Man) 0.22 H (0) k/uL Nucleated RBCs 2 H (0-0) /100 WBC Sodium 136 L (137-145) mmol/L BUN 20 H (7-17) mg/dL POC Glucose (mg/dL) (75-99) mg/dL Troponin I (0.000-0.034) ng/mL Crossmatch Assessment and Plan Assessment: Assessment #1 A. fib with RVR. The patient does have history of for paroxysmal atrial fibrillation. #2 chronic diastolic congestive heart failure. The patient seems to be euvolemic at this point #3 history of breast cancer and currently the patient is on chemotherapy #4 anemia which is chronic#5 multiple comorbid conditions including diabetes, hypertension, dyslipidemia Plan #1 I would increase the dose of Cardizem and drip. #2 Increase the dose of atenolol #3 the patient is not a candidate to receive anticoagulation at this point #4 recent echocardiogram revealed normal LV function #5 follow-up with the patient. Thank you for allowing us participate in her care
[2018-05-02 11:53] LABS: Glucose,Whole Blood 130 mg/dL (75-99)
--- NOTE | 2018-05-02 12:30 | P.PN ---
Subjective Progress Note Date: 05/02/18 Principal diagnosis: Breast Cancer Mrs. Guerrero is a pleasant white female, who was found on routine mammogram, done on 10/05/17 to have a new 2.4 cm oval mass in the upper outer quadrant of the right breast. She had an ultrasound done on the same day, confirming the presence of a 3.91.52.2 cm irregular spiculated solid hypoechoic lesion at 10: 00. There was also 0.7 over lymph node noted in the axillary tail. The patient underwent an ultrasound-guided core biopsy of the breast mass on . 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 The case was discussed in detail in the [facility] breast MDC. The patient actually had a history of breast cancer in 1990 in the same breast, treated with lumpectomy, chemotherapy, radiation as well as 5 years of tamoxifen. She was 51 and premenopausal at the time of diagnosis. The treatment occurred in [place]. Based on her presentation, ultrasound-guided core biopsy of the lymph node was recommended, which was performed on 11/09/17. This was negative for malignancy. Patient was referred here for further evaluation and recommendations. She does not recall the name of her initial chemotherapy regimen. She has been getting mammograms regularly, with the previous one been performed in . She had a PET done which showed no metastatic disease. Her ECHO showed normal LVEF. Labs and tumor markers were also WNL Genetic testing was negative. Based on her history, it appeared that she had had CMF previously. She was thus started on DD AC -> T 12/05/17 - Jennifer presents for Chemoteach for treatment with DD AC followed by T , neulasta day after 12/12/17 - Follow-up after cycle one of DD AC with Neulasta. She is s/p 4 cycles of AC, completing those on 01/18/18. She was then admitted to [facility] on 02/06/18 with uncontrolled diarrhea, dehydration , and muscle weakness. She improved with supportive care and was discharged to [facility], for a 2 week stay. Post discharge from the ECF, she remained weak, with slow improvement. She was seen by Cardiology for CHF and cleared to resume chemo. She started DD Taxol on 03/26/18 and at this point received 3 of 4 treatments of the Taxol. Last on 04/23/18. After each treatment she develops Bone Pain, Ribs and long bones. She also apears to have difficulty in Breathing, which quickly resolves after a day or two. The claritin and PRN pain management has controlled the bone pain from neulasta injection up till now, although this past cycle her shortness of breath persisted through the weekend and therefore she presented to the Emergency Room for further assessment. 04/30/18 - During todays evaluation her is at bedside. She is feeling good since having pain medication and breathing treatment in Emergency department. She has no acute complaints today. Prior chemo cycles she has struggles with diarrhea, although since taking PO iron supplements at home she complains of more constipation. She denies nausea, vomting, headache, pain or shortness of breath. 05/02/18 - Mrs Guerrero seen at bedside today and feeling overall good. She was nauseated this am, and her Heart rate continues to run fast. She was increased on cardizem drip today per cardiology Objective - Vital Signs Vital signs: Vital Signs Temp 98.0 F 05/02/18 08:00 Pulse 129 H 05/02/18 08:00 Resp 14 05/02/18 08:00 BP 107/69 05/02/18 08:00 Pulse Ox 93 L 05/02/18 08:00 Intake & Output 05/01/18 05/02/18 05/02/18 18:59 06:59 18:59 Intake Total 1292.5 36.416 Output Total 900 300 Balance 392.5 -263.584 Weight 65.8 kg Intake: Intake, IV Titration 22.5 36.416 Amount Diltiazem 50 mg In Sodium 22.5 36.416 Chloride 0.9% 40 ml @ 5 MG/HR 5 mls/hr IV .Q10H [facility] Rx#:[id number] Oral 960 Blood Product 310 Rc Pheresis As-3 Unit 310 [id number] Output: Urine 900 300 Other: Voiding Method Toilet Toilet Bedside Commode Bedside Commode # Voids 2 1 1 # Bowel Movements 1 1 0 - Constitutional General appearance: Present: cooperative, no acute distress - EENT Eyes: Present: EOMI, dentition normal, normal appearance ENT: Present: hard of hearing, NA/AT, normal oropharynx - Neck Details: supple, trachea midline Neck: Present: normal ROM - Cardiovascular Heart rate: 113 Rhythm: irregularly irregular - Gastrointestinal General gastrointestinal: Present: normal bowel sounds, soft - Integumentary Integumentary: Present: pale - Neurologic Neurologic Comment(s): no focal defects Neurologic: Present: CNII-XII intact - Musculoskeletal Musculoskeletal: Present: generalized weakness, strength equal bilaterally - Psychiatric Psychiatric: Present: A&O x's 3, appropriate affect, intact judgment & insight - Labs CBC & Chem 7: 05/02/18 06:29 05/02/18 06:29 Labs: Abnormal Lab Results - Last 24 Hours (Table) 04/30/18 05/01/18 05/01/18 Range/Units 00:05 11:41 17:39 WBC (3.8-10.6) k/uL RBC (3.80-5.40) m/uL Hgb (11.4-16.0) gm/dL Hct (34.0-46.0) % RDW (11.5-15.5) % Neutrophils # (Manual) (1.3-7.7) k/uL Lymphocytes # (Manual) (1.0-4.8) k/uL Monocytes # (Manual) (0-1.0) k/uL Basophils # (Manual) (0-0.2) k/uL Metamyelocytes # (Man) (0) k/uL Myelocytes # (Manual) (0) k/uL Promyelocytes # (Man) (0) k/uL Nucleated RBCs (0-0) /100 WBC Sodium (137-145) mmol/L BUN (7-17) mg/dL POC Glucose (mg/dL) 136 H (75-99) mg/dL Troponin I 0.044 H* (0.000-0.034) ng/mL Crossmatch See Detail 05/01/18 05/01/18 05/01/18 Range/Units 20:03 21:07 23:15 WBC 18.0 H (3.8-10.6) k/uL RBC 2.75 L (3.80-5.40) m/uL Hgb 8.4 L D (11.4-16.0) gm/dL Hct 25.4 L (34.0-46.0) % RDW 19.3 H (11.5-15.5) % Neutrophils # (Manual) 11.30 H (1.3-7.7) k/uL Lymphocytes # (Manual) (1.0-4.8) k/uL Monocytes # (Manual) 3.24 H (0-1.0) k/uL Basophils # (Manual) (0-0.2) k/uL Metamyelocytes # (Man) 0.72 H (0) k/uL Myelocytes # (Manual) (0) k/uL Promyelocytes # (Man) (0) k/uL Nucleated RBCs 5 H (0-0) /100 WBC Sodium (137-145) mmol/L BUN (7-17) mg/dL POC Glucose (mg/dL) 137 H (75-99) mg/dL Troponin I 0.078 H* (0.000-0.034) ng/mL Crossmatch 05/01/18 05/02/18 05/02/18 Range/Units 23:15 06:05 06:29 WBC (3.8-10.6) k/uL RBC (3.80-5.40) m/uL Hgb (11.4-16.0) gm/dL Hct (34.0-46.0) % RDW (11.5-15.5) % Neutrophils # (Manual) (1.3-7.7) k/uL Lymphocytes # (Manual) (1.0-4.8) k/uL Monocytes # (Manual) (0-1.0) k/uL Basophils # (Manual) (0-0.2) k/uL Metamyelocytes # (Man) (0) k/uL Myelocytes # (Manual) (0) k/uL Promyelocytes # (Man) (0) k/uL Nucleated RBCs (0-0) /100 WBC Sodium 136 L 136 L (137-145) mmol/L BUN 20 H (7-17) mg/dL POC Glucose (mg/dL) 116 H (75-99) mg/dL Troponin I (0.000-0.034) ng/mL Crossmatch 05/02/18 05/02/18 Range/Units 06:29 11:43 WBC 21.9 H (3.8-10.6) k/uL RBC 2.81 L (3.80-5.40) m/uL Hgb 8.7 L (11.4-16.0) gm/dL Hct 26.0 L (34.0-46.0) % RDW 19.5 H (11.5-15.5) % Neutrophils # (Manual) 14.40 H (1.3-7.7) k/uL Lymphocytes # (Manual) 0.88 L (1.0-4.8) k/uL Monocytes # (Manual) 4.16 H (0-1.0) k/uL Basophils # (Manual) 0.22 H (0-0.2) k/uL Metamyelocytes # (Man) 1.31 H (0) k/uL Myelocytes # (Manual) 1.10 H (0) k/uL Promyelocytes # (Man) 0.22 H (0) k/uL Nucleated RBCs 2 H (0-0) /100 WBC Sodium (137-145) mmol/L BUN (7-17) mg/dL POC Glucose (mg/dL) 130 H (75-99) mg/dL Troponin I (0.000-0.034) ng/mL Crossmatch Assessment and Plan Plan: Assessment and Recommendations: 1. Right Breast Cancer, Triple Negative ER-, CT-, HER2/mikal -. - Currently Undergoing Chemotherapy with Dose Dense AC-T with Neulasta - Status Post DD AC x4, and 3 of 4 Taxol with Neulasta, Last treatment 04/23/18 - Follow-up as outpatient to receive Cycle 4 of Treatment 2. Generalized Weakness and Associated Dizziness: - Likely secondary to Dehydration, Anemia, and Chemotherapy - Supportive Measures initiated and Patient is feeling better 3. Bone/Rib Pain - Secondary to Neulasta - Pain Managment and Bowel Regimen for risk of opiod induced constipation - Continue on Claritin 4. Shortness of Breath - Recurs after last few chemo cycles - Multifactoral including her anemia is worsening from chemotherapy and underlying COPD - With the exposure to adriamycin she has seen cardiology in past and most recent Echocardiogram on 01/2018. If symptoms persist consider repeat Echo or MUGA scan. We will also plan to monitor closely every 6 months for first two years after treatment ends. - this is currently resolved during todays assessment 5. Pancytopenia: Secondary to chemotherapy * Normocytic Anemia - Monitor CBC, Transfuse Hemoglobin less than 7. - Continue PO Iron after patients constipation resolves *Thrombocytopenia - Stable - Monitor for signs or symptoms of bleeding - Transfuse platlet count less than 10 *Leukopenia - Stable - She received Neulasta on 04/24/18 - Monitor Daily CBC with DIff - Monitor Signs and Symptoms of Infection - She has remained afebrile and without signs of acute infection this hospitalization. 6. Constipation: Secondary to Iron and Chemotherapy - Bowel Regimen (Stool Softeners and Laxatives) 7. Acute Onset Atrial Fibrillation with RVR - Cardiology Managing - Patient monitored with Telemetry - SYEDA Casiano Thank you for allowing us to follow along with you on this patient. Shelia Sharp NP Medical Oncology
[2018-05-02] MEDS: MULTIVITAMINS, THERA 1 EACH TAB PO SCH (12:37)
[2018-05-02] MEDS: LACTULOSE 20 GM/30 ML CUP PO SCH (15:22)
[2018-05-02] MEDS ORDERED: DEXTROSE 5% IN WATER 250 ML with AMIODARONE 300 MG IV ONE (15:23)
[2018-05-02] MEDS ORDERED: DEXTROSE 5% IN WATER 100 ML with AMIODARONE 150 MG IV ONE (15:23)
[2018-05-02 16:49] LABS: Glucose,Whole Blood 129 mg/dL (75-99)
[2018-05-02] MEDS: MAGNESIUM OXIDE 400 MG TAB PO SCH (20:09)
[2018-05-02] MEDS: ATORVASTATIN 20 MG TAB PO SCH (20:09)
[2018-05-02 20:55] LABS: Glucose,Whole Blood 123 mg/dL (75-99)
--- NOTE | 2018-05-02 22:56 | PN ---
PROGRESS NOTE DATE OF SERVICE: 05/02/2018 PRESENTING COMPLAINT: Heart racing. INTERVAL HISTORY: This is a patient with recurrent breast cancer, presents with element of CHF and A. fib. with rapid ventricular rate, did go back into sinus rhythm. The patient has gone back again to A. fib. with rapid ventricular rate earlier today and was put on a Cardizem per Cardiology; also, atenolol was added. The patient also is status post unit of blood. Lying in bed, tired. Did tolerate some diet. REVIEW OF SYSTEMS: Done for constitutional, cardiovascular, GI, pulmonary; relevant findings as above. CURRENT MEDICATIONS: Include: 1. IV Cardizem drip. 2. Tenormin 50 mg p.o. daily. EXAMINATION: Temperature 98, pulse 129, respirations 14, blood pressure 107/69, pulse ox 93% on room air. GENERAL APPEARANCE: Lying in bed, awake. EYES: Pupils equal. Conjunctivae pale. HEENT: External appearance of nose and ears normal. Oral cavity normal. NECK: JVD not raised. Mass not palpable. RESPIRATORY: Effort normal. LUNGS: Fair air entry. CARDIOVASCULAR: Heart sounds irregular. No edema. ABDOMEN: Soft, nontender. Liver and spleen not palpable. PSYCHIATRY: Alert and oriented x3. Mood and affect normal. INVESTIGATIONS: White count 21.9, hemoglobin 8.7. Potassium 3.9. Accu-Cheks are noted. Telemetry strips interpreted: A. fib. With rapid ventricular rate. ASSESSMENT: 1. Paroxysmal atrial fibrillation, now with atrial fibrillation with rapid ventricular rate uncontrolled, back on Cardizem drip. 2. Acute on chronic congestive heart failure exacerbation from diastolic dysfunction, ejection fraction 55%-60%, now stabilized. 3. Diabetes mellitus type 2 on oral hypoglycemic. 4. Hyperlipidemia. 5. Essential hypertension. 6. Recurrent breast cancer. Patient has been on chemotherapy. 7. Pancytopenia from chemotherapy. 8. Symptomatic anemia, status post a unit of blood. 9. Troponin leak from congestive heart failure. No acute coronary syndrome. PLAN: Continue the patient on IV Cardizem drip, status post unit of blood. Atenolol dose was increased. Care was discussed with the patient. MMODL / IJN: [id number] /
[2018-05-03] MEDS: DILTIAZEM 50 MG in SODIUM CHLORIDE 0.9% 40 ML IV SCH (02:44)
[2018-05-03 06:13] LABS: Glucose,Whole Blood 108 mg/dL (75-99)
[2018-05-03] MEDS: INSULIN ASPART 100 UNIT/ML 1 ML 10 ML VIAL SQ SCH ×3 (06:25→16:31)
[2018-05-03] MEDS: metFORMIN 500 MG TAB PO SCH ×2 (06:34→17:06)
[2018-05-03] MEDS: NAPROXEN 250 MG TAB PO SCH ×2 (06:34→16:26)
[2018-05-03 06:54] LABS: Calcium 8.7 mg/dL (8.4-10.2); Potassium 4.2 mmol/L (3.5-5.1)
[2018-05-03] MEDS: LORATADINE 10 MG TAB PO SCH (08:13)
[2018-05-03] MEDS: ONDANSETRON 4 MG/2 ML VIAL IVP PRN (08:13)
[2018-05-03] MEDS: ENOXAPARIN 40 MG/0.4 ML SYRINGE SQ SCH (08:13)
[2018-05-03] MEDS: LACTULOSE 20 GM/30 ML CUP PO SCH (08:13)
[2018-05-03] MEDS: IPRATROPIUM-ALBUTEROL 3 ML NEB INHALATION SCH ×3 (08:18→16:17)
[2018-05-03 08:34] VITALS: RESP 18
[2018-05-03] MEDS ORDERED: ATENOLOL 50 MG TAB PO SCH (09:00)
--- NOTE | 2018-05-03 10:07 | P.PN ---
Subjective Progress Note Date: 05/03/18 Principal diagnosis: Atrial fibrillation with RVR. This is a pleasant 78-year-old female patient with a past medical history significant for breast cancer who is currently receiving chemotherapy as well as history of paroxysmal atrial fibrillation, chronic diastolic congestive heart failure, diabetes, hypertension, dyslipidemia, presented to the emergency room because she was not feeling well overall. The patient has been feeling tired and fatigued and also she has been feeling dizzy and lightheaded. Beside that she was more short of breath. No chest pain or chest discomfort and no syncope. In the emergency room, the patient was found to be severely anemic with a hemoglobin around 6.7 and she was admitted for further evaluation and for blood transfusion. During her hospitalization she went into an A. fib with RVR. She does have history of paroxysmal atrial fibrillation but this time may the A. fib was triggered by the severe anemia. The patient is not bleeding. She does have chronic anemia. Currently the patient is in atrial fibrillation with heart rate around 120 beats permanent and the blood pressure seems to be within normal limits. Recent echocardiogram showed normal LV function. On follow-up with the patient today, the patient converted to normal sinus mechanism last night. She continues to be in normal rhythm. The blood pressure seems to be within normal limits as well. I did increase the dose of atenolol to 50 mg by mouth daily. Objective - Vital Signs Vital signs: Vital Signs Temp 97.5 F L 05/03/18 08:00 Pulse 75 05/03/18 08:00 Resp 18 05/03/18 08:00 BP 131/67 05/03/18 08:00 Pulse Ox 100 05/03/18 08:00 Intake & Output 05/02/18 05/03/18 05/03/18 18:59 06:59 18:59 Intake Total 220 80 240 Output Total 200 Balance 20 80 240 Weight 66.1 kg Intake: IV 30 0.9 30 Intake, IV Titration 50 Amount Diltiazem 50 mg In Sodium 50 Chloride 0.9% 40 ml @ 10 MG/HR 10 mls/hr IV .Q5H [facility] Rx#:[id number] Oral 220 240 Output: Urine 200 Other: Voiding Method Toilet Bedside Commode Bedside Commode # Voids 0 2 # Bowel Movements 1 - Constitutional General appearance: Present: no acute distress - Respiratory Respiratory: bilateral: CTA - Cardiovascular Rhythm: regular Heart sounds: normal: S1, S2 - Labs CBC & Chem 7: 05/02/18 06:29 05/03/18 06:10 Labs: Abnormal Lab Results - Last 24 Hours (Table) 05/02/18 05/02/18 05/02/18 Range/Units 11:43 16:27 20:53 Sodium (137-145) mmol/L BUN (7-17) mg/dL POC Glucose (mg/dL) 130 H 129 H 123 H (75-99) mg/dL 05/03/18 05/03/18 Range/Units 06:10 06:12 Sodium 135 L (137-145) mmol/L BUN 18 H (7-17) mg/dL POC Glucose (mg/dL) 108 H (75-99) mg/dL Assessment and Plan Assessment: Assessment #1 A. fib with RVR. The patient does have history of for paroxysmal atrial fibrillation. #2 chronic diastolic congestive heart failure. The patient seems to be euvolemic at this point #3 history of breast cancer and currently the patient is on chemotherapy #4 anemia which is chronic#5 multiple comorbid conditions including diabetes, hypertension, dyslipidemia Plan #1 continue the current dose of atenolol #3 the patient is not a candidate to receive anticoagulation at this point #4 recent echocardiogram revealed normal LV function #5 follow-up with the patient. Thank you for allowing us participate in her care
[2018-05-03 11:49] LABS: Glucose,Whole Blood 126 mg/dL (75-99)
[2018-05-03] MEDS: MULTIVITAMINS, THERA 1 EACH TAB PO SCH (12:02)
[2018-05-03 16:30] LABS: Glucose,Whole Blood 117 mg/dL (75-99)
[2018-05-03 16:32] VITALS: BP 115/62; PULSE 78; TEMP 97.4
--- NOTE | 2018-05-03 20:24 | P.PN ---
Subjective Progress Note Date: 05/03/18 Principal diagnosis: Breast Cancer Mrs. Guerrero is a pleasant white female, who was found on routine mammogram, done on 10/05/17 to have a new 2.4 cm oval mass in the upper outer quadrant of the right breast. She had an ultrasound done on the same day, confirming the presence of a 3.91.52.2 cm irregular spiculated solid hypoechoic lesion at 10: 00. There was also 0.7 over lymph node noted in the axillary tail. The patient underwent an ultrasound-guided core biopsy of the breast mass on . 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 The case was discussed in detail in the [facility] breast MDC. The patient actually had a history of breast cancer in 1990 in the same breast, treated with lumpectomy, chemotherapy, radiation as well as 5 years of tamoxifen. She was 51 and premenopausal at the time of diagnosis. The treatment occurred in [place]. Based on her presentation, ultrasound-guided core biopsy of the lymph node was recommended, which was performed on 11/09/17. This was negative for malignancy. Patient was referred here for further evaluation and recommendations. She does not recall the name of her initial chemotherapy regimen. She has been getting mammograms regularly, with the previous one been performed in . She had a PET done which showed no metastatic disease. Her ECHO showed normal LVEF. Labs and tumor markers were also WNL Genetic testing was negative. Based on her history, it appeared that she had had CMF previously. She was thus started on DD AC -> T 12/05/17 - Jennifer presents for Chemoteach for treatment with DD AC followed by T , neulasta day after 12/12/17 - Follow-up after cycle one of DD AC with Neulasta. She is s/p 4 cycles of AC, completing those on 01/18/18. She was then admitted to [facility] on 02/06/18 with uncontrolled diarrhea, dehydration , and muscle weakness. She improved with supportive care and was discharged to [facility], for a 2 week stay. Post discharge from the ECF, she remained weak, with slow improvement. She was seen by Cardiology for CHF and cleared to resume chemo. She started DD Taxol on 03/26/18 and at this point received 3 of 4 treatments of the Taxol. Last on 04/23/18. After each treatment she develops Bone Pain, Ribs and long bones. She also apears to have difficulty in Breathing, which quickly resolves after a day or two. The claritin and PRN pain management has controlled the bone pain from neulasta injection up till now, although this past cycle her shortness of breath persisted through the weekend and therefore she presented to the Emergency Room for further assessment. 04/30/18 - During todays evaluation her is at bedside. She is feeling good since having pain medication and breathing treatment in Emergency department. She has no acute complaints today. Prior chemo cycles she has struggles with diarrhea, although since taking PO iron supplements at home she complains of more constipation. She denies nausea, vomting, headache, pain or shortness of breath. 05/02/18 - Mrs Guerrero seen at bedside today and feeling overall good. She was nauseated this am, and her Heart rate continues to run fast. She was increased on cardizem drip today per cardiology 05/03/18 - Patient seen and evaluated today in follow-up, she is doing much better. States she feels good overall. Her heart rate has been and remained controlled through the night, and she would like to go home today. SHe had a BM today. Objective - Vital Signs Vital signs: Vital Signs Temp 97.4 F L 05/03/18 16:00 Pulse 78 05/03/18 16:00 Resp 18 05/03/18 16:00 BP 115/62 05/03/18 16:00 Pulse Ox 97 05/03/18 16:00 Intake & Output 05/03/18 05/03/18 05/04/18 06:59 18:59 06:59 Intake Total 80 520 Balance 80 520 Weight 66.1 kg Intake: IV 30 40 0.9 30 40 Intake, IV Titration 50 Amount Diltiazem 50 mg In Sodium 50 Chloride 0.9% 40 ml @ 10 MG/HR 10 mls/hr IV .Q5H [facility] Rx#:[id number] Oral 480 Other: Voiding Method Bedside Commode # Voids 2 2 - Constitutional General appearance: Present: cooperative, no acute distress - EENT Eyes: Present: EOMI, PERRLA, dentition normal ENT: Present: hard of hearing, NA/AT, normal oropharynx - Neck Details: supple, trachea midline Neck: Present: normal ROM - Respiratory Respiratory: bilateral: CTA (no increased effort) - Cardiovascular Rhythm: regularly irregular - Gastrointestinal General gastrointestinal: Present: normal bowel sounds, soft - Integumentary Integumentary: Present: pale - Neurologic Neurologic Comment(s): No focal defects Neurologic: Present: CNII-XII intact - Musculoskeletal Musculoskeletal: Present: gait normal, generalized weakness, strength equal bilaterally - Psychiatric Psychiatric: Present: A&O x's 3, appropriate affect, intact judgment & insight - Labs CBC & Chem 7: 05/02/18 06:29 05/03/18 06:10 Labs: Abnormal Lab Results - Last 24 Hours (Table) 05/02/18 05/03/18 05/03/18 Range/Units 20:53 06:10 06:12 Sodium 135 L (137-145) mmol/L BUN 18 H (7-17) mg/dL POC Glucose (mg/dL) 123 H 108 H (75-99) mg/dL 05/03/18 05/03/18 Range/Units 11:47 16:28 Sodium (137-145) mmol/L BUN (7-17) mg/dL POC Glucose (mg/dL) 126 H 117 H (75-99) mg/dL Assessment and Plan Plan: Assessment and Recommendations: 1. Right Breast Cancer, Triple Negative ER-, CT-, HER2/mikal -. - Currently Undergoing Chemotherapy with Dose Dense AC-T with Neulasta - Status Post DD AC x4, and 3 of 4 Taxol with Neulasta, Last treatment 04/23/18 - Follow-up as outpatient to receive Cycle 4 of Treatment as scheduled 2. Generalized Weakness and Associated Dizziness: - Likely secondary to Dehydration, Anemia, and Chemotherapy - Supportive Measures initiated and Patient is feeling better 3. Bone/Rib Pain - Secondary to Neulasta - Pain Managment and Bowel Regimen for risk of opiod induced constipation - Continue on Claritin 4. Shortness of Breath - Recurs after last few chemo cycles - Multifactoral including her anemia is worsening from chemotherapy and underlying COPD - With the exposure to adriamycin she has seen cardiology in past and most recent Echocardiogram on 01/2018. If symptoms persist consider repeat Echo or MUGA scan. We will also plan to monitor closely every 6 months for first two years after treatment ends. - this is currently resolved during todays assessment 5. Pancytopenia: Secondary to chemotherapy - improving * Normocytic Anemia - Monitor CBC, Transfuse Hemoglobin less than 7. - Continue PO Iron after patients constipation resolves *Thrombocytopenia - Stable - Monitor for signs or symptoms of bleeding - Transfuse platlet count less than 10 *Leukopenia - Stable - She received Neulasta on 04/24/18 - Monitor Daily CBC with DIff - Monitor Signs and Symptoms of Infection - She has remained afebrile and without signs of acute infection this hospitalization. 6. Constipation: Secondary to Iron and Chemotherapy - Bowel Regimen (Stool Softeners and Laxatives) 7. Acute Onset Atrial Fibrillation with RVR - Cardiology Managing - Patient monitored with Telemetry - IV Cardizen Drip, rate controlled, cardiology for discharge plan related to this issue 8. DISPO - Ok for discharge from Oncology standpoint, follow-up in office Monday Thank you for allowing us to follow along with you on this patient. Shelia Sharp NP Medical Oncology
--- NOTE | 2018-05-04 06:27 | DS ---
DISCHARGE SUMMARY DATE OF ADMISSION: 04/29/2018 DATE OF DISCHARGE: 05/03/2018 FINAL DIAGNOSES: 1. Acute on chronic congestive heart failure exacerbation from diastolic dysfunction, ejection fraction 55% to 60%. 2. Paroxysmal atrial fibrillation with a rapid ventricular rate, rate controlled. 3. Diabetes mellitus type 2, on oral hypoglycemic. 4. Hyperlipidemia. 5. Essential hypertension. 6. Recurrent breast cancer. The patient has been on chemotherapy under Dr. Poole. 7. Pancytopenia from chemotherapy. 8. Symptomatic anemia. The patient did get a unit of blood. 9. Troponin leak from congestive heart failure. No acute coronary syndrome. CONSULTATIONS: Dr. Barboza from Cardiology; Dr. Poole from Oncology. HOSPITAL COURSE: This very pleasant lady with recurrent breast cancer presented with shortness of breath, felt to be CHF. Responded well to IV Lasix. Also went into atrial fibrillation with rapid ventricular rate. Medications were adjusted. Did drop her hemoglobin down to 6.7, was transfused. Current hemoglobin was 8.7. Patient was cleared by Dr. Barboza today and also Dr. Poole's team. The patient is due for her next chemotherapy on Monday. If she does well, she can the same. The patient otherwise been tolerating a diet. ON EXAMINATION: LUNGS: Fair entry. CARDIOVASCULAR: First and second sounds normal. Discussion and discharge planning more than 35 minutes. DISCHARGE MEDICATIONS: 1. Lipitor 20 mg at bedtime. 2. Imodium 2 mg q.i.d. p.r.n. 3. Melatonin 3 mg at bedtime p.r.n. 4. Vitamin D3, 1000 units p.o. daily. 5. Bettie 180 mg p.o. daily. 6. Multivitamin 1 tablet p.o. daily. 7. Glucophage XR 500 mg p.o. with supper. 8. Tenormin 50 mg p.o. daily. 9. Lasix 40 mg p.o. Monday, Monday, and Monday. 10.Naproxen 250 mg q.8. 11.Potassium 20 mEq on Monday, Monday and Monday. Follow up with Dr. Poole on 05/16/2018; Dr. Gotti on 05/08/2018; Dr. Rachel Hoskins on 05/14/2018. Discussion and discharge planning more than 35 minutes. MMODL / IJN: [id number] /
== END 2018-05-03 18:04 | disposition home or self-care (01) | DRG 291 ==
LOC: EC 20:42 → 6SEL 23:21
PROVIDERS: ADMIT Hospitalist; ATTEND Hospitalist
PROC: 30233N1 Transfusion of Nonautologous Red Blood Cells into Peripheral Vein, Percutaneous Approach (ICD-10-PCS; principal; 2018-05-01)
DX: I11.0 Hypertensive heart disease with heart failure (principal); D61.810 Antineoplastic chemotherapy induced pancytopenia; J44.1 Chronic obstructive pulmonary disease with (acute) exacerbation; C50.919 Malignant neoplasm of unspecified site of unspecified female breast; E11.9 Type 2 diabetes mellitus without complications; E78.5 Hyperlipidemia, unspecified; E83.42 Hypomagnesemia; E87.6 Hypokalemia; I48.0 Paroxysmal atrial fibrillation; I50.32 Chronic diastolic (congestive) heart failure; K59.00 Constipation, unspecified; T45.1X5A Adverse effect of antineoplastic and immunosuppressive drugs, initial encounter; Z17.1 Estrogen receptor negative status [ER-]; Z79.82 Long term (current) use of aspirin; Z79.899 Other long term (current) drug therapy; Z80.0 Family history of malignant neoplasm of digestive organs; Z82.3 Family history of stroke; Z85.3 Personal history of malignant neoplasm of breast; Z87.891 Personal history of nicotine dependence; Z90.710 Acquired absence of both cervix and uterus; Z98.42 Cataract extraction status, left eye; Z98.41 Cataract extraction status, right eye; Z96.1 Presence of intraocular lens
CPT/HCPCS: 36415; 71046; 71275; 80048; 80051; 80053; 82550; 82553; 83036; 83735; 83880; 84484; 85025; 85610; 85730; 86850; 86900; 86901; 86920; 93005; 94640; 96361; 96365; 96375; 96376; 99285

== ENCOUNTER 2018-05-09 15:45 | Inpatient (IN) | payer MEDICARE ==
--- NOTE | 2018-05-09 16:16 | ED ---
General Adult HPI - General Chief complaint: Recheck/Abnormal Lab/Rx Stated complaint: hypotension Source: patient Mode of arrival: wheelchair Limitations: no limitations - History of Present Illness Initial comments: Dictation was produced using [employer] dictation software. please excuse any grammatical, word or spelling errors. Chief Complaint: 78-year-old female with past medical history breast cancer, diabetes, hyperlipidemia, hypertension presents via instruction from chemotherapy Center for hypertension, tachycardia and generalized weakness. History of Present Illness: Patient has a past medical history of breast cancer. She is currently undergoing treatment of chemotherapy for breast cancer. Patient was a chemotherapy Center when she had a blood pressure with a systolic in the 70s without any improvement after a liter of fluid. Patient's last treatment of chemotherapy was approximately 2 weeks ago. Patient was admitted to the hospital couple expected or similar issue. Discharge summary reviewed from 6 days ago. Patient is admitted for CHF with diastolic dysfunction, proximal A. fib with RVR. After she was discharged patient was started on 50 mg of atenolol to be taken daily for rate control. Patient states she's feeling generally weak. Denies any infectious symptoms. The ROS documented in this emergency department record has been reviewed and confirmed by me. Those systems with pertinent positive or negative responses have been documented in the HPI. All other systems are other negative and/or noncontributory. - Related Data Home Medications Medication Instructions Recorded Confirmed Atorvastatin [Lipitor] 20 mg PO HS 01/26/18 05/09/18 Cholecalciferol [Vitamin D3] 1,000 unit PO DAILY 04/30/18 05/09/18 Fexofenadine HCl [Bettie Allergy] 180 mg PO DAILY 04/30/18 05/09/18 Multivitamins, Thera [Multivitamin 1 tab PO DAILY 04/30/18 05/09/18 (formulary)] Iron 18 mg PO DAILY 05/09/18 05/09/18 Neomycin/Polymyxin B/Dexametha 1 drop BOTH EYES Q4H 05/09/18 05/09/18 [Maxitrol Ophth Susp] Ranitidine HCl [Zantac] 150 mg PO DAILY 05/09/18 05/09/18 Previous Rx's Medication Instructions Recorded Melatonin 3 mg PO HS PRN tablet 02/10/18 Atenolol [Tenormin] 50 mg PO DAILY #30 tab 05/03/18 Furosemide [Lasix] 40 mg PO MOWEFR #30 tablet 05/03/18 Naproxen [Naprosyn] 250 mg PO Q8H #30 tab 05/03/18 Potassium Chloride [K-Tab ER] 20 meq PO MOWEFR #30 tablet.er 05/03/18 Allergies Allergy/AdvReac Type Severity Reaction Status Date / Time No Known Allergies Allergy Verified 05/09/18 16:20 Review of Systems ROS Statement: Those systems with pertinent positive or pertinent negative responses have been documented in the HPI. ROS Other: All systems not noted in ROS Statement are negative. Past Medical History Past Medical History: Cancer, Diabetes Mellitus, Hyperlipidemia, Hypertension Additional Past Medical History / Comment(s): rt Breast CA 1990 had lumpectomy/ lymph nodes removed, chemo/radiation. in reocurrance of cancer same (rt) breast-receiving chemo . History of Any Multi-Drug Resistant Organisms: None Reported Past Surgical History: Appendectomy, Back Surgery, Breast Surgery, Cholecystectomy, Hysterectomy, Tonsillectomy Additional Past Surgical History / Comment(s): Medi port lt chest, 1 upper dental implant, rt breast lumpectomy, lymph nodes removed, egd/colonoscopu/ polypectomt, cataracts-lens implants Past Anesthesia/Blood Transfusion Reactions: No Reported Reaction Past Psychological History: No Psychological Hx Reported Smoking Status: Former smoker Past Alcohol Use History: None Reported Past Drug Use History: None Reported - Past Family History Mother Family Medical History: Cancer Additional Family Medical History / Comment(s): age 66 from colon cancer Father Family Medical History: CVA/TIA Additional Family Medical History / Comment(s): age 48 from a stroke General Exam - General Exam Comments Initial Comments: PHYSICAL EXAM: General Impression: Alert and oriented x3, not in acute distress HEENT: Normocephalic atraumatic, extra-ocular movements intact, pupils equal and reactive to light bilaterally, mucous membranes moist. Cardiovascular: Heart regular rate and rhythm, S1&S2 audible, no murmurs, rubs or gallops Chest: Lungs clear to auscultation bilaterally, no rhonchi, no wheeze, no rales , left anterior chest port Abdomen: Bowel sounds present, abdomen soft, non-tender, non-distended, no organomegaly Musculoskeletal: Pulses present and equal in all extremities, no peripheral edema Motor: Power 5/5 bilaterally, no focal deficits noted Neurological: CN II-XII grossly intact, no focal motor or sensory deficits noted Skin: Intact with no visualized rashes Psych: Normal affect and mood Limitations: no limitations Course Vital Signs 05/09/18 05/09/18 05/09/18 15:48 17:18 19:18 Temperature 97.7 F 98.2 F Pulse Rate 144 H 85 77 Pulse Rate [ Right Pulse Oximetery] Respiratory 16 18 18 Rate Blood Pressure 102/62 116/73 93/45 Blood Pressure [Left Arm Supine] O2 Sat by Pulse 100 98 100 Oximetry 05/09/18 05/09/18 19:50 20:00 Temperature 97 F L Pulse Rate 72 Pulse Rate [ 73 Right Pulse Oximetery] Respiratory 18 18 Rate Blood Pressure 116/55 Blood Pressure 117/56 [Left Arm Supine] O2 Sat by Pulse 99 100 Oximetry Medical Decision Making - Medical Decision Making ED course: 78-year-old female past medical history of A. fib with rapid ventricular rate, diastolic dysfunction, breast cancer presents with generalized weakness, hypotension and tachycardia.Laboratory evaluation obtained. Patient had a leukocytosis of 16.9. This appears to be at around her baseline. Rest of labs are essentially at her baseline. Hemoglobin 9.5. Metabolic panel shows lactic acidosis of 2.2. Glucose of 123. Magnesium 1.3. Lipase mildly elevated at 320. Urine specimen shows findings to suggest urinary tract infection. Chest x-ray obtained showing mild pleural reaction to the right lung base no other findings. EKG performed immediately on arrival showed A. fib with rapid ventricular response with a rate of 143. Patient started on Cardizem infusion. No bolus was given given low blood pressure.. After approximately 30 minutes while on infusion patient converted spontaneously to normal sinus rhythm on monitor. Pulse vital signs are improved. Given her comorbidities I believe patient would benefit from inpatient admission for further monitoring, fluid resuscitation and cardiology consult. As upon arrival shows heart rate of 144, blood pressure 102/62, rest of vital signs within normal limits. Medications reviewed. Patient is on atenolol 50 mg by mouth daily. Patient states she's been compliant with his medications. She is not currently on any anticoagulation at this time. - Lab Data Result diagrams: 05/09/18 16:30 05/10/18 05:51 Lab Results 05/09/18 05/09/1805/09/18 Range/Units 16:30 16:30 16:30 WBC 16.9 H (3.8-10.6) k/uL RBC 3.10 L (3.80-5.40) m/uL Hgb 9.5 L (11.4-16.0) gm/dL Hct 28.6 L (34.0-46.0) % MCV 92.2 (80.0-100.0) fL MCH 30.5 (25.0-35.0) pg MCHC 33.1 (31.0-37.0) g/dL RDW 19.2 H (11.5-15.5) % Plt Count 184 (150-450) k/uL Neutrophils % 86 % Lymphocytes % 5 % Monocytes % 5 % Eosinophils % 2 % Basophils % 0 % Neutrophils # 14.6 H (1.3-7.7) k/uL Lymphocytes # 0.8 L (1.0-4.8) k/uL Monocytes # 0.9 (0-1.0) k/uL Eosinophils # 0.4 (0-0.7) k/uL Basophils # 0.0 (0-0.2) k/uL Poikilocytosis Slight Anisocytosis Slight Sodium 134 L (137-145) mmol/L Potassium 3.9 (3.5-5.1) mmol/L Chloride 104 (98-107) mmol/L Carbon Dioxide 22 (22-30) mmol/L Anion Gap 8 mmol/L BUN 16 (7-17) mg/dL Creatinine 0.80 (0.52-1.04) mg/dL Est GFR (CKD-EPI)AfAm 83 (>60 ml/min/1.73 sqM) Est GFR (CKD-EPI)NonAf 72 (>60 ml/min/1.73 sqM) Glucose 123 H (74-99) mg/dL Estimated Ave Glu mg/dL 117 Hemoglobin A1c 5.7 (4.0-6.0) % Lactic Ac Sepsis Rflx Plasma Lactic Acid Héctor (0.7-2.0) mmol/L Calcium 8.1 L (8.4-10.2) mg/dL Magnesium 1.3 L (1.6-2.3) mg/dL Total Bilirubin 0.3 (0.2-1.3) mg/dL AST 16 (14-36) U/L ALT 27 (9-52) U/L Alkaline Phosphatase 64 (38-126) U/L Creatine Kinase <20 L (30-135) U/L Troponin I (0.000-0.034) ng/mL Total Protein 4.7 L (6.3-8.2) g/dL Albumin 2.7 L (3.5-5.0) g/dL Lipase 320 H (23-300) U/L Urine Color Urine Appearance (Clear) Urine pH (5.0-8.0) Ur Specific [place] (1.001-1.035) Urine Protein (Negative) Urine Glucose (UA) (Negative) Urine Ketones (Negative) Urine Blood (Negative) Urine Nitrite (Negative) Urine Bilirubin (Negative) Urine Urobilinogen (<2.0) mg/dL Ur Leukocyte Esterase (Negative) Urine RBC (0-5) /hpf Urine WBC (0-5) /hpf Urine WBC Clumps (None) /hpf Amorphous Sediment (None) /hpf Urine Bacteria (None) /hpf 05/09/18 05/09/18 05/09/18 Range/Units 16:30 16:30 17:20 WBC (3.8-10.6) k/uL RBC (3.80-5.40) m/uL Hgb (11.4-16.0) gm/dL Hct (34.0-46.0) % MCV (80.0-100.0) fL MCH (25.0-35.0) pg MCHC (31.0-37.0) g/dL RDW (11.5-15.5) % Plt Count (150-450) k/uL Neutrophils % % Lymphocytes % % Monocytes % % Eosinophils % % Basophils % % Neutrophils # (1.3-7.7) k/uL Lymphocytes # (1.0-4.8) k/uL Monocytes # (0-1.0) k/uL Eosinophils # (0-0.7) k/uL Basophils # (0-0.2) k/uL Poikilocytosis Anisocytosis Sodium (137-145) mmol/L Potassium (3.5-5.1) mmol/L Chloride (98-107) mmol/L Carbon Dioxide (22-30) mmol/L Anion Gap mmol/L BUN (7-17) mg/dL Creatinine (0.52-1.04) mg/dL Est GFR (CKD-EPI)AfAm (>60 ml/min/1.73 sqM) Est GFR (CKD-EPI)NonAf (>60 ml/min/1.73 sqM) Glucose (74-99) mg/dL Estimated Ave Glu mg/dL Hemoglobin A1c (4.0-6.0) % Lactic Ac Sepsis Rflx Y Plasma Lactic Acid Héctor 2.2 H* (0.7-2.0) mmol/L Calcium (8.4-10.2) mg/dL Magnesium (1.6-2.3) mg/dL Total Bilirubin (0.2-1.3) mg/dL AST (14-36) U/L ALT (9-52) U/L Alkaline Phosphatase (38-126) U/L Creatine Kinase (30-135) U/L Troponin I 0.028 (0.000-0.034) ng/mL Total Protein (6.3-8.2) g/dL Albumin (3.5-5.0) g/dL Lipase (23-300) U/L Urine Color Urine Appearance (Clear) Urine pH (5.0-8.0) Ur Specific [place] (1.001-1.035) Urine Protein (Negative) Urine Glucose (UA) (Negative) Urine Ketones (Negative) Urine Blood (Negative) Urine Nitrite (Negative) Urine Bilirubin (Negative) Urine Urobilinogen (<2.0) mg/dL Ur Leukocyte Esterase (Negative) Urine RBC (0-5) /hpf Urine WBC (0-5) /hpf Urine WBC Clumps (None) /hpf Amorphous Sediment (None) /hpf Urine Bacteria (None) /hpf 05/09/18 Range/Units 17:20 WBC (3.8-10.6) k/uL RBC (3.80-5.40) m/uL Hgb (11.4-16.0) gm/dL Hct (34.0-46.0) % MCV (80.0-100.0) fL MCH (25.0-35.0) pg MCHC (31.0-37.0) g/dL RDW (11.5-15.5) % Plt Count (150-450) k/uL Neutrophils % % Lymphocytes % % Monocytes % % Eosinophils % % Basophils % % Neutrophils # (1.3-7.7) k/uL Lymphocytes # (1.0-4.8) k/uL Monocytes # (0-1.0) k/uL Eosinophils # (0-0.7) k/uL Basophils # (0-0.2) k/uL Poikilocytosis Anisocytosis Sodium (137-145) mmol/L Potassium (3.5-5.1) mmol/L Chloride (98-107) mmol/L Carbon Dioxide (22-30) mmol/L Anion Gap mmol/L BUN (7-17) mg/dL Creatinine (0.52-1.04) mg/dL Est GFR (CKD-EPI)AfAm (>60 ml/min/1.73 sqM) Est GFR (CKD-EPI)NonAf (>60 ml/min/1.73 sqM) Glucose (74-99) mg/dL Estimated Ave Glu mg/dL Hemoglobin A1c (4.0-6.0) % Lactic Ac Sepsis Rflx Plasma Lactic Acid Héctor (0.7-2.0) mmol/L Calcium (8.4-10.2) mg/dL Magnesium (1.6-2.3) mg/dL Total Bilirubin (0.2-1.3) mg/dL AST (14-36) U/L ALT (9-52) U/L Alkaline Phosphatase (38-126) U/L Creatine Kinase (30-135) U/L Troponin I (0.000-0.034) ng/mL Total Protein (6.3-8.2) g/dL Albumin (3.5-5.0) g/dL Lipase (23-300) U/L Urine Color Yellow Urine Appearance Turbid H (Clear) Urine pH 6.5 (5.0-8.0) Ur Specific [place] 1.011 (1.001-1.035) Urine Protein 1+ H (Negative) Urine Glucose (UA) Negative (Negative) Urine Ketones Negative (Negative) Urine Blood Small H (Negative) Urine Nitrite Positive H (Negative) Urine Bilirubin Negative (Negative) Urine Urobilinogen <2.0 (<2.0) mg/dL Ur Leukocyte Esterase Large H (Negative) Urine RBC 13 H (0-5) /hpf Urine WBC >182 H (0-5) /hpf Urine WBC Clumps Many H (None) /hpf Amorphous Sediment Occasional H (None) /hpf Urine Bacteria Many H (None) /hpf Disposition Clinical Impression: Urinary tract infection, Atrial fibrillation with RVR Disposition: ADMITTED IP TO THIS HOSP Condition: Fair Time of Disposition: 19:16
[2018-05-09] MEDS ORDERED: SODIUM CHLORIDE 0.9% 500 ML IV STA (16:30)
[2018-05-09 16:54] LABS: Anisocytosis Slight; Basophils % (A) 0 %; Eosinophils # (A) 0.4 k/uL (0-0.7); Eosinophils % (A) 2 %; HCT 28.6 % (34.0-46.0); HGB 9.5 gm/dL (11.4-16.0); Lymphocytes # (A) 0.8 k/uL (1.0-4.8); Lymphocytes % (A) 5 %; MCH 30.5 pg (25.0-35.0); MCHC 33.1 g/dL (31.0-37.0); MCV 92.2 fL (80.0-100.0); Mean Platelet Volume 7.8; Monocytes # (A) 0.9 k/uL (0-1.0); Monocytes % (A) 5 %; Neutrophils # (A) 14.6 k/uL (1.3-7.7); Neutrophils % (A) 86 %; Platelet Count 184 k/uL (150-450); Poikilocytosis Slight; RDW 19.2 % (11.5-15.5); WBC 16.9 k/uL (3.8-10.6)
[2018-05-09 17:05] LABS: ALT 27 U/L (9-52); AST 16 U/L (14-36); Albumin 2.7 g/dL (3.5-5.0); Alkaline Phosphatase 64 U/L (38-126); Anion Gap 8 mmol/L; Blood Urea Nitrogen 16 mg/dL (7-17); Calcium 8.1 mg/dL (8.4-10.2); Carbon Dioxide 22 mmol/L (22-30); Chloride 104 mmol/L (98-107); Creatine Kinase <20 U/L (30-135); Glucose 123 mg/dL (74-99); Lipase 320 U/L (23-300); Magnesium 1.3 mg/dL (1.6-2.3); Potassium 3.9 mmol/L (3.5-5.1); Sodium 134 mmol/L (137-145); Total Bilirubin 0.3 mg/dL (0.2-1.3); Total Protein 4.7 g/dL (6.3-8.2)
--- NOTE | 2018-05-09 17:12 | XR ---
EXAMINATION TYPE: XR chest 1V DATE OF EXAM: 05/09/2018 COMPARISON: 04/29/2018 HISTORY: Short of breath TECHNIQUE: Single frontal view of the chest is obtained. FINDINGS: There is no heart failure nor confluent pneumonic infiltrate. There is slight blunting of right costophrenic angle. There is left-sided central venous catheter with tip in the superior vena c adrian. There are chest leads. IMPRESSION: There is new mild pleural reaction at the right lung base compared to old exam. No heart failure.
[2018-05-09] MEDS: DILTIAZEM 50 MG in SODIUM CHLORIDE 0.9% 40 ML IV SCH (17:15)
[2018-05-09 17:57] LABS: Amorphous Sediment,Urine Occasional /hpf; Appearance,Urine Turbid (Clear); Bacteria,Urine Many /hpf; Bilirubin,Urine Negative (Negative); Blood,Urine Small (Negative); Color,Urine Yellow; Glucose,Urine (UA) Negative (Negative); Ketones,Urine Negative (Negative); Leukocyte Esterase,Urine Large (Negative); Nitrite,Urine Positive (Negative); PH, Urine 6.5 (5.0-8.0); Protein,Urine 1+ (Negative); RBC,Urine 13 /hpf (0-5); Specific Gravity,Urine 1.011 (1.001-1.035); Urobilinogen,Urine <2.0 mg/dL (<2.0); WBC,Urine >182 /hpf (0-5)
[2018-05-09] MEDS ORDERED: NALOXONE 0.4 MG/ML 1 ML VIAL IV PRN (19:10)
[2018-05-09] MEDS ORDERED: cefTRIAXone IN SWFI 1,000 MG/10 ML SYRINGE IVP ONE (19:15)
[2018-05-09] MEDS ORDERED: DILTIAZEM ORAL 60 MG TAB PO STA (19:40)
[2018-05-09] MEDS: MAGNESIUM SULFATE-D5W PMX 1 GM in DEXTROSE/WATER 1 100ML.BAG IVPB SCH ×2 (19:45→22:15)
[2018-05-09] MEDS ORDERED: NAPROXEN 250 MG TAB PO STA (19:47)
[2018-05-09 21:36] LABS: Glucose,Whole Blood 95 mg/dL (75-99)
[2018-05-09] MEDS: ATORVASTATIN 20 MG TAB PO SCH (22:12)
[2018-05-09] MEDS: FAMOTIDINE 20 MG TAB PO SCH (22:12)
[2018-05-10] MEDS ORDERED: MELATONIN 3 MG TABLET PO PRN (01:12)
--- NOTE | 2018-05-10 03:06 | P.HPIM ---
History of Present Illness H&P Date: 05/09/18 Chief Complaint: Hypotension and tachycardia 78-year-old female with history of breast cancer and paroxysmal A. fib. Patient was at her infusion center to receive chemotherapy when he was found to be tachycardic and hypotensive that did not resolve after receiving 1 L normal saline bolus her oncologist recommended that she goes to the ER for further evaluation. Patient reports that she was hospitalized last week with shortness of breath at that time she was also found to have A. fib with RVR and anemia. She was discharged on (1 week ago) but since then she didn't feel well. She reports some generalized malaise and weakness. Today at the infusion center she felt her heart is pounding and felt dizzy and lightheaded. That's when she was found to have tachycardia and hypotension. She was sent to the emergency department where she was found to have lactic acidosis and possible underlying urinary tract infection however patient denies any symptoms of UTI. Patient was started on Cardizem drip and admitted for further care and evaluation by cardiology. She is currently not on stroke prophylaxis with anticoagulation. Otherwise patient denies any trouble breathing headache changes in her vision or hearing, denies any abdominal pain, denies any bleeding, denies any changes in her bowel or urinary habits. She denies any focal neurologic deficits Review of Systems Pertinent positives as noted in HPI. All other systems were reviewed and are negative Past Medical History Past Medical History: Atrial Fibrillation, Cancer, Heart Failure, Diabetes Mellitus, Hyperlipidemia, Hypertension Additional Past Medical History / Comment(s): rt Breast CA 1990 had lumpectomy/ lymph nodes removed, chemo/radiation. in reocurrance of cancer same (rt) breast-receiving chemo the time she had chemo was 2 weeks ago monday and was due to have today 05-09-18 but bp was to low-sent to hospital . paroxysmal afib, anemia(has recieved blood transfusions) History of Any Multi-Drug Resistant Organisms: None Reported Past Surgical History: Appendectomy, Back Surgery, Breast Surgery, Cholecystectomy, Hysterectomy, Tonsillectomy Additional Past Surgical History / Comment(s): Medi port lt chest, 1 upper dental implant, rt breast lumpectomy, lymph nodes removed, egd/colonoscopy/ polypectomt, cataracts-lens implants. 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 Past Anesthesia/Blood Transfusion Reactions: No Reported Reaction Smoking Status: Former smoker - Past Family History Mother Family Medical History: Cancer Additional Family Medical History / Comment(s): age 66 from colon cancer Father Family Medical History: CVA/TIA Additional Family Medical History / Comment(s): age 48 from a stroke Medications and Allergies Home Medications Medication Instructions Recorded Confirmed Type Atorvastatin [Lipitor] 20 mg PO HS 01/26/18 05/09/18 History Melatonin 3 mg PO HS PRN tablet 02/10/18 05/09/18 Rx Cholecalciferol [Vitamin D3] 1,000 unit PO DAILY 04/30/18 05/09/18 History Fexofenadine HCl [Bettie Allergy] 180 mg PO DAILY 04/30/18 05/09/18 History Multivitamins, Thera [Multivitamin 1 tab PO DAILY 04/30/18 05/09/18 History (formulary)] Atenolol [Tenormin] 50 mg PO DAILY #30 tab 05/03/18 05/09/18 Rx Furosemide [Lasix] 40 mg PO MOWEFR #30 tablet 05/03/18 05/09/18 Rx Naproxen [Naprosyn] 250 mg PO Q8H #30 tab 05/03/18 05/09/18 Rx Potassium Chloride [K-Tab ER] 20 meq PO MOWEFR #30 tablet.er 05/03/18 05/09/18 Rx Iron 18 mg PO DAILY 05/09/18 05/09/18 History Neomycin/Polymyxin B/Dexametha 1 drop BOTH EYES Q4H 05/09/18 05/09/18 History [Maxitrol Ophth Susp] Ranitidine HCl [Zantac] 150 mg PO DAILY 05/09/18 05/09/18 History Allergies Allergy/AdvReac Type Severity Reaction Status Date / Time No Known Allergies Allergy Verified 05/09/18 16:20 Physical Exam Vitals: Vital Signs Temp Pulse Pulse Resp BP BP Pulse Ox 05/10/18 00:10 97.9 F 72 18 112/51 100 05/09/18 20:00 97 F L 73 18 117/56 100 05/09/18 19:50 72 18 116/55 99 07/18/18 19:18 98.2 F 77 18 93/45 100 05/09/18 17:18 85 18 116/73 98 05/09/18 15:48 97.7 F 144 H 16 102/62 100 Intake and Output 05/09/18 05/09/18 05/10/18 14:59 22:59 06:59 Other: Voiding Method Bedside Commode Bedside Commode # Voids 1 Weight 58.513 kg Constitutional: No acute distress, conversant, pleasant Eyes: Anicteric sclerae, moist conjunctiva, no lid-lag Pupils equal round reactive to light ENMT: NC/AT Oropharynx clear, no erythema, or exudates Neck: Supple, FROM, no masses, or JVD No carotid bruits No thyromegaly Lungs: Clear to auscultation Clear to percussion Normal respiratory effort, no accessory muscle use Cardiovascular: Heart regular in rate and rhythm, No murmurs, gallops, or rubs No peripheral edema Abdominal: Soft Nontender, no guarding, rebound or rigidity Abdomen moving with respiration Normoactive bowel sounds No hepatomegaly, No splenomegaly No palpable mass No abdominal wall hernia noted Skin: Normal temperature, tone, texture, turgor No induration No subcutaneous nodules No rash, lesions No ulcers Extremities: No digital cyanosis No clubbing Pedal pulses intact and symmetrical Radial pulses intact and symmetrical No calf tenderness Psychiatric: Alert and oriented to person, place and time Appropriate affect fair judgment Neuro Muscles Strength 5/5 in all 4 extremities Sensation to light touch grossly present throughout Cranial nerves II-XII grossly intact No focal sensory deficits Lymphatics: no palpable cervical or supraclavicular , or inguinal lymph nodes Results CBC & Chem 7: 05/09/18 16:30 05/09/18 16:30 Labs: Abnormal Lab Results - Last 24 Hours (Table) 05/09/18 05/09/18 05/09/18 Range/Units 16:30 16:30 16:30 WBC 16.9 H (3.8-10.6) k/uL RBC 3.10 L (3.80-5.40) m/uL Hgb 9.5 L (11.4-16.0) gm/dL Hct 28.6 L (34.0-46.0) % RDW 19.2 H (11.5-15.5) % Neutrophils # 14.6 H (1.3-7.7) k/uL Lymphocytes # 0.8 L (1.0-4.8) k/uL Sodium 134 L (137-145) mmol/L Glucose 123 H (74-99) mg/dL Plasma Lactic Acid Héctor 2.2 H* (0.7-2.0) mmol/L Calcium 8.1 L (8.4-10.2) mg/dL Magnesium 1.3 L (1.6-2.3) mg/dL Creatine Kinase <20 L (30-135) U/L Total Protein 4.7 L (6.3-8.2) g/dL Albumin 2.7 L (3.5-5.0) g/dL Lipase 320 H (23-300) U/L Urine Appearance (Clear) Urine Protein (Negative) Urine Blood (Negative) Urine Nitrite (Negative) Ur Leukocyte Esterase (Negative) Urine RBC (0-5) /hpf Urine WBC (0-5) /hpf Urine WBC Clumps (None) /hpf Amorphous Sediment (None) /hpf Urine Bacteria (None) /hpf 05/09/18 Range/Units 17:20 WBC (3.8-10.6) k/uL RBC (3.80-5.40) m/uL Hgb (11.4-16.0) gm/dL Hct (34.0-46.0) % RDW (11.5-15.5) % Neutrophils # (1.3-7.7) k/uL Lymphocytes # (1.0-4.8) k/uL Sodium (137-145) mmol/L Glucose (74-99) mg/dL Plasma Lactic Acid Héctor (0.7-2.0) mmol/L Calcium (8.4-10.2) mg/dL Magnesium (1.6-2.3) mg/dL Creatine Kinase (30-135) U/L Total Protein (6.3-8.2) g/dL Albumin (3.5-5.0) g/dL Lipase (23-300) U/L Urine Appearance Turbid H (Clear) Urine Protein 1+ H (Negative) Urine Blood Small H (Negative) Urine Nitrite Positive H (Negative) Ur Leukocyte Esterase Large H (Negative) Urine RBC 13 H (0-5) /hpf Urine WBC >182 H (0-5) /hpf Urine WBC Clumps Many H (None) /hpf Amorphous Sediment Occasional H (None) /hpf Urine Bacteria Many H (None) /hpf Microbiology - Last 24 Hours (Table) 05/09/18 17:20 Urine Culture - Preliminary Urine,Catheterized Thrombosis Risk Factor Assmnt - Choose All That Apply Any of the Below Risk Factors Present?: Yes Each Factor Represents 1 point: Abnormal pulmonary function (COPD) Other Risk Factors: Yes Each Risk Factor Represents 2 Points: Malignancy Each Risk Factor Represents 3 Points: Age 75 years or older Other congenital or acquired thrombophilia - If yes, enter type in comment: No Thrombosis Risk Factor Assessment Total Risk Factor Score: 6 Thrombosis Risk Factor Assessment Level: High Risk Assessment and Plan Assessment: 78-year-old female with history of paroxysmal A. fib and breast cancer admitted to the hospital as inpatient anticipated length of stay of more than 2 days atrial fibrillation with rapid ventricular response, hypotension, and possible underlying urinary tract infection Plan: Paroxysmal A. fib with rapid ventricular response not currently on anticoagulation.CHADS-VASC=5 Currently on Cardizem drip will wean off has converted into sinus rhythm Cardiology consult Continue with atenolol Sepsis secondary to UTI Mild lactic acidosis secondary to possible underlying urinary tract infection and dehydration IV fluid hydration Continue with Rocephin Follow-up cultures History of breast cancer triple negative on chemotherapy Outpatient follow-up History of pancytopenia secondary to chemotherapy Currently she has elevated white count Hemoglobin around her baseline Continue to monitor Hyperlipidemia Continue statin Diastolic heart failure currently compensated DVT prophylaxis on heparin subcu 3 times a day Preformed a thorough record review from recent hospitalization *where she was admitted for shortness of breath she was found to have paroxysmal A. fib 2-D echocardiogram showed preserved left ventricular ejection fraction, with diastolic heart failure. Surrogate decision-maker: Patient Young CODE STATUS: Full code Discussed with: Patient, ER, RN Anticipated discharge: 48-[address]: Home A total of 60 minutes was spent on the care of this complex patient more than 50% of the time was spent in counseling and care coordination.
[2018-05-10] MEDS: DILTIAZEM 50 MG in SODIUM CHLORIDE 0.9% 40 ML IV SCH ×3 (03:58→21:26)
[2018-05-10] MEDS: NAPROXEN 250 MG TAB PO SCH ×3 (05:01→21:35)
[2018-05-10] MEDS: SODIUM CHLORIDE 0.9% 1,000 ML IV SCH ×3 (05:03→21:28)
[2018-05-10 05:05] LABS: Hemoglobin A1C 5.7 % (4.0-6.0)
[2018-05-10 06:37] LABS: Calcium 8.1 mg/dL (8.4-10.2); Magnesium 1.8 mg/dL (1.6-2.3); Potassium 4.2 mmol/L (3.5-5.1)
[2018-05-10 06:47] LABS: Glucose,Whole Blood 88 mg/dL (75-99)
[2018-05-10] MEDS: FERROUS SULFATE 325 MG TAB PO SCH (10:05)
[2018-05-10] MEDS: MULTIVITAMINS, THERA 1 EACH TAB PO SCH (10:05)
[2018-05-10] MEDS: ATENOLOL 50 MG TAB PO SCH (10:05)
[2018-05-10] MEDS: FAMOTIDINE 20 MG TAB PO SCH (10:06)
--- NOTE | 2018-05-10 11:23 | P.PN ---
Subjective Progress Note Date: 05/10/18 Principal diagnosis: Atrial fibrillation with rapid ventricular response Patient heart rate was in the 130s this morning, she is still feeling weak, dizzy and having palpitations. No chest pain. Objective - Vital Signs Vital signs: Vital Signs Temp 97.7 F 05/10/18 07:53 Pulse 130 H 05/10/18 07:56 Resp 14 05/10/18 07:56 BP 96/59 05/10/18 07:53 Pulse Ox 100 05/10/18 07:53 Intake & Output 05/09/18 05/10/18 05/10/18 18:59 06:59 18:59 Intake Total 1110 21.167 Balance 1110 21.167 Weight 58.513 kg 65.5 kg Intake: Intake, IV Titration 990 21.167 Amount Diltiazem 50 mg In Sodium 90 21.167 Chloride 0.9% 40 ml @ 5 MG/HR 5 mls/hr IV .Q10H MAN[facility]ER Rx#:[id number] Magnesium Sulfate-D5w Pmx 100 1 gm In Dextrose/Water 1 100ml.bag @ 100 mls/hr IVPB Q1H MANINDER Rx#: [id number] Sodium Chloride 0.9% 1, 800 000 ml @ 100 mls/hr IV . Q10H MAN[facility]ER Rx#:[id number] Oral 120 Other: Voiding Method Bedside Commode Bedside Commode # Voids 3 - Exam Constitutional: No acute distress, conversant, pleasant Eyes:Anicteric sclerae, moist conjunctiva, no lid-lag, PERRLA, ENMT: Oropharynx clear, no erythema, exudates Neck: Supple, FROM, no masses, or JVD, No carotid bruits, No thyromegaly Lungs: Clear to auscultation, Clear to percussion, Normal respiratory effort, no accessory muscle use Cardiovascular: Tachycardic, irregularly irregular, No murmurs, gallops, or rubs , No peripheral edema Abdominal: Soft, Nontender, no guarding, rebound or rigidity, Normoactive bowel sounds, No hepatomegaly, No splenomegaly, No palpable mass Skin: Normal temperature, tone, texture, turgor, no induration, No subcutaneous nodules, No rash, lesions, No ulcers Extremities: No digital cyanosis, No clubbing, Pedal pulses intact and symmetrical, Radial pulses intact and symmetrical, No calf tenderness Psychiatric: Alert and oriented to person, place and time, appropriate affect, intact judgement Neuro: Muscles Strength 5/5 in all 4 extremities, Sensation to light touch grossly present throughout, Cranial nerves II-XII grossly intact, no focal sensory deficits - Labs CBC & Chem 7: 05/09/18 16:30 05/10/18 05:51 Labs: Abnormal Lab Results - Last 24 Hours (Table) 05/09/18 05/09/18 05/09/18 Range/Units 16:30 16:30 16:30 WBC 16.9 H (3.8-10.6) k/uL RBC 3.10 L (3.80-5.40) m/uL Hgb 9.5 L (11.4-16.0) gm/dL Hct 28.6 L (34.0-46.0) % RDW 19.2 H (11.5-15.5) % Neutrophils # 14.6 H (1.3-7.7) k/uL Lymphocytes # 0.8 L (1.0-4.8) k/uL Sodium 134 L (137-145) mmol/L Carbon Dioxide (22-30) mmol/L Glucose 123 H (74-99) mg/dL Plasma Lactic Acid Héctor 2.2 H* (0.7-2.0) mmol/L Calcium 8.1 L (8.4-10.2) mg/dL Magnesium 1.3 L (1.6-2.3) mg/dL Creatine Kinase <20 L (30-135) U/L Total Protein 4.7 L (6.3-8.2) g/dL Albumin 2.7 L (3.5-5.0) g/dL Lipase 320 H (23-300) U/L Urine Appearance (Clear) Urine Protein (Negative) Urine Blood (Negative) Urine Nitrite (Negative) Ur Leukocyte Esterase (Negative) Urine RBC (0-5) /hpf Urine WBC (0-5) /hpf Urine WBC Clumps (None) /hpf Amorphous Sediment (None) /hpf Urine Bacteria (None) /hpf 05/09/18 05/10/18 Range/Units 17:20 05:51 WBC (3.8-10.6) k/uL RBC (3.80-5.40) m/uL Hgb (11.4-16.0) gm/dL Hct (34.0-46.0) % RDW (11.5-15.5) % Neutrophils # (1.3-7.7) k/uL Lymphocytes # (1.0-4.8) k/uL Sodium 135 L (137-145) mmol/L Carbon Dioxide 21 L (22-30) mmol/L Glucose (74-99) mg/dL Plasma Lactic Acid Héctor (0.7-2.0) mmol/L Calcium 8.1 L (8.4-10.2) mg/dL Magnesium (1.6-2.3) mg/dL Creatine Kinase (30-135) U/L Total Protein (6.3-8.2) g/dL Albumin (3.5-5.0) g/dL Lipase (23-300) U/L Urine Appearance Turbid H (Clear) Urine Protein 1+ H (Negative) Urine Blood Small H (Negative) Urine Nitrite Positive H (Negative) Ur Leukocyte Esterase Large H (Negative) Urine RBC 13 H (0-5) /hpf Urine WBC >182 H (0-5) /hpf Urine WBC Clumps Many H (None) /hpf Amorphous Sediment Occasional H (None) /hpf Urine Bacteria Many H (None) /hpf Microbiology - Last 24 Hours (Table) 05/09/18 17:20 Urine Culture - Preliminary Urine,Catheterized Assessment and Plan Plan: Paroxysmal A. fib with rapid ventricular response not currently on anticoagulation. CHADS-VASC=5, Hx of diastolic heart failure currently compensated Currently on Cardizem drip at 5mg/hr will increase to 10mg/hr. Awaiting cardiology evaluation Continue with atenolol Sepsis secondary to UTI Mild lactic acidosis secondary to possible underlying urinary tract infection and dehydration Resolved. Continue with Rocephin Follow-up urine and blood cultures History of breast cancer triple negative on chemotherapy Outpatient follow-up History of pancytopenia secondary to chemotherapy Currently she has elevated white count Hemoglobin around her baseline Continue to monitor Hyperlipidemia Continue statin DVT prophylaxis on heparin subcu 3 times a day
[2018-05-10 11:47] LABS: Glucose,Whole Blood 160 mg/dL (75-99)
[2018-05-10] MEDS: HEPARIN SODIUM,PORCINE 5,000 UNIT/ML 1 ML VIAL SQ SCH ×3 (13:24→21:26)
[2018-05-10 16:52] LABS: Glucose,Whole Blood 108 mg/dL (75-99)
[2018-05-10] MEDS: cefTRIAXone IN SWFI 1,000 MG/10 ML SYRINGE IVP SCH (18:17)
[2018-05-10 21:13] LABS: Glucose,Whole Blood 128 mg/dL (75-99)
[2018-05-10] MEDS: ATORVASTATIN 20 MG TAB PO SCH (21:26)
[2018-05-11 05:40] LABS: Glucose,Whole Blood 106 mg/dL (75-99)
[2018-05-11] MEDS: SODIUM CHLORIDE 0.9% 1,000 ML IV SCH (06:37)
[2018-05-11] MEDS: NAPROXEN 250 MG TAB PO SCH ×3 (06:37→17:27)
[2018-05-11] MEDS: DILTIAZEM 50 MG in SODIUM CHLORIDE 0.9% 40 ML IV SCH (08:27)
[2018-05-11] MEDS: MULTIVITAMINS, THERA 1 EACH TAB PO SCH (08:28)
[2018-05-11] MEDS: FAMOTIDINE 20 MG TAB PO SCH (08:28)
[2018-05-11] MEDS: FERROUS SULFATE 325 MG TAB PO SCH (08:28)
[2018-05-11] MEDS: HEPARIN SODIUM,PORCINE 5,000 UNIT/ML 1 ML VIAL SQ SCH ×3 (08:28→23:30)
[2018-05-11] MEDS: ATENOLOL 50 MG TAB PO SCH (08:28)
[2018-05-11 08:57] LABS: Anion Gap 5 mmol/L; Blood Urea Nitrogen 9 mg/dL (7-17); Calcium 7.9 mg/dL (8.4-10.2); Carbon Dioxide 20 mmol/L (22-30); Chloride 109 mmol/L (98-107); Glucose 97 mg/dL (74-99); Magnesium 1.6 mg/dL (1.6-2.3); Potassium 3.8 mmol/L (3.5-5.1); Sodium 134 mmol/L (137-145)
[2018-05-11 08:59] LABS: Anisocytosis Slight; Basophils % (A) 1 %; Eosinophils # (A) 0.3 k/uL (0-0.7); Eosinophils % (A) 4 %; HCT 24.4 % (34.0-46.0); Hypochromasia Slight; Lymphocytes # (A) 0.5 k/uL (1.0-4.8); Lymphocytes % (A) 6 %; MCH 30.3 pg (25.0-35.0); MCHC 31.8 g/dL (31.0-37.0); MCV 95.3 fL (80.0-100.0); Macrocytosis Slight; Mean Platelet Volume 7.3; Monocytes # (A) 0.5 k/uL (0-1.0); Monocytes % (A) 7 %; Neutrophils # (A) 6.1 k/uL (1.3-7.7); Neutrophils % (A) 80 %; Platelet Count 199 k/uL (150-450); Poikilocytosis Slight; RBC 2.56 m/uL (3.80-5.40); RDW 19.2 % (11.5-15.5); WBC 7.6 k/uL (3.8-10.6)
[2018-05-11] MEDS ORDERED: FUROSEMIDE 40 MG TAB PO SCH (09:00)
[2018-05-11] MEDS ORDERED: POTASSIUM CHLORIDE ER 20 MEQ TAB.ER PO SCH (09:00)
[2018-05-11 09:01] LABS: HGB 7.8 gm/dL (11.4-16.0)
--- NOTE | 2018-05-11 09:23 | P.PN ---
Subjective Progress Note Date: 05/11/18 Principal diagnosis: Atrial fibrillation with rapid ventricular response Patient doing well, she converted back to normal sinus rhythm last night. Currently doing much better, no palpitations, shortness of breath or chest pain. No dizziness. Objective - Vital Signs Vital signs: Vital Signs Temp 98.1 F 05/11/18 08:28 Pulse 86 05/11/18 08:28 Resp 18 05/11/18 08:28 BP 129/57 05/11/18 08:28 Pulse Ox 99 05/11/18 08:28 Intake & Output 05/10/18 05/11/18 05/11/18 18:59 06:59 18:59 Intake Total 770.000 842.833 100 Output Total 300 Balance 470.000 842.833 100 Weight 67.4 kg Intake: Intake, IV Titration 50.000 602.833 100 Amount Diltiazem 50 mg In Sodium 50.000 2.833 Chloride 0.9% 40 ml @ 5 MG/HR 5 mls/hr IV .Q10H [facility] Rx#:[id number] Sodium Chloride 0.9% 1, 600 100 000 ml @ 100 mls/hr IV . Q10H [facility] Rx#:[id number] Oral 720 240 Output: Urine 300 Other: Voiding Method Bedside Commode Bedside Commode Bedside Commode # Voids 1 3 # Bowel Movements 0 - Exam Constitutional: No acute distress, conversant, pleasant Eyes:Anicteric sclerae, moist conjunctiva, no lid-lag, PERRLA, pale ENMT: Oropharynx clear, no erythema, exudates Neck: Supple, FROM, no masses, or JVD, No carotid bruits, No thyromegaly Lungs: Clear to auscultation, Clear to percussion, Normal respiratory effort, no accessory muscle use Cardiovascular: RRR, No murmurs, gallops, or rubs, No peripheral edema Abdominal: Soft, Nontender, no guarding, rebound or rigidity, Normoactive bowel sounds, No hepatomegaly, No splenomegaly, No palpable mass Skin: Normal temperature, tone, texture, turgor, no induration, No subcutaneous nodules, No rash, lesions, No ulcers Extremities: No digital cyanosis, No clubbing, Pedal pulses intact and symmetrical, Radial pulses intact and symmetrical, No calf tenderness Psychiatric: Alert and oriented to person, place and time, appropriate affect, intact judgement Neuro: Muscles Strength 5/5 in all 4 extremities, Sensation to light touch grossly present throughout, Cranial nerves II-XII grossly intact, no focal sensory deficits - Labs CBC & Chem 7: 05/11/18 08:13 05/11/18 08:13 Labs: Abnormal Lab Results - Last 24 Hours (Table) 05/10/18 05/10/18 05/10/18 Range/Units 11:46 16:50 21:12 RBC (3.80-5.40) m/uL Hgb (11.4-16.0) gm/dL Hct (34.0-46.0) % RDW (11.5-15.5) % Lymphocytes # (1.0-4.8) k/uL Sodium (137-145) mmol/L Chloride (98-107) mmol/L Carbon Dioxide (22-30) mmol/L POC Glucose (mg/dL) 160 H 108 H 128 H (75-99) mg/dL Calcium (8.4-10.2) mg/dL 05/11/18 05/11/18 05/11/18 Range/Units 05:39 08:13 08:13 RBC 2.56 L (3.80-5.40) m/uL Hgb 7.8 L D (11.4-16.0) gm/dL Hct 24.4 L (34.0-46.0) % RDW 19.2 H (11.5-15.5) % Lymphocytes # 0.5 L (1.0-4.8) k/uL Sodium 134 L (137-145) mmol/L Chloride 109 H (98-107) mmol/L Carbon Dioxide 20 L (22-30) mmol/L POC Glucose (mg/dL) 106 H (75-99) mg/dL Calcium 7.9 L (8.4-10.2) mg/dL Microbiology - Last 24 Hours (Table) 05/09/18 17:20 Urine Culture - Preliminary Urine,Catheterized Gram Neg Bacilli 05/09/18 16:30 Blood Culture - Preliminary Blood No Growth after 24 hours Assessment and Plan Plan: Paroxysmal A. fib with rapid ventricular response not currently on anticoagulation. CHADS-VASC=5, Hx of diastolic heart failure currently compensated Off cardizem drip has rhythm converted back to normal sinus Not a candidate for long-term anticoagulation due to anemia according to cardiology Continue with atenolol Sepsis secondary to UTI Mild lactic acidosis secondary to possible underlying urinary tract infection and dehydration Resolved. Grew gram-negative bacilli in the urine, awaiting final ID, blood cultures negative. Continue with Rocephin History of breast cancer triple negative on chemotherapy Outpatient follow-up History of pancytopenia secondary to chemotherapy, worsening anemia Worsening anemia likely secondary to hemodilution with IV fluids. Patient was transfused packed red blood cells last admission. DC IV fluids. Monitor hemoglobin Hyperlipidemia Continue statin General weakness PT consult DVT prophylaxis on heparin subcu 3 times a day
[2018-05-11 11:35] LABS: Glucose,Whole Blood 128 mg/dL (75-99)
--- NOTE | 2018-05-11 12:29 | P.CRDCN ---
History of Present Illness History of present illness: This is a pleasant 78-year-old female patient with a past medical history significant for breast cancer who is currently receiving chemotherapy as well as history of paroxysmal atrial fibrillation, chronic diastolic congestive heart failure, diabetes, chronic anemia, hypertension, dyslipidemia, who was just recently discharged from the hospital on the 12th of this month, she was in car [employer], scheduled to receive her last chemotherapy treatment, they checked her blood pressure there before initiating treatment, he came back to be 70 systolic and for this reason she was advised to come to the emergency room for further evaluation. EKG on arrival here showed atrial fibrillation with a rapid ventricular response, right bundle branch block pattern. Blood pressure this morning 128/60 with a heart rate in the 60s, 99% on room air. White blood cell count 7.6, hemoglobin 7.8, platelet count 199. Sodium 134, potassium 3.8, BUN 9, creatinine 0.7. Magnesium 1.6, phosphorus 3.0. Positive UTI. Echocardiogram with Doppler study was performed in January which revealed a normal left ventricular systolic function. Patient was seen and examined today , she states she's feeling significantly stronger overall. She continues to be in atrial fibrillation, heart rate in the 70s. Pressure stable this morning. We will discontinue the Cardizem drip. Increase beta alex dose. Patient is not a candidate for anticoagulation because of her anemia. Plan for possible discharge home in 24-48 hours if stable. Past Medical History Past Medical History: Cancer, Diabetes Mellitus, Hyperlipidemia, Hypertension Additional Past Medical History / Comment(s): rt Breast CA 1990 had lumpectomy/ lymph nodes removed, chemo/radiation. in reocurrance of cancer same (rt) breast-receiving chemo . History of Any Multi-Drug Resistant Organisms: None Reported Past Surgical History: Appendectomy, Back Surgery, Breast Surgery, Cholecystectomy, Hysterectomy, Tonsillectomy Additional Past Surgical History / Comment(s): Medi port lt chest, 1 upper dental implant, rt breast lumpectomy, lymph nodes removed, egd/colonoscopu/ polypectomt, cataracts-lens implants Past Anesthesia/Blood Transfusion Reactions: No Reported Reaction Past Psychological History: No Psychological Hx Reported Smoking Status: Former smoker Past Alcohol Use History: None Reported Past Drug Use History: None Reported - Past Family History Mother Family Medical History: Cancer Additional Family Medical History / Comment(s): age 66 from colon cancer Father Family Medical History: CVA/TIA Additional Family Medical History / Comment(s): age 48 from a stroke Medications and Allergies Home Medications Medication Instructions Recorded Confirmed Type Atorvastatin [Lipitor] 20 mg PO HS 01/26/18 05/09/18 History Melatonin 3 mg PO HS PRN tablet 02/10/18 05/09/18 Rx Cholecalciferol [Vitamin D3] 1,000 unit PO DAILY 04/30/18 05/09/18 History Fexofenadine HCl [Bettie Allergy] 180 mg PO DAILY 04/30/18 05/09/18 History Multivitamins, Thera [Multivitamin 1 tab PO DAILY 04/30/18 05/09/18 History (formulary)] Atenolol [Tenormin] 50 mg PO DAILY #30 tab 05/03/18 05/09/18 Rx Furosemide [Lasix] 40 mg PO MOWEFR #30 tablet 05/03/18 05/09/18 Rx Naproxen [Naprosyn] 250 mg PO Q8H #30 tab 05/03/18 05/09/18 Rx Potassium Chloride [K-Tab ER] 20 meq PO MOWEFR #30 tablet.er 05/03/18 05/09/18 Rx Iron 18 mg PO DAILY 05/09/18 05/09/18 History Neomycin/Polymyxin B/Dexametha 1 drop BOTH EYES Q4H 05/09/18 05/09/18 History [Maxitrol Ophth Susp] Ranitidine HCl [Zantac] 150 mg PO DAILY 05/09/18 05/09/18 History Allergies Allergy/AdvReac Type Severity Reaction Status Date / Time No Known Allergies Allergy Verified 05/09/18 16:20 Physical Exam Vitals: Vital Signs Temp Pulse Resp BP Pulse Ox 05/11/18 08:28 98.1 F 86 18 129/57 99 05/11/18 04:10 97.1 F L 84 17 125/61 99 05/10/18 22:41 98.2 F 67 17 87/44 99 05/10/18 20:15 97.9 F 137 H 17 96/64 99 05/10/18 16:00 97.8 F 103 H 14 103/73 97 Intake and Output 05/10/18 05/11/18 05/11/18 22:59 06:59 14:59 Intake Total 242.833 840 100 Output Total 100 Balance 142.833 840 100 Intake: Intake, IV Titration 2.833 600 100 Amount Diltiazem 50 mg In Sodium 2.833 Chloride 0.9% 40 ml @ 5 MG/HR 5 mls/hr IV .Q10H [facility] Rx#:[id number] Sodium Chloride 0.9% 1, 600 100 000 ml @ 100 mls/hr IV . Q10H [facility] Rx#:[id number] Oral 240 240 Output: Urine 100 Other: Voiding Method Bedside Commode Bedside Commode Bedside Commode # Voids 1 3 # Bowel Movements 0 Weight 67.4 kg GENERAL: Well-appearing, well-nourished and in no acute distress. NECK: Supple without JVD or thyromegaly. LUNGS: Respiration equal and unlabored. No wheezes, rales or rhonchi. HEART: Regular rate and rhythm with murmur at the base, no rubs or gallops. S1 and S2 heard. EXTREMITIES: Right upper extremity nonpitting lymphedema. Bilateral lower extremity nonpitting edema. No calf tenderness bilaterally. Peripheral pulses intact. Results 05/11/18 08:13 05/11/18 08:13 CBC 05/11/18 Range/Units 08:13 WBC 7.6 (3.8-10.6) k/uL RBC 2.56 L (3.80-5.40) m/uL Hgb 7.8 L D (11.4-16.0) gm/dL Hct 24.4 L (34.0-46.0) % Plt Count 199 (150-450) k/uL Comprehensive Metabolic Panel 05/11/18 Range/Units 08:13 Sodium 134 L (137-145) mmol/L Potassium 3.8 (3.5-5.1) mmol/L Chloride 109 H (98-107) mmol/L Carbon Dioxide 20 L (22-30) mmol/L BUN 9 (7-17) mg/dL Creatinine 0.71 (0.52-1.04) mg/dL Glucose 97 (74-99) mg/dL Calcium 7.9 L (8.4-10.2) mg/dL Current Medications Generic Name Dose Route Start Last Admin Trade Name Freq PRN Reason Stop Dose Admin Atenolol 50 mg 05/10/18 09:00 05/11/18 08:28 Tenormin PO 50 mg DAILY [facility] Administration Atorvastatin Calcium 20 mg 05/09/18 22:15 05/10/18 21:26 Lipitor PO 20 mg HS [facility] Administration Ceftriaxone Sodium 1,000 mg 05/10/18 17:00 05/10/18 18:17 Rocephin IVP 1,000 mg Q24H [facility] Administration Famotidine 20 mg 05/09/18 22:15 05/11/18 08:28 Pepcid PO 20 mg DAILY [facility] Administration Ferrous Sulfate 162.5 mg 05/10/18 09:00 05/11/18 08:28 Feosol PO 162.5 mg DAILY [facility] Administration Furosemide 40 mg 05/11/18 09:00 05/11/18 08:28 Lasix PO 40 mg MoWeFr@0900 [facility] Administration Heparin Sodium (Porcine) 5,000 unit 05/10/18 08:00 05/11/18 08:28 Heparin SQ 5,000 unit Q8HR [facility] Administration Diltiazem HCl 50 mg/ Sodium 50 mls @ 5 mls/hr 05/09/18 16:45 05/11/18 08:27 Chloride IV Not Given .Q10H [facility] 5 MG/HR Melatonin 3 mg 05/10/18 01:12 Melatonin PO HS PRN Insomnia Multivitamins 1 each 05/10/18 09:00 05/11/18 08:28 Theragran PO 1 each DAILY [facility] Administration Naloxone HCl 0.2 mg 05/09/18 19:10 Narcan IV Q2M PRN Opioid Reversal Naproxen 250 mg 05/10/18 04:00 05/11/18 08:28 Naprosyn PO 250 mg Q8H [facility] Administration Neomycin/Polymyxin/Dexamethasone 1 drops 05/10/18 01:15 Maxitrol Ophth Susp BOTH EYES Q4H [facility] Potassium Chloride 20 meq 05/11/18 09:00 05/11/18 08:28 K-Dur 20 PO 20 meq MoWeFr@0900 [facility] Administration Intake and Output 05/10/18 05/11/18 05/11/18 22:59 06:59 14:59 Intake Total 242.833 840 100 Output Total 100 Balance 142.833 840 100 Intake: Intake, IV Titration 2.833 600 100 Amount Diltiazem 50 mg In Sodium 2.833 Chloride 0.9% 40 ml @ 5 MG/HR 5 mls/hr IV .Q10H [facility] Rx#:[id number] Sodium Chloride 0.9% 1, 600 100 000 ml @ 100 mls/hr IV . Q10H [facility] Rx#:[id number] Oral 240 240 Output: Urine 100 Other: Voiding Method Bedside Commode Bedside Commode Bedside Commode # Voids 1 3 # Bowel Movements 0 Weight 67.4 kg 05/11/18 08:13 05/11/18 08:13 EKG Interpretations (text) EKG shows atrial fibrillation with a rapid ventricular response Assessment and Plan Plan: Assessment #1 A. fib with RVR. The patient does have history of for paroxysmal atrial fibrillation. #2 chronic diastolic congestive heart failure. The patient seems to be euvolemic at this point #3 history of breast cancer and currently the patient is on chemotherapy #4 anemia which is chronic #5diabetes #6 hypertension #7 dyslipidemia #8 hypotensive on admission, resolved Plan We will discontinue the IV Cardizem drip. Patient not a candidate for anticoagulation because of anemia. Increase dose of home on a beta alex. Plan for possible discharge home in 24 hours if stable. DNP note has been reviewed, I agree with a documented findings and plan of care. Patient was seen and examined.
[2018-05-11] MEDS: cefTRIAXone IN SWFI 1,000 MG/10 ML SYRINGE IVP SCH (17:27)
[2018-05-11 17:28] LABS: Glucose,Whole Blood 107 mg/dL (75-99)
[2018-05-11 20:57] LABS: Glucose,Whole Blood 105 mg/dL (75-99)
[2018-05-11] MEDS: ATORVASTATIN 20 MG TAB PO SCH (21:48)
[2018-05-12] MEDS: NAPROXEN 250 MG TAB PO SCH ×2 (03:01→12:51)
[2018-05-12 06:03] LABS: Glucose,Whole Blood 97 mg/dL (75-99)
[2018-05-12 06:26] LABS: Anisocytosis Slight; Basophils % (A) 0 %; Eosinophils # (A) 0.3 k/uL (0-0.7); Eosinophils % (A) 5 %; HGB 7.8 gm/dL (11.4-16.0); Hypochromasia Slight; Lymphocytes # (A) 0.5 k/uL (1.0-4.8); Lymphocytes % (A) 7 %; MCH 29.9 pg (25.0-35.0); MCHC 31.1 g/dL (31.0-37.0); MCV 96.1 fL (80.0-100.0); Macrocytosis Slight; Mean Platelet Volume 7.1; Monocytes # (A) 0.7 k/uL (0-1.0); Monocytes % (A) 10 %; Neutrophils # (A) 5.4 k/uL (1.3-7.7); Neutrophils % (A) 74 %; Platelet Count 203 k/uL (150-450); Poikilocytosis Slight; RDW 19.2 % (11.5-15.5); WBC 7.3 k/uL (3.8-10.6)
[2018-05-12 06:35] LABS: Anion Gap 5 mmol/L; Blood Urea Nitrogen 8 mg/dL (7-17); Calcium 8.4 mg/dL (8.4-10.2); Carbon Dioxide 21 mmol/L (22-30); Chloride 110 mmol/L (98-107); Glucose 87 mg/dL (74-99); Magnesium 1.5 mg/dL (1.6-2.3); Phosphorus 3.7 mg/dL (2.5-4.5); Potassium 3.9 mmol/L (3.5-5.1); Sodium 136 mmol/L (137-145)
[2018-05-12] MEDS: FAMOTIDINE 20 MG TAB PO SCH (08:03)
[2018-05-12] MEDS: MULTIVITAMINS, THERA 1 EACH TAB PO SCH (08:03)
[2018-05-12] MEDS: HEPARIN SODIUM,PORCINE 5,000 UNIT/ML 1 ML VIAL SQ SCH (08:04)
[2018-05-12] MEDS: FERROUS SULFATE 325 MG TAB PO SCH (08:04)
[2018-05-12] MEDS: ATENOLOL 50 MG TAB PO SCH (08:04)
[2018-05-12] MEDS: MAGNESIUM SULFATE-D5W PMX 1 GM in DEXTROSE/WATER 1 100ML.BAG IVPB SCH ×2 (09:31→10:43)
[2018-05-12] MEDS ORDERED: METOPROLOL TARTRATE 5 MG/5 ML VIAL IVP STA (09:42)
[2018-05-12] MEDS: NEOMYCIN-POLYMYXIN-DEXAMETH (3.5-10,000-0.1) DROPS 5 ML BTL BOTH EYES SCH ×4 (10:07→10:13)
[2018-05-12] MEDS ORDERED: DILTIAZEM DRIP BOLUS FROM BAG 1 MG SOLN IV ONE (10:26)
[2018-05-12] MEDS ORDERED: DILTIAZEM 50 MG in SODIUM CHLORIDE 0.9% 40 ML IV SCH (10:30)
[2018-05-12] MEDS ORDERED: DEXTROSE 5% IN WATER 100 ML with AMIODARONE 150 MG IV ONE (11:45)
--- NOTE | 2018-05-12 11:46 | P.PN ---
Subjective Progress Note Date: 05/12/18 Principal diagnosis: Atrial fibrillation with rapid ventricular response Patient just flipped back into [employer] this morning while she was trying to go to beside [facility]. She is currently asymptomatic, no chest pain, shortness of breath or palpitation. No dizziness or weakness. Objective - Vital Signs Vital signs: Vital Signs Temp 97.4 F L 05/12/18 08:03 Pulse 75 05/12/18 08:03 Resp 18 05/12/18 08:03 BP 153/71 05/12/18 08:03 Pulse Ox 100 05/12/18 08:03 Intake & Output 05/11/18 05/12/18 05/12/18 18:59 06:59 18:59 Intake Total 340 240 440 Output Total 750 Balance -410 240 440 Weight 67.6 kg Intake: Intake, IV Titration 100 Amount Sodium Chloride 0.9% 1, 100 000 ml @ 100 mls/hr IV . Q10H [facility] Rx#:[id number] Oral 240 240 440 Output: Urine 750 Other: Voiding Method Bedside Com[facility] - Exam Constitutional: No acute distress, conversant, pleasant Eyes:Anicteric sclerae, moist conjunctiva, no lid-lag, PERRLA, pale ENMT: Oropharynx clear, no erythema, exudates Neck: Supple, FROM, no masses, or JVD, No carotid bruits, No thyromegaly Lungs: Clear to auscultation, Clear to percussion, Normal respiratory effort, no accessory muscle use Cardiovascular: RRR, No murmurs, gallops, or rubs, No peripheral edema Abdominal: Soft, Nontender, no guarding, rebound or rigidity, Normoactive bowel sounds, No hepatomegaly, No splenomegaly, No palpable mass Skin: Normal temperature, tone, texture, turgor, no induration, No subcutaneous nodules, No rash, lesions, No ulcers Extremities: No digital cyanosis, No clubbing, Pedal pulses intact and symmetrical, Radial pulses intact and symmetrical, No calf tenderness Psychiatric: Alert and oriented to person, place and time, appropriate affect, intact judgement Neuro: Muscles Strength 5/5 in all 4 extremities, Sensation to light touch grossly present throughout, Cranial nerves II-XII grossly intact, no focal sensory deficits - Labs CBC & Chem 7: 05/12/18 06:00 05/12/18 06:00 Labs: Abnormal Lab Results - Last 24 Hours (Table) 05/11/18 05/11/18 05/12/18 Range/Units 16:49 20:53 06:00 RBC 2.60 L (3.80-5.40) m/uL Hgb 7.8 L (11.4-16.0) gm/dL Hct 25.0 L (34.0-46.0) % RDW 19.2 H (11.5-15.5) % Lymphocytes # 0.5 L (1.0-4.8) k/uL Sodium (137-145) mmol/L Chloride (98-107) mmol/L Carbon Dioxide (22-30) mmol/L POC Glucose (mg/dL) 107 H 105 H (75-99) mg/dL Magnesium (1.6-2.3) mg/dL 05/12/18 Range/Units 06:00 RBC (3.80-5.40) m/uL Hgb (11.4-16.0) gm/dL Hct (34.0-46.0) % RDW (11.5-15.5) % Lymphocytes # (1.0-4.8) k/uL Sodium 136 L (137-145) mmol/L Chloride 110 H (98-107) mmol/L Carbon Dioxide 21 L (22-30) mmol/L POC Glucose (mg/dL) (75-99) mg/dL Magnesium 1.5 L (1.6-2.3) mg/dL Microbiology - Last 24 Hours (Table) 05/09/18 17:20 Urine Culture - Final Urine,Catheterized Klebsiella oxytoca 05/09/18 16:30 Blood Culture - Preliminary Blood No Growth after 48 hours Assessment and Plan Plan: Paroxysmal A. fib with rapid ventricular response not currently on anticoagulation. CHADS-VASC=5, Hx of diastolic heart failure currently compensated Restart cardizem drip, start amiodarone drip Discussed with cardiology Not a candidate for long-term anticoagulation due to anemia according to cardiology Switch atenolol to metoprolol 50 mg by mouth twice a day Sepsis secondary to UTI Mild lactic acidosis secondary to possible underlying urinary tract infection and dehydration Resolved. Grew Klebsiella in the urine, sensitive to ceftriaxone, we'll continue History of breast cancer triple negative on chemotherapy Outpatient follow-up History of pancytopenia secondary to chemotherapy, worsening anemia Worsening anemia likely secondary to hemodilution with IV fluids. Patient was transfused packed red blood cells last admission. Hemoglobin stable Hyperlipidemia Continue statin General weakness PT consult DVT prophylaxis on heparin subcu 3 times a day
[2018-05-12 11:48] LABS: Glucose,Whole Blood 198 mg/dL (75-99)
[2018-05-12] MEDS: METOPROLOL TARTRATE 50 MG TAB PO SCH ×2 (11:49→20:57)
[2018-05-12 12:01] VITALS: BMI 26.4
[2018-05-12] MEDS: AMIODARONE 450 MG in DEXTROSE 5% IN WATER 250 ML IV SCH ×4 (13:02→19:00)
--- NOTE | 2018-05-12 13:48 | P.PN ---
Subjective Progress Note Date: 05/12/18 This is a pleasant 78-year-old female patient with a past medical history significant for breast cancer who is currently receiving chemotherapy as well as history of paroxysmal atrial fibrillation, chronic diastolic congestive heart failure, diabetes, chronic anemia, hypertension, dyslipidemia, who was just recently discharged from the hospital on the 12th of this month, she was in [employer], scheduled to receive her last chemotherapy treatment, they checked her blood pressure there before initiating treatment, he came back to be 70 systolic and for this reason she was advised to come to the emergency room for further evaluation. EKG on arrival here showed atrial fibrillation with a rapid ventricular response, right bundle branch block pattern. Blood pressure this morning 128/60 with a heart rate in the 60s, 99% on room air. White blood cell count 7.6, hemoglobin 7.8, platelet count 199. Sodium 134, potassium 3.8, BUN 9, creatinine 0.7. Magnesium 1.6, phosphorus 3.0. Positive UTI. Echocardiogram with Doppler study was performed in January which revealed a normal left ventricular systolic function. Patient was seen and examined today , she states she's feeling significantly stronger overall. She continues to be in atrial fibrillation, heart rate in the 70s. Pressure stable this morning. We will discontinue the Cardizem drip. Increase beta alex dose. Patient is not a candidate for anticoagulation because of her anemia. Plan for possible discharge home in 24-48 hours if stable. 05/12/2018 Patient went back into atrial fibrillation with rapid ventricular response this morning, we did give an additional dose of Lopressor and she continued to go in the rate of 150-160. IV Cardizem was initiated, patient then was started on IV amiodarone. She has since converted to normal sinus rhythm and continues to be in sinus rhythm at this time. There is no IV Cardizem hanging at this time, she is receiving her IV amiodarone. We will continue to monitor her for 24 hours, if she remains stable in regards to her heart rate she may be able to be discharged home tomorrow. She was also noted to have a low magnesium level of 1.5 which is being replaced. Sodium 136, potassium 3.9, BUN 8, creatinine 0.7. Hemoglobin 7.8. Objective - Vital Signs Vital signs: Vital Signs Temp 97.4 F L 05/12/18 08:03 Pulse 75 05/12/18 08:03 Resp 18 05/12/18 08:03 BP 153/71 05/12/18 08:03 Pulse Ox 100 05/12/18 08:03 Intake & Output 05/11/18 05/12/18 05/12/18 18:59 06:59 18:59 Intake Total 340 240 760 Output Total 750 200 Balance -410 240 560 Weight 67.6 kg 67.6 kg Intake: Intake, IV Titration 100 Amount Sodium Chloride 0.9% 1, 100 000 ml @ 100 mls/hr IV . Q10H [facility] Rx#:[id number] Oral 240 240 760 Output: Urine 750 200 Other: Voiding Method Bedside Commode Bedside Commode Bedside Commode # Voids 2 - Exam GENERAL: Well-appearing, well-nourished and in no acute distress. NECK: Supple without JVD or thyromegaly. LUNGS: Respiration equal and unlabored. No wheezes, rales or rhonchi. HEART: Regular rate and rhythm with murmur at the base, no rubs or gallops. S1 and S2 heard. EXTREMITIES: Right upper extremity nonpitting lymphedema. Bilateral lower extremity nonpitting edema. No calf tenderness bilaterally. Peripheral pulses intact. - Labs CBC & Chem 7: 05/12/18 06:00 05/12/18 06:00 Labs: Abnormal Lab Results - Last 24 Hours (Table) 05/11/18 05/11/18 05/12/18 Range/Units 16:49 20:53 06:00 RBC 2.60 L (3.80-5.40) m/uL Hgb 7.8 L (11.4-16.0) gm/dL Hct 25.0 L (34.0-46.0) % RDW 19.2 H (11.5-15.5) % Lymphocytes # 0.5 L (1.0-4.8) k/uL Sodium (137-145) mmol/L Chloride (98-107) mmol/L Carbon Dioxide (22-30) mmol/L POC Glucose (mg/dL) 107 H 105 H (75-99) mg/dL Magnesium (1.6-2.3) mg/dL 05/12/18 05/12/18 Range/Units 06:00 11:38 RBC (3.80-5.40) m/uL Hgb (11.4-16.0) gm/dL Hct (34.0-46.0) % RDW (11.5-15.5) % Lymphocytes # (1.0-4.8) k/uL Sodium 136 L (137-145) mmol/L Chloride 110 H (98-107) mmol/L Carbon Dioxide 21 L (22-30) mmol/L POC Glucose (mg/dL) 198 H (75-99) mg/dL Magnesium 1.5 L (1.6-2.3) mg/dL Microbiology - Last 24 Hours (Table) 05/09/18 17:20 Urine Culture - Final Urine,Catheterized Klebsiella oxytoca 05/09/18 16:30 Blood Culture - Preliminary Blood No Growth after 48 hours Assessment and Plan Plan: Assessment #1 A. fib with RVR paroxysmal. The patient does have history of for paroxysmal atrial fibrillation. #2 chronic diastolic congestive heart failure. The patient seems to be euvolemic at this point #3 history of breast cancer and currently the patient is on chemotherapy #4 anemia which is chronic #5diabetes #6 hypertension #7 dyslipidemia #8 hypotensive on admission, resolved Plan We will continue the IV amiodarone for 24 hours, continue to monitor patient's heart rate, she has since converted to normal sinus rhythm and remains in normal sinus rhythm at this time. She is not a candidate for anticoagulation because of anemia. DNP note has been reviewed, I agree with a documented findings and plan of care. Patient was seen and examined. DNP note has been reviewed, I agree with a documented findings and plan of care. Patient was seen and examined.
[2018-05-12 17:00] LABS: Glucose,Whole Blood 135 mg/dL (75-99)
[2018-05-12] MEDS: cefTRIAXone IN SWFI 1,000 MG/10 ML SYRINGE IVP SCH (17:15)
[2018-05-12] MEDS: APIXABAN 5 MG TAB PO SCH (20:56)
[2018-05-12] MEDS: AMIODARONE 200 MG TAB PO SCH (20:56)
[2018-05-12] MEDS: NAPROXEN 250 MG TAB PO PRN (20:57)
[2018-05-12] MEDS: ATORVASTATIN 20 MG TAB PO SCH (20:57)
[2018-05-12 21:00] LABS: Glucose,Whole Blood 140 mg/dL (75-99)
[2018-05-13] MEDS: AMIODARONE 450 MG in DEXTROSE 5% IN WATER 250 ML IV SCH ×2 (04:55)
[2018-05-13] MEDS: NAPROXEN 250 MG TAB PO PRN (05:49)
[2018-05-13 06:00] LABS: Glucose,Whole Blood 106 mg/dL (75-99)
[2018-05-13 06:43] LABS: Anisocytosis Slight; Basophils % (A) 1 %; Eosinophils # (A) 0.3 k/uL (0-0.7); Eosinophils % (A) 5 %; HCT 24.7 % (34.0-46.0); HGB 8.1 gm/dL (11.4-16.0); Hypochromasia Slight; Lymphocytes # (A) 0.8 k/uL (1.0-4.8); Lymphocytes % (A) 13 %; MCH 31.2 pg (25.0-35.0); MCHC 32.9 g/dL (31.0-37.0); MCV 94.7 fL (80.0-100.0); Macrocytosis Slight; Mean Platelet Volume 7.4; Monocytes # (A) 0.7 k/uL (0-1.0); Monocytes % (A) 11 %; Neutrophils # (A) 4.5 k/uL (1.3-7.7); Neutrophils % (A) 67 %; Platelet Count 223 k/uL (150-450); Poikilocytosis Slight; RBC 2.61 m/uL (3.80-5.40); RDW 18.8 % (11.5-15.5); WBC 6.7 k/uL (3.8-10.6)
[2018-05-13 06:59] LABS: Anion Gap 7 mmol/L; Calcium 8.2 mg/dL (8.4-10.2); Carbon Dioxide 20 mmol/L (22-30); Chloride 109 mmol/L (98-107); Glucose 89 mg/dL (74-99); Magnesium 1.9 mg/dL (1.6-2.3); Phosphorus 3.6 mg/dL (2.5-4.5); Potassium 4.4 mmol/L (3.5-5.1); Sodium 136 mmol/L (137-145)
[2018-05-13 07:03] LABS: Blood Urea Nitrogen 9 mg/dL (7-17)
[2018-05-13] MEDS: FAMOTIDINE 20 MG TAB PO SCH (08:16)
[2018-05-13] MEDS: MULTIVITAMINS, THERA 1 EACH TAB PO SCH (08:16)
[2018-05-13] MEDS: METOPROLOL TARTRATE 50 MG TAB PO SCH (08:16)
[2018-05-13] MEDS: APIXABAN 5 MG TAB PO SCH (08:16)
[2018-05-13] MEDS: FERROUS SULFATE 325 MG TAB PO SCH (08:16)
[2018-05-13] MEDS: AMIODARONE 200 MG TAB PO SCH (08:16)
[2018-05-13 08:19] VITALS: RESP 18
--- NOTE | 2018-05-13 09:53 | P.CONS ---
History of Present Illness - Reason for Consult Consult date: 05/12/18 Anticoagulation recommendations, Breast cancer pt Requesting physician: Kenn Castillo - Chief Complaint Weakness - History of Present Illness Ms. Guerrero is a very pleasant 78 yo female with history of right breast cancer diagnosed initially in 1990, s/p lumpectomy, chemo, RT, and 5 years of tamoxifen. Presumably this was HR positive. She did well until 10/05/17 when she was found to have 2.4 cm mass in right UOQ on routine mammogram. WOrk up showed IDC, grade 2, ER/OK/HER2 negative. She also has a 0.7cm LN in axillary tail. She was started on neoadjuvant chemotherapy with ddAC and completed 4 cycles. Also has completed 3/4 planned cycles of ddTaxol. She was recently hospitalized earlier this month for not feeling well, found to be in atrial fibrillation. Discharged and was to have her chemo this past Monday, however she was hypotensive on the day of chemo and not feeling well. Ended up hospitalized, and again found to be in atrial fibrillation. Overall currently doing better. Cardiology on board and managing her atrial fibrillation. They would like to anticoagulate her if possible. No smoking, alcohol, or drug use. She is . Mother had breast cancer in her 60's, otherwise no family history of cancer. Review of Systems All systems: negative Constitutional: Reports as per HPI Past Medical History Past Medical History: Cancer, Diabetes Mellitus, Hyperlipidemia, Hypertension Additional Past Medical History / Comment(s): rt Breast CA 1990 had lumpectomy/ lymph nodes removed, chemo/radiation. in reocurrance of cancer same (rt) breast-receiving chemo . History of Any Multi-Drug Resistant Organisms: None Reported Past Surgical History: Appendectomy, Back Surgery, Breast Surgery, Cholecystectomy, Hysterectomy, Tonsillectomy Additional Past Surgical History / Comment(s): Medi port lt chest, 1 upper dental implant, rt breast lumpectomy, lymph nodes removed, egd/colonoscopu/ polypectomt, cataracts-lens implants Past Anesthesia/Blood Transfusion Reactions: No Reported Reaction Past Psychological History: No Psychological Hx Reported Smoking Status: Former smoker Past Alcohol Use History: None Reported Past Drug Use History: None Reported - Past Family History Mother Family Medical History: Cancer Additional Family Medical History / Comment(s): age 66 from colon cancer Father Family Medical History: CVA/TIA Additional Family Medical History / Comment(s): age 48 from a stroke Medications and Allergies Home Medications Medication Instructions Recorded Confirmed Type Atorvastatin [Lipitor] 20 mg PO HS 01/26/18 05/09/18 History Melatonin 3 mg PO HS PRN tablet 02/10/18 05/09/18 Rx Cholecalciferol [Vitamin D3] 1,000 unit PO DAILY 04/30/18 05/09/18 History Fexofenadine HCl [Bettie Allergy] 180 mg PO DAILY 04/30/18 05/09/18 History Multivitamins, Thera [Multivitamin 1 tab PO DAILY 04/30/18 05/09/18 History (formulary)] Furosemide [Lasix] 40 mg PO MOWEFR #30 tablet 05/03/18 05/09/18 Rx Naproxen [Naprosyn] 250 mg PO Q8H #30 tab 05/03/18 05/09/18 Rx Potassium Chloride [K-Tab ER] 20 meq PO MOWEFR #30 tablet.er 05/03/18 05/09/18 Rx Iron 18 mg PO DAILY 05/09/18 05/09/18 History Neomycin/Polymyxin B/Dexametha 1 drop BOTH EYES Q4H 05/09/18 05/09/18 History [Maxitrol Ophth Susp] Ranitidine HCl [Zantac] 150 mg PO DAILY 05/09/18 05/09/18 History Amiodarone [Cordarone] 200 mg PO BID #60 tab 05/13/18 Rx Enoxaparin [Lovenox] 70 mg SQ Q12H #30 syringe 05/13/18 Rx Metoprolol Tartrate [Lopressor] 50 mg PO BID #60 tab 05/13/18 Rx Allergies Allergy/AdvReac Type Severity Reaction Status Date / Time No Known Allergies Allergy Verified 05/09/18 16:20 Physical Exam Vitals: Vital Signs Temp Pulse Pulse Resp BP Pulse Ox 05/12/18 20:00 97.1 F L 73 16 92/72 97 05/12/18 17:20 100/65 05/12/18 16:00 97.4 F L 68 18 85/47 97 05/12/18 12:00 97.6 F 156 H 18 94/75 98 05/12/18 08:03 97.4 F L 75 18 153/71 100 05/12/18 04:00 96.9 F L 74 16 133/65 95 05/12/18 00:00 97.3 F L 80 16 129/69 97 Intake and Output 05/12/18 05/12/18 05/12/18 06:59 14:59 22:59 Intake Total 240 760 598.823 Output Total 200 300 Balance 240 560 298.823 Intake: Intake, IV Titration 238.823 Amount Amiodarone 450 mg In 238.823 Dextrose 5% in Water 250 ml @ 1 MG/MIN 34.53 mls/ hr IV .Q7H31M [facility] Rx#: [id number] Oral 240 760 360 Output: Urine 200 300 Other: Voiding Method Bedside Commode Bedside Commode Bedside Commode # Voids 2 Weight 67.6 kg 67.6 kg Constitutional: No acute distress. HEENT: EOMI. Mucosa moist. Neck: Neck supple. Lymph: No neck/cervical LAD. Lungs: CTA-B. Heart: Regular rate. No LE edema. Abdomen: Soft, nontender, nondistended, with positive bowel sounds. MSK: 4/4 strength in all 4 extremities. Neuro: Alert and oriented x 3. No obvious gross neurologic deficits. Skin: No jaundice or rash. Psych: Appropriate affect. Results CBC & Chem 7: 05/13/18 06:15 05/13/18 06:15 Labs: Abnormal Lab Results - Last 24 Hours (Table) 05/12/18 05/12/18 05/12/18 Range/Units 06:00 06:00 11:38 RBC 2.60 L (3.80-5.40) m/uL Hgb 7.8 L (11.4-16.0) gm/dL Hct 25.0 L (34.0-46.0) % RDW 19.2 H (11.5-15.5) % Lymphocytes # 0.5 L (1.0-4.8) k/uL Sodium 136 L (137-145) mmol/L Chloride 110 H (98-107) mmol/L Carbon Dioxide 21 L (22-30) mmol/L POC Glucose (mg/dL) 198 H (75-99) mg/dL Magnesium 1.5 L (1.6-2.3) mg/dL 05/12/18 05/12/18 Range/Units 16:46 20:59 RBC (3.80-5.40) m/uL Hgb (11.4-16.0) gm/dL Hct (34.0-46.0) % RDW (11.5-15.5) % Lymphocytes # (1.0-4.8) k/uL Sodium (137-145) mmol/L Chloride (98-107) mmol/L Carbon Dioxide (22-30) mmol/L POC Glucose (mg/dL) 135 H 140 H (75-99) mg/dL Magnesium (1.6-2.3) mg/dL Microbiology - Last 24 Hours (Table) 05/09/18 16:30 Blood Culture - Preliminary Blood No Growth after 72 hours 05/09/18 17:20 Urine Culture - Final Urine,Catheterized Klebsiella oxytoca Assessment and Plan Assessment: 1. Atrial fibrillation 2. Breast cancer on chemotherapy Plan: Ms. Guerrero is a 78 yo female with history of prior breast cancer s/p lumpectomy , chemo, RT and endocrine therapy years ago, with recent new breast cancer in the same breast, triple negative, currently on neoadjuvant chemotherapy, here for recurrent atrial fibrillation. She has completed her 4 doses of ddAC, and has completed 3/4 doses of ddTaxol. Last dose was due last week however this was delayed due to hypotension and she was admitted instead for increased weakness and hypotension, found to be in atrial fibrillation again. Cardiology would like to start anticoagulation. From oncologic stand point, no objections to anticoagulation, although will have to monitor her blood counts and signs/symptoms of bleeding very closely, especially following chemotherapy (her last dose of taxol), and hold anticoagulation for platelets <50. Would recommend lovenox for now due to ease of stopping when platelets are <50. Once her counts recover after chemotherapy , no preference to anticoagulation. Of note, she will need to undergo mastectomy after completion of chemotherapy, and will need to hold anticoagulation for surgery; could consider heparin amado-operatively if stroke risk high perioperatively. Addendum: I did discuss pt's case with primary team on 05/13/18. Prefer Lovenox initially for anticoagulation until pt's myelosuppression resolves after her last dose of chemo, she can be switched to other anticoagulant (ie DOAC). If Lovenox is not possible (ie due to insurance), then will have to monitor CBC more closely post chemo, and consider holding AC with higher threshold, due to longer AC effects of DOAC as compared to Lovenox.
[2018-05-13 11:09] VITALS: BP 129/75; PULSE 73; TEMP 97.2
[2018-05-13 12:16] LABS: Glucose,Whole Blood 140 mg/dL (75-99)
--- NOTE | 2018-05-13 13:27 | P.DS ---
Providers Date of admission: 05/09/18 19:10 Expected date of discharge: 05/13/18 Attending physician: Kenn Castillo MD Consults: 05/10/18 01:15 Consult Physician Routine Consulting Provider: Dhiraj Barboza Consult Reason/Comments: P.afib rvr Do you want consulting provider notified?: Yes 05/12/18 15:11 Consult Physician Routine Consulting Provider: Macy Rios Consult Reason/Comments: anticoagulation Do you want consulting provider notified?: Yes Primary care physician: [facility] Course: 78-year-old female with history of recurrent breast cancer and paroxysmal A. fib , who was at the infusion center to receive chemotherapy when she was found to be tachycardic and hypotensive that did not resolve after receiving 1 L normal saline bolus. Because of that her oncologist recommended that she goes to the ER for further evaluation. Patient reported that she was hospitalized last week with shortness of breath and at that time she was also found to have A. fib with RVR and anemia. She was discharged on (1 week prior to admission) but since then she didn't feel well. She reported some generalized malaise and weakness. She also felt her heart was pounding and dizzy and lightheaded. Otherwise patient denied any trouble breathing , headache, changes in her vision or hearing, denied any abdominal pain, denied any bleeding, denied any changes in her bowel or urinary habits. She denied any focal neurologic deficits. In the emergency department she was found to have atrial fibrillation with rapid ventricular response. Heart rate was up in the 140s. Laboratory testing revealed slight lactic acidosis and possible underlying urinary tract infection however patient denied any symptoms of UTI. Patient was started on Cardizem drip and admitted for further care and evaluation by cardiology. During her last episode of atrial fibrillation she was evaluated by cardiology and was not started on anticoagulation because of chronic anemia. Patient developed pancytopenia after the chemotherapy in her baseline hemoglobin was running between 8-9. Because of that initially in this admission she has not started on AC either.. Subsequently patient was started on treatment with metoprolol 50 mg twice a day , at home she was taking atenolol, that was discontinued. After about 24 hours she flipped back into normal sinus rhythm, so Cardizem was discontinued. She stayed in sinus rhythm for 1-2 days and then flipped back into A. fib again. At that time she was started on amiodarone drip that was later switched to by mouth. She was started on anticoagulation by cardiology as well with a apixiban. Subsequently she converted back to normal sinus rhythm. Urine cultures grew Klebsiella that was sensitive to all antibiotics tested. Today patient is feeling much better, she will be discharged home in a stable condition. Case was discussed with oncology and cardiology on the day of discharge. Oncology prefers patient to be discharged on Lovenox, the prescription was forwarded to pharmacy but the patient's co-pay was too high for her to afford. Because of that the prescription was switched to xarelto. Discharge diagnoses Atrial fibrillation with rapid ventricular response, paroxysmal Pancytopenia secondary to chemotherapy General weakness Urinary tract infection Patient Condition at Discharge: Fair Plan - Discharge Summary Discharge Rx Participant: No New Discharge Prescriptions: New RX: Amiodarone [Cordarone] 200 mg PO BID #60 tab RX: Metoprolol Tartrate [Lopressor] 50 mg PO BID #60 tab Amoxicillin/Potassium Clav [Augmentin 875-125 Tablet] 1 tab PO Q12HR #14 tab Rivaroxaban [Xarelto] 20 mg PO DAILY #30 tab Continue RX: Atorvastatin [Lipitor] 20 mg PO HS RX: Melatonin 3 mg PO HS PRN tablet PRN Reason: Insomnia RX: Multivitamins, Thera [Multivitamin (formulary)] 1 tab PO DAILY RX: Cholecalciferol [Vitamin D3] 1,000 unit PO DAILY RX: Fexofenadine HCl [Bettie Allergy] 180 mg PO DAILY RX: Naproxen [Naprosyn] 250 mg PO Q8H #30 tab RX: Furosemide [Lasix] 40 mg PO MOWEFR #30 tablet RX: Potassium Chloride [K-Tab ER] 20 meq PO MOWEFR #30 tablet.er RX: Ranitidine HCl [Zantac] 150 mg PO DAILY RX: Iron 18 mg PO DAILY RX: Neomycin/Polymyxin B/Dexametha [Maxitrol Ophth Susp] 1 drop BOTH EYES Q4H Discontinued RX: Atenolol [Tenormin] 50 mg PO DAILY #30 tab Discharge Medication List RX: Atorvastatin [Lipitor] 20 mg PO HS 01/26/18 [History] RX: Melatonin 3 mg PO HS PRN tablet 02/10/18 [Rx] RX: Cholecalciferol [Vitamin D3] 1,000 unit PO DAILY 04/30/18 [History] RX: Fexofenadine HCl [Bettie Allergy] 180 mg PO DAILY 04/30/18 [History] RX: Multivitamins, Thera [Multivitamin (formulary)] 1 tab PO DAILY 04/30/18 [ History] RX: Furosemide [Lasix] 40 mg PO MOWEFR #30 tablet 05/03/18 [Rx] RX: Naproxen [Naprosyn] 250 mg PO Q8H #30 tab 05/03/18 [Rx] RX: Potassium Chloride [K-Tab ER] 20 meq PO MOWEFR #30 tablet.er 05/03/18 [Rx] RX: Iron 18 mg PO DAILY 05/09/18 [History] RX: Neomycin/Polymyxin B/Dexametha [Maxitrol Ophth Susp] 1 drop BOTH EYES Q4H [History] RX: Ranitidine HCl [Zantac] 150 mg PO DAILY 05/09/18 [History] Amoxicillin/Potassium Clav [Augmentin 875-125 Tablet] 1 tab PO Q12HR #14 tab [Rx] RX: Amiodarone [Cordarone] 200 mg PO BID #60 tab 05/13/18 [Rx] RX: Metoprolol Tartrate [Lopressor] 50 mg PO BID #60 tab 05/13/18 [Rx] Rivaroxaban [Xarelto] 20 mg PO DAILY #30 tab 05/13/18 [Rx] Follow up Appointment(s)/Referral(s): Omkar Gotti MD [Primary Care Provider] - 1-2 days Ian Hoskins MD [STAFF PHYSICIAN] - 05/14/18 2:45 pm Patient Instructions/Handouts: A-fib (Atrial Fibrillation) (DC), Hypotension ( DC)
--- NOTE | 2018-05-13 13:55 | PN ---
PROGRESS NOTE Mrs. Guerrero is a 78-year-old female who presented with paroxysmal atrial fibrillation. She has a history of right breast cancer receiving chemotherapy. She is doing well today. She denies any symptoms of chest pain. She denies any dizziness or palpitation. She denies any nausea. She continues to be at this time on amiodarone 200 mg twice a day, Eliquis 5 mg twice a day, Lipitor 20 mg daily, Pepcid, Lasix 40 mg 3 times a week, metoprolol tartrate 50 mg twice a day, potassium. PHYSICAL EXAMINATION: Blood pressure 129/70 with a heart in the 70s. LUNGS: Clear. HEART: Regular rate and rhythm. S1, S2. No S3. No rub. ABDOMEN: Soft, nontender. EXTREMITIES: No edema. IMPRESSION: 1. Atrial fibrillation paroxysmal, maintaining sinus mechanism. 2. Breast cancer. 3. Gastroesophageal reflux disease. RECOMMENDATION: Patient should be is able to be discharged home today. The oncology service has favored Lovenox over the Eliquis. She will hold the Eliquis, continue on the amiodarone and follow up with Dr. Hoskins as an outpatient. MMODL / IJN: [id number] /
== END 2018-05-13 14:14 | disposition home or self-care (01) | DRG 872 ==
LOC: EC 15:45 → 6SEL 19:10
PROVIDERS: ADMIT Internal Medicine; ATTEND Internal Medicine
DX: A41.59 Other Gram-negative sepsis (principal); N39.0 Urinary tract infection, site not specified; E87.2 Acidosis; I50.32 Chronic diastolic (congestive) heart failure; R65.20 Severe sepsis without septic shock; B96.1 Klebsiella pneumoniae [K. pneumoniae] as the cause of diseases classified elsewhere; C50.411 Malignant neoplasm of upper-outer quadrant of right female breast; Z17.1 Estrogen receptor negative status [ER-]; E11.9 Type 2 diabetes mellitus without complications; E78.5 Hyperlipidemia, unspecified; I11.0 Hypertensive heart disease with heart failure; I45.10 Unspecified right bundle-branch block; I48.0 Paroxysmal atrial fibrillation; K21.9 Gastro-esophageal reflux disease without esophagitis; T45.1X5A Adverse effect of antineoplastic and immunosuppressive drugs, initial encounter; Z79.899 Other long term (current) drug therapy; D64.81 Anemia due to antineoplastic chemotherapy; Z80.0 Family history of malignant neoplasm of digestive organs; Z80.3 Family history of malignant neoplasm of breast; Z82.3 Family history of stroke; Z87.891 Personal history of nicotine dependence; Z90.710 Acquired absence of both cervix and uterus; Z96.1 Presence of intraocular lens; Z98.42 Cataract extraction status, left eye; Z98.41 Cataract extraction status, right eye; Z92.21 Personal history of antineoplastic chemotherapy; Z92.3 Personal history of irradiation; E86.0 Dehydration
CPT/HCPCS: 36415; 71045; 80048; 80053; 81001; 82550; 83036; 83605; 83690; 83735; 84100; 84484; 85025; 87040; 87077; 87086; 87186; 93005; 96365; 96366; 96375; 99285

== ENCOUNTER 2018-05-16 20:44 | Inpatient (IN) | payer MEDICARE ==
[2018-05-16] MEDS ORDERED: DILTIAZEM DRIP BOLUS FROM BAG 1 MG SOLN IV ONE (20:53)
[2018-05-16] MEDS ORDERED: SODIUM CHLORIDE 0.9% 1,000 ML IV STA (20:53)
--- NOTE | 2018-05-16 21:25 | ED ---
General Adult HPI - General Chief complaint: Shortness of Breath Stated complaint: Hypertension Time Seen by Provider: 05/16/18 20:45 Source: patient, RN notes reviewed, old records reviewed Mode of arrival: ambulatory Limitations: no limitations - History of Present Illness Initial comments: This is a 78-year-old female to the ER for evaluation today. Patient's poor strain secondary to severe clinical state. Patient coming in for multiple complaints, patient found to be in A. fib with RVR per EMS, patient's nausea vomiting vomiting but looks like blood per EMS, family states patient became severely weak throughout the day and progressively worse, she states she is on Lovenox which she has been taking. Patient's taken that for DVT prophylaxis. Patient was also seen and discharged from [facility] yesterday and has had significant L Zarate since. No fevers. Patient herself states she feels miserable - Related Data Home Medications Medication Instructions Recorded Confirmed Atorvastatin [Lipitor] 20 mg PO HS 01/26/18 05/16/18 Cholecalciferol [Vitamin D3] 1,000 unit PO DAILY 04/30/18 05/16/18 Fexofenadine HCl [Bettie Allergy] 180 mg PO DAILY 04/30/18 05/16/18 Multivitamins, Thera [Multivitamin 1 tab PO DAILY 04/30/18 05/16/18 (formulary)] Iron 18 mg PO DAILY 05/09/18 05/16/18 Neomycin/Polymyxin B/Dexametha 1 drop BOTH EYES Q4H 05/09/18 05/16/18 [Maxitrol Ophth Susp] Ranitidine HCl [Zantac] 150 mg PO DAILY 05/09/18 05/16/18 Previous Rx's Medication Instructions Recorded Melatonin 3 mg PO HS PRN tablet 02/10/18 Furosemide [Lasix] 40 mg PO MOWEFR #30 tablet 05/03/18 Naproxen [Naprosyn] 250 mg PO Q8H #30 tab 05/03/18 Potassium Chloride [K-Tab ER] 20 meq PO MOWEFR #30 tablet.er 05/03/18 Amiodarone [Cordarone] 200 mg PO BID #60 tab 05/13/18 Amoxicillin/Potassium Clav 1 tab PO Q12HR #14 tab 05/13/18 [Augmentin 875-125 Tablet] Metoprolol Tartrate [Lopressor] 50 mg PO BID #60 tab 05/13/18 Rivaroxaban [Xarelto] 20 mg PO DAILY #30 tab 05/13/18 Allergies Allergy/AdvReac Type Severity Reaction Status Date / Time No Known Allergies Allergy Verified 05/16/18 21:01 Review of Systems ROS Statement: Those systems with pertinent positive or pertinent negative responses have been documented in the HPI. ROS Other: All systems not noted in ROS Statement are negative. Past Medical History Past Medical History: Cancer, Diabetes Mellitus, Hyperlipidemia, Hypertension Additional Past Medical History / Comment(s): rt Breast CA 1990 had lumpectomy/ lymph nodes removed, chemo/radiation. in reocurrance of cancer same (rt) breast-receiving chemo . History of Any Multi-Drug Resistant Organisms: None Reported Past Surgical History: Appendectomy, Back Surgery, Breast Surgery, Cholecystectomy, Hysterectomy, Tonsillectomy Additional Past Surgical History / Comment(s): Medi port lt chest, 1 upper dental implant, rt breast lumpectomy, lymph nodes removed, egd/colonoscopu/ polypectomt, cataracts-lens implants Past Anesthesia/Blood Transfusion Reactions: No Reported Reaction Past Psychological History: No Psychological Hx Reported Smoking Status: Former smoker Past Alcohol Use History: None Reported Past Drug Use History: None Reported - Past Family History Mother Family Medical History: Cancer Additional Family Medical History / Comment(s): age 66 from colon cancer Father Family Medical History: CVA/TIA Additional Family Medical History / Comment(s): age 48 from a stroke General Exam Limitations: no limitations, altered mental status General appearance: alert, anxious, lethargic, in distress Head exam: Present: atraumatic, normocephalic, normal inspection Eye exam: Present: normal appearance, PERRL, EOMI. Absent: scleral icterus, conjunctival injection, periorbital swelling ENT exam: Present: normal exam, mucous membranes moist Neck exam: Present: normal inspection. Absent: tenderness, meningismus, lymphadenopathy Respiratory exam: Present: normal lung sounds bilaterally. Absent: respiratory distress, wheezes, rales, rhonchi, stridor Cardiovascular Exam: Present: tachycardia, irregular rhythm, normal heart sounds. Absent: systolic murmur, diastolic murmur, rubs, gallop, clicks GI/Abdominal exam: Present: soft, normal bowel sounds. Absent: distended, tenderness, guarding, rebound, rigid Extremities exam: Present: normal inspection, full ROM, normal capillary refill. Absent: tenderness, pedal edema, joint swelling, calf tenderness Back exam: Present: normal inspection Neurological exam: Present: alert, oriented X3, CN II-XII intact Psychiatric exam: Present: normal affect, normal mood Skin exam: Present: warm, dry, intact, normal color. Absent: rash Course Vital Signs 05/16/18 05/16/18 05/16/18 20:45 21:37 21:47 Temperature 98.2 F Pulse Rate 130 H 79 68 Respiratory 22 18 Rate Blood Pressure 107/50 78/37 O2 Sat by Pulse 100 99 Oximetry 05/16/18 05/16/18 21:55 21:57 Temperature Pulse Rate 78 70 Respiratory 18 18 Rate Blood Pressure 84/39 O2 Sat by Pulse 100 Oximetry - Reevaluation(s) Reevaluation #1: A she was given Cardizem for resolution of RVR, patient also given nausea medication no longer vomiting. Patient given breathing treatment and breathing treatments and symptoms are improved EKG Findings - EKG Comments: EKG Findings:: EKG shows sinus rhythm rate of 79, [place] 160, QRS 110, QTc 479 Medical Decision Making - Medical Decision Making 78 female the ER for evaluation of GI bleed, vomiting blood. Patient be transfused, admitted for GI and DVT prophylaxis. Patient also has multiple other medical comorbidities including CVA, COPD. Patient be admitted for breathing treatments. - Lab Data Result diagrams: 05/16/18 21:13 05/17/18 08:58 Lab Results 05/16/18 05/16/18 05/16/18 Range/Units 21:13 21:13 21:13 WBC 11.5 H (3.8-10.6) k/uL RBC 2.30 L (3.80-5.40) m/uL Hgb 7.2 L (11.4-16.0) gm/dL Hct 21.9 L (34.0-46.0) % MCV 95.5 (80.0-100.0) fL MCH 31.5 (25.0-35.0) pg MCHC 33.0 (31.0-37.0) g/dL RDW 21.6 H (11.5-15.5) % Plt Count 237 (150-450) k/uL Neutrophils % 73 % Lymphocytes % 10 % Monocytes % 10 % Eosinophils % 3 % Basophils % 0 % Neutrophils # 8.4 H (1.3-7.7) k/uL Lymphocytes # 1.2 (1.0-4.8) k/uL Monocytes # 1.2 H (0-1.0) k/uL Eosinophils # 0.3 (0-0.7) k/uL Basophils # 0.0 (0-0.2) k/uL Poikilocytosis Slight Anisocytosis Moderate Macrocytosis Slight PT (9.0-12.0) sec INR (<1.2) APTT (22.0-30.0) sec Sodium 135 L (137-145) mmol/L Potassium 4.0 (3.5-5.1) mmol/L Chloride 102 (98-107) mmol/L Carbon Dioxide 22 (22-30) mmol/L Anion Gap 11 mmol/L BUN 35 H (7-17) mg/dL Creatinine 0.79 (0.52-1.04) mg/dL Est GFR (CKD-EPI)AfAm 85 (>60 ml/min/1.73 sqM) Est GFR (CKD-EPI)NonAf 74 (>60 ml/min/1.73 sqM) Glucose 110 H (74-99) mg/dL Calcium 8.3 L (8.4-10.2) mg/dL Phosphorus 4.4 (2.5-4.5) mg/dL Magnesium 1.2 L (1.6-2.3) mg/dL Total Bilirubin 0.5 (0.2-1.3) mg/dL AST 17 (14-36) U/L ALT 28 (9-52) U/L Alkaline Phosphatase 46 (38-126) U/L Total Creatine Kinase <20 L (30-135) U/L CK-MB (CK-2) 0.4 (0.0-2.4) ng/mL CK-MB (CK-2) Rel Index Troponin I 0.038 H* (0.000-0.034) ng/mL NT-Pro-B Natriuret Pep pg/mL Total Protein 4.6 L (6.3-8.2) g/dL Albumin 2.7 L (3.5-5.0) g/dL 05/16/18 05/16/18 Range/Units 21:13 21:13 WBC (3.8-10.6) k/uL RBC (3.80-5.40) m/uL Hgb (11.4-16.0) gm/dL Hct (34.0-46.0) % MCV (80.0-100.0) fL MCH (25.0-35.0) pg MCHC (31.0-37.0) g/dL RDW (11.5-15.5) % Plt Count (150-450) k/uL Neutrophils % % Lymphocytes % % Monocytes % % Eosinophils % % Basophils % % Neutrophils # (1.3-7.7) k/uL Lymphocytes # (1.0-4.8) k/uL Monocytes # (0-1.0) k/uL Eosinophils # (0-0.7) k/uL Basophils # (0-0.2) k/uL Poikilocytosis Anisocytosis Macrocytosis PT 14.2 H (9.0-12.0) sec INR 1.5 H (<1.2) APTT 28.2 (22.0-30.0) sec Sodium (137-145) mmol/L Potassium (3.5-5.1) mmol/L Chloride (98-107) mmol/L Carbon Dioxide (22-30) mmol/L Anion Gap mmol/L BUN (7-17) mg/dL Creatinine (0.52-1.04) mg/dL Est GFR (CKD-EPI)AfAm (>60 ml/min/1.73 sqM) Est GFR (CKD-EPI)NonAf (>60 ml/min/1.73 sqM) Glucose (74-99) mg/dL Calcium (8.4-10.2) mg/dL Phosphorus (2.5-4.5) mg/dL Magnesium (1.6-2.3) mg/dL Total Bilirubin (0.2-1.3) mg/dL AST (14-36) U/L ALT (9-52) U/L Alkaline Phosphatase (38-126) U/L Total Creatine Kinase (30-135) U/L CK-MB (CK-2) (0.0-2.4) ng/mL CK-MB (CK-2) Rel Index Troponin I (0.000-0.034) ng/mL NT-Pro-B Natriuret Pep 2410 pg/mL Total Protein (6.3-8.2) g/dL Albumin (3.5-5.0) g/dL - Radiology Data Radiology results: report reviewed (Chest x-ray shows no significant acute change), image reviewed Critical Care Time Critical Care Time: Yes Total Critical Care Time: 31 Disposition Clinical Impression: Acute exacerbation of chronic obstructive airways disease, Atrial fibrillation with RVR, Generalized weakness Disposition: ADMITTED IP TO THIS HOSP Condition: Fair Is patient prescribed a controlled substance at d/c from ED?: No
[2018-05-16] MEDS ORDERED: NITROGLYCERIN SL TABS 0.4 MG TAB SUBLINGUAL PRN (21:29)
[2018-05-16] MEDS: SODIUM CHLORIDE 0.9% 1,000 ML IV SCH (21:32)
[2018-05-16] MEDS ORDERED: IPRATROPIUM-ALBUTEROL 3 ML NEB INHALATION STA (21:32)
[2018-05-16 21:33] LABS: Anisocytosis Moderate; Basophils % (A) 0 %; Eosinophils # (A) 0.3 k/uL (0-0.7); Eosinophils % (A) 3 %; HCT 21.9 % (34.0-46.0); HGB 7.2 gm/dL (11.4-16.0); Lymphocytes # (A) 1.2 k/uL (1.0-4.8); Lymphocytes % (A) 10 %; MCH 31.5 pg (25.0-35.0); MCV 95.5 fL (80.0-100.0); Macrocytosis Slight; Mean Platelet Volume 6.9; Monocytes # (A) 1.2 k/uL (0-1.0); Monocytes % (A) 10 %; Neutrophils # (A) 8.4 k/uL (1.3-7.7); Neutrophils % (A) 73 %; Platelet Count 237 k/uL (150-450); Poikilocytosis Slight; RDW 21.6 % (11.5-15.5); WBC 11.5 k/uL (3.8-10.6)
[2018-05-16] MEDS: DILTIAZEM 50 MG in SODIUM CHLORIDE 0.9% 40 ML IV SCH (21:33)
[2018-05-16 21:41] LABS: INR 1.5 (<1.2); Partial Thromboplastin Time 28.2 sec (22.0-30.0); Prothrombin Time 14.2 sec (9.0-12.0)
[2018-05-16 21:43] LABS: Albumin 2.7 g/dL (3.5-5.0); Calcium 8.3 mg/dL (8.4-10.2); Magnesium 1.2 mg/dL (1.6-2.3); Phosphorus 4.4 mg/dL (2.5-4.5); Total Bilirubin 0.5 mg/dL (0.2-1.3); Total Protein 4.6 g/dL (6.3-8.2)
--- NOTE | 2018-05-16 21:55 | XR ---
EXAMINATION: XR chest 2V DATE AND TIME: 05/16/2018 9:36 PM ORDERING PROVIDER: He Batres DO CLINICAL INDICATION: difficulty breathing TECHNIQUE: AP and lateral COMPARISON: 05/09/2018 DESCRIPTION: Scattered surgical clips are noted in the right axilla and over the right lower chest, stable in appe arance. Unchanged left IJ Port-A-Cath tip superimposed over the distal SVC. There is no pneumothorax. There is a small right pleural effusion, new since the prior study. The lungs are clear bilaterally. Cardiac silhouette mildly enlarged. IMPRESSION: NEW SMALL RIGHT PLEURAL EFFUSION; NO OTHER ACUTE PROCESS.
[2018-05-16 21:56] LABS: Creatine Kinase <20 U/L (30-135)
[2018-05-17 04:05] LABS: Creatine Kinase <20 U/L (30-135)
[2018-05-17 04:09] LABS: Creatine Kinase MB 0.4 ng/mL (0.0-2.4)
[2018-05-17 04:17] LABS: Creatine Kinase MB 0.3 ng/mL (0.0-2.4)
[2018-05-17 05:10] LABS: Troponin I 0.038 ng/mL (0.000-0.034)
[2018-05-17] MEDS: IPRATROPIUM-ALBUTEROL 3 ML NEB INHALATION SCH ×6 (05:21→19:53)
[2018-05-17] MEDS: DILTIAZEM 50 MG in SODIUM CHLORIDE 0.9% 40 ML IV SCH (05:22)
[2018-05-17] MEDS ORDERED: Magnesium Replacement Protocol 1 EACH MISC MISCELLANE PRN (06:13)
[2018-05-17 06:19] LABS: Glucose,Whole Blood 106 mg/dL (75-99)
[2018-05-17] MEDS: MAGNESIUM SULFATE-D5W PMX 1 GM in DEXTROSE/WATER 1 100ML.BAG IVPB SCH ×3 (06:53→11:17)
[2018-05-17] MEDS: INSULIN ASPART 100 UNIT/ML 1 ML 10 ML VIAL SQ SCH ×4 (06:55→20:55)
[2018-05-17] MEDS: SODIUM CHLORIDE 0.9% 1,000 ML IV SCH ×2 (06:55→20:48)
[2018-05-17] MEDS ORDERED: FUROSEMIDE 10 MG/ML 4 ML VIAL IV STA (08:47)
--- NOTE | 2018-05-17 08:48 | P.CRDCN ---
History of Present Illness Consult date: 05/17/18 Requesting physician: Vijay Galicia Consult reason: atrial fibrillation Chief complaint: Extreme weakness and peripheral edema History of present illness: This is a pleasant 78-year-old female with known history of breast cancer who was scheduled prior to her last mission a week ago to have her last chemotherapy, it has been decided now that she will not have her last treatment secondary to extreme weakness, she does have history also of paroxysmal atrial fibrillation on at diastolic congestive heart failure, diabetes, chronic anemia , hypertension, hyperlipidemia. She presents to the hospital on this occasion with symptoms of extreme weakness, she also states that she occasionally gets dizzy, and her blood pressure has been running quite low at home. she denies any overt shortness of breath, denies any palpitations or chest discomfort. Patient was just recently in the hospital less than a week ago with atrial fibrillation, discharged home on Xarelto for anticoagulation. Apparently on arrival here the patient was in atrial fibrillation with a rapid ventricular response, there is no documentation of this in the chart by EKG or rhythm strip , no documentation in the physician ER note, however the nursing report suggested patient was in A. fib when she came and patient also states her heart rate was going extremely fast on the monitor down stairs. She subsequently in the ER converted to normal sinus rhythm. Her initial EKG performed at that time showed normal sinus rhythm with incomplete right bundle branch block pattern and ST T-wave changes which are nonspecific. Chest x-ray shows a new small right pleural effusion. Blood pressure on arrival here 106/50, heart rate 1:30, 100% on room air. Let pressure this morning 100/50, heart rate in the 60s to 70s, 100% on room air. She is in normal sinus rhythm at this time. White blood cell count 11.5, hemoglobin 7.2, platelet count 237. Sodium 135, potassium 4.0, BUN 35, creatinine 0.7. Magnesium level I.2, troponins 0.038, 0.040. BNP 2410. A shunt has been noted in the recent past on her admissions with A. fib with RVR to have abnormal troponins. At the time of my examination this morning, patient states she feels extremely weak, other than that she has no complaints. Patient does have at least 2+ bilateral peripheral edema. Past Medical History Past Medical History: Cancer, Diabetes Mellitus, Hyperlipidemia, Hypertension Additional Past Medical History / Comment(s): rt Breast CA 1990 had lumpectomy/ lymph nodes removed, chemo/radiation about 3 weeks ago, reocurrance of cancer same (rt) breast-receiving chemo . History of Any Multi-Drug Resistant Organisms: None Reported Past Surgical History: Appendectomy, Back Surgery, Breast Surgery, Cholecystectomy, Hysterectomy, Tonsillectomy Additional Past Surgical History / Comment(s): Medi port lt chest, 1 upper dental implant, rt breast lumpectomy, lymph nodes removed, egd/colonoscopu/ polypectomt, cataracts-lens implants Past Anesthesia/Blood Transfusion Reactions: No Reported Reaction Past Psychological History: No Psychological Hx Reported Additional Psychological History / Comment(s): pt lives with spouse. has lennie home nurse and pt. has glucometer, 4 wheeled walker, bed rale, shower chair. when feeling well pt drives but since chemo pt's spouse takes to appts. Smoking Status: Former smoker Past Alcohol Use History: None Reported Additional Past Alcohol Use History / Comment(s): started smoking 1964 and quit 1974 smoked less than 1 ppd. Past Drug Use History: None Reported - Past Family History Mother Family Medical History: Cancer Additional Family Medical History / Comment(s): age 66 from colon cancer Father Family Medical History: CVA/TIA Additional Family Medical History / Comment(s): age 48 from a stroke Medications and Allergies Home Medications Medication Instructions Recorded Confirmed Type Atorvastatin [Lipitor] 20 mg PO HS 01/26/18 05/16/18 History Melatonin 3 mg PO HS PRN tablet 02/10/18 05/16/18 Rx Cholecalciferol [Vitamin D3] 1,000 unit PO DAILY 04/30/18 05/16/18 History Fexofenadine HCl [Bettie Allergy] 180 mg PO DAILY 04/30/18 05/16/18 History Multivitamins, Thera [Multivitamin 1 tab PO DAILY 04/30/18 05/16/18 History (formulary)] Furosemide [Lasix] 40 mg PO MOWEFR #30 tablet 05/03/18 05/16/18 Rx Naproxen [Naprosyn] 250 mg PO Q8H #30 tab 05/03/18 05/16/18 Rx Potassium Chloride [K-Tab ER] 20 meq PO MOWEFR #30 tablet.er 05/03/18 05/16/18 Rx Iron 18 mg PO DAILY 05/09/18 05/16/18 History Neomycin/Polymyxin B/Dexametha 1 drop BOTH EYES Q4H 05/09/18 05/16/18 History [Maxitrol Ophth Susp] Ranitidine HCl [Zantac] 150 mg PO DAILY 05/09/18 05/16/18 History Amiodarone [Cordarone] 200 mg PO BID #60 tab 05/13/18 05/16/18 Rx Amoxicillin/Potassium Clav 1 tab PO Q12HR #14 tab 05/13/18 05/16/18 Rx [Augmentin 875-125 Tablet] Metoprolol Tartrate [Lopressor] 50 mg PO BID #60 tab 05/13/18 05/16/18 Rx Rivaroxaban [Xarelto] 20 mg PO DAILY #30 tab 05/13/18 05/16/18 Rx Allergies Allergy/AdvReac Type Severity Reaction Status Date / Time No Known Allergies Allergy Verified 05/16/18 21:01 Physical Exam Vitals: Vital Signs Temp Pulse Pulse Resp BP BP Pulse Ox 05/17/18 08:02 68 05/17/18 07:52 66 05/17/18 04:35 97.0 F L 78 18 100/49 100 05/16/18 21:57 70 18 05/16/18 21:55 78 18 84/39 100 05/16/18 21:47 68 05/16/18 21:37 79 18 78/37 99 05/16/18 20:45 98.2 F 130 H 22 107/50 100 Intake and Output 05/16/18 05/17/18 05/17/18 22:59 06:59 14:59 Intake Total 800 Balance 800 Intake: IV 800 0.9 800 Other: # Voids 1 Weight 68.039 kg 68.5 kg PHYSICAL EXAMINATION: GENERAL: 78-year-old female appears quite weak at the time of my examination HEENT: Head is atraumatic, normocephalic. Pupils equal, round. Sclera anicteric. Conjunctiva are clear. Mucous membranes of the mouth are moist. Neck is supple. There is no elevated jugular venous pressure. No carotid bruit is heard. HEART EXAMINATION: Heart S1, S2 normal. No murmur or gallop heard. CHEST EXAMINATION: Lungs are clear with mild diminished air entry to the bases . ABDOMEN: [Soft, nontender. Bowel sounds are heard. No organomegaly noted] EXTREMITIES:[2+ peripheral pulses with 2+ evidence of peripheral edema and no calf tenderness noted NEUROLOGIC [paient is awake, alert and oriented ?-3.] . Results 05/16/18 21:13 05/16/18 21:13 Cardiac Enzymes 05/16/18 05/16/18 05/17/18 Range/Units 21:13 21:13 03:10 AST 17 (14-36) U/L CK-MB (CK-2) 0.4 0.3 (0.0-2.4) ng/mL Troponin I 0.038 H* 0.040 H* (0.000-0.034) ng/mL Coagulation 05/16/18 Range/Units 21:13 PT 14.2 H (9.0-12.0) sec APTT 28.2 (22.0-30.0) sec CBC 05/16/18 Range/Units 21:13 WBC 11.5 H (3.8-10.6) k/uL RBC 2.30 L (3.80-5.40) m/uL Hgb 7.2 L (11.4-16.0) gm/dL Hct 21.9 L (34.0-46.0) % Plt Count 237 (150-450) k/uL Comprehensive Metabolic Panel 05/16/18 Range/Units 21:13 Sodium 135 L (137-145) mmol/L Potassium 4.0 (3.5-5.1) mmol/L Chloride 102 (98-107) mmol/L Carbon Dioxide 22 (22-30) mmol/L BUN 35 H (7-17) mg/dL Creatinine 0.79 (0.52-1.04) mg/dL Glucose 110 H (74-99) mg/dL Calcium 8.3 L (8.4-10.2) mg/dL AST 17 (14-36) U/L ALT 28 (9-52) U/L Alkaline Phosphatase 46 (38-126) U/L Total Protein 4.6 L (6.3-8.2) g/dL Albumin 2.7 L (3.5-5.0) g/dL Current Medications Generic Name Dose Route Start Last Admin Trade Name Freq PRN Reason Stop Dose Admin Acetaminophen 500 mg 07/26/18 06:12 Tylenol Tab PO Q6HR PRN Fever and/ or Mild Pain Albuterol/Ipratropium 3 ml 05/17/18 00:00 05/17/18 07:52 Duoneb 0.5 Mg-3 Mg/3 Ml Soln INHALATION 3 ml RT-Q4H MANINDER Administration Aspirin 325 mg 05/17/18 09:00 Aspirin PO DAILY MANINDER Sodium Chloride 1,000 mls @ 100 mls/hr 05/16/18 21:30 05/17/18 06:55 Saline 0.9% IV Not Given .Q10H MANINDER Magnesium Sulfate/Dextrose 1 100 mls @ 100 mls/hr 05/17/18 07:00 05/17/18 06: 53 gm/ IV Solution IVPB 05/17/18 09:59 100 mls/hr Q1H MANINDER Administration Insulin Aspart 0 unit 05/17/18 07:30 05/17/18 06:55 Novolog SQ Not Given ACHS [facility] Protocol Miscellaneous Information 1 each 05/17/18 06:13 Magnesium Per Protocol MISCELLANE DAILY PRN Per Protocol Protocol Nitroglycerin 0.4 mg 05/16/18 21:29 Nitrostat SUBLINGUAL Q5M PRN Chest Pain Intake and Output 05/16/18 05/17/18 05/17/18 22:59 06:59 14:59 Intake Total 800 Balance 800 Intake: IV 800 0.9 800 Other: # Voids 1 Weight 68.039 kg 68.5 kg 05/16/18 21:13 05/16/18 21:13 EKG Interpretations (text) EKG shows normal sinus rhythm with incomplete right bundle branch block pattern T-wave inversion in the anterior leads. Assessment and Plan Plan: Assessment and plan #1 symptoms of progressive moderate to severe weakness, mild associated dizziness, could be secondary to hypotension and dehydration #2 atrial fibrillation with rapid ventricular response, paroxysmal, patient currently in normal sinus rhythm. Don't have documentation at this point of the A. fib on admission. #3 paroxysmal atrial fibrillation, on Xarelto for anticoagulation #4 diastolic congestive heart failure acute on chronic #5 diabetes #6 anemia, chronic #7 hypertension, patient has been hypotensive here #8 hyperlipidemia #9 breast cancer with recent chemotherapy #10 hypomagnesemia Plan We will attempt to obtain documentation from the emergency room of atrial fibrillation. Replace magnesium. Decrease aspirin to 81 mg daily, patient has been receiving IV fluids at 100 mL per hour. We will decrease her now to KVO. Will resume the patient's amiodarone, Lipitor, resume beta alex at 25 mg by mouth twice a day, and resume her xarelto. We'll also give the patient one time dose of IV Lasix. Further recommendations to follow. DNP note has been reviewed, I agree with a documented findings and plan of care. Patient was seen and examined.
[2018-05-17] MEDS ORDERED: AMIODARONE 200 MG TAB PO SCH (09:00)
[2018-05-17] MEDS ORDERED: ASPIRIN 81 MG PO SCH (09:00)
[2018-05-17] MEDS ORDERED: ASPIRIN 325 MG TAB PO SCH (09:00)
[2018-05-17] MEDS ORDERED: MAGNESIUM SULFATE-D5W PMX 1 GM in DEXTROSE/WATER 1 100ML.BAG IVPB SCH (09:00)
[2018-05-17] MEDS: METOPROLOL TARTRATE 25 MG TAB PO SCH ×2 (09:33→20:49)
[2018-05-17] MEDS: RIVAROXABAN 20 MG TAB PO SCH (09:33)
[2018-05-17 09:46] LABS: Cholesterol 103 mg/dL (<200); HDL Cholesterol 31 mg/dL (40-60); LDL Cholesterol,Calculated 23 mg/dL (0-99); Triglycerides 247 mg/dL (<150)
[2018-05-17 09:56] LABS: Creatine Kinase <20 U/L (30-135)
[2018-05-17 10:05] LABS: Creatine Kinase MB 0.4 ng/mL (0.0-2.4)
[2018-05-17 10:21] LABS: Troponin I 0.036 ng/mL (0.000-0.034)
--- NOTE | 2018-05-17 10:59 | P.PN ---
Progress Note - Text this is an addendum to the dictated cardiology consultation. The patient has a history of breast CA, receiving chemotherapy, presenting with symptoms of progressive dyspnea, fatigue and worsening peripheral edema. She had an episode of atrial fibrillation with RVR in the emergency room but she is back in sinus mechanism at this time. She had paroxysmal atrial fibrillation and has been anticoagulated during her last admission. She has no symptoms of chest pain and is unaware of her arrhythmia. Her physical examination shows clear lungs, she is in sinus mechanism and she has 2+ peripheral edema. I will increase the dose of the amiodarone to 400 mg twice a day, start intravenous diuretics, follow her renal functions and depending on her progress further recommendations will be made. Thank you for this consult we'll follow with you.
--- NOTE | 2018-05-17 11:24 | ECHOF ---
Referral Reason:afib MEASUREMENTS -------- HEIGHT: 160.0 cm WEIGHT: 68.5 kg BP: 100/99 RVIDd: 2.4 cm (< 3.3) IVSd: 1.1 cm (0.6 - 1.1) LVIDd: 3.7 cm (3.9 - 5.3) LVPWd: 1.1 cm (0.6 - 1.1) IVSs: 1.4 cm LVIDs: 2.6 cm LVPWs: 1.5 cm LA Diam: 3.4 cm (2.7 - 3.8) LAESV Index (A-L): 26.02 ml/m Ao Diam: 3.3 cm (2.0 - 3.7) AV Cusp: 1.6 cm (1.5 - 2.6) MV EXCURSION: 16.920 mm (> 18.000) MV EF SLOPE: 65 mm/s (70 - 150) EPSS: 0.3 cm MV E Ricarod: 0.91 m/s MV DecT: 317 ms MV A Ricardo: 0.90 m/s MV E/A Ratio: 1.01 AV maxP.28 mmHg AV meanP.83 mmHg RAP: 5.00 mmHg RVSP: 51.48 mmHg FINDINGS -------- Sinus rhythm with extra systolic beats. This was a technically good study. The left ventricular size is normal. There is borderline concentric left ventricular hypertrophy. Overall left ventricular systolic function is normal with, an EF between 55 - 60 %. The right ventricle is normal in size. Normal LA size by volume 22+/-6 ml/m2. The right atrium is normal in size. There is mild aortic valve sclerosis. There is mild aortic stenosis present. The mitral valve leaflets are mildly thickened. Mild mitral annular calcification present. Mild m itral regurgitation is present. Mild tricuspid regurgitation present. There is moderate pulmonary hypertension. The right ventric ular systolic pressure, as measured by Doppler, is 51.48mmHg. Trace/mild (physiologic) pulmonic regurgitation. The aortic root size is normal. Normal inferior vena cava with normal inspiratory collapse consistent with estimated right atrial pre ssure of 5 mmHg. There is no pericardial effusion. CONCLUSIONS -------- 1. Sinus rhythm with extra systolic beats. 2. This was a technically good study. 3. The left ventricular size is normal. 4. There is borderline concentric left ventricular hypertrophy. 5. Overall left ventricular systolic function is normal with, an EF between 55 - 60 %. 6. The right ventricle is normal in size. 7. Normal LA size by volume 22+/-6 ml/m2. 8. The right atrium is normal in size. 9. There is mild aortic valve sclerosis. 10. There is mild aortic stenosis present. 11. The mitral valve leaflets are mildly thickened. 12. Mild mitral annular calcification present. 13. Mild mitral regurgitation is present. 14. Mild tricuspid regurgitation present. 15. There is moderate pulmonary hypertension. 16. The right ventricular systolic pressure, as measured by Doppler, is 51.48mmHg. 17. Trace/mild (physiologic) pulmonic regurgitation. 18. The aortic root size is normal. 19. Normal inferior vena cava with normal inspiratory collapse consistent with estimated right atrial pressure of 5 mmHg. 20. There is no pericardial effusion. HEARING THERAPY DIRECTOR: Ghazala Levy RDCS
[2018-05-17 11:40] LABS: Glucose,Whole Blood 162 mg/dL (75-99)
[2018-05-17] MEDS ORDERED: MELATONIN 3 MG TABLET PO PRN (12:36)
[2018-05-17] MEDS ORDERED: NON-FORMULARY DRUG (Iron [Iron] 18 MG) PO SCH (12:45)
[2018-05-17 13:09] LABS: Anion Gap 10 mmol/L; Blood Urea Nitrogen 40 mg/dL (7-17); Calcium 8.2 mg/dL (8.4-10.2); Carbon Dioxide 19 mmol/L (22-30); Chloride 107 mmol/L (98-107); Glucose 163 mg/dL (74-99); Magnesium 1.6 mg/dL (1.6-2.3); Potassium 3.9 mmol/L (3.5-5.1); Sodium 136 mmol/L (137-145)
--- NOTE | 2018-05-17 13:30 | P.HPIM ---
History of Present Illness H&P Date: 05/17/18 Chief Complaint: Generalized weakness This is a 78-year-old female with past medical history for breast cancer on chemotherapy who presented to the emergency room with progressive weakness and dizziness. Patient was discharged from the hospital 3 days ago after being treated for UTI and at the time A. fib with RVR. He should said that she was doing fairly well for a couple of days but yesterday started feeling generally weak and dizzy. She said that her dizziness gets worse when she sits up or stand up. She denies any significant headache or vision change. No chest pain or palpitation. Per verbal report, patient was found to be in A. fib with RVR on presentation to the emergency room. There is normal documentation or strip of that. Patient was given IV Cardizem bolus and subsequently converted to normal sinus rhythm. She remained hemodynamically stable even though her blood pressure was borderline low. She is currently admitted to telemetry floor. She denies any chest pain. She was seen and evaluated by cardiology. She was noted to have an indeterminate troponin and elevated BNP. Chest x-ray showed worsening pleural effusion. Patient herself denies any significant shortness of breath. Review of Systems Review of system: 14 points review of systems were obtained and were negative except to what were mentioned in the HPI. Past Medical History Past Medical History: Cancer, Diabetes Mellitus, Hyperlipidemia, Hypertension Additional Past Medical History / Comment(s): rt Breast CA 1990 had lumpectomy/ lymph nodes removed, chemo/radiation about 3 weeks ago, reocurrance of cancer same (rt) breast-receiving chemo . History of Any Multi-Drug Resistant Organisms: None Reported Past Surgical History: Appendectomy, Back Surgery, Breast Surgery, Cholecystectomy, Hysterectomy, Tonsillectomy Additional Past Surgical History / Comment(s): Medi port lt chest, 1 upper dental implant, rt breast lumpectomy, lymph nodes removed, egd/colonoscopu/ polypectomt, cataracts-lens implants Past Anesthesia/Blood Transfusion Reactions: No Reported Reaction Past Psychological History: No Psychological Hx Reported Additional Psychological History / Comment(s): pt lives with spouse. has lennie home nurse and pt. has glucometer, 4 wheeled walker, bed rale, shower chair. when feeling well pt drives but since chemo pt's spouse takes to appts. Smoking Status: Former smoker Past Alcohol Use History: None Reported Additional Past Alcohol Use History / Comment(s): started smoking 1964 and quit 1974 smoked less than 1 ppd. Past Drug Use History: None Reported - Past Family History Mother Family Medical History: Cancer Additional Family Medical History / Comment(s): age 66 from colon cancer Father Family Medical History: CVA/TIA Additional Family Medical History / Comment(s): age 48 from a stroke Medications and Allergies Home Medications Medication Instructions Recorded Confirmed Type Atorvastatin [Lipitor] 20 mg PO HS 01/26/18 05/16/18 History Melatonin 3 mg PO HS PRN tablet 02/10/18 05/16/18 Rx Cholecalciferol [Vitamin D3] 1,000 unit PO DAILY 04/30/18 05/16/18 History Fexofenadine HCl [Bettie Allergy] 180 mg PO DAILY 04/30/18 05/16/18 History Multivitamins, Thera [Multivitamin 1 tab PO DAILY 04/30/18 05/16/18 History (formulary)] Furosemide [Lasix] 40 mg PO MOWEFR #30 tablet 05/03/18 05/16/18 Rx Naproxen [Naprosyn] 250 mg PO Q8H #30 tab 05/03/18 05/16/18 Rx Potassium Chloride [K-Tab ER] 20 meq PO MOWEFR #30 tablet.er 05/03/18 05/16/18 Rx Iron 18 mg PO DAILY 05/09/18 05/16/18 History Neomycin/Polymyxin B/Dexametha 1 drop BOTH EYES Q4H 05/09/18 05/16/18 History [Maxitrol Ophth Susp] Ranitidine HCl [Zantac] 150 mg PO DAILY 05/09/18 05/16/18 History Amiodarone [Cordarone] 200 mg PO BID #60 tab 05/13/18 05/16/18 Rx Amoxicillin/Potassium Clav 1 tab PO Q12HR #14 tab 05/13/18 05/16/18 Rx [Augmentin 875-125 Tablet] Metoprolol Tartrate [Lopressor] 50 mg PO BID #60 tab 05/13/18 05/16/18 Rx Rivaroxaban [Xarelto] 20 mg PO DAILY #30 tab 05/13/18 05/16/18 Rx Allergies Allergy/AdvReac Type Severity Reaction Status Date / Time No Known Allergies Allergy Verified 05/16/18 21:01 Physical Exam Vitals: Vital Signs Temp Pulse Pulse Resp BP BP Pulse Ox 05/17/18 11:15 84 16 102/50 95 05/17/18 09:05 97.3 F L 90 16 111/52 96 05/17/18 08:02 68 05/17/18 07:52 66 05/17/18 04:35 97.0 F L 78 18 100/49 100 05/16/18 21:57 70 18 05/16/18 21:55 78 18 84/39 100 05/16/18 21:47 68 05/16/18 21:37 79 18 78/37 99 05/16/18 20:45 98.2 F 130 H 22 107/50 100 Intake and Output 05/16/18 05/17/18 05/17/18 22:59 06:59 14:59 Intake Total 800 200 Balance 800 200 Intake: IV 800 0.9 800 Oral 200 Other: # Voids 1 # Bowel Movements 2 Weight 68.039 kg 68.5 kg General: The patient is awake and alert, in no distress Eye: there is normal conjunctiva bilaterally. Neck: The neck is supple, there is no JVD. Cardiovascular: Normal S1-S2, no S3-S4, no murmurs. Respiratory: Lungs clear to auscultation bilaterally Gastrointestinal: Abdomen is soft, nontender Musculoskeletal: There is +2 pedal edema. Neurological:. Speech is normal. Skin: Skin is warm and dry Results CBC & Chem 7: 05/16/18 21:13 05/17/18 08:58 Labs: Abnormal Lab Results - Last 24 Hours (Table) 05/16/18 05/16/18 05/16/18 Range/Units 21:13 21:13 21:13 WBC 11.5 H (3.8-10.6) k/uL RBC 2.30 L (3.80-5.40) m/uL Hgb 7.2 L (11.4-16.0) gm/dL Hct 21.9 L (34.0-46.0) % RDW 21.6 H (11.5-15.5) % Neutrophils # 8.4 H (1.3-7.7) k/uL Monocytes # 1.2 H (0-1.0) k/uL PT (9.0-12.0) sec INR (<1.2) Sodium 135 L (137-145) mmol/L Carbon Dioxide (22-30) mmol/L BUN 35 H (7-17) mg/dL Glucose 110 H (74-99) mg/dL POC Glucose (mg/dL) (75-99) mg/dL Calcium 8.3 L (8.4-10.2) mg/dL Magnesium 1.2 L (1.6-2.3) mg/dL Total Creatine Kinase <20 L (30-135) U/L Troponin I 0.038 H* (0.000-0.034) ng/mL Total Protein 4.6 L (6.3-8.2) g/dL Albumin 2.7 L (3.5-5.0) g/dL Triglycerides (<150) mg/dL HDL Cholesterol (40-60) mg/dL 05/16/18 05/17/18 05/17/18 Range/Units 21:13 03:10 06:13 WBC (3.8-10.6) k/uL RBC (3.80-5.40) m/uL Hgb (11.4-16.0) gm/dL Hct (34.0-46.0) % RDW (11.5-15.5) % Neutrophils # (1.3-7.7) k/uL Monocytes # (0-1.0) k/uL PT 14.2 H (9.0-12.0) sec INR 1.5 H (<1.2) Sodium (137-145) mmol/L Carbon Dioxide (22-30) mmol/L BUN (7-17) mg/dL Glucose (74-99) mg/dL POC Glucose (mg/dL) 106 H (75-99) mg/dL Calcium (8.4-10.2) mg/dL Magnesium (1.6-2.3) mg/dL Total Creatine Kinase <20 L (30-135) U/L Troponin I 0.040 H* (0.000-0.034) ng/mL Total Protein (6.3-8.2) g/dL Albumin (3.5-5.0) g/dL Triglycerides (<150) mg/dL HDL Cholesterol (40-60) mg/dL 07/05/17/18 05/17/18 Range/Units 08:58 08:58 08:58 WBC (3.8-10.6) k/uL RBC (3.80-5.40) m/uL Hgb (11.4-16.0) gm/dL Hct (34.0-46.0) % RDW (11.5-15.5) % Neutrophils # (1.3-7.7) k/uL Monocytes # (0-1.0) k/uL PT (9.0-12.0) sec INR (<1.2) Sodium 136 L (137-145) mmol/L Carbon Dioxide 19 L (22-30) mmol/L BUN 40 H (7-17) mg/dL Glucose 163 H (74-99) mg/dL POC Glucose (mg/dL) (75-99) mg/dL Calcium 8.2 L (8.4-10.2) mg/dL Magnesium (1.6-2.3) mg/dL Total Creatine Kinase <20 L (30-135) U/L Troponin I 0.036 H* (0.000-0.034) ng/mL Total Protein (6.3-8.2) g/dL Albumin (3.5-5.0) g/dL Triglycerides 247 H (<150) mg/dL HDL Cholesterol 31 L (40-60) mg/dL 05/17/18 Range/Units 11:30 WBC (3.8-10.6) k/uL RBC (3.80-5.40) m/uL Hgb (11.4-16.0) gm/dL Hct (34.0-46.0) % RDW (11.5-15.5) % Neutrophils # (1.3-7.7) k/uL Monocytes # (0-1.0) k/uL PT (9.0-12.0) sec INR (<1.2) Sodium (137-145) mmol/L Carbon Dioxide (22-30) mmol/L BUN (7-17) mg/dL Glucose (74-99) mg/dL POC Glucose (mg/dL) 162 H (75-99) mg/dL Calcium (8.4-10.2) mg/dL Magnesium (1.6-2.3) mg/dL Total Creatine Kinase (30-135) U/L Troponin I (0.000-0.034) ng/mL Total Protein (6.3-8.2) g/dL Albumin (3.5-5.0) g/dL Triglycerides (<150) mg/dL HDL Cholesterol (40-60) mg/dL Thrombosis Risk Factor Assmnt - Choose All That Apply Any of the Below Risk Factors Present?: No Other Risk Factors: Yes Each Risk Factor Represents 2 Points: Age 61-74 years Other congenital or acquired thrombophilia - If yes, enter type in comment: No Thrombosis Risk Factor Assessment Total Risk Factor Score: 2 Thrombosis Risk Factor Assessment Level: Low Risk Assessment and Plan Assessment: 1. Atrial fibrillation with rapid ventricular response, converted to normal sinus rhythm. Patient was seen and evaluated by cardiology. Currently on amiodarone and metoprolol. On anticoagulation with Rivaroxaban. Echocardiogram showed preserved ejection fraction and no significant valvular abnormalities. 2. Underlying breast cancer status post lumpectomy, chemo and radiation therapy. Patient received last chemo cycle a few weeks ago and chemo was discontinued secondary to progressive weakness. She was seen by her oncologist in the office on Monday. She will follow up as an outpatient as directed. 3. Dizziness, may be attributed to A. fib with RVR on presentation. I would check orthostatic blood pressure every shift. 4. Diastolic congestive heart failure exacerbation with elevated BNP, evidence of fluid overload post clinically on x-ray. Continue IV Lasix twice a day. Monitor electrolytes closely. 5. Recent Klebsiella UTI, will finish antibiotic course with Augmentin as prescribed during last hospitalization 6. Hyperlipidemia: On Lipitor 7. Physical debility: Awaiting PT/OT evaluation. utility worker film [employer] consulted for placement possibly to subacute rehab 8. 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 Now chemo was discontinued so expected improvement. We'll consult hematology, patient may benefit from transfusion for symptomatic anemia
[2018-05-17] MEDS: LOPERAMIDE 2 MG CAP PO PRN ×2 (13:57→21:44)
[2018-05-17] MEDS: CHOLECALCIFEROL 1,000 UNIT TAB PO SCH (13:57)
[2018-05-17] MEDS: AMOXIC-POT CLAV 875-125MG 1 EACH TAB PO SCH ×2 (13:57→20:49)
[2018-05-17 16:21] LABS: Glucose,Whole Blood 117 mg/dL (75-99)
--- NOTE | 2018-05-17 18:43 | P.CONS ---
History of Present Illness - Reason for Consult Consult date: 05/17/18 Breast cancer Requesting physician: He Batres - Chief Complaint weakness, near syncopy - History of Present Illness Please refer to Consult note dated 04/30, no changes in Hem/Onc history. Pt has not followed up with Surgeon yet. Pt came to hospital for weakness, activity intolerance, near syncopy and BLE swelling, similar symptoms as she has had recently, she is requiring Cardiology intervention and treatment. Pt states feeling better, her ankles and feet are still swollen. Review of Systems Focused ROS is negative Past Medical History Past Medical History: Cancer, Diabetes Mellitus, Hyperlipidemia, Hypertension Additional Past Medical History / Comment(s): rt Breast CA 1990 had lumpectomy/ lymph nodes removed, chemo/radiation about 3 weeks ago, reocurrance of cancer same (rt) breast-receiving chemo . History of Any Multi-Drug Resistant Organisms: None Reported Past Surgical History: Appendectomy, Back Surgery, Breast Surgery, Cholecystectomy, Hysterectomy, Tonsillectomy Additional Past Surgical History / Comment(s): Medi port lt chest, 1 upper dental implant, rt breast lumpectomy, lymph nodes removed, egd/colonoscopu/ polypectomt, cataracts-lens implants Past Anesthesia/Blood Transfusion Reactions: No Reported Reaction Past Psychological History: No Psychological Hx Reported Additional Psychological History / Comment(s): pt lives with spouse. has [facility] home nurse and pt. has glucometer, 4 wheeled walker, bed rale, shower chair. when feeling well pt drives but since chemo pt's spouse takes to appts. Smoking Status: Former smoker Past Alcohol Use History: None Reported Additional Past Alcohol Use History / Comment(s): started smoking 1964 and quit 1974 smoked less than 1 ppd. Past Drug Use History: None Reported - Past Family History Mother Family Medical History: Cancer Additional Family Medical History / Comment(s): age 66 from colon cancer Father Family Medical History: CVA/TIA Additional Family Medical History / Comment(s): age 48 from a stroke Medications and Allergies Home Medications Medication Instructions Recorded Confirmed Type Atorvastatin [Lipitor] 20 mg PO HS 01/26/18 05/16/18 History Melatonin 3 mg PO HS PRN tablet 02/10/18 05/16/18 Rx Cholecalciferol [Vitamin D3] 1,000 unit PO DAILY 04/30/18 05/16/18 History Fexofenadine HCl [Bettie Allergy] 180 mg PO DAILY 04/30/18 05/16/18 History Multivitamins, Thera [Multivitamin 1 tab PO DAILY 04/30/18 05/16/18 History (formulary)] Furosemide [Lasix] 40 mg PO MOWEFR #30 tablet 05/03/18 05/16/18 Rx Naproxen [Naprosyn] 250 mg PO Q8H #30 tab 05/03/18 05/16/18 Rx Potassium Chloride [K-Tab ER] 20 meq PO MOWEFR #30 tablet.er 05/03/18 05/16/18 Rx Iron 18 mg PO DAILY 05/09/18 05/16/18 History Neomycin/Polymyxin B/Dexametha 1 drop BOTH EYES Q4H 05/09/18 05/16/18 History [Maxitrol Ophth Susp] Ranitidine HCl [Zantac] 150 mg PO DAILY 05/09/18 05/16/18 History Amiodarone [Cordarone] 200 mg PO BID #60 tab 05/13/18 05/16/18 Rx Amoxicillin/Potassium Clav 1 tab PO Q12HR #14 tab 05/13/18 05/16/18 Rx [Augmentin 875-125 Tablet] Metoprolol Tartrate [Lopressor] 50 mg PO BID #60 tab 05/13/18 05/16/18 Rx Rivaroxaban [Xarelto] 20 mg PO DAILY #30 tab 05/13/18 05/16/18 Rx Allergies Allergy/AdvReac Type Severity Reaction Status Date / Time No Known Allergies Allergy Verified 05/16/18 21:01 Physical Exam Vitals: Vital Signs Temp Pulse Pulse Resp BP BP Pulse Ox 05/17/18 16:30 97.8 F 87 18 108/58 95 05/17/18 16:25 78 16 05/17/18 16:18 76 16 98 05/17/18 11:15 84 16 102/50 95 05/17/18 09:05 97.3 F L 90 16 111/52 96 05/17/18 08:02 68 05/17/18 07:52 66 05/17/18 04:35 97.0 F L 78 18 100/49 100 05/16/18 21:57 70 18 05/16/18 21:55 78 18 84/39 100 05/16/18 21:47 68 05/16/18 21:37 79 18 78/37 99 05/16/18 20:45 98.2 F 130 H 22 107/50 100 Intake and Output 05/17/18 05/17/18 05/17/18 06:59 14:59 22:59 Intake Total 800 560 Output Total 2 Balance 800 560 -2 Intake: IV 800 160 0.9 800 160 Intake, IV Titration 200 Amount Magnesium Sulfate-D5w Pmx 200 1 gm In Dextrose/Water 1 100ml.bag @ 100 mls/hr IVPB Q1H [facility] Rx#: [id number] Oral 200 Output: Stool 2 Other: # Voids 1 2 # Bowel Movements 1 Weight 68.5 kg - Constitutional General appearance: average body habitus, cooperative, no acute distress - EENT Eyes: anicteric sclerae - Respiratory Respiratory: bilateral: CTA - Cardiovascular Heart sounds: normal: S1, S2 Abnormal Heart Sounds: systolic murmur ankle Peripheral Edema: bilateral: 1+ - Gastrointestinal General gastrointestinal: normal bowel sounds, soft - Integumentary Integumentary: pale - Neurologic Neurologic: CNII-XII intact - Musculoskeletal Musculoskeletal: generalized weakness - Psychiatric Psychiatric: A&O x's 3, appropriate affect, intact judgment & insight Results CBC & Chem 7: 05/16/18 21:13 05/17/18 08:58 Labs: Abnormal Lab Results - Last 24 Hours (Table) 05/16/18 05/16/18 05/16/18 Range/Units 21:13 21:13 21:13 WBC 11.5 H (3.8-10.6) k/uL RBC 2.30 L (3.80-5.40) m/uL Hgb 7.2 L (11.4-16.0) gm/dL Hct 21.9 L (34.0-46.0) % RDW 21.6 H (11.5-15.5) % Neutrophils # 8.4 H (1.3-7.7) k/uL Monocytes # 1.2 H (0-1.0) k/uL PT (9.0-12.0) sec INR (<1.2) Sodium 135 L (137-145) mmol/L Carbon Dioxide (22-30) mmol/L BUN 35 H (7-17) mg/dL Glucose 110 H (74-99) mg/dL POC Glucose (mg/dL) (75-99) mg/dL Calcium 8.3 L (8.4-10.2) mg/dL Magnesium 1.2 L (1.6-2.3) mg/dL Total Creatine Kinase <20 L (30-135) U/L Troponin I 0.038 H* (0.000-0.034) ng/mL Total Protein 4.6 L (6.3-8.2) g/dL Albumin 2.7 L (3.5-5.0) g/dL Triglycerides (<150) mg/dL HDL Cholesterol (40-60) mg/dL 05/16/18 05/17/18 05/17/18 Range/Units 21:13 03:10 06:13 WBC (3.8-10.6) k/uL RBC (3.80-5.40) m/uL Hgb (11.4-16.0) gm/dL Hct (34.0-46.0) % RDW (11.5-15.5) % Neutrophils # (1.3-7.7) k/uL Monocytes # (0-1.0) k/uL PT 14.2 H (9.0-12.0) sec INR 1.5 H (<1.2) Sodium (137-145) mmol/L Carbon Dioxide (22-30) mmol/L BUN (7-17) mg/dL Glucose (74-99) mg/dL POC Glucose (mg/dL) 106 H (75-99) mg/dL Calcium (8.4-10.2) mg/dL Magnesium (1.6-2.3) mg/dL Total Creatine Kinase <20 L (30-135) U/L Troponin I 0.040 H* (0.000-0.034) ng/mL Total Protein (6.3-8.2) g/dL Albumin (3.5-5.0) g/dL Triglycerides (<150) mg/dL HDL Cholesterol (40-60) mg/dL 05/17/18 05/17/18 05/17/18 Range/Units 08:58 08:58 08:58 WBC (3.8-10.6) k/uL RBC (3.80-5.40) m/uL Hgb (11.4-16.0) gm/dL Hct (34.0-46.0) % RDW (11.5-15.5) % Neutrophils # (1.3-7.7) k/uL Monocytes # (0-1.0) k/uL PT (9.0-12.0) sec INR (<1.2) Sodium 136 L (137-145) mmol/L Carbon Dioxide 19 L (22-30) mmol/L BUN 40 H (7-17) mg/dL Glucose 163 H (74-99) mg/dL POC Glucose (mg/dL) (75-99) mg/dL Calcium 8.2 L (8.4-10.2) mg/dL Magnesium (1.6-2.3) mg/dL Total Creatine Kinase <20 L (30-135) U/L Troponin I 0.036 H* (0.000-0.034) ng/mL Total Protein (6.3-8.2) g/dL Albumin (3.5-5.0) g/dL Triglycerides 247 H (<150) mg/dL HDL Cholesterol 31 L (40-60) mg/dL 05/17/18 05/17/18 Range/Units 11:30 16:12 WBC (3.8-10.6) k/uL RBC (3.80-5.40) m/uL Hgb (11.4-16.0) gm/dL Hct (34.0-46.0) % RDW (11.5-15.5) % Neutrophils # (1.3-7.7) k/uL Monocytes # (0-1.0) k/uL PT (9.0-12.0) sec INR (<1.2) Sodium (137-145) mmol/L Carbon Dioxide (22-30) mmol/L BUN (7-17) mg/dL Glucose (74-99) mg/dL POC Glucose (mg/dL) 162 H 117 H (75-99) mg/dL Calcium (8.4-10.2) mg/dL Magnesium (1.6-2.3) mg/dL Total Creatine Kinase (30-135) U/L Troponin I (0.000-0.034) ng/mL Total Protein (6.3-8.2) g/dL Albumin (3.5-5.0) g/dL Triglycerides (<150) mg/dL HDL Cholesterol (40-60) mg/dL Assessment and Plan (1) Anemia Narrative/Plan: Pt will be seen in office in the next 5 days, CBC will be checked, she may require transfusion. Current Visit: No Status: Acute Priority: Medium Code(s): D64.9 - ANEMIA, UNSPECIFIED SNOMED Code(s): 766671801 (2) Triple negative malignant neoplasm of breast Narrative/Plan: Pt is s/p treatment, needs to be seen for surgery, she is aware of this, she has Surgeon contact info. Current Visit: No Status: Acute Priority: Medium Code(s): C50.919 - MALIGNANT NEOPLASM OF UNSP SITE OF UNSPECIFIED FEMALE BREAST SNOMED Code(s): 803754580
[2018-05-17] MEDS ORDERED: IPRATROPIUM-ALBUTEROL 3 ML NEB INHALATION PRN (19:49)
[2018-05-17 20:44] LABS: Glucose,Whole Blood 148 mg/dL (75-99)
[2018-05-17] MEDS: AMIODARONE 200 MG TAB PO SCH (20:48)
[2018-05-17] MEDS: ATORVASTATIN 20 MG TAB PO SCH (20:49)
[2018-05-17] MEDS: FUROSEMIDE 10 MG/ML 2 ML VIAL IV SCH (20:49)
[2018-05-17] MEDS: ACETAMINOPHEN TAB 500 MG TAB PO PRN (20:54)
[2018-05-18 02:43] LABS: Hemoglobin A1C 5.1 % (4.0-6.0)
[2018-05-18] MEDS: ACETAMINOPHEN TAB 500 MG TAB PO PRN ×2 (02:54→09:10)
[2018-05-18 05:48] LABS: Glucose,Whole Blood 118 mg/dL (75-99)
[2018-05-18] MEDS: INSULIN ASPART 100 UNIT/ML 1 ML 10 ML VIAL SQ SCH ×4 (06:16→21:07)
[2018-05-18 06:38] LABS: Albumin 2.3 g/dL (3.5-5.0); Calcium 8.2 mg/dL (8.4-10.2); Magnesium 1.9 mg/dL (1.6-2.3); Potassium 3.7 mmol/L (3.5-5.1); Total Bilirubin 0.3 mg/dL (0.2-1.3); Total Protein 4.1 g/dL (6.3-8.2)
[2018-05-18 07:08] LABS: Anisocytosis Moderate; Hypochromasia Slight; MCH 32.8 pg (25.0-35.0); MCHC 32.6 g/dL (31.0-37.0); MCV 100.8 fL (80.0-100.0); Macrocytosis Moderate; Platelet Count 165 k/uL (150-450); Poikilocytosis Slight; RBC 1.56 m/uL (3.80-5.40); RDW 22.8 % (11.5-15.5); WBC 6.8 k/uL (3.8-10.6)
[2018-05-18 07:23] LABS: HCT 15.7 % (34.0-46.0)
[2018-05-18 07:24] LABS: HGB 5.1 gm/dL (11.4-16.0)
[2018-05-18] MEDS: IPRATROPIUM-ALBUTEROL 3 ML NEB INHALATION SCH ×4 (08:17→20:34)
[2018-05-18 08:18] LABS: Polychromasia Present
[2018-05-18] MEDS: CHOLECALCIFEROL 1,000 UNIT TAB PO SCH (09:10)
[2018-05-18] MEDS: METOPROLOL TARTRATE 25 MG TAB PO SCH ×2 (09:10→20:27)
[2018-05-18] MEDS: AMOXIC-POT CLAV 875-125MG 1 EACH TAB PO SCH ×2 (09:10→20:27)
[2018-05-18] MEDS: POTASSIUM CHLORIDE ER 20 MEQ TAB.ER PO SCH (09:10)
[2018-05-18] MEDS: FAMOTIDINE 20 MG TAB PO SCH (09:10)
[2018-05-18] MEDS: AMIODARONE 200 MG TAB PO SCH ×2 (09:10→20:27)
[2018-05-18] MEDS: RIVAROXABAN 20 MG TAB PO SCH (09:55)
--- NOTE | 2018-05-18 11:04 | P.PN ---
Subjective Progress Note Date: 05/18/18 Patient was still feeling dizzy and lightheaded today. Her generalized weakness is not improving. Repeat CBC this morning showed a hemoglobin of 5.1. No evidence of ongoing bleed. Objective - Vital Signs Vital signs: Vital Signs Temp 96.8 F L 05/18/18 09:38 Pulse 77 05/18/18 09:38 Resp 16 05/18/18 09:38 BP 100/49 05/18/18 09:38 Pulse Ox 2 L 05/18/18 09:38 Intake & Output 05/17/18 05/18/18 05/18/18 18:59 06:59 18:59 Intake Total 560 160 120 Output Total 2 101 Balance 558 160 19 Weight 67 kg Intake: IV 160 160 0.9 160 160 Intake, IV Titration 200 Amount Magnesium Sulfate-D5w Pmx 200 1 gm In Dextrose/Water 1 100ml.bag @ 100 mls/hr IVPB Q1H [facility] Rx#: [id number] Oral 200 120 Blood Product 0 Rc Pheresis 2 As3 Unit 0 [id number] Output: Urine 100 Stool 2 1 Other: Voiding Method Bedside Commode Bedside Commode # Voids 2 # Bowel Movements 1 - Exam General: The patient is awake and alert, in no distress, patient appeared chronically ill. She appeared pale Eye: extra-ocular movements are intact Neck: The neck is supple, there is no tenderness or JVD. Cardiovascular: Normal S1-S2, no S3-S4, no murmurs. Respiratory: Lungs clear to anterior chest auscultation bilaterally with no wheezes rhonchi or rales. Gastrointestinal: Abdomen is soft, nontender, nondistended, Musculoskeletal: Normal ROM, no tenderness, There is +1 pedal edema. Neurological: There are no obvious motor or sensory deficits. Speech is normal. Skin: Skin is warm and dry - Labs CBC & Chem 7: 05/18/18 06:04 05/18/18 06:04 Labs: Abnormal Lab Results - Last 24 Hours (Table) 05/17/18 05/17/18 05/17/18 Range/Units 08:58 11:30 16:12 RBC (3.80-5.40) m/uL Hgb (11.4-16.0) gm/dL Hct (34.0-46.0) % MCV (80.0-100.0) fL RDW (11.5-15.5) % Sodium 136 L (137-145) mmol/L Carbon Dioxide 19 L (22-30) mmol/L BUN 40 H (7-17) mg/dL Glucose 163 H (74-99) mg/dL POC Glucose (mg/dL) 162 H 117 H (75-99) mg/dL Calcium 8.2 L (8.4-10.2) mg/dL AST (14-36) U/L Total Protein (6.3-8.2) g/dL Albumin (3.5-5.0) g/dL Crossmatch 05/17/18 05/18/18 05/18/18 Range/Units 20:43 05:47 06:04 RBC 1.56 L (3.80-5.40) m/uL Hgb 5.1 L* D (11.4-16.0) gm/dL Hct 15.7 L* (34.0-46.0) % MCV 100.8 H D (80.0-100.0) fL RDW 22.8 H (11.5-15.5) % Sodium (137-145) mmol/L Carbon Dioxide (22-30) mmol/L BUN (7-17) mg/dL Glucose (74-99) mg/dL POC Glucose (mg/dL) 148 H 118 H (75-99) mg/dL Calcium (8.4-10.2) mg/dL AST (14-36) U/L Total Protein (6.3-8.2) g/dL Albumin (3.5-5.0) g/dL Crossmatch 05/18/18 05/18/18 Range/Units 06:04 06:04 RBC (3.80-5.40) m/uL Hgb (11.4-16.0) gm/dL Hct (34.0-46.0) % MCV (80.0-100.0) fL RDW (11.5-15.5) % Sodium (137-145) mmol/L Carbon Dioxide (22-30) mmol/L BUN 26 H (7-17) mg/dL Glucose (74-99) mg/dL POC Glucose (mg/dL) (75-99) mg/dL Calcium 8.2 L (8.4-10.2) mg/dL AST 13 L (14-36) U/L Total Protein 4.1 L (6.3-8.2) g/dL Albumin 2.3 L (3.5-5.0) g/dL Crossmatch See Detail Assessment and Plan Assessment: 1. 1. Acute on chronic anemia, hemoglobin dropped to 5.1. 2 units of PRBC ordered. Oncology following. No evidence of ongoing bleed. May be secondary to underlying malignancy and prior chemotherapy. 2. Atrial fibrillation with rapid ventricular response, converted to normal sinus rhythm. Patient was seen and evaluated by cardiology. Currently on amiodarone and metoprolol. On anticoagulation with Rivaroxaban. Echocardiogram showed preserved ejection fraction and no significant valvular abnormalities. 3. Underlying breast cancer status post lumpectomy, chemo and radiation therapy. Patient received last chemo cycle a few weeks ago and chemo was discontinued secondary to progressive weakness. She was seen by her oncologist in the office on Monday. She will follow up as an outpatient as directed. 4. Dizziness, most likely secondary to anemia and intravascular depletion. We will check orthostatic blood pressure after blood transfusion 4. Diastolic congestive heart failure exacerbation with elevated BNP, evidence of fluid overload post clinically on x-ray. Continue IV Lasix twice a day. Monitor electrolytes closely. 5. Recent Klebsiella UTI, will finish antibiotic course with Augmentin as prescribed during last hospitalization 6. Hyperlipidemia: On Lipitor 7. Physical debility: Awaiting PT/OT evaluation. decontamination worker consulted for placement possibly to subacute rehab Plan for today: -Transfuse 2 units of blood -Repeat CBC in the evening -Appreciate hematology recommendations -PT/OT evaluation and case management to start placement process for subacute rehab
[2018-05-18 11:30] LABS: Glucose,Whole Blood 106 mg/dL (75-99)
[2018-05-18 11:30] LABS: Glucose,Whole Blood 112 mg/dL (75-99)
[2018-05-18] MEDS: FUROSEMIDE 10 MG/ML 2 ML VIAL IV SCH (11:59)
[2018-05-18] MEDS: MULTIVITAMINS, THERA 1 EACH TAB PO SCH (12:32)
[2018-05-18] MEDS: HYDROcodone/APAP 5-325MG 1 EACH TAB PO PRN ×2 (12:32→21:04)
[2018-05-18] MEDS: LOPERAMIDE 2 MG CAP PO PRN ×2 (13:09→19:17)
--- NOTE | 2018-05-18 13:31 | PN ---
PROGRESS NOTE Mrs. Guerrero is a 78-year-old female with history of breast cancer, paroxysmal atrial fibrillation who presented with progressive fatigue, dyspnea and peripheral edema. She feels slightly better, but continues to be tired. She denies any chest pain. She denies any palpitation. She denies any nausea. She continued to be in sinus mechanism. Continues to be on amiodarone 400 mg twice a day, Lasix 20 mg IV q.12 hours, Xarelto 20 mg daily, Lopressor 25 mg twice a day. PHYSICAL EXAMINATION: Blood pressure running in the 100s with the heart rate in 70s. LUNGS: Clear. HEART: Regular rate and rhythm. S1, S2. No S3 with systolic ejection murmur. ABDOMEN: Soft, nontender. EXTREMITIES: No edema. LAB DATA: Lab data revealed a hemoglobin down to 5.1, BUN and creatinine 26 and 0.78. IMPRESSION: 1. Severe anemia with associated fatigue. 2. Paroxysmal atrial fibrillation, remains in sinus mechanism. 3. Breast cancer. RECOMMENDATION: I will continue on the present dose of amiodarone for a week then cut it down to 200 mg twice a day. I will switch her to oral diuretics. Her edema has resolved. The patient is getting transfused and will be evaluated by the oncology service. She had an echocardiogram performed that revealed a preserved systolic function with mild mitral regurgitation and tricuspid regurgitation with moderate pulmonary hypertension. MMODL / IJN: [id number] /
[2018-05-18 17:11] LABS: Glucose,Whole Blood 96 mg/dL (75-99)
[2018-05-18] MEDS: SODIUM CHLORIDE 0.9% 1,000 ML IV SCH (17:30)
--- NOTE | 2018-05-18 18:12 | P.PN ---
Subjective Progress Note Date: 05/18/18 Principal diagnosis: Breast cancer Jennifer is feeling better after receiving two units of PRBC today. Her hemoglobin quickly dropped, unclear if accurately dropped. Will recheck after transfusions. No s/s bleeding Objective - Vital Signs Vital signs: Vital Signs Temp 97.6 F 05/18/18 16:07 Pulse 72 05/18/18 16:07 Resp 16 05/18/18 16:07 BP 113/53 05/18/18 16:07 Pulse Ox 100 05/18/18 16:07 Intake & Output 05/17/18 05/18/18 05/18/18 18:59 06:59 18:59 Intake Total 419 640 4487 Output Total 2 101 Balance 558 160 919 Weight 67 kg Intake: IV 160 160 0.9 160 160 Intake, IV Titration 200 160 Amount Magnesium Sulfate-D5w Pmx 200 1 gm In Dextrose/Water 1 100ml.bag @ 100 mls/hr IVPB Q1H [facility] Rx#: [id number] Sodium Chloride 0.9% 1, 160 000 ml @ 20 mls/hr IV . Q24H [facility] Rx#:[id number] Oral 200 240 Blood Product 620 Rc As-1 Unit 310 [id number] Rc Pheresis 2 As3 Unit 310 [id number] Output: Urine 100 Stool 2 1 Other: Voiding Method Bedside Commode Bedside Commode # Voids 2 4 # Bowel Movements 1 - Constitutional General appearance: Present: cooperative, no acute distress, obese - EENT Eyes: Present: EOMI, dentition normal, normal appearance ENT: Present: hard of hearing, NA/AT, normal oropharynx - Neck Details: Supple, Trachea MIdline Neck: Present: normal ROM - Respiratory Respiratory: bilateral: CTA - Cardiovascular Rhythm: irregularly irregular - Gastrointestinal General gastrointestinal: Present: normal bowel sounds, soft, tenderness - Integumentary Integumentary: Present: pale - Neurologic Neurologic: Present: CNII-XII intact - Musculoskeletal Musculoskeletal: Present: gait normal, generalized weakness, strength equal bilaterally - Psychiatric Psychiatric: Present: A&O x's 3, appropriate affect, intact judgment & insight - Labs CBC & Chem 7: 05/18/18 06:04 05/18/18 06:04 Labs: Abnormal Lab Results - Last 24 Hours (Table) 05/17/18 05/18/18 05/18/18 Range/Units 20:43 05:47 06:04 RBC 1.56 L (3.80-5.40) m/uL Hgb 5.1 L* D (11.4-16.0) gm/dL Hct 15.7 L* (34.0-46.0) % MCV 100.8 H D (80.0-100.0) fL RDW 22.8 H (11.5-15.5) % BUN (7-17) mg/dL POC Glucose (mg/dL) 148 H 118 H (75-99) mg/dL Calcium (8.4-10.2) mg/dL AST (14-36) U/L Total Protein (6.3-8.2) g/dL Albumin (3.5-5.0) g/dL Crossmatch 05/18/18 05/18/18 05/18/18 Range/Units 06:04 06:04 11:24 RBC (3.80-5.40) m/uL Hgb (11.4-16.0) gm/dL Hct (34.0-46.0) % MCV (80.0-100.0) fL RDW (11.5-15.5) % BUN 26 H (7-17) mg/dL POC Glucose (mg/dL) 106 H (75-99) mg/dL Calcium 8.2 L (8.4-10.2) mg/dL AST 13 L (14-36) U/L Total Protein 4.1 L (6.3-8.2) g/dL Albumin 2.3 L (3.5-5.0) g/dL Crossmatch See Detail 05/18/18 Range/Units 11:25 RBC (3.80-5.40) m/uL Hgb (11.4-16.0) gm/dL Hct (34.0-46.0) % MCV (80.0-100.0) fL RDW (11.5-15.5) % BUN (7-17) mg/dL POC Glucose (mg/dL) 112 H (75-99) mg/dL Calcium (8.4-10.2) mg/dL AST (14-36) U/L Total Protein (6.3-8.2) g/dL Albumin (3.5-5.0) g/dL Crossmatch Assessment and Plan Plan: Assessment and Plan (1) Anemia Narrative/Plan: - Pt will be seen in office in the next 5 days, CBC will be checked, - CBC in am and agree with two units PRBC today. Current Visit: No Status: Acute Priority: Medium Code(s): D64.9 - ANEMIA, UNSPECIFIED SNOMED Code(s): 806984326 (2) Triple negative malignant neoplasm of breast Narrative/Plan: Pt is s/p treatment, needs to be seen for surgery, she is aware of this, she has Surgeon contact info. Current Visit: No Status: Acute Priority: Medium Code(s): C50.919 - MALIGNANT NEOPLASM OF UNSP SITE OF UNSPECIFIED FEMALE BREAST SNOMED Code(s): 792996652
[2018-05-18 18:47] LABS: Anisocytosis Moderate; Basophils # (A) 0.1 k/uL (0-0.2); Basophils % (A) 1 %; Eosinophils # (A) 1.3 k/uL (0-0.7); Eosinophils % (A) 15 %; Lymphocytes # (A) 1.3 k/uL (1.0-4.8); Lymphocytes % (A) 14 %; MCH 30.5 pg (25.0-35.0); MCHC 32.4 g/dL (31.0-37.0); Macrocytosis Slight; Mean Platelet Volume 7.1; Monocytes # (A) 0.7 k/uL (0-1.0); Monocytes % (A) 8 %; Neutrophils # (A) 5.3 k/uL (1.3-7.7); Neutrophils % (A) 59 %; Platelet Count 149 k/uL (150-450); Poikilocytosis Slight; RBC 2.76 m/uL (3.80-5.40); RDW 22.3 % (11.5-15.5); WBC 8.8 k/uL (3.8-10.6)
[2018-05-18 18:59] LABS: HGB 8.4 gm/dL (11.4-16.0)
[2018-05-18] MEDS: ATORVASTATIN 20 MG TAB PO SCH (20:27)
[2018-05-18] MEDS: FUROSEMIDE 20 MG TAB PO SCH (20:27)
[2018-05-18 20:54] LABS: Glucose,Whole Blood 111 mg/dL (75-99)
[2018-05-19 05:45] LABS: Glucose,Whole Blood 96 mg/dL (75-99)
[2018-05-19] MEDS: INSULIN ASPART 100 UNIT/ML 1 ML 10 ML VIAL SQ SCH ×4 (06:14→21:26)
[2018-05-19 07:01] LABS: Anisocytosis Moderate; Basophils % (A) 1 %; Eosinophils # (A) 1.1 k/uL (0-0.7); Eosinophils % (A) 17 %; HCT 24.8 % (34.0-46.0); HGB 8.1 gm/dL (11.4-16.0); Hypochromasia Slight; Lymphocytes # (A) 0.9 k/uL (1.0-4.8); Lymphocytes % (A) 14 %; MCH 30.9 pg (25.0-35.0); MCHC 32.5 g/dL (31.0-37.0); MCV 94.8 fL (80.0-100.0); Macrocytosis Slight; Mean Platelet Volume 6.8; Monocytes # (A) 0.5 k/uL (0-1.0); Monocytes % (A) 8 %; Neutrophils # (A) 3.7 k/uL (1.3-7.7); Neutrophils % (A) 58 %; Platelet Count 135 k/uL (150-450); Poikilocytosis Slight; RBC 2.62 m/uL (3.80-5.40); RDW 22.6 % (11.5-15.5); WBC 6.4 k/uL (3.8-10.6)
[2018-05-19 07:15] LABS: ALT 36 U/L (9-52); AST 25 U/L (14-36); Albumin 2.6 g/dL (3.5-5.0); Alkaline Phosphatase 47 U/L (38-126); Anion Gap 4 mmol/L; Blood Urea Nitrogen 18 mg/dL (7-17); Calcium 8.5 mg/dL (8.4-10.2); Carbon Dioxide 26 mmol/L (22-30); Chloride 105 mmol/L (98-107); Glucose 85 mg/dL (74-99); Magnesium 1.8 mg/dL (1.6-2.3); Potassium 3.8 mmol/L (3.5-5.1); Sodium 135 mmol/L (137-145); Total Bilirubin 0.4 mg/dL (0.2-1.3); Total Protein 4.5 g/dL (6.3-8.2)
[2018-05-19] MEDS: IPRATROPIUM-ALBUTEROL 3 ML NEB INHALATION SCH ×4 (07:53→19:33)
[2018-05-19] MEDS: AMOXIC-POT CLAV 875-125MG 1 EACH TAB PO SCH (08:27)
[2018-05-19] MEDS: AMIODARONE 200 MG TAB PO SCH ×2 (08:27→20:07)
[2018-05-19] MEDS: RIVAROXABAN 20 MG TAB PO SCH (08:27)
[2018-05-19] MEDS: METOPROLOL TARTRATE 25 MG TAB PO SCH ×2 (08:27→20:08)
[2018-05-19] MEDS: CHOLECALCIFEROL 1,000 UNIT TAB PO SCH (08:28)
[2018-05-19] MEDS: FAMOTIDINE 20 MG TAB PO SCH (08:28)
[2018-05-19] MEDS: FUROSEMIDE 20 MG TAB PO SCH ×2 (08:28→20:08)
--- NOTE | 2018-05-19 08:49 | P.PN ---
Subjective Progress Note Date: 05/19/18 The patient feels somewhat stronger after blood transfusion. She has been sitting up at the side of the bed, and ambulating short distances. She denies feeling dizzy, or short of breath at rest. No obvious bleeding noted Objective - Vital Signs Vital signs: Vital Signs Temp 97.0 F L 05/19/18 04:00 Pulse 78 05/19/18 04:00 Resp 18 05/19/18 04:00 BP 95/45 05/19/18 04:00 Pulse Ox 97 05/19/18 04:00 Intake & Output 05/18/18 05/19/18 05/19/18 18:59 06:59 18:59 Intake Total 1140 160 240 Output Total 102 Balance 1038 160 240 Weight 65.6 kg Intake: IV 160 0.9 160 Intake, IV Titration 160 Amount Sodium Chloride 0.9% 1, 160 000 ml @ 20 mls/hr IV . Q24H [facility] Rx#:[id number] Oral 360 240 Blood Product 620 Rc As-1 Unit 310 [id number] Rc Pheresis 2 As3 Unit 310 [id number] Output: Urine 100 Stool 2 Other: Voiding Method Bedside Commode Bedside Commode # Voids 1 6 # Bowel Movements 1 - Constitutional General appearance: Present: no acute distress - Respiratory Respiratory: bilateral: CTA - Cardiovascular Rhythm: irregularly irregular Heart sounds: normal: S1, S2 - Gastrointestinal General gastrointestinal: Present: soft - Neurologic Neurologic: Present: CNII-XII intact - Musculoskeletal Musculoskeletal: Present: strength equal bilaterally - Psychiatric Psychiatric: Present: A&O x's 3, appropriate affect - Labs CBC & Chem 7: 05/19/18 06:16 05/19/18 06:16 Labs: Abnormal Lab Results - Last 24 Hours (Table) 05/18/18 05/18/18 05/18/18 Range/Units 06:04 11:24 11:25 RBC (3.80-5.40) m/uL Hgb (11.4-16.0) gm/dL Hct (34.0-46.0) % RDW (11.5-15.5) % Plt Count (150-450) k/uL Lymphocytes # (1.0-4.8) k/uL Eosinophils # (0-0.7) k/uL Sodium (137-145) mmol/L BUN (7-17) mg/dL POC Glucose (mg/dL) 106 H 112 H (75-99) mg/dL Total Protein (6.3-8.2) g/dL Albumin (3.5-5.0) g/dL Crossmatch See Detail 05/18/18 05/18/18 05/19/18 Range/Units 18:15 20:52 06:16 RBC 2.76 L 2.62 L (3.80-5.40) m/uL Hgb 8.4 L D 8.1 L (11.4-16.0) gm/dL Hct 26.0 L 24.8 L (34.0-46.0) % RDW 22.3 H 22.6 H (11.5-15.5) % Plt Count 149 L 135 L (150-450) k/uL Lymphocytes # 0.9 L (1.0-4.8) k/uL Eosinophils # 1.3 H 1.1 H (0-0.7) k/uL Sodium (137-145) mmol/L BUN (7-17) mg/dL POC Glucose (mg/dL) 111 H (75-99) mg/dL Total Protein (6.3-8.2) g/dL Albumin (3.5-5.0) g/dL Crossmatch 05/19/18 Range/Units 06:16 RBC (3.80-5.40) m/uL Hgb (11.4-16.0) gm/dL Hct (34.0-46.0) % RDW (11.5-15.5) % Plt Count (150-450) k/uL Lymphocytes # (1.0-4.8) k/uL Eosinophils # (0-0.7) k/uL Sodium 135 L (137-145) mmol/L BUN 18 H (7-17) mg/dL POC Glucose (mg/dL) (75-99) mg/dL Total Protein 4.5 L (6.3-8.2) g/dL Albumin 2.6 L (3.5-5.0) g/dL Crossmatch Assessment and Plan (1) Anemia Narrative/Plan: The patient's hemoglobin has improved into the 8 range after 2 units of blood. She has not had any chemotherapy now for more than 3 weeks. Therefore the acute drop in her blood counts cannot be attributed to chemotherapy effect. Clinically, there is concern for occult blood loss. The case was discussed with the admitting service. Surgery will be consulted for GI workup. Continue to monitor, and supplement as needed Current Visit: No Status: Acute Priority: Medium Code(s): D64.9 - ANEMIA, UNSPECIFIED SNOMED Code(s): 216649755 (2) Triple negative malignant neoplasm of breast Narrative/Plan: The patient has completed neoadjuvant chemotherapy. The last cycle of Taxol has been canceled. She is to follow-up with Dr. Rahamn to plan surgery Current Visit: No Status: Acute Priority: Medium Code(s): C50.919 - MALIGNANT NEOPLASM OF UNSP SITE OF UNSPECIFIED FEMALE BREAST SNOMED Code(s): 443645084 (3) Atrial flutter with rapid ventricular response Narrative/Plan: Defer to cardiology for continued management Current Visit: No Status: Acute Code(s): I48.92 - UNSPECIFIED ATRIAL FLUTTER SNOMED Code(s): 2442194
--- NOTE | 2018-05-19 10:48 | P.PN ---
Subjective Progress Note Date: 05/19/18 Patient is feeling better today after the blood transfusion. There is no blood in her stool or black/tarry stool. Hemoglobin is better today. Objective - Vital Signs Vital signs: Vital Signs Temp 97.0 F L 05/19/18 04:00 Pulse 78 05/19/18 04:00 Resp 18 05/19/18 04:00 BP 95/45 05/19/18 04:00 Pulse Ox 97 05/19/18 04:00 Intake & Output 05/18/18 05/19/18 05/19/18 18:59 06:59 18:59 Intake Total 1140 160 240 Output Total 102 Balance 1038 160 240 Weight 65.6 kg Intake: IV 160 0.9 160 Intake, IV Titration 160 Amount Sodium Chloride 0.9% 1, 160 000 ml @ 20 mls/hr IV . Q24H [facility] Rx#:[id number] Oral 360 240 Blood Product 620 Rc As-1 Unit 310 [id number] Rc Pheresis 2 As3 Unit 310 [id number] Output: Urine 100 Stool 2 Other: Voiding Method Bedside Commode Bedside Commode # Voids 1 6 # Bowel Movements 1 - Exam General: The patient is awake and alert, in no distress, patient appeared chronically ill. She appeared pale Eye: extra-ocular movements are intact Neck: The neck is supple, there is no tenderness or JVD. Cardiovascular: Normal S1-S2, no S3-S4, no murmurs. Respiratory: Lungs clear to anterior chest auscultation bilaterally with no wheezes rhonchi or rales. Gastrointestinal: Abdomen is soft, nontender, nondistended, Musculoskeletal: Normal ROM, no tenderness, There is +1 pedal edema. Neurological: There are no obvious motor or sensory deficits. Speech is normal. Skin: Skin is warm and dry - Labs CBC & Chem 7: 05/19/18 06:16 05/19/18 06:16 Labs: Abnormal Lab Results - Last 24 Hours (Table) 05/18/18 05/18/18 05/18/18 Range/Units 06:04 11:24 11:25 RBC (3.80-5.40) m/uL Hgb (11.4-16.0) gm/dL Hct (34.0-46.0) % RDW (11.5-15.5) % Plt Count (150-450) k/uL Lymphocytes # (1.0-4.8) k/uL Eosinophils # (0-0.7) k/uL Sodium (137-145) mmol/L BUN (7-17) mg/dL POC Glucose (mg/dL) 106 H 112 H (75-99) mg/dL Total Protein (6.3-8.2) g/dL Albumin (3.5-5.0) g/dL Crossmatch See Detail 05/18/18 05/18/18 05/19/18 Range/Units 18:15 20:52 06:16 RBC 2.76 L 2.62 L (3.80-5.40) m/uL Hgb 8.4 L D 8.1 L (11.4-16.0) gm/dL Hct 26.0 L 24.8 L (34.0-46.0) % RDW 22.3 H 22.6 H (11.5-15.5) % Plt Count 149 L 135 L (150-450) k/uL Lymphocytes # 0.9 L (1.0-4.8) k/uL Eosinophils # 1.3 H 1.1 H (0-0.7) k/uL Sodium (137-145) mmol/L BUN (7-17) mg/dL POC Glucose (mg/dL) 111 H (75-99) mg/dL Total Protein (6.3-8.2) g/dL Albumin (3.5-5.0) g/dL Crossmatch 05/19/18 Range/Units 06:16 RBC (3.80-5.40) m/uL Hgb (11.4-16.0) gm/dL Hct (34.0-46.0) % RDW (11.5-15.5) % Plt Count (150-450) k/uL Lymphocytes # (1.0-4.8) k/uL Eosinophils # (0-0.7) k/uL Sodium 135 L (137-145) mmol/L BUN 18 H (7-17) mg/dL POC Glucose (mg/dL) (75-99) mg/dL Total Protein 4.5 L (6.3-8.2) g/dL Albumin 2.6 L (3.5-5.0) g/dL Crossmatch Assessment and Plan Assessment: 1. Acute on chronic anemia, hemoglobin dropped to 5.1. 2 units of PRBC transfused on 05/18. Oncology following. No evidence of ongoing bleed. Less likely secondary to chemotherapy. We will obtain Hemoccult test. Oncology requested general surgery consultation for possible upper and lower endoscopy. 2. Atrial fibrillation with rapid ventricular response, converted to normal sinus rhythm. Patient was seen and evaluated by cardiology. Currently on amiodarone and metoprolol. Plan to continue amiodarone 400 mg twice a day until 06/21/2018 and then change the dose to 200 mg twice a day On anticoagulation with Rivaroxaban. Echocardiogram showed preserved ejection fraction and no significant valvular abnormalities. 3. Underlying breast cancer status post lumpectomy, chemo and radiation therapy. Patient received last chemo cycle a few weeks ago and chemo was discontinued secondary to progressive weakness. 4. Dizziness, most likely secondary to anemia and intravascular depletion. Improved after blood transfusion 4. Diastolic congestive heart failure exacerbation with elevated BNP, evidence of fluid overload post clinically on x-ray. Lasix switch back to oral. Monitor electrolytes closely. 5. Recent Klebsiella UTI, will finish antibiotic course with Augmentin as prescribed during last hospitalization 6. Hyperlipidemia: On Lipitor 7. Physical debility: PT/OT evaluation. 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 surgery consultation for possible EGD and colonoscopy -PT/OT evaluation and case management to start placement process for subacute rehab
[2018-05-19 11:26] LABS: Glucose,Whole Blood 129 mg/dL (75-99)
[2018-05-19] MEDS: MULTIVITAMINS, THERA 1 EACH TAB PO SCH (12:03)
--- NOTE | 2018-05-19 13:17 | PN ---
PROGRESS NOTE Mrs. Guerrero is a 78-year-old female with history of breast cancer, paroxysmal atrial fibrillation, anemia. She is feeling better today. She is feeling stronger. Her breathing is better. She continues to be in sinus mechanism. She has no dizziness or palpitation. Continues to be on amiodarone 400 mg twice a day, Lipitor 20 mg daily, Lasix 20 mg twice a day, metoprolol tartrate 25 mg twice a day, and Xarelto 20 mg daily. PHYSICAL EXAMINATION: Blood pressure 119/60 with a heart rate 70s. LUNGS: Clear. HEART: Regular rate and rhythm. S1, S2. No S3. No rub. ABDOMEN: Soft, nontender. EXTREMITIES: Trace edema. LAB DATA: Hemoglobin of 8.1, BUN and creatinine of 18 and 0.7. IMPRESSION: 1. Atrial fibrillation, remains sinus mechanism/. 2. Breast cancer followed by Dr. Poole. 3. Anemia. 4. Peripheral edema, improved. RECOMMENDATION: We will continue present therapy. We will continue to follow her renal function. Increase her activity gradually and depending on her progress further recommendation will be made. The amiodarone will be continued on this dose until Monday and then switch down to 200 mg twice a day. MMODL / IJN: [id number] /
[2018-05-19] MEDS: HYDROcodone/APAP 5-325MG 1 EACH TAB PO PRN (14:42)
[2018-05-19 17:02] LABS: Glucose,Whole Blood 95 mg/dL (75-99)
[2018-05-19] MEDS: ATORVASTATIN 20 MG TAB PO SCH (20:08)
[2018-05-19] MEDS: SODIUM CHLORIDE 0.9% 1,000 ML IV SCH (20:10)
[2018-05-19 20:37] LABS: Glucose,Whole Blood 107 mg/dL (75-99)
[2018-05-20 06:01] LABS: Glucose,Whole Blood 101 mg/dL (75-99)
[2018-05-20] MEDS: INSULIN ASPART 100 UNIT/ML 1 ML 10 ML VIAL SQ SCH ×4 (06:20→21:11)
[2018-05-20 07:31] LABS: Reticulocyte % 9.4 % (0.5-2.0)
[2018-05-20 07:37] LABS: Anisocytosis Moderate; Basophils % (A) 0 %; Eosinophils # (A) 0.8 k/uL (0-0.7); Eosinophils % (A) 14 %; HCT 25.9 % (34.0-46.0); HGB 8.2 gm/dL (11.4-16.0); Hypochromasia Slight; Lymphocytes # (A) 0.7 k/uL (1.0-4.8); Lymphocytes % (A) 13 %; MCH 29.6 pg (25.0-35.0); MCHC 31.7 g/dL (31.0-37.0); MCV 93.4 fL (80.0-100.0); Macrocytosis Slight; Mean Platelet Volume 7.1; Monocytes # (A) 0.5 k/uL (0-1.0); Monocytes % (A) 9 %; Neutrophils # (A) 3.2 k/uL (1.3-7.7); Neutrophils % (A) 61 %; Platelet Count 151 k/uL (150-450); Poikilocytosis Slight; RBC 2.77 m/uL (3.80-5.40); WBC 5.3 k/uL (3.8-10.6)
[2018-05-20 07:46] LABS: ALT 37 U/L (9-52); AST 25 U/L (14-36); Albumin 2.7 g/dL (3.5-5.0); Alkaline Phosphatase 52 U/L (38-126); Anion Gap 6 mmol/L; Blood Urea Nitrogen 11 mg/dL (7-17); Calcium 8.6 mg/dL (8.4-10.2); Carbon Dioxide 27 mmol/L (22-30); Chloride 105 mmol/L (98-107); Glucose 85 mg/dL (74-99); Magnesium 1.6 mg/dL (1.6-2.3); Potassium 3.7 mmol/L (3.5-5.1); Sodium 138 mmol/L (137-145); Total Bilirubin 0.4 mg/dL (0.2-1.3); Total Protein 4.6 g/dL (6.3-8.2)
[2018-05-20] MEDS: AMIODARONE 200 MG TAB PO SCH ×2 (08:18→20:36)
[2018-05-20] MEDS: HYDROcodone/APAP 5-325MG 1 EACH TAB PO PRN ×2 (08:18→21:22)
[2018-05-20] MEDS: METOPROLOL TARTRATE 25 MG TAB PO SCH ×2 (08:19→20:37)
[2018-05-20] MEDS: FUROSEMIDE 20 MG TAB PO SCH ×2 (08:19→20:37)
[2018-05-20] MEDS: RIVAROXABAN 20 MG TAB PO SCH (08:19)
[2018-05-20] MEDS: CHOLECALCIFEROL 1,000 UNIT TAB PO SCH (08:20)
[2018-05-20] MEDS: FAMOTIDINE 20 MG TAB PO SCH (08:20)
[2018-05-20] MEDS: IPRATROPIUM-ALBUTEROL 3 ML NEB INHALATION SCH ×4 (08:24→20:01)
--- NOTE | 2018-05-20 10:31 | P.GSCN ---
History of Present Illness Consult date: 05/20/18 History of present illness: 78-year-old female with known history of breast cancer presented to the hospital secondary to weakness. She has a known complicated medical history including diastolic congestive heart failure, diabetes, chronic anemia, hypertension, hyperlipidemia. On her presentation she complained of some dizziness and low blood pressure. She denied any shortness of breath or any chest pain. She was recently started on Xarelto for anticoagulation secondary to atrial fibrillation sedation. She was found to be anemic and her lowest hemoglobin was noted to be approximately 5. She has been transfused 2 units and has had stable hemoglobin in the eights for the past 2 days. She denies any gross blood in her stool and denies any change in bowel movements. However , on workup she is found to have fecal occult positive stool samples. She states that she is due for a colonoscopy. She has not had any abdominal pain. She has recently completed her anisa-adjuvant chemotherapy and is due to see her surgeon, Dr. 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 Review of Systems All systems: negative Past Medical History Past Medical History: Cancer, Diabetes Mellitus, Hyperlipidemia, Hypertension Additional Past Medical History / Comment(s): rt Breast CA 1990 had lumpectomy/ lymph nodes removed, chemo/radiation. in reocurrance of cancer same (rt) breast-receiving chemo . History of Any Multi-Drug Resistant Organisms: None Reported Past Surgical History: Appendectomy, Back Surgery, Breast Surgery, Cholecystectomy, Hysterectomy, Tonsillectomy Additional Past Surgical History / Comment(s): Medi port lt chest, 1 upper dental implant, rt breast lumpectomy, lymph nodes removed, egd/colonoscopu/ polypectomt, cataracts-lens implants Past Anesthesia/Blood Transfusion Reactions: No Reported Reaction Past Psychological History: No Psychological Hx Reported Smoking Status: Former smoker Past Alcohol Use History: None Reported Past Drug Use History: None Reported - Past Family History Mother Family Medical History: Cancer Additional Family Medical History / Comment(s): age 66 from colon cancer Father Family Medical History: CVA/TIA Additional Family Medical History / Comment(s): age 48 from a stroke Medications and Allergies Home Medications Medication Instructions Recorded Confirmed Type Atorvastatin [Lipitor] 20 mg PO HS 01/26/18 05/16/18 History Melatonin 3 mg PO HS PRN tablet 02/10/18 05/16/18 Rx Cholecalciferol [Vitamin D3] 1,000 unit PO DAILY 04/30/18 05/16/18 History Fexofenadine HCl [Bettie Allergy] 180 mg PO DAILY 04/30/18 05/16/18 History Multivitamins, Thera [Multivitamin 1 tab PO DAILY 04/30/18 05/16/18 History (formulary)] Furosemide [Lasix] 40 mg PO MOWEFR #30 tablet 05/03/18 05/16/18 Rx Naproxen [Naprosyn] 250 mg PO Q8H #30 tab 05/03/18 05/16/18 Rx Potassium Chloride [K-Tab ER] 20 meq PO MOWEFR #30 tablet.er 05/03/18 05/16/18 Rx Iron 18 mg PO DAILY 05/09/18 05/16/18 History Neomycin/Polymyxin B/Dexametha 1 drop BOTH EYES Q4H 05/09/18 05/16/18 History [Maxitrol Ophth Susp] Ranitidine HCl [Zantac] 150 mg PO DAILY 05/09/18 05/16/18 History Amiodarone [Cordarone] 200 mg PO BID #60 tab 05/13/18 05/16/18 Rx Amoxicillin/Potassium Clav 1 tab PO Q12HR #14 tab 05/13/18 05/16/18 Rx [Augmentin 875-125 Tablet] Metoprolol Tartrate [Lopressor] 50 mg PO BID #60 tab 05/13/18 05/16/18 Rx Rivaroxaban [Xarelto] 20 mg PO DAILY #30 tab 05/13/18 05/16/18 Rx Allergies Allergy/AdvReac Type Severity Reaction Status Date / Time No Known Allergies Allergy Verified 05/16/18 21:01 Surgical - Exam Osteopathic Statement: *. No significant issues noted on an osteopathic structural exam other than those noted in the History and Physical/Consult. Vital Signs Temp Pulse Resp BP Pulse Ox 98.2 F 130 H 22 107/50 100 05/16/18 20:45 05/16/18 20:45 05/16/18 20:45 05/16/18 20:45 05/16/18 20:45 - General no distress - Eyes normal ocular movement - ENT no hearing loss - Neck trachea midline - Respiratory No difficulty with respiration - Abdomen Soft, nontender, nondistended, no rebound, no guarding - Psychiatric oriented to time, oriented to person, oriented to place, speech is normal Results - Labs 05/20/18 06:45 05/20/18 06:45 Abnormal Lab Results - Last 24 Hours (Table) 05/19/18 05/19/18 05/19/18 Range/Units 11:21 14:19 20:36 RBC (3.80-5.40) m/uL Hgb (11.4-16.0) gm/dL Hct (34.0-46.0) % RDW (11.5-15.5) % Lymphocytes # (1.0-4.8) k/uL Eosinophils # (0-0.7) k/uL Retic Count (0.5-2.0) % POC Glucose (mg/dL) 129 H 107 H (75-99) mg/dL Total Protein (6.3-8.2) g/dL Albumin (3.5-5.0) g/dL Stool Occult Blood Positive H (Negative) 05/20/18 05/20/18 05/20/18 Range/Units 06:00 06:45 06:45 RBC 2.77 L (3.80-5.40) m/uL Hgb 8.2 L (11.4-16.0) gm/dL Hct 25.9 L (34.0-46.0) % RDW 22.0 H (11.5-15.5) % Lymphocytes # 0.7 L (1.0-4.8) k/uL Eosinophils # 0.8 H (0-0.7) k/uL Retic Count (0.5-2.0) % POC Glucose (mg/dL) 101 H (75-99) mg/dL Total Protein 4.6 L (6.3-8.2) g/dL Albumin 2.7 L (3.5-5.0) g/dL Stool Occult Blood (Negative) 05/20/18 Range/Units 06:45 RBC (3.80-5.40) m/uL Hgb (11.4-16.0) gm/dL Hct (34.0-46.0) % RDW (11.5-15.5) % Lymphocytes # (1.0-4.8) k/uL Eosinophils # (0-0.7) k/uL Retic Count 9.4 H (0.5-2.0) % POC Glucose (mg/dL) (75-99) mg/dL Total Protein (6.3-8.2) g/dL Albumin (3.5-5.0) g/dL Stool Occult Blood (Negative) Diabetes panel 05/20/18 Range/Units 06:45 Sodium 138 (137-145) mmol/L Potassium 3.7 (3.5-5.1) mmol/L Chloride 105 (98-107) mmol/L Carbon Dioxide 27 (22-30) mmol/L BUN 11 (7-17) mg/dL Creatinine 0.72 (0.52-1.04) mg/dL Glucose 85 (74-99) mg/dL Calcium 8.6 (8.4-10.2) mg/dL AST 25 (14-36) U/L ALT 37 (9-52) U/L Alkaline Phosphatase 52 (38-126) U/L Total Protein 4.6 L (6.3-8.2) g/dL Albumin 2.7 L (3.5-5.0) g/dL Calcium panel 05/20/18 Range/Units 06:45 Calcium 8.6 (8.4-10.2) mg/dL Albumin 2.7 L (3.5-5.0) g/dL Pituitary panel 05/20/18 Range/Units 06:45 Sodium 138 (137-145) mmol/L Potassium 3.7 (3.5-5.1) mmol/L Chloride 105 (98-107) mmol/L Carbon Dioxide 27 (22-30) mmol/L BUN 11 (7-17) mg/dL Creatinine 0.72 (0.52-1.04) mg/dL Glucose 85 (74-99) mg/dL Calcium 8.6 (8.4-10.2) mg/dL Adrenal panel 05/20/18 Range/Units 06:45 Sodium 138 (137-145) mmol/L Potassium 3.7 (3.5-5.1) mmol/L Chloride 105 (98-107) mmol/L Carbon Dioxide 27 (22-30) mmol/L BUN 11 (7-17) mg/dL Creatinine 0.72 (0.52-1.04) mg/dL Glucose 85 (74-99) mg/dL Calcium 8.6 (8.4-10.2) mg/dL Total Bilirubin 0.4 (0.2-1.3) mg/dL AST 25 (14-36) U/L ALT 37 (9-52) U/L Alkaline Phosphatase 52 (38-126) U/L Total Protein 4.6 L (6.3-8.2) g/dL Albumin 2.7 L (3.5-5.0) g/dL Assessment and Plan (1) Anemia Narrative/Plan: With a fecal occult positive stool and anemia, with no evidence of gross bleed, the patient will require further GI workup for source of anemia. I discussed the case with both cardiology and oncology, and we will be holding anticoagulation tomorrow with plan to perform upper and lower endoscopy on . I discussed this with the patient and they're agreeable to this plan. Current Visit: No Status: Acute Priority: Medium Code(s): D64.9 - ANEMIA, UNSPECIFIED SNOMED Code(s): 814479151
[2018-05-20 11:24] LABS: Glucose,Whole Blood 101 mg/dL (75-99)
[2018-05-20] MEDS: MULTIVITAMINS, THERA 1 EACH TAB PO SCH (11:54)
--- NOTE | 2018-05-20 13:20 | P.PN ---
Subjective mrs. Guerrero is seen and examined resting comfortably in bed with family at the bedside. She has a past history significant for breast cancer, right lumpectomy and persistent lymphedema, paroxysmal atrial fibrillation, hypertension, dyslipidemia, diabetes mellitus, history of diastolic heart failure and anemia. She continues to maintain sinus rhythm. She denies symptoms of chest pain, shortness of breath, palpitations or dizziness. Laboratory data reviewed, hemoglobin 8.2, platelets 151, sodium 1:30, potassium 3.7, creatinine 0.7 to. Blood pressure 130/60, heart rate 73 afebrile maintaining oxygen saturation on room air. Dr. Rich has seen the patient in consultation and plans for an upper and lower endoscopy Monday. Request is made to hold anticoagulation. Objective - Vital Signs Vital signs: Vital Signs Temp 98.1 F 05/20/18 08:10 Pulse 73 05/20/18 08:10 Resp 18 05/20/18 08:10 BP 130/60 05/20/18 08:10 Pulse Ox 99 05/20/18 08:10 Intake & Output 05/19/18 05/20/18 05/20/18 18:59 06:59 18:59 Intake Total 1240 240 Output Total 1700 Balance 1240 -1700 240 Weight 65.5 kg Intake: IV 160 0.9 160 Oral 1080 240 Output: Urine 1700 Other: Voiding Method Bedside Commode # Voids 1 - Exam GENERAL: Well-appearing, well-nourished and in no acute distress. NECK: Supple without JVD or thyromegaly. LUNGS: Breath sounds clear to auscultation bilaterally. Respiration equal and unlabored. No wheezes, rales or rhonchi. HEART: Regular rate and rhythm without murmurs, rubs or gallops. S1 and S2 heard. EXTREMITIES: Normal range of motion, no edema. No clubbing or cyanosis. Peripheral pulses intact. - Labs CBC & Chem 7: 05/20/18 06:45 05/20/18 06:45 Labs: Abnormal Lab Results - Last 24 Hours (Table) 05/19/18 05/19/18 05/20/18 Range/Units 14:19 20:36 06:00 RBC (3.80-5.40) m/uL Hgb (11.4-16.0) gm/dL Hct (34.0-46.0) % RDW (11.5-15.5) % Lymphocytes # (1.0-4.8) k/uL Eosinophils # (0-0.7) k/uL Retic Count (0.5-2.0) % POC Glucose (mg/dL) 107 H 101 H (75-99) mg/dL Total Protein (6.3-8.2) g/dL Albumin (3.5-5.0) g/dL Stool Occult Blood Positive H (Negative) 05/20/18 05/20/18 05/20/18 Range/Units 06:45 06:45 06:45 RBC 2.77 L (3.80-5.40) m/uL Hgb 8.2 L (11.4-16.0) gm/dL Hct 25.9 L (34.0-46.0) % RDW 22.0 H (11.5-15.5) % Lymphocytes # 0.7 L (1.0-4.8) k/uL Eosinophils # 0.8 H (0-0.7) k/uL Retic Count 9.4 H (0.5-2.0) % POC Glucose (mg/dL) (75-99) mg/dL Total Protein 4.6 L (6.3-8.2) g/dL Albumin 2.7 L (3.5-5.0) g/dL Stool Occult Blood (Negative) 05/20/18 Range/Units 11:22 RBC (3.80-5.40) m/uL Hgb (11.4-16.0) gm/dL Hct (34.0-46.0) % RDW (11.5-15.5) % Lymphocytes # (1.0-4.8) k/uL Eosinophils # (0-0.7) k/uL Retic Count (0.5-2.0) % POC Glucose (mg/dL) 101 H (75-99) mg/dL Total Protein (6.3-8.2) g/dL Albumin (3.5-5.0) g/dL Stool Occult Blood (Negative) Assessment and Plan Assessment: ASSESSMENT Paroxysmal atrial fibrillation on long-term anticoagulation currently maintaining sinus mechanism Anemia, unknown etiology Breast cancer followed by Dr. Poole Acute on chronic diastolic heart failure, resolved PLAN Continue current apical regimen, hold anticoagulation for lower endoscopy per Dr. Hilario Castillo. Anticoagulation should be resumed as soon as is possible per surgery. Further recommendations to follow based upon clinical course. Nurse Practitioner note has been reviewed, I agree with a documented findings and plan of care. Patient was seen and examined.
[2018-05-20 13:39] LABS: Anisocytosis Moderate; HCT 27.1 % (34.0-46.0); HGB 8.8 gm/dL (11.4-16.0); Hypochromasia Slight; MCH 30.3 pg (25.0-35.0); MCHC 32.4 g/dL (31.0-37.0); MCV 93.7 fL (80.0-100.0); Macrocytosis Slight; Mean Platelet Volume 7.1; Platelet Count 159 k/uL (150-450); Poikilocytosis Slight; RBC 2.89 m/uL (3.80-5.40); RDW 21.6 % (11.5-15.5); WBC 8.3 k/uL (3.8-10.6)
[2018-05-20 16:21] LABS: Glucose,Whole Blood 115 mg/dL (75-99)
--- NOTE | 2018-05-20 18:27 | PN ---
PROGRESS NOTE DATE OF SERVICE: May 20, 2018. PRESENTING COMPLAINT: Tired. INTERVAL HISTORY: The patient presented with severe anemia. Hemoglobin down to 5.1. Did receive 2 units of blood. Awaiting EGD and colonoscopy. Also had atrial fibrillation rapid ventricular rate and now back in sinus rhythm. Also was treated briefly for congestive heart failure. The patient also status post 3 weeks of chemotherapy for recurrent breast cancer. Does feel a bit tired and run down. REVIEW OF SYSTEMS: Done for constitutional, cardiovascular, GI, pulmonary and relevant findings as above. CURRENT MEDICATIONS: Reviewed that include DuoNeb, Cordarone, p.o. Lasix and Lopressor. PHYSICAL EXAMINATION: VITAL SIGNS: Temperature 98.1, pulse 73, respiratory 18, blood pressure 133/63, pulse ox 99% on room air. GENERAL APPEARANCE: Sitting up, not in distress. EYES: Pupils equal. Conjunctivae pale. HEENT: External appearance of nose and ears normal. Oral cavity normal. NECK: JVD not raised. Mass not palpable. RESPIRATORY effort normal. Lungs fair entry. CARDIOVASCULAR: 1st and second sounds normal. No edema. ABDOMEN: Soft, nontender. Liver and spleen not palpable. PSYCHIATRY: Alert and oriented x3. Mood and affect normal. INVESTIGATIONS: White count 8.3, hemoglobin 8.8, potassium 3.7, albumin 2.7. ASSESSMENT: 1. Paroxysmal atrial flutter fibrillation rapid ventricular rate, now back in sinus rhythm. 2. Acute congestive heart failure exacerbation with preserved LV function, possibly from underlying arrhythmia/atrial fibrillation. Now clinically euvolemic. 3. Secondary pulmonary hypertension. 4. Recurrent breast cancer status post chemotherapy 3 weeks to follow up with Dr. Rahman for possible surgery. 5. Acute severe normocytic anemia, rule out a gastrointestinal cause pending endoscopy. 6. Essential hypertension. 7. Hyperlipidemia. 8. Anticoagulation, Xarelto that has been held. PLAN: Care was discussed with the patient. The patient is awaiting EGD and colonoscopy. Continue current medication and treatment plan. Follow. MMODL / IJN: [id number] /
[2018-05-20] MEDS: SODIUM CHLORIDE 0.9% 1,000 ML IV SCH (20:37)
[2018-05-20] MEDS: ATORVASTATIN 20 MG TAB PO SCH (20:37)
[2018-05-20 21:05] LABS: Glucose,Whole Blood 104 mg/dL (75-99)
[2018-05-21 06:26] LABS: Glucose,Whole Blood 105 mg/dL (75-99)
[2018-05-21] MEDS: INSULIN ASPART 100 UNIT/ML 1 ML 10 ML VIAL SQ SCH ×4 (06:26→21:26)
[2018-05-21 07:15] LABS: Anisocytosis Moderate; Basophils % (A) 1 %; Eosinophils # (A) 0.7 k/uL (0-0.7); Eosinophils % (A) 14 %; HCT 26.5 % (34.0-46.0); HGB 8.8 gm/dL (11.4-16.0); Hypochromasia Slight; Lymphocytes # (A) 0.7 k/uL (1.0-4.8); Lymphocytes % (A) 14 %; MCH 31.4 pg (25.0-35.0); MCHC 33.2 g/dL (31.0-37.0); MCV 94.5 fL (80.0-100.0); Macrocytosis Slight; Mean Platelet Volume 7.2; Monocytes # (A) 0.5 k/uL (0-1.0); Monocytes % (A) 9 %; Neutrophils % (A) 59 %; Platelet Count 137 k/uL (150-450); Poikilocytosis Slight; RBC 2.81 m/uL (3.80-5.40); RDW 21.8 % (11.5-15.5); WBC 5.1 k/uL (3.8-10.6)
[2018-05-21 07:28] LABS: ALT 39 U/L (9-52); AST 22 U/L (14-36); Albumin 2.7 g/dL (3.5-5.0); Alkaline Phosphatase 52 U/L (38-126); Anion Gap 6 mmol/L; Blood Urea Nitrogen 8 mg/dL (7-17); Calcium 8.6 mg/dL (8.4-10.2); Carbon Dioxide 29 mmol/L (22-30); Chloride 103 mmol/L (98-107); Glucose 91 mg/dL (74-99); Magnesium 1.5 mg/dL (1.6-2.3); Potassium 3.6 mmol/L (3.5-5.1); Sodium 138 mmol/L (137-145); Total Bilirubin 0.4 mg/dL (0.2-1.3); Total Protein 4.6 g/dL (6.3-8.2)
[2018-05-21] MEDS: IPRATROPIUM-ALBUTEROL 3 ML NEB INHALATION SCH ×4 (08:25→20:36)
[2018-05-21] MEDS: FUROSEMIDE 20 MG TAB PO SCH ×2 (08:56→20:38)
[2018-05-21] MEDS: METOPROLOL TARTRATE 25 MG TAB PO SCH ×2 (08:56→20:38)
[2018-05-21] MEDS: MULTIVITAMINS, THERA 1 EACH TAB PO SCH (08:56)
[2018-05-21] MEDS: CHOLECALCIFEROL 1,000 UNIT TAB PO SCH (08:56)
[2018-05-21] MEDS: FAMOTIDINE 20 MG TAB PO SCH (08:56)
[2018-05-21] MEDS: MAGNESIUM SULFATE-D5W PMX 1 GM in DEXTROSE/WATER 1 100ML.BAG IVPB SCH ×2 (08:57→10:13)
[2018-05-21] MEDS: POTASSIUM CHLORIDE ER 20 MEQ TAB.ER PO SCH (08:57)
[2018-05-21] MEDS: AMIODARONE 200 MG TAB PO SCH ×2 (08:57→20:39)
[2018-05-21] MEDS: HYDROcodone/APAP 5-325MG 1 EACH TAB PO PRN ×2 (08:57→20:44)
[2018-05-21 11:06] LABS: Iron Saturation 21.18 (12.00-45.00)
[2018-05-21 11:59] LABS: Glucose,Whole Blood 117 mg/dL (75-99)
[2018-05-21] MEDS ORDERED: PEG 3350-NA SULF,BICARB,CL/KCL 4,000 ML BOTTLE PO ONE (14:01)
--- NOTE | 2018-05-21 15:13 | P.PN ---
Subjective Progress Note Date: 05/21/18 Patient seen and examined at bedside. No acute events. Hemoglobin is stable at 8.8 today. Objective - Vital Signs Vital signs: Vital Signs Temp 97.8 F 05/21/18 12:00 Pulse 63 05/21/18 12:00 Resp 18 05/21/18 12:00 BP 116/63 05/21/18 12:00 Pulse Ox 98 05/21/18 12:00 Intake & Output 05/20/18 05/21/18 05/21/18 18:59 06:59 18:59 Intake Total 960 360 Output Total 400 100 Balance 960 -400 260 Weight 64.3 kg Intake: Oral 960 360 Output: Urine 400 100 Other: Voiding Method Bedside Commode Bedside Commode # Voids 1 1 # Bowel Movements 1 - Constitutional General appearance: Present: cooperative, no acute distress - Respiratory Details: No difficulty with respiration - Gastrointestinal Gastrointestinal Comment(s): Soft, nontender, nondistended, no rebound, no guarding - Psychiatric Psychiatric: Present: A&O x's 3 - Labs CBC & Chem 7: 05/21/18 06:49 05/21/18 06:49 Labs: Abnormal Lab Results - Last 24 Hours (Table) 05/20/18 05/20/18 05/20/18 Range/Units 06:45 16:20 20:59 RBC (3.80-5.40) m/uL Hgb (11.4-16.0) gm/dL Hct (34.0-46.0) % RDW (11.5-15.5) % Plt Count (150-450) k/uL Lymphocytes # (1.0-4.8) k/uL POC Glucose (mg/dL) 115 H 104 H (75-99) mg/dL Magnesium (1.6-2.3) mg/dL Ferritin 1214.2 H (10.0-291.0) ng/mL Total Protein (6.3-8.2) g/dL Albumin (3.5-5.0) g/dL 05/21/18 05/21/18 05/21/18 Range/Units 06:25 06:49 06:49 RBC 2.81 L (3.80-5.40) m/uL Hgb 8.8 L (11.4-16.0) gm/dL Hct 26.5 L (34.0-46.0) % RDW 21.8 H (11.5-15.5) % Plt Count 137 L (150-450) k/uL Lymphocytes # 0.7 L (1.0-4.8) k/uL POC Glucose (mg/dL) 105 H (75-99) mg/dL Magnesium 1.5 L (1.6-2.3) mg/dL Ferritin (10.0-291.0) ng/mL Total Protein 4.6 L (6.3-8.2) g/dL Albumin 2.7 L (3.5-5.0) g/dL 05/21/18 Range/Units 11:57 RBC (3.80-5.40) m/uL Hgb (11.4-16.0) gm/dL Hct (34.0-46.0) % RDW (11.5-15.5) % Plt Count (150-450) k/uL Lymphocytes # (1.0-4.8) k/uL POC Glucose (mg/dL) 117 H (75-99) mg/dL Magnesium (1.6-2.3) mg/dL Ferritin (10.0-291.0) ng/mL Total Protein (6.3-8.2) g/dL Albumin (3.5-5.0) g/dL Assessment and Plan (1) Anemia Narrative/Plan: The patient has been on clear liquid diets all day. We have done this in anticipation for upper and lower endoscopy tomorrow. We will begin colon prep. Continue to hold anticoagulation. Colonoscopy and upper endoscopy scheduled for tomorrow. Current Visit: No Status: Acute Priority: Medium Code(s): D64.9 - ANEMIA, UNSPECIFIED SNOMED Code(s): 234298697
--- NOTE | 2018-05-21 15:39 | P.PN ---
Subjective Progress Note Date: 05/21/18 This is a pleasant 78-year-old female with significant history for breast cancer, paroxysmal atrial fibrillation, hypertension, hyperlipidemia, diabetes, and anemia. She is scheduled tomorrow to undergo EGD and colonoscopy. Anticoagulation remains on hold. Overall she's feeling well, remaining in normal sinus rhythm with a heart rate in the 60s. We will decrease her amiodarone dose today and continue to follow. Objective - Vital Signs Vital signs: Vital Signs Temp 97.8 F 05/21/18 12:00 Pulse 63 05/21/18 12:00 Resp 18 05/21/18 12:00 BP 116/63 05/21/18 12:00 Pulse Ox 98 05/21/18 12:00 Intake & Output 05/20/18 05/21/18 05/21/18 18:59 06:59 18:59 Intake Total 960 360 Output Total 400 100 Balance 960 -400 260 Weight 64.3 kg Intake: Oral 960 360 Output: Urine 400 100 Other: Voiding Method Bedside Commode Bedside Commode # Voids 1 1 # Bowel Movements 1 - Exam GENERAL: Well-appearing, well-nourished and in no acute distress. NECK: Supple without JVD or thyromegaly. LUNGS: Breath sounds clear to auscultation bilaterally. Respiration equal and unlabored. No wheezes, rales or rhonchi. HEART: Regular rate and rhythm without murmurs, rubs or gallops. S1 and S2 heard. EXTREMITIES: Normal range of motion, trace edema. No clubbing or cyanosis. Peripheral pulses intact. - Labs CBC & Chem 7: 05/21/18 06:49 05/21/18 06:49 Labs: Abnormal Lab Results - Last 24 Hours (Table) 05/20/18 05/20/18 05/20/18 Range/Units 06:45 16:20 20:59 RBC (3.80-5.40) m/uL Hgb (11.4-16.0) gm/dL Hct (34.0-46.0) % RDW (11.5-15.5) % Plt Count (150-450) k/uL Lymphocytes # (1.0-4.8) k/uL POC Glucose (mg/dL) 115 H 104 H (75-99) mg/dL Magnesium (1.6-2.3) mg/dL Ferritin 1214.2 H (10.0-291.0) ng/mL Total Protein (6.3-8.2) g/dL Albumin (3.5-5.0) g/dL 05/21/18 05/21/18 05/21/18 Range/Units 06:25 06:49 06:49 RBC 2.81 L (3.80-5.40) m/uL Hgb 8.8 L (11.4-16.0) gm/dL Hct 26.5 L (34.0-46.0) % RDW 21.8 H (11.5-15.5) % Plt Count 137 L (150-450) k/uL Lymphocytes # 0.7 L (1.0-4.8) k/uL POC Glucose (mg/dL) 105 H (75-99) mg/dL Magnesium 1.5 L (1.6-2.3) mg/dL Ferritin (10.0-291.0) ng/mL Total Protein 4.6 L (6.3-8.2) g/dL Albumin 2.7 L (3.5-5.0) g/dL 05/21/18 Range/Units 11:57 RBC (3.80-5.40) m/uL Hgb (11.4-16.0) gm/dL Hct (34.0-46.0) % RDW (11.5-15.5) % Plt Count (150-450) k/uL Lymphocytes # (1.0-4.8) k/uL POC Glucose (mg/dL) 117 H (75-99) mg/dL Magnesium (1.6-2.3) mg/dL Ferritin (10.0-291.0) ng/mL Total Protein (6.3-8.2) g/dL Albumin (3.5-5.0) g/dL Assessment and Plan Plan: Assessment and plan #1 symptoms of progressive moderate to severe weakness, mild associated dizziness, could be secondary to hypotension and dehydration #2 atrial fibrillation with rapid ventricular response, paroxysmal, patient currently in normal sinus rhythm. Don't have documentation at this point of the A. fib on admission. #3 paroxysmal atrial fibrillation, on Xarelto for anticoagulation #4 diastolic congestive heart failure acute on chronic #5 diabetes #6 anemia, chronic #7 hypertension, patient has been hypotensive here #8 hyperlipidemia #9 breast cancer with recent chemotherapy #10 hypomagnesemia Plan Patient is scheduled to undergo EGD and colonoscopy tomorrow. Anticoagulation remains on hold. She is remaining in normal sinus rhythm. We'll decrease the dose of amiodarone to 200 mg one tablet by mouth twice a day today. DNP note has been reviewed, I agree with a documented findings and plan of care. Patient was seen and examined.
[2018-05-21] MEDS: SODIUM CHLORIDE 0.9% 1,000 ML IV SCH (16:35)
[2018-05-21 16:37] LABS: Glucose,Whole Blood 91 mg/dL (75-99)
--- NOTE | 2018-05-21 16:37 | PN ---
PROGRESS NOTE DATE OF SERVICE: May 21, 2018. PRESENTING COMPLAINT: Tired. INTERVAL HISTORY: Patient presented with severe anemia. Hemoglobin was 5.1, status post 2 units of blood. Awaiting EGD and colonoscopy tomorrow. Also had atrial fibrillation, rapid ventricular rate, now back in sinus rhythm, possibly CHF from the same. The patient is status post 3 weeks of chemotherapy. Lying in bed, tired, run down. at the bedside. REVIEW OF SYSTEMS: Done for constitutional, cardiovascular, GI, pulmonary and relevant findings as above. CURRENT MEDICATIONS: Reviewed and include: 1. DuoNeb. 2. Cordarone. 3. P.o. Lasix 20 mg twice a day. 4. Lopressor 25 p.o. b.i.d. EXAMINATION: VITAL SIGNS: Temperature 97.8, pulse 62, respiratory 18, blood pressure 116/63, pulse ox 98% on room air. GENERAL APPEARANCE: Lying in bed, tired-appearing. EYES: Pupils equal. Conjunctivae pale. HEENT: External appearance of nose and ears normal. Oral cavity normal. NECK JVD not raised. Mass not palpable. RESPIRATORY effort normal. LUNGS fair entry. CARDIOVASCULAR: 1st and 2nd sounds normal. No edema. ABDOMEN: Soft, nontender. Liver and spleen not palpable. PSYCHIATRY: Alert and oriented x3. Mood and affect normal. INVESTIGATIONS: White count 5.1, hemoglobin 8.8, potassium 3.6. ASSESSMENT: 1. Paroxysmal atrial flutter fibrillation rapid ventricular rate, now back in sinus rhythm. 2. Acute congestive heart failure exacerbation with preserved LV function, possibly from underlying arrhythmia now euvolemic. 3. Secondary pulmonary hypertension. 4. Recurrent breast cancer status post chemotherapy 3 weeks ago to follow up with Dr. Rahman as an outpatient. 5. Acute severe normocytic anemia, rule out GI cause pending endoscopy, status post blood transfusion. 6. Essential hypertension. 7. Hyperlipidemia. 8. Anticoagulation with Xarelto that has been held. PLAN: Care was discussed with the patient. Continue current medication and treatment plan. Follow. MMODL / IJN: [id number] /
--- NOTE | 2018-05-21 17:44 | P.PN ---
Subjective Progress Note Date: 05/21/18 The patient overall feels better, and stronger since she came to the hospital. She has not had any obvious bleeding. Breathing and endurance are improved since a blood transfusion. No history of fevers/chills/nausea/vomiting. Objective - Vital Signs Vital signs: Vital Signs Temp 97.8 F 05/21/18 16:09 Pulse 71 05/21/18 16:09 Resp 18 05/21/18 16:09 BP 117/54 05/21/18 16:09 Pulse Ox 97 05/21/18 16:09 Intake & Output 05/20/18 05/21/18 05/21/18 18:59 06:59 18:59 Intake Total 960 560 Output Total 400 100 Balance 960 -400 460 Weight 64.3 kg Intake: Intake, IV Titration 200 Amount Magnesium Sulfate-D5w Pmx 200 1 gm In Dextrose/Water 1 100ml.bag @ 100 mls/hr IVPB Q1H [facility] Rx#: [id number] Oral 960 360 Output: Urine 400 100 Other: Voiding Method Bedside Commode Bedside Commode # Voids 1 1 # Bowel Movements 1 - Constitutional General appearance: Present: no acute distress - EENT Eyes: Present: EOMI ENT: Present: hearing grossly normal, normal oropharynx - Respiratory Respiratory: bilateral: CTA - Cardiovascular Rhythm: irregularly irregular Heart sounds: normal: S1, S2 - Gastrointestinal General gastrointestinal: Present: normal bowel sounds - Integumentary Integumentary: Present: normal - Neurologic Neurologic: Present: CNII-XII intact - Musculoskeletal Musculoskeletal: Present: generalized weakness, strength equal bilaterally - Psychiatric Psychiatric: Present: A&O x's 3, appropriate affect - Labs CBC & Chem 7: 05/21/18 06:49 05/21/18 06:49 Labs: Abnormal Lab Results - Last 24 Hours (Table) 05/20/18 05/20/18 05/21/18 Range/Units 06:45 20:59 06:25 RBC (3.80-5.40) m/uL Hgb (11.4-16.0) gm/dL Hct (34.0-46.0) % RDW (11.5-15.5) % Plt Count (150-450) k/uL Lymphocytes # (1.0-4.8) k/uL POC Glucose (mg/dL) 104 H 105 H (75-99) mg/dL Magnesium (1.6-2.3) mg/dL Ferritin 1214.2 H (10.0-291.0) ng/mL Total Protein (6.3-8.2) g/dL Albumin (3.5-5.0) g/dL 05/21/18 05/21/18 05/21/18 Range/Units 06:49 06:49 11:57 RBC 2.81 L (3.80-5.40) m/uL Hgb 8.8 L (11.4-16.0) gm/dL Hct 26.5 L (34.0-46.0) % RDW 21.8 H (11.5-15.5) % Plt Count 137 L (150-450) k/uL Lymphocytes # 0.7 L (1.0-4.8) k/uL POC Glucose (mg/dL) 117 H (75-99) mg/dL Magnesium 1.5 L (1.6-2.3) mg/dL Ferritin (10.0-291.0) ng/mL Total Protein 4.6 L (6.3-8.2) g/dL Albumin 2.7 L (3.5-5.0) g/dL Assessment and Plan (1) Anemia Narrative/Plan: Hemoglobin has improved into the 8 range, and subsequently stabilized. Iron studies showed high ferritin, but this is hard to interpret given recent blood transfusion, as well as ongoing chronic anemia from chemotherapy and chronic illness. She appears to be having a reticulocyte response with reticulocyte percent at 9.4. Hemolysis is felt to be unlikely, given that bilirubin is totally normal. - Therefore at this time GI blood loss remains a concern. Case was discussed with the surgical service and it was felt that endoscopic workup would be appropriate. Therefore and the correlation has been held, and the patient will proceed with the same tomorrow. - Hemoglobin is in a safe range. Continue to monitor and transfuse as needed Current Visit: No Status: Acute Priority: Medium Code(s): D64.9 - ANEMIA, UNSPECIFIED SNOMED Code(s): 634671953 (2) Triple negative malignant neoplasm of breast Narrative/Plan: The patient is to proceed with surgery as an outpatient. Current Visit: No Status: Acute Priority: Medium Code(s): C50.919 - MALIGNANT NEOPLASM OF [facility] SITE OF UNSPECIFIED FEMALE BREAST SNOMED Code(s): 609824403 (3) Atrial flutter with rapid ventricular response Current Visit: No Status: Acute Code(s): I48.92 - UNSPECIFIED ATRIAL FLUTTER SNOMED Code(s): 5737235
[2018-05-21] MEDS: ATORVASTATIN 20 MG TAB PO SCH (20:39)
[2018-05-21 21:36] LABS: Glucose,Whole Blood 119 mg/dL (75-99)
[2018-05-22 05:55] LABS: Glucose,Whole Blood 105 mg/dL (75-99)
[2018-05-22] MEDS: INSULIN ASPART 100 UNIT/ML 1 ML 10 ML VIAL SQ SCH ×4 (05:56→20:56)
[2018-05-22 06:48] LABS: Anisocytosis Moderate; Basophils % (A) 0 %; Eosinophils # (A) 0.8 k/uL (0-0.7); Eosinophils % (A) 13 %; HCT 27.7 % (34.0-46.0); HGB 9.1 gm/dL (11.4-16.0); Hypochromasia Slight; Lymphocytes # (A) 0.6 k/uL (1.0-4.8); Lymphocytes % (A) 10 %; MCH 31.2 pg (25.0-35.0); MCHC 32.9 g/dL (31.0-37.0); MCV 94.6 fL (80.0-100.0); Macrocytosis Slight; Mean Platelet Volume 6.9; Monocytes # (A) 0.5 k/uL (0-1.0); Monocytes % (A) 9 %; Neutrophils # (A) 3.8 k/uL (1.3-7.7); Neutrophils % (A) 65 %; Platelet Count 146 k/uL (150-450); Poikilocytosis Slight; RBC 2.93 m/uL (3.80-5.40); RDW 20.9 % (11.5-15.5); WBC 5.8 k/uL (3.8-10.6)
[2018-05-22 07:06] LABS: ALT 36 U/L (9-52); AST 19 U/L (14-36); Albumin 2.7 g/dL (3.5-5.0); Alkaline Phosphatase 58 U/L (38-126); Anion Gap 6 mmol/L; Blood Urea Nitrogen 6 mg/dL (7-17); Calcium 8.6 mg/dL (8.4-10.2); Carbon Dioxide 30 mmol/L (22-30); Chloride 100 mmol/L (98-107); Glucose 90 mg/dL (74-99); Magnesium 1.7 mg/dL (1.6-2.3); Potassium 3.3 mmol/L (3.5-5.1); Sodium 136 mmol/L (137-145); Total Bilirubin 0.4 mg/dL (0.2-1.3); Total Protein 4.8 g/dL (6.3-8.2)
[2018-05-22] MEDS: IPRATROPIUM-ALBUTEROL 3 ML NEB INHALATION SCH ×4 (07:29→20:28)
[2018-05-22] MEDS: METOPROLOL TARTRATE 25 MG TAB PO SCH ×2 (08:23→20:38)
[2018-05-22] MEDS: CHOLECALCIFEROL 1,000 UNIT TAB PO SCH (08:24)
[2018-05-22] MEDS: FUROSEMIDE 20 MG TAB PO SCH ×2 (08:24→20:38)
[2018-05-22] MEDS: AMIODARONE 200 MG TAB PO SCH ×2 (08:24→20:38)
[2018-05-22] MEDS: FAMOTIDINE 20 MG TAB PO SCH (08:24)
[2018-05-22] MEDS: MULTIVITAMINS, THERA 1 EACH TAB PO SCH (08:24)
[2018-05-22] MEDS: HYDROcodone/APAP 5-325MG 1 EACH TAB PO PRN ×2 (08:24→20:37)
[2018-05-22] MEDS: SODIUM CHLORIDE 0.9% 1,000 ML IV SCH (08:27)
[2018-05-22] MEDS ORDERED: POTASSIUM CHLORIDE ER 20 MEQ TAB.ER PO STA (08:37)
[2018-05-22 12:12] LABS: Glucose,Whole Blood 96 mg/dL (75-99)
[2018-05-22] MEDS ORDERED: fentaNYL (PF) 50 MCG/ML 2 ML AMP ONE (13:33)
[2018-05-22] MEDS ORDERED: PROPOFOL 10 MG/ML 20 ML VIAL IV ONE (13:33)
[2018-05-22] MEDS ORDERED: LIDOCAINE 1% INJ 10MG/ML (20 ML MDV) ONE (13:33)
[2018-05-22] MEDS ORDERED: IV FLUID CONTINUATION 900 ML IV ONE (13:38)
--- NOTE | 2018-05-22 14:14 | P.OP ---
Date of Procedure: 05/22/18 Preoperative Diagnosis: Anemia Postoperative Diagnosis: Gastritis Duodenitis Diverticulosis Internal and external hemorrhoids Procedure(s) Performed: Esophagogastroduodenoscopy with biopsy Colonoscopy Anesthesia: CINDY Surgeon: Tennille Rich Pathology: other (Biopsies of the duodenum and antrum and esophagus) Condition: stable Disposition: floor Indications for Procedure: 78-year-old female with recent diagnosis of breast CA has been on neoadjuvant chemotherapy. She presented to the hospital secondary to weakness and was found to be anemic with hemoglobin of 5. This was suspicious due to the fact that she has not had chemotherapy in approximately 3 weeks. Due to this, evaluation of both upper and lower GI tract was decided upon. The patient was explained the risks, benefits and alternatives to the procedure did provide consent prior to attending the endoscopy suite. Operative Findings: Gastritis Duodenitis Diverticulosis Internal and external hemorrhoids Description of Procedure: The patient was brought into the endoscopy suite and placed in left lateral decubitus position. Sedation was provided by anesthesia. An endoscope was then placed into the oropharynx past the arytenoids into the esophagus and traveled to the second portion of the duodenum. The scope was then slowly withdrawn. The first portion of the duodenum was investigated and inflammatory changes were noted. Biopsies were taken. The scope was then withdrawn into the antrum. Biopsy was taken due to inflammatory changes being noted. The scope was then retroflexed and the gastric folds were noted to distend appropriately with no obvious masses or mechanical obstructions. There is no significant hiatal hernia. The scope was then slowly withdrawn into the esophagus. The esophagus appeared endoscopically normal. Biopsies were taken. The scope was then fully withdrawn. A digital rectal exam was performed and internal and external hemorrhoids were palpated and visualized. An endoscope was then placed in the rectum and advanced to the cecum as identified by landmarks including the appendiceal orifice and the ileocecal valve. The prep was good. The colon scope was then slowly withdrawn, examining for any mucosal abnormalities. The cecum, ascending, transverse, descending and sigmoid colon were visualized adequately. There were no obvious neoplastic lesions throughout the colon. There were no inflammatory masses throughout the colon. There were no polyps throughout the colon. There was notable diverticulosis in the descending and sigmoid colon. There was no obvious source of bleeding. Retroflexion was performed in the rectum and internal hemorrhoids were visible. Excess air was removed, the colonoscope was withdrawn and the procedure terminated. The patient was then transferred to postanesthesia recovery unit in stable condition. Repeat colonoscopy should be performed in 10 years.
--- NOTE | 2018-05-22 15:18 | P.PN ---
Subjective Progress Note Date: 05/22/18 This is a pleasant 78-year-old female with significant history for breast cancer, paroxysmal atrial fibrillation, hypertension, hyperlipidemia, diabetes, and anemia. She is scheduled tomorrow to undergo EGD and colonoscopy. Anticoagulation remains on hold. Overall she's feeling well, remaining in normal sinus rhythm with a heart rate in the 60s. We will decrease her amiodarone dose today and continue to follow. 05/22/2018 Patient seen and examined today, scheduled to undergo EGD and colonoscopy today. She states that she ambulated in the hallway today without any difficulty. Blood pressure 136/60 with a heart rate in the 60s, 100% on room air. White blood cell count 5.8, hemoglobin 9.1, platelet count 146. Sodium 136, potassium 3.3, BUN 6, creatinine 0.7. Objective - Vital Signs Vital signs: Vital Signs Temp 98.2 F 05/22/18 11:43 Pulse 71 05/22/18 14:32 Resp 18 05/22/18 14:32 BP 95/42 05/22/18 14:32 Pulse Ox 94 L 05/22/18 14:32 Intake & Output 05/21/18 05/22/18 05/22/18 18:59 06:59 18:59 Intake Total 1040 160 320 Output Total 101 Balance 939 160 320 Weight 63.8 kg Intake: IV 160 200 0.9 160 Intake, IV Titration 200 Amount Magnesium Sulfate-D5w Pmx 200 1 gm In Dextrose/Water 1 100ml.bag @ 100 mls/hr IVPB Q1H [facility] Rx#: [id number] Oral 840 120 Output: Urine 101 Other: Voiding Method Bedside Commode Bedside Commode Bedside Commode # Voids 1 # Bowel Movements 1 - Exam GENERAL: Well-appearing, well-nourished and in no acute distress. NECK: Supple without JVD or thyromegaly. LUNGS: Breath sounds clear to auscultation bilaterally. Respiration equal and unlabored. No wheezes, rales or rhonchi. HEART: Regular rate and rhythm without murmurs, rubs or gallops. S1 and S2 heard. EXTREMITIES: Normal range of motion, trace edema. No clubbing or cyanosis. Peripheral pulses intact. - Labs CBC & Chem 7: 05/22/18 05:51 07/31/18 05:51 Labs: Abnormal Lab Results - Last 24 Hours (Table) 05/21/18 05/22/18 05/22/18 Range/Units 21:26 05:51 05:51 RBC 2.93 L (3.80-5.40) m/uL Hgb 9.1 L (11.4-16.0) gm/dL Hct 27.7 L (34.0-46.0) % RDW 20.9 H (11.5-15.5) % Plt Count 146 L (150-450) k/uL Lymphocytes # 0.6 L (1.0-4.8) k/uL Eosinophils # 0.8 H (0-0.7) k/uL Sodium 136 L (137-145) mmol/L Potassium 3.3 L (3.5-5.1) mmol/L BUN 6 L (7-17) mg/dL POC Glucose (mg/dL) 119 H (75-99) mg/dL Total Protein 4.8 L (6.3-8.2) g/dL Albumin 2.7 L (3.5-5.0) g/dL 05/22/18 Range/Units 05:54 RBC (3.80-5.40) m/uL Hgb (11.4-16.0) gm/dL Hct (34.0-46.0) % RDW (11.5-15.5) % Plt Count (150-450) k/uL Lymphocytes # (1.0-4.8) k/uL Eosinophils # (0-0.7) k/uL Sodium (137-145) mmol/L Potassium (3.5-5.1) mmol/L BUN (7-17) mg/dL POC Glucose (mg/dL) 105 H (75-99) mg/dL Total Protein (6.3-8.2) g/dL Albumin (3.5-5.0) g/dL Assessment and Plan Plan: Assessment and plan #1 symptoms of progressive moderate to severe weakness, mild associated dizziness, could be secondary to hypotension and dehydration #2 atrial fibrillation with rapid ventricular response, paroxysmal, patient currently in normal sinus rhythm. Don't have documentation at this point of the A. fib on admission. #3 paroxysmal atrial fibrillation, on Xarelto for anticoagulation #4 diastolic congestive heart failure acute on chronic #5 diabetes #6 anemia, chronic #7 hypertension, patient has been hypotensive here #8 hyperlipidemia #9 breast cancer with recent chemotherapy #10 hypomagnesemia Plan Patient is scheduled to undergo EGD and colonoscopy today. Anticoagulation remains on hold. She is remaining in normal sinus rhythm. When the patient is cleared by GI service, we will need to reinitiate anticoagulation. DNP note has been reviewed, I agree with a documented findings and plan of care. Patient was seen and examined.
[2018-05-22 16:26] LABS: Glucose,Whole Blood 80 mg/dL (75-99)
--- NOTE | 2018-05-22 20:10 | P.PN ---
Subjective Progress Note Date: 05/22/18 Principal diagnosis: Breast cancer Jennifer has no complaints this afternoon. She underwent her endoscopy and resting. No nausea, vomting, diarrhea. Objective - Vital Signs Vital signs: Vital Signs Temp 98.2 F 05/22/18 11:43 Pulse 65 05/22/18 15:22 Resp 18 05/22/18 15:22 BP 130/61 05/22/18 15:22 Pulse Ox 97 05/22/18 15:22 Intake & Output 05/22/18 05/22/18 05/23/18 06:59 18:59 06:59 Intake Total 160 440 Balance 160 440 Weight 63.8 kg Intake: IV 160 200 0.9 160 Oral 240 Other: Voiding Method Bedside Commode Bedside Commode # Voids 1 - Constitutional General appearance: Present: cooperative, no acute distress - EENT Eyes: Present: EOMI, PERRLA, dentition normal ENT: Present: hard of hearing, NA/AT, normal oropharynx - Neck Details: supple, trachea midline Neck: Present: normal ROM - Respiratory Respiratory: bilateral: CTA (no increased respiratory effort) - Cardiovascular Rhythm: irregularly irregular - Gastrointestinal General gastrointestinal: Present: normal bowel sounds, soft, tenderness - Integumentary Integumentary: Present: pale - Neurologic Neurologic: Present: CNII-XII intact - Musculoskeletal Musculoskeletal: Present: generalized weakness, strength equal bilaterally - Psychiatric Psychiatric: Present: A&O x's 3, appropriate affect, intact judgment & insight - Labs CBC & Chem 7: 05/22/18 05:51 05/22/18 05:51 Labs: Abnormal Lab Results - Last 24 Hours (Table) 05/21/18 05/22/18 05/22/18 Range/Units 21:26 05:51 05:51 RBC 2.93 L (3.80-5.40) m/uL Hgb 9.1 L (11.4-16.0) gm/dL Hct 27.7 L (34.0-46.0) % RDW 20.9 H (11.5-15.5) % Plt Count 146 L (150-450) k/uL Lymphocytes # 0.6 L (1.0-4.8) k/uL Eosinophils # 0.8 H (0-0.7) k/uL Sodium 136 L (137-145) mmol/L Potassium 3.3 L (3.5-5.1) mmol/L BUN 6 L (7-17) mg/dL POC Glucose (mg/dL) 119 H (75-99) mg/dL Total Protein 4.8 L (6.3-8.2) g/dL Albumin 2.7 L (3.5-5.0) g/dL 05/22/18 Range/Units 05:54 RBC (3.80-5.40) m/uL Hgb (11.4-16.0) gm/dL Hct (34.0-46.0) % RDW (11.5-15.5) % Plt Count (150-450) k/uL Lymphocytes # (1.0-4.8) k/uL Eosinophils # (0-0.7) k/uL Sodium (137-145) mmol/L Potassium (3.5-5.1) mmol/L BUN (7-17) mg/dL POC Glucose (mg/dL) 105 H (75-99) mg/dL Total Protein (6.3-8.2) g/dL Albumin (3.5-5.0) g/dL Assessment and Plan Plan: Assessment and Plan (1) Anemia Narrative/Plan: - She is status post Endoscopy, will await results. - Hemoglobin above 7, no transfusion needed today - Further diagnostics if no signs of bleeding but continues to drop hemoglobin Current Visit: No Status: Acute Priority: Medium Code(s): D64.9 - ANEMIA, UNSPECIFIED SNOMED Code(s): 310234314 (2) Triple negative malignant neoplasm of breast Narrative/Plan: Pt is s/p treatment, needs to be seen for surgery, she is aware of this, she has Surgeon contact info. Current Visit: No Status: Acute Priority: Medium Code(s): C50.919 - MALIGNANT NEOPLASM OF [facility] SITE OF UNSPECIFIED FEMALE BREAST SNOMED Code(s): 324462795
[2018-05-22] MEDS: ATORVASTATIN 20 MG TAB PO SCH (20:38)
[2018-05-22 20:51] LABS: Glucose,Whole Blood 100 mg/dL (75-99)
--- NOTE | 2018-05-23 04:56 | PN ---
PROGRESS NOTE DATE OF SERVICE: 05/22/2018 PRESENTING COMPLAINT: Tired. INTERVAL HISTORY: The patient presented with severe anemia, hemoglobin 5.1, status post 2 units of blood. Saw this patient this morning. Pending EGD and colonoscopy this afternoon. Also, atrial fibrillation with rapid ventricular rate, been back in sinus rhythm and episode of CHF from the same. Does feel weak and tired. The patient is getting chemotherapy for breast cancer. is present. REVIEW OF SYSTEMS: Done for constitutional, cardiovascular GI, pulmonary, relevant findings as above. CURRENT MEDICATIONS: Reviewed that include Lopressor and Lasix p.o. EXAMINATION: VITAL SIGNS: Temperature 98.2, pulse 68, respiratory 18, blood pressure 137/72, pulse ox 100% on room air. GENERAL APPEARANCE: Lying in bed, awake. EYES: Pupils equal. Conjunctivae pale. HEENT: External appearance of nose and ears normal. Oral cavity normal. NECK: JVD not raised. Mass not palpable. RESPIRATORY: Effort normal. LUNGS: Clear. CARDIOVASCULAR: 1st and 2nd sounds no edema. ABDOMEN: Soft, nontender. Liver and spleen not palpable. PSYCHIATRY: Alert and oriented x3. Mood and affect normal. INVESTIGATIONS: White count 5.8, hemoglobin 9.1, potassium 3.3. ASSESSMENT: 1. Paroxysmal atrial fibrillation with rapid ventricular rate, now back in sinus rhythm. 2. Acute congestive heart failure with preserved LV function, possibly related to arrhythmia now euvolemic. 3. Secondary pulmonary hypertension. 4. Recurrent breast cancer status post chemotherapy 3 weeks ago. Follow up with Dr. Rahman. 5. Acute severe normocytic anemia, pending endoscopy upper and lower this afternoon. The patient is status post blood transfusion. 6. Essential hypertension. 7. Hyperlipidemia. 8. Anticoagulation, Xarelto currently being held for the procedure. PLAN: Was discussed the patient. Continue current medication and treatment plan and follow. MMODL / IJN: [id number] /
[2018-05-23] MEDS: INSULIN ASPART 100 UNIT/ML 1 ML 10 ML VIAL SQ SCH ×2 (05:39→12:17)
[2018-05-23 05:40] LABS: Glucose,Whole Blood 88 mg/dL (75-99)
[2018-05-23] MEDS: IPRATROPIUM-ALBUTEROL 3 ML NEB INHALATION SCH ×3 (07:53→16:05)
[2018-05-23] MEDS: POTASSIUM CHLORIDE ER 20 MEQ TAB.ER PO SCH (08:24)
[2018-05-23] MEDS: HYDROcodone/APAP 5-325MG 1 EACH TAB PO PRN (08:24)
[2018-05-23] MEDS: METOPROLOL TARTRATE 25 MG TAB PO SCH (08:24)
[2018-05-23] MEDS: AMIODARONE 200 MG TAB PO SCH (08:25)
[2018-05-23] MEDS: FAMOTIDINE 20 MG TAB PO SCH (08:25)
[2018-05-23] MEDS: CHOLECALCIFEROL 1,000 UNIT TAB PO SCH (08:25)
[2018-05-23] MEDS: FUROSEMIDE 20 MG TAB PO SCH (08:25)
[2018-05-23 11:44] LABS: Glucose,Whole Blood 128 mg/dL (75-99)
[2018-05-23 12:34] VITALS: BP 107/57; PULSE 65; RESP 16; TEMP 97.7
[2018-05-23] MEDS: MULTIVITAMINS, THERA 1 EACH TAB PO SCH (12:43)
[2018-05-23 13:11] VITALS: BMI 24.7
--- NOTE | 2018-05-23 13:28 | P.PN ---
Subjective Progress Note Date: 05/23/18 Principal diagnosis: Breast cancer Jennifer has no complaints. no s/s bleeding Status Post EGD and Colonoscopy revealing gastritis, duodenitis, diverticulosis , internal and external hemorrhoids. Objective - Vital Signs Vital signs: Vital Signs Temp 97.7 F 05/23/18 12:00 Pulse 65 05/23/18 12:00 Resp 16 05/23/18 12:00 BP 107/57 05/23/18 12:00 Pulse Ox 97 05/23/18 12:00 Intake & Output 05/22/18 05/23/18 05/23/18 18:59 06:59 18:59 Intake Total 440 160 330 Output Total 400 Balance 440 160 -70 Weight 63.5 kg 63.5 kg Intake: IV 200 160 0.9 160 Oral 240 330 Output: Urine 400 Other: Voiding Method Bedside Commode Bedside Commode Bedside Commode # Voids 1 5 2 - Constitutional Constitutional Comment(s): alopecia General appearance: Present: cooperative, no acute distress - EENT Eyes: Present: EOMI, dentition normal ENT: Present: NA/AT, normal oropharynx - Neck Details: Supple, Trachea midline Neck: Present: normal ROM - Respiratory Respiratory: bilateral: CTA (No increased respiratory effort), negative: rhonchi , wheezing - Cardiovascular Rhythm: regular Heart sounds: normal: S1, S2 - Gastrointestinal General gastrointestinal: Present: normal bowel sounds, soft - Integumentary Integumentary: Present: pale - Neurologic Neurologic Comment(s): No focal Defects Neurologic: Present: CNII-XII intact - Musculoskeletal Musculoskeletal: Present: gait normal, generalized weakness, strength equal bilaterally - Psychiatric Psychiatric: Present: A&O x's 3, appropriate affect, intact judgment & insight - Labs CBC & Chem 7: 05/23/18 13:40 05/22/18 05:51 Labs: Abnormal Lab Results - Last 24 Hours (Table) 05/22/18 05/23/18 Range/Units 20:50 11:41 POC Glucose (mg/dL) 100 H 128 H (75-99) mg/dL Assessment and Plan Plan: Assessment and Plan (1) Anemia Narrative/Plan: - Hemoglobin above 7, Awaiting CBC from today - Status Post Endoscopy 05/22/18 - will check cbc and retic today. Current Visit: No Status: Acute Priority: Medium Code(s): D64.9 - ANEMIA, UNSPECIFIED SNOMED Code(s): 895619988 (2) Triple negative malignant neoplasm of breast Narrative/Plan: Pt is s/p anisa-adjuvant treatment, needs to be seen for surgery, she is aware of this, she has Surgeon contact info. Current Visit: No Status: Acute Priority: Medium Code(s): C50.919 - MALIGNANT NEOPLASM OF [facility] SITE OF UNSPECIFIED FEMALE BREAST SNOMED Code(s): 116465605
[2018-05-23 14:13] LABS: Anisocytosis Moderate; Basophils % (A) 0 %; Eosinophils # (A) 0.9 k/uL (0-0.7); Eosinophils % (A) 12 %; HCT 29.2 % (34.0-46.0); HGB 9.7 gm/dL (11.4-16.0); Hypochromasia Slight; Lymphocytes % (A) 12 %; MCH 31.6 pg (25.0-35.0); MCHC 33.1 g/dL (31.0-37.0); MCV 95.4 fL (80.0-100.0); Macrocytosis Slight; Mean Platelet Volume 7.1; Monocytes # (A) 0.7 k/uL (0-1.0); Monocytes % (A) 9 %; Neutrophils % (A) 64 %; Platelet Count 170 k/uL (150-450); Poikilocytosis Slight; RBC 3.06 m/uL (3.80-5.40); RDW 20.4 % (11.5-15.5); WBC 7.9 k/uL (3.8-10.6)
[2018-05-23 14:26] LABS: Reticulocyte % 9.1 % (0.5-2.0)
--- NOTE | 2018-05-23 15:25 | P.PN ---
Subjective Progress Note Date: 05/23/18 This is a pleasant 78-year-old female with significant history for breast cancer, paroxysmal atrial fibrillation, hypertension, hyperlipidemia, diabetes, and anemia. She is scheduled tomorrow to undergo EGD and colonoscopy. Anticoagulation remains on hold. Overall she's feeling well, remaining in normal sinus rhythm with a heart rate in the 60s. We will decrease her amiodarone dose today and continue to follow. 05/22/2018 Patient seen and examined today, scheduled to undergo EGD and colonoscopy today. She states that she ambulated in the hallway today without any difficulty. Blood pressure 136/60 with a heart rate in the 60s, 100% on room air. White blood cell count 5.8, hemoglobin 9.1, platelet count 146. Sodium 136, potassium 3.3, BUN 6, creatinine 0.7. 05/23/2018 Patient underwent an EGD and colonoscopy which revealed gastritis, duodenitis, diverticulosis, internal and external hemorrhoids. We did speak with the surgical services today who stated that the patient could be resumed on anticoagulation. Overall the patient feels well, no complaints. Objective - Vital Signs Vital signs: Vital Signs Temp 97.7 F 05/23/18 12:00 Pulse 65 05/23/18 12:00 Resp 16 05/23/18 12:00 BP 107/57 05/23/18 12:00 Pulse Ox 97 05/23/18 12:00 Intake & Output 05/22/18 05/23/18 05/23/18 18:59 06:59 18:59 Intake Total 440 160 330 Output Total 400 Balance 440 160 -70 Weight 63.5 kg 63.5 kg Intake: IV 200 160 0.9 160 Oral 240 330 Output: Urine 400 Other: Voiding Method Bedside Commode Bedside Commode Bedside Commode # Voids 1 5 2 - Exam GENERAL: Well-appearing, well-nourished and in no acute distress. NECK: Supple without JVD or thyromegaly. LUNGS: Breath sounds clear to auscultation bilaterally. Respiration equal and unlabored. No wheezes, rales or rhonchi. HEART: Regular rate and rhythm without murmurs, rubs or gallops. S1 and S2 heard. EXTREMITIES: Normal range of motion, trace edema. No clubbing or cyanosis. Peripheral pulses intact. - Labs CBC & Chem 7: 05/23/18 13:40 05/22/18 05:51 Labs: Abnormal Lab Results - Last 24 Hours (Table) 05/22/18 05/23/18 05/23/18 Range/Units 20:50 11:41 13:40 RBC 3.06 L (3.80-5.40) m/uL Hgb 9.7 L (11.4-16.0) gm/dL Hct 29.2 L (34.0-46.0) % RDW 20.4 H (11.5-15.5) % Eosinophils # 0.9 H (0-0.7) k/uL Retic Count (0.5-2.0) % POC Glucose (mg/dL) 100 H 128 H (75-99) mg/dL 05/23/18 Range/Units 13:40 RBC (3.80-5.40) m/uL Hgb (11.4-16.0) gm/dL Hct (34.0-46.0) % RDW (11.5-15.5) % Eosinophils # (0-0.7) k/uL Retic Count 9.1 H (0.5-2.0) % POC Glucose (mg/dL) (75-99) mg/dL Assessment and Plan Plan: Assessment and plan #1 symptoms of progressive moderate to severe weakness, mild associated dizziness, could be secondary to hypotension and dehydration #2 atrial fibrillation with rapid ventricular response, paroxysmal, patient currently in normal sinus rhythm. Don't have documentation at this point of the A. fib on admission. #3 paroxysmal atrial fibrillation, on Xarelto for anticoagulation #4 diastolic congestive heart failure acute on chronic #5 diabetes #6 anemia, chronic #7 hypertension, patient has been hypotensive here #8 hyperlipidemia #9 breast cancer with recent chemotherapy #10 hypomagnesemia Plan We will resume the patient's anticoagulation. Follow-up appointment in the office will be made once the patient is discharged home. DNP note has been reviewed, I agree with a documented findings and plan of care. Patient was seen and examined.
[2018-05-23 16:13] LABS: Glucose,Whole Blood 94 mg/dL (75-99)
[2018-05-23] MEDS ORDERED: RIVAROXABAN 20 MG TAB PO SCH (17:30)
--- NOTE | 2018-05-23 23:03 | DS ---
DISCHARGE SUMMARY DATE OF ADMISSION: 05/16/2018 DATE OF DISCHARGE: 05/23/2018 FINAL DIAGNOSES: 1. Paroxysmal atrial fibrillation with rapid ventricular rate, now back in sinus rhythm. The patient is on Xarelto for anticoagulation. 2. Acute congestive heart failure exacerbation with preserved left ventricular function, possibly related to arrhythmia. 3. Secondary pulmonary hypertension. 4. Recurrent breast cancer, status post chemotherapy 3 weeks ago prior to admission. To follow up with Dr. Rahman. 5. Acute severe normocytic anemia, cause undetermined. 6. Essential hypertension. 7. Hyperlipidemia. HOSPITAL COURSE: This patient presented weak, tired, found to have a hemoglobin down to 5.1. The patient received a total of 2 units of blood. Current hemoglobin is 9.7. The patient also had atrial fibrillation with associated CHF, responded well to diuretic, now back in sinus rhythm sinus rhythm. The patient did undergo EGD/colonoscopy by Dr. Rich. The patient is found to have some gastritis, duodenitis, internal and external hemorrhoids, also some diverticulosis. The patient has further bleeding down the road. The patient may need a small capsule endoscopy. Currently on examination, lungs are clear. CARDIOVASCULAR: First and second sounds normal. ABDOMEN: Soft, nontender. The patient is able to walk in the hallway. CONSULTATION: Dr. Poole from oncology, Dr. Phillips from cardiology, Dr. Rich from general surgery. The patient's 2D echocardiogram showed EF of 55%-60%. DISCHARGE MEDICATIONS: 1. Lipitor 20 mg q.h.s. 2. Melatonin 3 mg q.h.s. p.r.n. 3. Vitamin D3 1000 units . 4. Multivitamin 1 tablet p.o. daily. 5. Potassium 20 mEq on Monday, Monday and Monday. 6. Maxitrol 1 drop both eyes q.4h. 7. Iron 80 mg a day. 8. Maxitrol ophthalmic suspension 1 drop both eyes q.4. 9. Zantac 150 mg p.o. daily. 10.Cordarone 200 mg p.o. b.i.d. 11.Xarelto 20 mg p.o. daily. 12.Lasix 20 mg p.o. b.i.d. 13.Lopressor 25 mg p.o. b.i.d. FOLLOWUP: With Dr. Poole 05/29/2018, Dr. Omkar Gotti 05/28/2018, Dr. Rich 06/12/2018, Dr. Rachel Hoskins 06/04/2018. DISCUSSION AND DISCHARGE PLANNING: More than 35 minutes. MMODL / IJN: [id number] /
== END 2018-05-23 17:20 | disposition home health service (06) | DRG 308 ==
LOC: EC 20:44 → 6SEL 21:31
PROVIDERS: ADMIT Hospitalist; ATTEND Hospitalist
PROC: 30233N1 Transfusion of Nonautologous Red Blood Cells into Peripheral Vein, Percutaneous Approach (ICD-10-PCS; 2018-05-18)
PROC: 0DB58ZX Excision of Esophagus, Via Natural or Artificial Opening Endoscopic, Diagnostic (ICD-10-PCS; 2018-05-22)
PROC: 0DB98ZX Excision of Duodenum, Via Natural or Artificial Opening Endoscopic, Diagnostic (ICD-10-PCS; principal; 2018-05-22 14:00)
PROC: 0DB78ZX Excision of Stomach, Pylorus, Via Natural or Artificial Opening Endoscopic, Diagnostic (ICD-10-PCS; 2018-05-22 14:00)
DX: I48.0 Paroxysmal atrial fibrillation (principal); I50.33 Acute on chronic diastolic (congestive) heart failure; J44.1 Chronic obstructive pulmonary disease with (acute) exacerbation; K92.0 Hematemesis; N39.0 Urinary tract infection, site not specified; Z79.01 Long term (current) use of anticoagulants; C50.911 Malignant neoplasm of unspecified site of right female breast; E11.9 Type 2 diabetes mellitus without complications; E78.5 Hyperlipidemia, unspecified; E83.42 Hypomagnesemia; I11.0 Hypertensive heart disease with heart failure; I27.29 Other secondary pulmonary hypertension; I45.10 Unspecified right bundle-branch block; I48.92 Unspecified atrial flutter; K29.70 Gastritis, unspecified, without bleeding; K29.80 Duodenitis without bleeding; K64.4 Residual hemorrhoidal skin tags; K64.8 Other hemorrhoids; T45.1X5A Adverse effect of antineoplastic and immunosuppressive drugs, initial encounter; Z17.1 Estrogen receptor negative status [ER-]; Z79.899 Other long term (current) drug therapy; Z80.0 Family history of malignant neoplasm of digestive organs; Z82.3 Family history of stroke; Z87.891 Personal history of nicotine dependence; Z90.710 Acquired absence of both cervix and uterus; Z98.42 Cataract extraction status, left eye; Z98.41 Cataract extraction status, right eye; Z96.1 Presence of intraocular lens; B96.1 Klebsiella pneumoniae [K. pneumoniae] as the cause of diseases classified elsewhere; Z92.3 Personal history of irradiation; Z92.21 Personal history of antineoplastic chemotherapy; D64.81 Anemia due to antineoplastic chemotherapy; I95.9 Hypotension, unspecified; K57.90 Diverticulosis of intestine, part unspecified, without perforation or abscess without bleeding; Z12.11 Encounter for screening for malignant neoplasm of colon; R74.8 Abnormal levels of other serum enzymes; E86.0 Dehydration
CPT/HCPCS: 36415; 43239; 45378; 71046; 80048; 80053; 80061; 82272; 82550; 82553; 82728; 83036; 83540; 83550; 83735; 83880; 84100; 84484; 85025; 85027; 85045; 85610; 85730; 86850; 86900; 86901; 86920; 87324; 88305; 93005; 93306; 94640; 94760; 96365; 96376; 99291

== ENCOUNTER 2018-08-07 09:54 | Inpatient (IN) | payer MEDICARE ==
[2018-08-02 14:02] VITALS: BMI 22.1
[~2018-08-07 09:54] MED LIST: HEPARIN SODIUM,PORCINE 5,000 UNIT/ML 1 ML VIAL SQ ONE; HYDROmorphone 1 MG/ML 1 ML SYRINGE IVP PRN; ONDANSETRON 4 MG/2 ML VIAL IVP ONE; fentaNYL (PF) 50 MCG/ML 2 ML AMP IV PRN
[2018-08-07] MEDS: LACTATED RINGERS 1,000 ML IV SCH ×2 (10:35→14:55)
[2018-08-07 10:36] LABS: Glucose,Whole Blood 92 mg/dL (75-99)
[2018-08-07] MEDS ORDERED: LIDOCAINE 1% 20 ML VIAL (10MG/ML) FOR IV START INTRADERMA ONE (10:36)
[2018-08-07] MEDS ORDERED: MIDAZOLAM 2 MG/2 ML VIAL IVP ONE (10:50)
--- NOTE | 2018-08-07 11:06 | P.ONQ ---
Anesthesiology Proc Note - PNB - Peripheral Nerve Block Performed Right Other (see comment) Single Time Out Performed: Yes (pec1 and pec2 block) Procedure Start Time: 10:50 Procedure Stop Time: 10:56 Indication: Acute Post-Operative Pain, Requested by physician Sedation Type: Sedate with meaningful contact maintained Preparation: Sterile Prep Position: Supine Needle Size: 50mm (2") Needle Gauge: 21 Technique: Ultrasound Injectate: 0.5% Ropivacaine (see comment for volume) (ropi .5% 15cc each) Blood Aspirated: No Pain Paresthesia on Injection Noted: No Resistance on Injection: Normal Events: Uneventful and Well Tolerated
[2018-08-07] MEDS ORDERED: PROPOFOL 10 MG/ML 20 ML VIAL IV ONE (11:25)
[2018-08-07] MEDS ORDERED: LIDOCAINE 1% INJ 10MG/ML (20 ML MDV) ONE (11:25)
[2018-08-07] MEDS ORDERED: fentaNYL (PF) 50 MCG/ML 2 ML AMP ONE (11:25)
[2018-08-07] MEDS ORDERED: MIDAZOLAM 2 MG/2 ML VIAL ONE (11:25)
[2018-08-07] MEDS ORDERED: ROPIVACAINE 5 MG/ML 30 ML VIAL ONE (11:25)
[2018-08-07] MEDS ORDERED: ePHEDrine SULFATE/0.9% NACL/PF 50 MG/5 ML SYRINGE IV ONE (11:25)
[2018-08-07] MEDS ORDERED: SUCCINYLCHOLINE CHLORIDE 100 MG/5 ML SYR IV ONE (11:25)
[2018-08-07] MEDS ORDERED: SODIUM CHLORIDE 0.9% 50 ML with ceFAZolin 1,000 MG IV ONE ×2 (11:31)
[2018-08-07] MEDS ORDERED: HYDROmorphone 1 MG/ML 1 ML SYRINGE IVP PRN (13:13)
[2018-08-07] MEDS ORDERED: ONDANSETRON 4 MG/2 ML VIAL IVP PRN (13:17)
[2018-08-07] MEDS ORDERED: FAMOTIDINE 20 MG TAB PO SCH (13:30)
--- NOTE | 2018-08-07 13:51 | P.OP ---
Date of Procedure: 08/07/18 Preoperative Diagnosis: Infiltrating ductal carcinoma of the right breast upper outer quadrant) New Primary Postoperative Diagnosis: Infiltrating ductal carcinoma of the right breast Procedure(s) Performed: Modified right mastectomy Anesthesia: CINDY Surgeon: Solomon Rahman Estimated Blood Loss (ml): 20 Pathology: other (Right mastectomy) Condition: stable Disposition: PACU Indications for Procedure: The patient is a 78-year-old white female who underwent a right breast lumpectomy in the medial part of the right breast [place]illary [place] treatment. She developed a new mass in the upper outer quadrant of the right breast found on mammography and ultrasound about 3.9 cm in maximum diameter with a 0.7 oval lymph node in the axillary tail area. Ultrasound guided biopsy off the right breast mass revealed invasive ductal carcinoma grade 2 with focus of high-grade ductal carcinoma in situ with comedonecrosis. Hormonal studies revealed this to be triple negative. Core biopsy of the lymph node was negative for metastatic disease. Patient underwent the preoperative chemotherapy and now comes in for mastectomy. It was not planned to perform a sentinel lymph node biopsy since she already had a previous axillary node dissection and a core biopsy off a visible lymph node on ultrasound was negative and the fact that she already had some right upper extremity lymphedema. Patient was initially scheduled to have immediate reconstruction but changed her mind particularly that she was aware of the fact that there was increased risk for complications in view of previous radiation. Informed consent was obtained procedure having been explained to the patient including potential complication particular bleeding infection and prolonged serous drainage particularly that she's had previous radiation and increased risk for complications. She understood and agreed to proceed Operative Findings: Invasive ductal carcinoma of the right breast upper outer quadrant Description of Procedure: After induction of general endotracheal anesthesia the entire right chest and axilla and upper arm were prepped the DuraPrep in the usual fashion and draped. An oval-shaped incision was made transversely around the nipple areolar complex to include the previous scar in the medial part of the left breast from her lumpectomy. Upper and lower flaps were created in the usual fashion to the clavicle superiorly and the sternum medially and latissimus muscle laterally. The breast tissue was then dissected off the underlying pectoral muscles including the fascia starting medially the entire breast being removed. The lateral edge was marked with a long 2-0 nylon stitch and the superior edge with a short nylon stitch. The wound was thoroughly irrigated. There was no evidence of any palpable lymph nodes in the axilla. HemoStasis was good and the field was dry. 2 MARGARITA drains were then placed under each flap and brought out through separate stab incisions inferolaterally. Closure was then achieved with interrupted 4-0 Vicryl for the subcutaneous tissues which were approximated to the underlying muscle and the skin was closed with running 4-0 Monocryl subcuticular suture and Steri-Strips. Pressure dressing was applied. All counts were correct. Blood loss was minimal less than 20 mL's. The patient remained stable throughout the procedure.
[2018-08-07] MEDS: FUROSEMIDE 40 MG TAB PO SCH (16:56)
[2018-08-07] MEDS: traMADol 50 MG TAB PO SCH ×2 (18:19→21:51)
[2018-08-07] MEDS: D5-0.45% NACL WITH KCL 20MEQ/L 1,000 ML IV SCH (18:20)
[2018-08-07] MEDS ORDERED: ATORVASTATIN 20 MG TAB PO SCH (21:00)
--- NOTE | 2018-08-07 21:21 | P.CONS ---
History of Present Illness - History of Present Illness This is a pleasant 78 years old female with past medical history of diabetes mellitus, hypertension, hyperlipidemia, GERD, pneumonia, history of atrial fibrillation on xarelto, she has history of infiltrating ductal carcinoma of the right breast with recurrence,last chemotherapy was in May 2018. She is a patient of Dr. Molina. She is admitted to the hospital for elective surgery. Patient status post modified right mastectomy today 08/07/2018. We've been consulted for medical management. Patient lying in bed comfortable. She denies chest pain. No dyspnea. No change in urine or bowel habits. No nausea vomiting. No fever. No headache. Labs reviewed. On admission his blood tests look stable, however her heart rate was running in the low 50s. Patient is afebrile Review of Systems CONSTITUTIONAL: No fever, no malaise, no fatigue. HEENT: No recent visual problems or hearing problems. Denied any sore throat. CARDIOVASCULAR: No orthopnea, PND, no palpitations, no syncope. PULMONARY: No shortness of breath, no cough, no hemoptysis. GASTROINTESTINAL: No diarrhea, no nausea, no vomiting, no abdominal pain. Normoactive bowel sounds. NEUROLOGICAL: No headaches, no weakness, no numbness. HEMATOLOGICAL: Denies any bleeding or petechiae. GENITOURINARY: Denies any burning micturition, frequency, or urgency. MUSCULOSKELETAL/RHEUMATOLOGICAL: Denies any joint pain, swelling, or any muscle pain. ENDOCRINE: Denies any polyuria or polydipsia. Past Medical History Past Medical History: Atrial Fibrillation, Cancer, Diabetes Mellitus, GERD/ Reflux, Hyperlipidemia, Hypertension, Pneumonia Additional Past Medical History / Comment(s): rt Breast CA 1990 had lumpectomy/ lymph nodes removed, chemo/radiation. in reocurrance of cancer same (rt) breast-last chemo May 2018. History of Any Multi-Drug Resistant Organisms: None Reported Past Surgical History: Appendectomy, Back Surgery, Breast Surgery, Cholecystectomy, Hysterectomy, Tonsillectomy Additional Past Surgical History / Comment(s): Medi port lt chest, 1 upper dental implant, rt breast lumpectomy, lymph nodes removed, egd/colonoscopy/ polypectomt, cataracts-lens implants Past Anesthesia/Blood Transfusion Reactions: No Reported Reaction Additional Past Anesthesia/Blood Transfusion Reaction / Comm: no problems with prior blood transfusions Past Psychological History: No Psychological Hx Reported Additional Psychological History / Comment(s): pt lives with spouse. 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 has glucometer, 4 wheeled walker, bed rale, shower chair. when feeling well pt drives but since chemo pt's spouse takes to appts. Smoking Status: Former smoker Past Alcohol Use History: Occasional Additional Past Alcohol Use History / Comment(s): started smoking 1965 and quit 1975 smoked less than 1 ppd. Past Drug Use History: None Reported - Past Family History Mother Family Medical History: Cancer Additional Family Medical History / Comment(s): age 66 from colon cancer Father Family Medical History: CVA/TIA Additional Family Medical History / Comment(s): age 48 from a stroke Brother(s) Family Medical History: Cancer Additional Family Medical History / Comment(s): colon Medications and Allergies Home Medications Medication Instructions Recorded Confirmed Type Atorvastatin [Lipitor] 20 mg PO HS 01/26/18 08/07/18 History Cholecalciferol [Vitamin D3] 1,000 unit PO DAILY 04/30/18 08/07/18 History Multivitamins, Thera [Multivitamin 1 tab PO DAILY 04/30/18 08/07/18 History (formulary)] Iron 18 mg PO DAILY 05/09/18 08/07/18 History Ranitidine HCl [Zantac] 150 mg PO QAM 05/09/18 08/07/18 History Amiodarone [Cordarone] 200 mg PO BID #60 tab 05/13/18 08/07/18 Rx Rivaroxaban [Xarelto] 20 mg PO DAILY #30 tab 05/13/18 08/07/18 Rx Furosemide [Lasix] 20 mg PO BID #30 tablet 05/23/18 08/07/18 Rx Metoprolol Tartrate [Lopressor] 25 mg PO BID #60 tab 05/23/18 08/07/18 Rx HYDROcodone/APAP 5-325MG [[place] 1 tab PO HS PRN 08/02/18 08/07/18 History 5-325] Potassium Chloride [K-Tab ER] 20 meq PO DAILY 08/02/18 08/07/18 History Magnesium 250 mg PO BID 08/07/18 08/07/18 History Allergies Allergy/AdvReac Type Severity Reaction Status Date / Time No Known Allergies Allergy Verified 08/02/18 13:44 Physical Exam Vitals: Vital Signs Temp Pulse Pulse Pulse Resp BP BP 08/07/18 16:06 54 L 16 140/67 08/07/18 15:31 51 L 16 121/54 08/07/18 15:01 49 L 16 122/57 08/07/18 14:46 52 L 16 127/69 08/07/18 14:31 59 L 16 125/62 08/07/18 14:16 97.1 F L 55 L 12 129/49 08/07/18 13:53 54 L 16 149/67 08/07/18 13:38 57 L 16 149/67 08/07/18 13:23 55 L 16 168/74 08/07/18 13:08 97.2 F L 62 16 174/75 08/07/18 10:33 98.3 F 53 L 16 162/80 08/07/18 10:15 98.3 F 53 L 16 162/80 Pulse Ox 08/07/18 16:06 98 08/07/18 15:31 98 08/07/18 15:01 98 08/07/18 14:46 97 08/07/18 14:31 99 08/07/18 14:16 96 08/07/18 13:53 94 L 08/07/18 13:38 94 L 08/07/18 13:23 97 08/07/18 13:08 96 08/07/18 10:33 100 08/07/18 10:15 100 Intake and Output 08/07/18 08/07/18 08/07/18 06:59 14:59 22:59 Intake Total 900 Output Total 10 Balance 890 Intake: IV 900 Output: Estimated Blood Loss 10 GENERAL: The patient is alert and oriented x3, not in any acute distress. Well developed, well nourished. HEENT: Pupils are round and equally reacting to light. EOMI. No scleral icterus. No conjunctival pallor. Normocephalic, atraumatic. No pharyngeal erythema. No thyromegaly. CARDIOVASCULAR: S1 and S2 present. No murmurs, rubs, or gallops. PULMONARY: Chest is clear to auscultation, no wheezing or crackles. ABDOMEN: Soft, nontender, nondistended, normoactive bowel sounds. No palpable organomegaly. MUSCULOSKELETAL: No joint swelling or deformity. EXTREMITIES: No cyanosis, clubbing, or pedal edema. NEUROLOGICAL: Gross neurological examination did not reveal any focal deficits. SKIN: No rashes. Assessment and Plan Assessment: history of infiltrating ductal carcinoma of the right breast with recurrence Status post modified right mastectomy on 08/07/2018 diabetes mellitus hypertension hyperlipidemia GERD History of pneumonia history of atrial fibrillation on xarelto Plan: This is a pleasant 78 years old female who presents because of modified radical mastectomy for her U2. Continue same treatment. Continue symptomatic treatment. Recommend GI and DVT prophylaxis. DVT prophylaxis and pain management as per primary team. Further recommendations based on the clinical course of the patient Thank you for consulting us, please feel free to contact us for any further question or clarification.
[2018-08-07] MEDS: METOPROLOL TARTRATE 25 MG TAB PO SCH (21:52)
[2018-08-07] MEDS: AMIODARONE 200 MG TAB PO SCH (21:52)
[2018-08-08 02:34] VITALS: RESP 16
[2018-08-08] MEDS: AMIODARONE 200 MG TAB PO SCH (07:41)
[2018-08-08] MEDS: traMADol 50 MG TAB PO SCH ×2 (07:42→12:55)
[2018-08-08] MEDS: FUROSEMIDE 40 MG TAB PO SCH (07:44)
[2018-08-08] MEDS: D5-0.45% NACL WITH KCL 20MEQ/L 1,000 ML IV SCH (08:45)
[2018-08-08] MEDS ORDERED: FAMOTIDINE 20 MG TAB PO SCH (09:00)
[2018-08-08] MEDS ORDERED: FERROUS SULFATE 325 MG TAB PO SCH (09:00)
[2018-08-08] MEDS ORDERED: CHOLECALCIFEROL 1,000 UNIT TAB PO SCH (09:00)
[2018-08-08] MEDS ORDERED: RIVAROXABAN 20 MG TAB PO SCH (09:00)
[2018-08-08] MEDS ORDERED: MULTIVITAMINS, THERA 1 EACH TAB PO SCH (09:00)
[2018-08-08] MEDS: METOPROLOL TARTRATE 25 MG TAB PO SCH (09:59)
--- NOTE | 2018-08-08 10:34 | P.PN ---
Subjective This is a pleasant 78 years old female with past medical history of diabetes mellitus, hypertension, hyperlipidemia, GERD, pneumonia, history of atrial fibrillation on xarelto, she has history of infiltrating ductal carcinoma of the right breast with recurrence,last chemotherapy was in May 2018. She is a patient of Dr. Molina. She is admitted to the hospital for elective surgery. Patient status post modified right mastectomy today 08/07/2018. We've been consulted for medical management. Patient lying in bed comfortable. She denies chest pain. No dyspnea. No change in urine or bowel habits. No nausea vomiting. No fever. No headache. Labs reviewed. On admission his blood tests look stable, however her heart rate was running in the low 50s. Patient is afebrile 08/08/2018 Patient seen and examined by me at bedside. Patient was lying in bed comfortable. Not in distress. Patient denies chest pain. No dyspnea. No nausea vomiting. No abdominal pain. No change in her bowel habits or fever. Patient looks controlled at the surgical site. No dizziness. Patient was able to move and walking the hallway today without problem as she was still in me. Blood pressur 97/55, heart rate 57. Objective - Vital Signs Vital signs: Vital Signs Temp 98.8 F 08/08/18 07:48 Pulse 57 L 08/08/18 08:00 Resp 16 08/08/18 08:00 BP 97/55 08/08/18 07:48 Pulse Ox 96 08/08/18 07:48 Intake & Output 08/07/18 08/08/18 08/08/18 18:59 06:59 18:59 Intake Total 900 Output Total 425 266 150 Balance 475 -266 -150 Intake: IV 900 Output: Drainage 15 16 Right Anterior Lateral 1 10 8 Right Anterior Medial 2 5 8 Urine 400 250 150 Estimated Blood Loss 10 Other: # Voids 1 - Exam GENERAL: The patient is alert and oriented x3, not in any acute distress. Well developed, well nourished. HEENT: Pupils are round and equally reacting to light. EOMI. No scleral icterus. No conjunctival pallor. Normocephalic, atraumatic. No pharyngeal erythema. No thyromegaly. CARDIOVASCULAR: S1 and S2 present. No murmurs, rubs, or gallops. PULMONARY: Chest is clear to auscultation, no wheezing or crackles. Patient's surgical wound looks close in the right breast area. No discharge. Further examination is deferred to the surgical team. ABDOMEN: Soft, nontender, nondistended, normoactive bowel sounds. No palpable organomegaly. MUSCULOSKELETAL: No joint swelling or deformity. EXTREMITIES: No cyanosis, clubbing, or pedal edema. NEUROLOGICAL: Gross neurological examination did not reveal any focal deficits. SKIN: No rashes. Assessment and Plan Assessment: history of infiltrating ductal carcinoma of the right breast with recurrence Status post modified right mastectomy on 08/07/2018 diabetes mellitus hypertension hyperlipidemia GERD History of pneumonia history of atrial fibrillation on xarelto Plan: This is a pleasant 78 years old female who presents because of modified radical mastectomy for her U2. Continue same treatment. Continue symptomatic treatment. Recommend GI and DVT prophylaxis. DVT prophylaxis and pain management as per primary team. Further recommendations based on the clinical course of the patient Thank you for consulting us, please feel free to contact us for any further question or clarification.
--- NOTE | 2018-08-08 11:53 | P.PN ---
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 Coming along very well. She is awake alert oriented. She is ambulating. No nausea or vomiting or dizziness. Tolerated diet well. She is in no distress. Has had minimal discomfort not having had any analgesia for the last 12 hours or so. On examination the patient is awake alert vitals are stable temperature is normal. MARGARITA output. The from both drains is not excessive. Incision looks great with no evidence of any complication. Impression stable postoperative course. Recommendation patient can be discharged from a surgical standpoint. We'll have her monitor the drain output the every 12 hours at home. To remove the dressing in 2 days. May shower in 2 days. Follow up to the office in about 5 days. Objective - Vital Signs Vital signs: Vital Signs Temp 98.8 F 08/08/18 07:48 Pulse 57 L 08/08/18 08:00 Resp 16 08/08/18 08:00 BP 97/55 08/08/18 07:48 Pulse Ox 96 08/08/18 07:48 Intake & Output 08/07/18 08/08/18 08/08/18 18:59 06:59 18:59 Intake Total 900 Output Total 425 266 150 Balance 475 -266 -150 Intake: IV 900 Output: Drainage 15 16 Right Anterior Lateral 1 10 8 Right Anterior Medial 2 5 8 Urine 400 250 150 Estimated Blood Loss 10 Other: # Voids 1
--- NOTE | 2018-08-08 11:58 | P.DS ---
Providers Date of admission: 08/07/18 09:54 Attending physician: Solomon Rahman Consults: 08/07/18 13:16 Consult Physician Routine Consulting Provider: Mani Redmond Consult Reason/Comments: medical mx Do you want consulting provider notified?: Yes Primary care physician: Omkar Gotti Plan - Discharge Summary Discharge Rx Participant: No New Discharge Prescriptions: No Action Atorvastatin [Lipitor] 20 mg PO HS Multivitamins, Thera [Multivitamin (formulary)] 1 tab PO DAILY Cholecalciferol [Vitamin D3] 1,000 unit PO DAILY Ranitidine HCl [Zantac] 150 mg PO QAM Iron 18 mg PO DAILY Amiodarone [Cordarone] 200 mg PO BID #60 tab Rivaroxaban [Xarelto] 20 mg PO DAILY #30 tab Furosemide [Lasix] 20 mg PO BID #30 tablet Metoprolol Tartrate [Lopressor] 25 mg PO BID #60 tab HYDROcodone/APAP 5-325MG [[place] 5-325] 1 tab PO HS PRN PRN Reason: Pain Potassium Chloride [K-Tab ER] 20 meq PO DAILY Magnesium 250 mg PO BID Discharge Medication List Atorvastatin [Lipitor] 20 mg PO HS 01/26/18 [History] Cholecalciferol [Vitamin D3] 1,000 unit PO DAILY 04/30/18 [History] Multivitamins, Thera [Multivitamin (formulary)] 1 tab PO DAILY 04/30/18 [History ] Iron 18 mg PO DAILY 05/09/18 [History] Ranitidine HCl [Zantac] 150 mg PO QAM 05/09/18 [History] Amiodarone [Cordarone] 200 mg PO BID #60 tab 05/13/18 [Rx] Rivaroxaban [Xarelto] 20 mg PO DAILY #30 tab 05/13/18 [Rx] Furosemide [Lasix] 20 mg PO BID #30 tablet 05/23/18 [Rx] Metoprolol Tartrate [Lopressor] 25 mg PO BID #60 tab 05/23/18 [Rx] HYDROcodone/APAP 5-325MG [[place] 5-325] 1 tab PO HS PRN 08/02/18 [History] Potassium Chloride [K-Tab ER] 20 meq PO DAILY 08/02/18 [History] Magnesium 250 mg PO BID 08/07/18 [History] Follow up Appointment(s)/Referral(s): Omkar Gotti MD [Primary Care Provider] - 1 Week Solomon Rahman MD [STAFF PHYSICIAN] - 08/13/18 Patient Instructions/Handouts: Mastectomy (DC) Activity/Diet/Wound Care/Special Instructions: Record output per drains about every 12 hours. Change the dressings on 08/10/2018 and May shower on Monday. Resume home meds. Ambulate 4-5 times a day.
[2018-08-08 12:43] VITALS: PULSE 63; TEMP 98.6
[2018-08-08 12:44] VITALS: BP 96/62
== END 2018-08-08 14:20 | disposition home health service (06) | DRG 583 ==
LOC: 2ORMAIN 09:54 → 6PED 13:18
PROVIDERS: ADMIT Surgery; ATTEND Surgery
PROC: 0HTT0ZZ Resection of Right Breast, Open Approach (ICD-10-PCS; principal; 2018-08-07 11:30)
DX: C50.411 Malignant neoplasm of upper-outer quadrant of right female breast (principal); E11.9 Type 2 diabetes mellitus without complications; E78.5 Hyperlipidemia, unspecified; I10 Essential (primary) hypertension; I48.91 Unspecified atrial fibrillation; K21.9 Gastro-esophageal reflux disease without esophagitis; I89.0 Lymphedema, not elsewhere classified; D50.9 Iron deficiency anemia, unspecified; Z79.01 Long term (current) use of anticoagulants; Z79.899 Other long term (current) drug therapy; Z87.01 Personal history of pneumonia (recurrent); Z87.891 Personal history of nicotine dependence; Z90.710 Acquired absence of both cervix and uterus; Z92.3 Personal history of irradiation; Z85.3 Personal history of malignant neoplasm of breast; Z86.010 Personal history of colon polyps; Z92.21 Personal history of antineoplastic chemotherapy; Z90.49 Acquired absence of other specified parts of digestive tract; Z98.42 Cataract extraction status, left eye; Z98.41 Cataract extraction status, right eye; Z96.1 Presence of intraocular lens; Z80.0 Family history of malignant neoplasm of digestive organs; Z82.3 Family history of stroke
CPT/HCPCS: 88307

== ENCOUNTER 2018-08-12 14:56 | Emergency (ER) | payer MEDICARE ==
[2018-08-12 15:01] VITALS: RESP 18
[2018-08-12] MEDS ORDERED: SODIUM CHLORIDE 0.9% 500 ML 500 ML IV STA (15:13)
[2018-08-12] MEDS ORDERED: SODIUM CHLORIDE 0.9% 1,000 ML IV STA ×2 (15:13)
[2018-08-12] MEDS ORDERED: GLYCERIN ADULT SUPPOSITORY 1 EACH RECTAL STA (15:13)
[2018-08-12] MEDS ORDERED: SENNOSIDES-DOCUSATE SODIUM 1 EACH TAB PO STA (15:13)
--- NOTE | 2018-08-12 15:15 | ED ---
Abdominal Pain HPI - General Chief Complaint: Abdominal Pain Stated Complaint: constipation Time Seen by Provider: 08/12/18 15:02 Source: patient, RN notes reviewed, old records reviewed Mode of arrival: ambulatory Limitations: no limitations - History of Present Illness Initial Comments: This is a 78-year-old female the ER for evaluation per patient does say for evaluation regarding abdominal pain constipation. Patient does have history of constipation has recently been on pain medication. States he is been mildly diminished, but no bowel movement for a few days now. She feels like she does have to the bathroom. Denies any abdominal pain. Patient states that she recently had a mastectomy events with her symptoms all began. MD Complaint: abdominal pain (No pain, patient feels urged to use the bathroom) , other (Constipation) Severity scale (1-10): 5 Improves With: nothing Worsens With: nothing Associated Symptoms: constipation Treatments Prior to Arrival: prescription analgesics - Related Data Home Medications Medication Instructions Recorded Confirmed Atorvastatin [Lipitor] 20 mg PO HS 01/26/18 08/07/18 Cholecalciferol [Vitamin D3] 1,000 unit PO DAILY 04/30/18 08/07/18 Multivitamins, Thera [Multivitamin 1 tab PO DAILY 04/30/18 08/07/18 (formulary)] Iron 18 mg PO DAILY 05/09/18 08/07/18 Ranitidine HCl [Zantac] 150 mg PO QAM 05/09/18 08/07/18 HYDROcodone/APAP 5-325MG [[place] 1 tab PO HS PRN 08/02/18 08/07/18 5-325] Potassium Chloride [K-Tab ER] 20 meq PO DAILY 08/02/18 08/07/18 Magnesium 250 mg PO BID 08/07/18 08/07/18 Previous Rx's Medication Instructions Recorded Amiodarone [Cordarone] 200 mg PO BID #60 tab 05/13/18 Rivaroxaban [Xarelto] 20 mg PO DAILY #30 tab 05/13/18 Furosemide [Lasix] 20 mg PO BID #30 tablet 05/23/18 Metoprolol Tartrate [Lopressor] 25 mg PO BID #60 tab 05/23/18 Allergies Allergy/AdvReac Type Severity Reaction Status Date / Time No Known Allergies Allergy Verified 08/12/18 15:01 Review of Systems ROS Statement: Those systems with pertinent positive or pertinent negative responses have been documented in the HPI. ROS Other: All systems not noted in ROS Statement are negative. Past Medical History Past Medical History: Atrial Fibrillation, Cancer, Diabetes Mellitus, GERD/ Reflux, Hyperlipidemia, Hypertension, Pneumonia Additional Past Medical History / Comment(s): rt Breast CA 1990 had lumpectomy/ lymph nodes removed, chemo/radiation. in reocurrance of cancer same (rt) breast-last chemo May 2018. History of Any Multi-Drug Resistant Organisms: None Reported Past Surgical History: Appendectomy, Back Surgery, Breast Surgery, Cholecystectomy, Hysterectomy, Tonsillectomy Additional Past Surgical History / Comment(s): Medi port lt chest, 1 upper dental implant, rt breast lumpectomy, lymph nodes removed, egd/colonoscopy/ polypectomt, cataracts-lens implants, masectomy 08/07/2018 Past Anesthesia/Blood Transfusion Reactions: No Reported Reaction Additional Past Anesthesia/Blood Transfusion Reaction / Comment(s): no problems with prior blood transfusions Past Psychological History: No Psychological Hx Reported Smoking Status: Former smoker Past Alcohol Use History: Occasional Past Drug Use History: None Reported - Past Family History Mother Family Medical History: Cancer Additional Family Medical History / Comment(s): age 66 from colon cancer Father Family Medical History: CVA/TIA Additional Family Medical History / Comment(s): age 48 from a stroke Brother(s) Family Medical History: Cancer Additional Family Medical History / Comment(s): colon General Exam Limitations: no limitations General appearance: alert, in no apparent distress Head exam: Present: atraumatic, normocephalic, normal inspection Eye exam: Present: normal appearance, PERRL, EOMI. Absent: scleral icterus, conjunctival injection, periorbital swelling ENT exam: Present: normal exam, mucous membranes moist Neck exam: Present: normal inspection. Absent: tenderness, meningismus, lymphadenopathy Respiratory exam: Present: normal lung sounds bilaterally. Absent: respiratory distress, wheezes, rales, rhonchi, stridor Cardiovascular Exam: Present: regular rate, normal rhythm, normal heart sounds. Absent: systolic murmur, diastolic murmur, rubs, gallop, clicks GI/Abdominal exam: Present: soft, normal bowel sounds. Absent: distended, tenderness, guarding, rebound, rigid Extremities exam: Present: normal inspection, full ROM, normal capillary refill. Absent: tenderness, pedal edema, joint swelling, calf tenderness Back exam: Present: normal inspection Neurological exam: Present: alert, oriented X3, CN II-XII intact Psychiatric exam: Present: normal affect, normal mood Skin exam: Present: warm, dry, intact, normal color. Absent: rash Course Vital Signs 08/12/18 14:58 Temperature 97.6 F Pulse Rate 64 Respiratory 18 Rate Blood Pressure 134/77 O2 Sat by Pulse 98 Oximetry - Reevaluation(s) Reevaluation #1: 08/12/18 17:48 Medical record is reviewed Reevaluation #2: 08/12/18 17:48 Patient given medication do this is a bowel movement Medical Decision Making - Medical Decision Making 78 female the ER for evaluation of postprocedural constipation, patient given enema bowel regimen here in the emergency room, patient continue to follow-up with primary care as directed for further resolution of symptoms - Lab Data Result diagrams: 08/12/18 14:50 08/12/18 14:50 Lab Results 08/12/18 08/12/18 08/12/18 Range/Units 14:50 14:50 14:50 WBC 9.4 (3.8-10.6) k/uL RBC 3.73 L (3.80-5.40) m/uL Hgb 11.6 (11.4-16.0) gm/dL Hct 34.4 (34.0-46.0) % MCV 92.3 D (80.0-100.0) fL MCH 31.0 (25.0-35.0) pg MCHC 33.6 (31.0-37.0) g/dL RDW 15.9 H (11.5-15.5) % Plt Count 192 (150-450) k/uL Neutrophils % 83 % Lymphocytes % 7 % Monocytes % 7 % Eosinophils % 1 % Basophils % 0 % Neutrophils # 7.8 H (1.3-7.7) k/uL Lymphocytes # 0.7 L (1.0-4.8) k/uL Monocytes # 0.6 (0-1.0) k/uL Eosinophils # 0.1 (0-0.7) k/uL Basophils # 0.0 (0-0.2) k/uL Sodium 138 (137-145) mmol/L Potassium 3.8 (3.5-5.1) mmol/L Chloride 100 (98-107) mmol/L Carbon Dioxide 30 (22-30) mmol/L Anion Gap 8 mmol/L BUN 15 (7-17) mg/dL Creatinine 0.88 (0.52-1.04) mg/dL Est GFR (CKD-EPI)AfAm 74 (>60 ml/min/1.73 sqM) Est GFR (CKD-EPI)NonAf 64 (>60 ml/min/1.73 sqM) Glucose 118 H (74-99) mg/dL Calcium 9.5 (8.4-10.2) mg/dL Phosphorus 3.4 (2.5-4.5) mg/dL Magnesium 1.8 (1.6-2.3) mg/dL Total Bilirubin 0.6 (0.2-1.3) mg/dL AST 21 (14-36) U/L ALT 29 (9-52) U/L Alkaline Phosphatase 61 (38-126) U/L Total Creatine Kinase <20 L (30-135) U/L CK-MB (CK-2) 0.3 (0.0-2.4) ng/mL CK-MB (CK-2) Rel Index Total Protein 6.5 (6.3-8.2) g/dL Albumin 3.7 (3.5-5.0) g/dL Urine Color Urine Appearance (Clear) Urine pH (5.0-8.0) Ur Specific [place] (1.001-1.035) Urine Protein (Negative) Urine Glucose (UA) (Negative) Urine Ketones (Negative) Urine Blood (Negative) Urine Nitrite (Negative) Urine Bilirubin (Negative) Urine Urobilinogen (<2.0) mg/dL Ur Leukocyte Esterase (Negative) Urine RBC (0-5) /hpf Urine WBC (0-5) /hpf Ur Squamous Epith Cells (0-4) /hpf Amorphous Sediment (None) /hpf Urine Mucus (None) /hpf 08/12/18 Range/Units 16:49 WBC (3.8-10.6) k/uL RBC (3.80-5.40) m/uL Hgb (11.4-16.0) gm/dL Hct (34.0-46.0) % MCV (80.0-100.0) fL MCH (25.0-35.0) pg MCHC (31.0-37.0) g/dL RDW (11.5-15.5) % Plt Count (150-450) k/uL Neutrophils % % Lymphocytes % % Monocytes % % Eosinophils % % Basophils % % Neutrophils # (1.3-7.7) k/uL Lymphocytes # (1.0-4.8) k/uL Monocytes # (0-1.0) k/uL Eosinophils # (0-0.7) k/uL Basophils # (0-0.2) k/uL Sodium (137-145) mmol/L Potassium (3.5-5.1) mmol/L Chloride (98-107) mmol/L Carbon Dioxide (22-30) mmol/L Anion Gap mmol/L BUN (7-17) mg/dL Creatinine (0.52-1.04) mg/dL Est GFR (CKD-EPI)AfAm (>60 ml/min/1.73 sqM) Est GFR (CKD-EPI)NonAf (>60 ml/min/1.73 sqM) Glucose (74-99) mg/dL Calcium (8.4-10.2) mg/dL Phosphorus (2.5-4.5) mg/dL Magnesium (1.6-2.3) mg/dL Total Bilirubin (0.2-1.3) mg/dL AST (14-36) U/L ALT (9-52) U/L Alkaline Phosphatase (38-126) U/L Total Creatine Kinase (30-135) U/L CK-MB (CK-2) (0.0-2.4) ng/mL CK-MB (CK-2) Rel Index Total Protein (6.3-8.2) g/dL Albumin (3.5-5.0) g/dL Urine Color Yellow Urine Appearance Cloudy H (Clear) Urine pH 8.0 (5.0-8.0) Ur Specific [place] 1.007 (1.001-1.035) Urine Protein 2+ H (Negative) Urine Glucose (UA) Negative (Negative) Urine Ketones Negative (Negative) Urine Blood Small H (Negative) Urine Nitrite Negative (Negative) Urine Bilirubin Negative (Negative) Urine Urobilinogen <2.0 (<2.0) mg/dL Ur Leukocyte Esterase Large H (Negative) Urine RBC 21 H (0-5) /hpf Urine WBC >182 H (0-5) /hpf Ur Squamous Epith Cells 2 (0-4) /hpf Amorphous Sediment Rare H (None) /hpf Urine Mucus Rare H (None) /hpf - EKG Data -: EKG Interpreted by Me (EKG shows sinus bradycardia rate of 59, SC 194, QRS 120, QTC 49) EKG shows normal: sinus rhythm Rate: bradycardia - Radiology Data Radiology results: report reviewed (X-ray abdominal series is negative for acute disease), image reviewed Disposition Clinical Impression: Abdominal pain, Abdominal colic, Constipation Disposition: HOME SELF-CARE Instructions: Abdominal Pain (ED) Is patient prescribed a controlled substance at d/c from ED?: No Referrals: Omkar Gotti MD [Primary Care Provider] - 1-2 days
[2018-08-12 15:57] LABS: Basophils % (A) 0 %; Eosinophils # (A) 0.1 k/uL (0-0.7); Eosinophils % (A) 1 %; HCT 34.4 % (34.0-46.0); HGB 11.6 gm/dL (11.4-16.0); Lymphocytes # (A) 0.7 k/uL (1.0-4.8); Lymphocytes % (A) 7 %; MCHC 33.6 g/dL (31.0-37.0); Mean Platelet Volume 7.5; Monocytes # (A) 0.6 k/uL (0-1.0); Monocytes % (A) 7 %; Neutrophils # (A) 7.8 k/uL (1.3-7.7); Neutrophils % (A) 83 %; Platelet Count 192 k/uL (150-450); RBC 3.73 m/uL (3.80-5.40); RDW 15.9 % (11.5-15.5); WBC 9.4 k/uL (3.8-10.6)
[2018-08-12 15:59] LABS: MCV 92.3 fL (80.0-100.0)
[2018-08-12 16:07] LABS: Albumin 3.7 g/dL (3.5-5.0); Calcium 9.5 mg/dL (8.4-10.2); Magnesium 1.8 mg/dL (1.6-2.3); Phosphorus 3.4 mg/dL (2.5-4.5); Potassium 3.8 mmol/L (3.5-5.1); Total Bilirubin 0.6 mg/dL (0.2-1.3); Total Protein 6.5 g/dL (6.3-8.2)
[2018-08-12 16:10] LABS: Creatine Kinase <20 U/L (30-135)
[2018-08-12 16:20] LABS: Creatine Kinase MB 0.3 ng/mL (0.0-2.4)
--- NOTE | 2018-08-12 16:21 | XR ---
EXAMINATION TYPE: XR abdomen acute w cxr DATE OF EXAM: 08/12/2018 COMPARISON: Chest x-ray 05/16/2018 HISTORY: Chest pain abdominal pain TECHNIQUE: Chest x-ray with supine and upright abdomen FINDINGS: There is no heart failure nor confluent pneumonic infiltrate. There is left-sided central venous cath eter with tip in the superior vena cava. There are numerous surgical clips over the right axilla. [place] gas pattern is normal. There is no sign of intestinal obstruction or pneumoperitoneum. Fecal patte rn is normal. There is mild lumbar dextroscoliosis. There are no pathologic calcifications over the k idneys. There is no evidence of a mass. IMPRESSION: No active cardiopulmonary disease. There is clearing of some pleural fluid and reaction at the right lung base compared to old exam. Nonacute abdomen.
[2018-08-12 17:03] LABS: Amorphous Sediment,Urine Rare /hpf; Appearance,Urine Cloudy (Clear); Bilirubin,Urine Negative (Negative); Blood,Urine Small (Negative); Color,Urine Yellow; Glucose,Urine (UA) Negative (Negative); Ketones,Urine Negative (Negative); Leukocyte Esterase,Urine Large (Negative); Mucus,Urine Rare /hpf; Nitrite,Urine Negative (Negative); Protein,Urine 2+ (Negative); RBC,Urine 21 /hpf (0-5); Specific Gravity,Urine 1.007 (1.001-1.035); Squamous Epithelial Cell,Urine 2 /hpf (0-4); Urobilinogen,Urine <2.0 mg/dL (<2.0); WBC,Urine >182 /hpf (0-5)
[2018-08-12] MEDS ORDERED: cefTRIAXone 2,000 MG in SODIUM CHLORIDE 0.9% 100 ML IVPB STA (17:42)
[2018-08-12 19:16] VITALS: BP 155/76; PULSE 63; TEMP 97.7
== END 2018-08-12 20:13 | disposition home or self-care (01) ==
LOC: EC 14:56
DX: K59.00 Constipation, unspecified (principal); K21.9 Gastro-esophageal reflux disease without esophagitis; E78.5 Hyperlipidemia, unspecified; Z85.3 Personal history of malignant neoplasm of breast; Z92.21 Personal history of antineoplastic chemotherapy; Z90.49 Acquired absence of other specified parts of digestive tract; Z90.710 Acquired absence of both cervix and uterus; Z87.891 Personal history of nicotine dependence; Z79.899 Other long term (current) drug therapy
CPT/HCPCS: 99284; 96365; 96361 ×3; 36415; 93005; 80053; 82550; 82553; 83735; 84100; 85025; 81001; 87086; 74022; J0696

== ENCOUNTER 2018-11-04 12:53 | Inpatient (IN) | payer MEDICARE ==
[2018-11-04] MEDS ORDERED: SODIUM CHLORIDE 0.9% 1,000 ML IV STA ×2 (12:56)
[2018-11-04] MEDS ORDERED: ONDANSETRON 4 MG/2 ML VIAL IVP STA ×2 (12:56→15:54)
--- NOTE | 2018-11-04 13:08 | ED ---
Abdominal Pain HPI - General Stated Complaint: Nausea, vomiting Time Seen by Provider: 11/04/18 12:53 Source: patient, EMS, RN notes reviewed, old records reviewed Mode of arrival: EMS - History of Present Illness Initial Comments: This is a 78-year-old female history of breast cancer with right mastectomy who is currently receiving oral chemotherapy who states she quit taking it 3 days ago she's had 3 or 4 days of nausea vomiting decreased oral intake and no diarrhea. She also states she has some nonspecific mid abdominal pain is mild- to-moderate in severity at times. No dysuria no hematuria no fevers chills or sweats she does feel lightheaded when she sits up or stands up. She states she has had problems in the past with dehydration when she was on standard chemotherapy. MD Complaint: abdominal pain, other - Related Data Home Medications Medication Instructions Recorded Confirmed Atorvastatin [Lipitor] 20 mg PO HS 01/26/18 11/04/18 Potassium Chloride [K-Tab ER] 20 meq PO DAILY 08/02/18 11/04/18 Ferrous Sulfate [Feosol] 325 mg PO DAILY 11/04/18 11/04/18 Furosemide [Lasix] 40 mg PO DAILY 11/04/18 11/04/18 Magnesium 400 mg PO DAILY 11/04/18 11/04/18 Metoprolol Tartrate 25 mg PO BID 11/04/18 11/04/18 Previous Rx's Medication Instructions Recorded Amiodarone [Cordarone] 200 mg PO BID #60 tab 05/13/18 Rivaroxaban [Xarelto] 20 mg PO DAILY #30 tab 05/13/18 Allergies Allergy/AdvReac Type Severity Reaction Status Date / Time No Known Allergies Allergy Verified 11/04/18 13:23 Review of Systems ROS Statement: Those systems with pertinent positive or pertinent negative responses have been documented in the HPI. ROS Other: All systems not noted in ROS Statement are negative. Past Medical History Past Medical History: Atrial Fibrillation, Cancer, Diabetes Mellitus, GERD/ Reflux, Hyperlipidemia, Hypertension, Pneumonia Additional Past Medical History / Comment(s): rt Breast CA 1990 had lumpectomy/ lymph nodes removed, chemo/radiation. in reocurrance of cancer same (rt) breast-last chemo May 2018. History of Any Multi-Drug Resistant Organisms: None Reported Past Surgical History: Appendectomy, Back Surgery, Breast Surgery, Cholecystectomy, Hysterectomy, Tonsillectomy Additional Past Surgical History / Comment(s): Medi port lt chest, 1 upper dental implant, rt breast lumpectomy, lymph nodes removed, egd/colonoscopy/ polypectomt, cataracts-lens implants, masectomy 08/07/2018 Past Anesthesia/Blood Transfusion Reactions: No Reported Reaction Additional Past Anesthesia/Blood Transfusion Reaction / Comment(s): no problems with prior blood transfusions Past Psychological History: No Psychological Hx Reported Smoking Status: Former smoker Past Alcohol Use History: Occasional Past Drug Use History: None Reported - Past Family History Mother Family Medical History: Cancer Additional Family Medical History / Comment(s): age 66 from colon cancer Father Family Medical History: CVA/TIA Additional Family Medical History / Comment(s): age 48 from a stroke Brother(s) Family Medical History: Cancer Additional Family Medical History / Comment(s): colon General Exam - General Exam Comments Initial Comments: This is a well-developed well-nourished awake alert oriented 3 female General appearance: alert, in no apparent distress Head exam: Present: atraumatic, normocephalic, normal inspection Eye exam: Present: normal appearance, PERRL, EOMI. Absent: scleral icterus, conjunctival injection, periorbital swelling ENT exam: Present: mucous membranes dry Neck exam: Present: normal inspection, full ROM. Absent: tenderness, meningismus, lymphadenopathy Respiratory exam: Present: normal lung sounds bilaterally. Absent: respiratory distress, wheezes, rales, rhonchi, stridor Cardiovascular Exam: Present: regular rate, normal rhythm, normal heart sounds. Absent: systolic murmur, diastolic murmur, rubs, gallop, clicks GI/Abdominal exam: Present: soft, normal bowel sounds. Absent: distended, tenderness, guarding, rebound, rigid, bruit, pulsatile mass Extremities exam: Present: normal inspection, full ROM, normal capillary refill. Absent: tenderness, pedal edema, joint swelling, calf tenderness Back exam: Present: normal inspection Neurological exam: Present: alert, oriented X3, CN II-XII intact Psychiatric exam: Present: normal affect, normal mood Skin exam: Present: warm, dry, intact, normal color. Absent: rash Course Vital Signs 11/04/18 11/04/18 11/04/18 13:06 13:49 14:11 Temperature 98.3 F Pulse Rate 61 61 62 Respiratory 18 16 16 Rate Blood Pressure 160/62 114/46 130/47 O2 Sat by Pulse 100 98 100 Oximetry 11/04/18 11/04/18 14:35 15:35 Temperature Pulse Rate 62 61 Respiratory 16 14 Rate Blood Pressure 117/40 114/67 O2 Sat by Pulse 99 100 Oximetry Medical Decision Making - Medical Decision Making Patient still feeling nauseated. He did have a discussion regarding the findings he does present with evidence of an ileus with gastroenteritis. Also dehydration. Also hypokalemia with low normal magnesium. I did discuss case with Dr. Bowling patient will be admitted for IV hydration and further evaluation - Lab Data Result diagrams: 11/04/18 13:30 11/04/18 13:30 Lab Results 11/04/18 11/04/18 11/04/18 Range/Units 13:30 13:30 13:30 WBC 5.9 (3.8-10.6) k/uL RBC 3.33 L (3.80-5.40) m/uL Hgb 11.2 L (11.4-16.0) gm/dL Hct 31.8 L (34.0-46.0) % MCV 95.5 (80.0-100.0) fL MCH 33.7 (25.0-35.0) pg MCHC 35.3 (31.0-37.0) g/dL RDW 15.3 (11.5-15.5) % Plt Count 153 (150-450) k/uL Neutrophils % 81 % Lymphocytes % 8 % Monocytes % 5 % Eosinophils % 4 % Basophils % 0 % Neutrophils # 4.8 (1.3-7.7) k/uL Lymphocytes # 0.5 L (1.0-4.8) k/uL Monocytes # 0.3 (0-1.0) k/uL Eosinophils # 0.3 (0-0.7) k/uL Basophils # 0.0 (0-0.2) k/uL Sodium 136 L (137-145) mmol/L Potassium 3.2 L (3.5-5.1) mmol/L Chloride 103 (98-107) mmol/L Carbon Dioxide 27 (22-30) mmol/L Anion Gap 6 mmol/L BUN 25 H (7-17) mg/dL Creatinine 1.06 H (0.52-1.04) mg/dL Est GFR (CKD-EPI)AfAm 59 (>60 ml/min/1.73 sqM) Est GFR (CKD-EPI)NonAf 51 (>60 ml/min/1.73 sqM) Glucose 122 H (74-99) mg/dL Calcium 9.0 (8.4-10.2) mg/dL Magnesium (1.6-2.3) mg/dL Total Bilirubin 0.7 (0.2-1.3) mg/dL AST 18 (14-36) U/L ALT 33 (9-52) U/L Alkaline Phosphatase 52 (38-126) U/L Total Creatine Kinase 46 (30-135) U/L CK-MB (CK-2) 0.6 (0.0-2.4) ng/mL CK-MB (CK-2) Rel Index 1.3 Troponin I 0.013 (0.000-0.034) ng/mL Total Protein 5.8 L (6.3-8.2) g/dL Albumin 3.6 (3.5-5.0) g/dL Amylase 51 (30-110) U/L Lipase 243 (23-300) U/L 11/04/18 Range/Units 13:30 WBC (3.8-10.6) k/uL RBC (3.80-5.40) m/uL Hgb (11.4-16.0) gm/dL Hct (34.0-46.0) % MCV (80.0-100.0) fL MCH (25.0-35.0) pg MCHC (31.0-37.0) g/dL RDW (11.5-15.5) % Plt Count (150-450) k/uL Neutrophils % % Lymphocytes % % Monocytes % % Eosinophils % % Basophils % % Neutrophils # (1.3-7.7) k/uL Lymphocytes # (1.0-4.8) k/uL Monocytes # (0-1.0) k/uL Eosinophils # (0-0.7) k/uL Basophils # (0-0.2) k/uL Sodium (137-145) mmol/L Potassium (3.5-5.1) mmol/L Chloride (98-107) mmol/L Carbon Dioxide (22-30) mmol/L Anion Gap mmol/L BUN (7-17) mg/dL Creatinine (0.52-1.04) mg/dL Est GFR (CKD-EPI)AfAm (>60 ml/min/1.73 sqM) Est GFR (CKD-EPI)NonAf (>60 ml/min/1.73 sqM) Glucose (74-99) mg/dL Calcium (8.4-10.2) mg/dL Magnesium 1.7 (1.6-2.3) mg/dL Total Bilirubin (0.2-1.3) mg/dL AST (14-36) U/L ALT (9-52) U/L Alkaline Phosphatase (38-126) U/L Total Creatine Kinase (30-135) U/L CK-MB (CK-2) (0.0-2.4) ng/mL CK-MB (CK-2) Rel Index Troponin I (0.000-0.034) ng/mL Total Protein (6.3-8.2) g/dL Albumin (3.5-5.0) g/dL Amylase (30-110) U/L Lipase (23-300) U/L - EKG Data -: EKG Interpreted by Nd EKG shows normal: sinus rhythm (Sinus rhythm with 61 appear interval 190 QRS duration 148 daily since QTC 40/43 left exodeviation right bundle-branch block no definite acute changes.) - Radiology Data Radiology results: report reviewed (I did review the imaging and report is evidence of an ileus.), image reviewed Disposition Clinical Impression: Dehydration, Gastroenteritis, Ileus, Hypokalemia Disposition: ADMITTED IP TO THIS [facility] Condition: Stable Referrals: Omkar Gotti MD [Primary Care Provider] - 1-2 days
[2018-11-04 14:03] LABS: Albumin 3.6 g/dL (3.5-5.0); Potassium 3.2 mmol/L (3.5-5.1); Total Bilirubin 0.7 mg/dL (0.2-1.3); Total Protein 5.8 g/dL (6.3-8.2)
--- NOTE | 2018-11-04 14:03 | XR ---
EXAMINATION TYPE: XR KUB , 2 VIEWS DATE OF EXAM ORDERED: 11/04/2018 HISTORY: abdominal pain. COMPARISON: None. FINDINGS: The lung bases are clear. The gallbladder is been removed. There are mildly dilated loops of small bowel in the left midabdomen . There are scattered air-fluid levels. No free air is seen. IMPRESSION: FINDINGS MOST CONSISTENT WITH SMALL BOWEL ILEUS.
[2018-11-04 14:04] LABS: Basophils % (A) 0 %; Eosinophils # (A) 0.3 k/uL (0-0.7); Eosinophils % (A) 4 %; HCT 31.8 % (34.0-46.0); HGB 11.2 gm/dL (11.4-16.0); Lymphocytes # (A) 0.5 k/uL (1.0-4.8); Lymphocytes % (A) 8 %; MCH 33.7 pg (25.0-35.0); MCHC 35.3 g/dL (31.0-37.0); MCV 95.5 fL (80.0-100.0); Mean Platelet Volume 6.2; Monocytes # (A) 0.3 k/uL (0-1.0); Monocytes % (A) 5 %; Neutrophils # (A) 4.8 k/uL (1.3-7.7); Neutrophils % (A) 81 %; Platelet Count 153 k/uL (150-450); RBC 3.33 m/uL (3.80-5.40); RDW 15.3 % (11.5-15.5); WBC 5.9 k/uL (3.8-10.6)
[2018-11-04 14:28] LABS: Creatine Kinase MB 0.6 ng/mL (0.0-2.4); Troponin I 0.013 ng/mL (0.000-0.034)
[2018-11-04] MEDS ORDERED: POTASSIUM CHLORIDE 20 MEQ in WATER FOR INJECTION 1 100ML.BAG IVPB STA (15:18)
[2018-11-04] MEDS ORDERED: MAGNESIUM SULFATE-D5W PMX 1 GM in DEXTROSE/WATER 1 100ML.BAG IVPB ONE (15:18)
[2018-11-04] MEDS ORDERED: NALOXONE 0.4 MG/ML 1 ML VIAL IV PRN (15:41)
[2018-11-04] MEDS: SODIUM CHLORIDE 0.9% 1,000 ML IV SCH ×2 (16:08→23:09)
[2018-11-04 16:55] VITALS: BMI 22.3
[2018-11-04 17:09] LABS: Glucose,Whole Blood 107 mg/dL (75-99)
[2018-11-04] MEDS: AMIODARONE 200 MG TAB PO SCH (20:04)
[2018-11-04 20:05] LABS: Glucose,Whole Blood 112 mg/dL (75-99)
[2018-11-04] MEDS: ATORVASTATIN 20 MG TAB PO SCH (20:05)
[2018-11-04] MEDS: METOPROLOL TARTRATE 25 MG TAB PO SCH (20:05)
[2018-11-04] MEDS: ONDANSETRON 4 MG/2 ML VIAL IVP PRN (23:42)
[2018-11-05] MEDS ORDERED: ACETAMINOPHEN IV (For NPO) 1,000 MG in EMPTY BAG 1 BAG IVPB STA (04:00)
[2018-11-05 06:52] LABS: Glucose,Whole Blood 119 mg/dL (75-99)
[2018-11-05] MEDS: ONDANSETRON 4 MG/2 ML VIAL IVP PRN ×2 (07:59→15:51)
[2018-11-05] MEDS: PANTOPRAZOLE 40 MG/10 ML VIAL IV SCH (07:59)
[2018-11-05] MEDS: METOPROLOL TARTRATE 25 MG TAB PO SCH ×2 (08:01→22:19)
[2018-11-05] MEDS: RIVAROXABAN 20 MG TAB PO SCH (08:01)
[2018-11-05] MEDS: AMIODARONE 200 MG TAB PO SCH (08:01)
[2018-11-05] MEDS: SODIUM CHLORIDE 0.9% 1,000 ML IV SCH ×2 (08:51→09:22)
[2018-11-05] MEDS ORDERED: FUROSEMIDE 40 MG TAB PO SCH (09:00)
[2018-11-05 10:55] LABS: Glucose,Whole Blood 130 mg/dL (75-99)
[2018-11-05] MEDS ORDERED: FERROUS SULFATE 325 MG TAB PO SCH (12:00)
[2018-11-05 12:17] LABS: Hemoglobin A1C 5.5 % (4.0-6.0)
[2018-11-05] MEDS: MAGNESIUM OXIDE 400 MG TAB PO SCH (14:06)
[2018-11-05] MEDS: POTASSIUM CHLORIDE ER 20 MEQ TAB.ER PO SCH (14:06)
[2018-11-05 17:48] LABS: Glucose,Whole Blood 140 mg/dL (75-99)
[2018-11-05] MEDS: DICYCLOMINE 10 MG CAP PO PRN (18:04)
[2018-11-05 20:24] LABS: Glucose,Whole Blood 146 mg/dL (75-99)
[2018-11-05] MEDS ORDERED: LACTATED RINGERS 500 ML IV SCH (20:30)
--- NOTE | 2018-11-05 21:48 | P.HPIM ---
History of Present Illness H&P Date: 11/05/18 Chief Complaint: Nausea vomiting History of presenting complaint: This is a pleasant 78-year-old patient followed by Dr. Delgadillo. Patient chronic stable medical conditions include atrial fibrillation, diabetes mellitus type 2 , GERD, hypertension, hyperlipidemia,. Patient had right breast cancer in 1990 that had lumpectomy" removed and had chemoradiation. Patient had recurrence in 2018. Getting chemotherapy. Last chemotherapy was last . Patient started off with nausea vomiting about a week ago unable to keep anything down. No fever or chills. Minimal abdominal pain. Also having up to 5 bowel movements a day. Resident's to the ER feeling totally exhausted rundown and tired. Dizzy lightheaded. No chest pain palpitation. Review of systems: GEN.: Weak and tired EYES: None HEENT: None NECK: None RESPIRATORY: None CARDIOVASCULAR: None GASTROINTESTINAL: As above] GENITOURINARY: None MUSCULOSKELETAL: None LYMPHATICS: None HEMATOLOGICAL: None PSYCHIATRY: None NEUROLOGICAL: None Past medical history: Atrial fibrillation, breast cancer, diabetes, GERD, hyperlipidemia, hypertension , Social history: Smoked a pack a day for about 10 years. Stopped in 1974. . Alcohol occasional. Physical examination: VITAL SIGNS: 98.3, 61, 18, 160/62, 100% on room air GENERAL: Average built, sitting up in bed, tired appearing. EYES: Pupils equal. Conjunctiva palel. HEENT: External appearance of nose and ears normal, oral cavity dry. NECK: JVD not raised; masses not palpable. HEART: First and second heart sounds are normal; no edema. LUNGS: Respiratory rate normal; clear to auscultation. ABDOMEN: Soft, nontender, liver spleen not palpable, no masses palpable. LYMPHATICS: No lymph nodes palpable in the axilla and neck. PSYCH: Alert and oriented x3; mood and affect tired appearingl. NEUROLOGICAL: Cranial nerves grossly intact; no facial asymmetry, power and sensation grossly intact. Investigations: White count 5.9, hemoglobin 11.2, platelets 153, potassium 3.2, BNP 25, creatinine 1.06, albumin 3 EKG-personally reviewed by me shows sinus rhythm, right bundle branch block pattern Assessment: -Post chemotherapy persistent nausea vomiting diarrhea for well over a week. Patient unable to keep anything down. Feels rather tired and exhausted. Clinically very dehydrated. -Acute diarrhea chemotherapy related. C. diff is ruled out. Check ova and parasites. -Recurrent right breast cancer, going under chemotherapy -Paroxysmal atrial fibrillation currently in sinus rhythm, chronically on Xarelto -Secondary pulmonary hypertension -Essential hypertension -Hyperlipidemia -GERD - Plan: Patient be started on IV fluids. May require a bolus. Patient is put on clear liquids to start off with. We'll advance diet as tolerated. Check stool for one parasites. Also use a scopolamine patch. Use fall precautions. Follow her lites closely. Care was discussed with the patient. Questions were answered. Past Medical History Past Medical History: Atrial Fibrillation, Cancer, Diabetes Mellitus, GERD/ Reflux, Hyperlipidemia, Hypertension, Pneumonia Additional Past Medical History / Comment(s): rt Breast CA 1990 had lumpectomy/ lymph nodes removed, chemo/radiation. in reocurrance of cancer same (rt) breast-last chemo May 2018. History of Any Multi-Drug Resistant Organisms: None Reported Past Surgical History: Appendectomy, Back Surgery, Breast Surgery, Cholecystectomy, Hysterectomy, Tonsillectomy Additional Past Surgical History / Comment(s): Medi port lt chest, 1 upper dental implant, rt breast lumpectomy, lymph nodes removed, egd/colonoscopy/ polypectomt, cataracts-lens implants, masectomy 08/07/2018 Past Anesthesia/Blood Transfusion Reactions: No Reported Reaction Additional Past Anesthesia/Blood Transfusion Reaction / Comment(s): no problems with prior blood transfusions Past Psychological History: No Psychological Hx Reported Additional Psychological History / Comment(s): pt lives with spouse. has glucometer, 4 wheeled walker, bed rale, shower chair. when feeling well pt drives but since chemo pt's spouse takes to appts. Smoking Status: Former smoker Past Alcohol Use History: Occasional Additional Past Alcohol Use History / Comment(s): started smoking 1964 and quit 1974 smoked less than 1 ppd. Past Drug Use History: None Reported - Past Family History Mother Family Medical History: Cancer Additional Family Medical History / Comment(s): age 66 from colon cancer Father Family Medical History: CVA/TIA Additional Family Medical History / Comment(s): age 48 from a stroke Brother(s) Family Medical History: Cancer Additional Family Medical History / Comment(s): colon Medications and Allergies Home Medications Medication Instructions Recorded Confirmed Type Atorvastatin [Lipitor] 20 mg PO HS 01/26/18 11/04/18 History Amiodarone [Cordarone] 200 mg PO BID #60 tab 05/13/18 11/04/18 Rx Rivaroxaban [Xarelto] 20 mg PO DAILY #30 tab 05/13/18 11/04/18 Rx Potassium Chloride [K-Tab ER] 20 meq PO DAILY 08/02/18 11/04/18 History Ferrous Sulfate [Feosol] 325 mg PO DAILY 11/04/18 11/04/18 History Furosemide [Lasix] 40 mg PO DAILY 11/04/18 11/04/18 History Magnesium 400 mg PO DAILY 11/04/18 11/04/18 History Metoprolol Tartrate 25 mg PO BID 11/04/18 11/04/18 History Allergies Allergy/AdvReac Type Severity Reaction Status Date / Time No Known Allergies Allergy Verified 11/04/18 13:23 Physical Exam Vitals: Vital Signs Temp Pulse Pulse Resp BP BP Pulse Ox 11/05/18 11:35 98.0 F 16 127/68 98 11/05/18 03:53 98.2 F 78 16 119/63 93 L 11/04/18 21:30 98.4 F 53 L 16 109/56 98 11/04/18 20:59 16 11/04/18 17:02 97.4 F L 63 16 100/49 98 11/04/18 16:16 61 16 124/42 99 11/04/18 16:00 63 16 11/04/18 15:35 61 14 114/67 100 11/04/18 14:35 62 16 117/40 99 11/04/18 14:11 62 16 130/47 100 11/04/18 13:49 61 16 114/46 98 11/04/18 13:06 98.3 F 61 18 160/62 100 Intake and Output 11/04/18 11/05/18 11/05/18 22:59 06:59 14:59 Intake Total 580 1310 Output Total 15 Balance 580 1295 Intake: Intake, IV Titration 400 1300 Amount ACETAMINOPHEN IV (For NPO 100 ) 1,000 mg In Empty Bag 1 bag @ 400 mls/hr IVPB ONCE STA Rx#:[id number] Sodium Chloride 0.9% 1, 400 000 ml @ 100 mls/hr IV . Q10H STA Rx#:[id number] Sodium Chloride 0.9% 1, 1200 000 ml @ 125 mls/hr IV . Q8H [facility] Rx#:[id number] Oral 180 10 Output: Emesis 15 Other: # Voids 1 2 # Bowel Movements 1 3 Weight 57.153 kg 57.153 kg 57.153 kg Results CBC & Chem 7: 11/04/18 13:30 11/04/18 21:04 Labs: Abnormal Lab Results - Last 24 Hours (Table) 11/04/18 11/04/18 11/04/18 Range/Units 13:30 13:30 17:07 RBC 3.33 L (3.80-5.40) m/uL Hgb 11.2 L (11.4-16.0) gm/dL Hct 31.8 L (34.0-46.0) % Lymphocytes # 0.5 L (1.0-4.8) k/uL Sodium 136 L (137-145) mmol/L Potassium 3.2 L (3.5-5.1) mmol/L BUN 25 H (7-17) mg/dL Creatinine 1.06 H (0.52-1.04) mg/dL Glucose 122 H (74-99) mg/dL POC Glucose (mg/dL) 107 H (75-99) mg/dL Total Protein 5.8 L (6.3-8.2) g/dL 11/04/18 11/05/18 11/05/18 Range/Units 20:04 06:50 10:47 RBC (3.80-5.40) m/uL Hgb (11.4-16.0) gm/dL Hct (34.0-46.0) % Lymphocytes # (1.0-4.8) k/uL Sodium (137-145) mmol/L Potassium (3.5-5.1) mmol/L BUN (7-17) mg/dL Creatinine (0.52-1.04) mg/dL Glucose (74-99) mg/dL POC Glucose (mg/dL) 112 H 119 H 130 H (75-99) mg/dL Total Protein (6.3-8.2) g/dL Thrombosis Risk Factor Assmnt - Choose All That Apply Each Risk Factor Represents 3 Points: Age 75 years or older Thrombosis Risk Factor Assessment Total Risk Factor Score: 3 Thrombosis Risk Factor Assessment Level: Moderate Risk
[2018-11-05] MEDS: ATORVASTATIN 20 MG TAB PO SCH (22:19)
[2018-11-05] MEDS: LACTATED RINGERS 1,000 ML IV SCH (22:44)
[2018-11-06] MEDS: ONDANSETRON 4 MG/2 ML VIAL IVP PRN ×2 (00:04→08:17)
[2018-11-06] MEDS: DICYCLOMINE 10 MG CAP PO PRN (00:30)
[2018-11-06] MEDS: ACETAMINOPHEN TAB 325 MG TAB PO PRN ×3 (03:57→15:02)
[2018-11-06] MEDS: LACTATED RINGERS 1,000 ML IV SCH ×3 (05:48→15:30)
[2018-11-06 06:56] LABS: Glucose,Whole Blood 146 mg/dL (75-99)
[2018-11-06 08:14] LABS: Magnesium 1.5 mg/dL (1.6-2.3); Potassium 3.3 mmol/L (3.5-5.1)
[2018-11-06] MEDS: METOPROLOL TARTRATE 25 MG TAB PO SCH (08:15)
[2018-11-06] MEDS: RIVAROXABAN 20 MG TAB PO SCH (08:16)
[2018-11-06] MEDS: POTASSIUM CHLORIDE ER 20 MEQ TAB.ER PO SCH ×2 (08:16→08:27)
[2018-11-06] MEDS: PANTOPRAZOLE 40 MG/10 ML VIAL IV SCH (08:17)
[2018-11-06] MEDS ORDERED: AMIODARONE 200 MG TAB PO SCH (09:00)
[2018-11-06 11:27] LABS: Glucose,Whole Blood 144 mg/dL (75-99)
[2018-11-06 12:22] VITALS: PULSE 76; RESP 17
[2018-11-06] MEDS: MAGNESIUM OXIDE 400 MG TAB PO SCH (13:07)
[2018-11-06] MEDS ORDERED: Potassium Replacement Protocol 1 EACH MISC MISCELLANE PRN (13:21)
[2018-11-06] MEDS ORDERED: Magnesium Replacement Protocol 1 EACH MISC MISCELLANE PRN (13:23)
[2018-11-06] MEDS ORDERED: ONDANSETRON 4 MG/2 ML VIAL IVP PRN (13:37)
[2018-11-06] MEDS: MAGNESIUM SULFATE-D5W PMX 1 GM in DEXTROSE/WATER 1 100ML.BAG IVPB SCH ×2 (14:52→15:57)
[2018-11-06] MEDS: POTASSIUM CHLORIDE 20 MEQ in WATER FOR INJECTION 1 100ML.BAG IVPB SCH ×2 (14:52→17:07)
[2018-11-06] MEDS ORDERED: SCOPOLAMINE 1.5MG/72HR PATCH TRANSDERM SCH (16:30)
[2018-11-06] MEDS ORDERED: LACTATED RINGERS 1,000 ML IV SCH (16:30)
--- NOTE | 2018-11-06 16:50 | PN ---
PROGRESS NOTE DATE OF SERVICE: 11/06/2018 PRESENTING COMPLAINT: Nausea, vomiting, diarrhea. INTERVAL HISTORY: This very pleasant lady with a recurrence of breast cancer with recent chemotherapy presented with nausea, vomiting and diarrhea. She is still having nausea, though vomiting has come down. She did vomit again this morning. Just feeling tired, rundown. Diarrhea is getting better. Minimal abdominal pain. Feels tired, rundown. Getting IV fluids. No documented fever. REVIEW OF SYSTEMS: Done for constitutional, cardiovascular, GI, pulmonary; relevant findings as above. CURRENT MEDICATIONS: Reviewed. They include lactated Ringer's at 125 mL/hour, potassium supplement. PHYSICAL EXAMINATION: Temperature 98.1, pulse 76, respiration 17, blood pressure 106/50, pulse ox 975 on room air. GENERAL APPEARANCE: Lying in bed, tired-appearing. EYES: Pupils equal. Conjunctivae pale. NECK: JVD not raised. Mass not palpable. RESPIRATORY: Effort normal. LUNGS: Clear to auscultation. CARDIOVASCULAR: First and second sounds normal. No edema. ABDOMEN: Soft. Minimal tenderness. Liver and spleen not palpable. PSYCHIATRY: Alert and oriented x3. Mood and affect very tired-appearing. INVESTIGATIONS: Potassium 3.6. ASSESSMENT: 1. Post chemotherapy resulting in nausea, vomiting, diarrhea, slow to respond. 2. Clinical dehydration. 3. Acute diarrhea, chemotherapy-related. Clostridium difficile was ruled out. 4. Recurrent right breast cancer. Undergoing chemotherapy. 5. Paroxysmal atrial fibrillation, currently in sinus rhythm, on Xarelto. 6. Secondary pulmonary hypertension. 7. Essential hypertension. 8. Hyperlipidemia. 9. Gastroesophageal reflux disease. PLAN: Increase IV fluids to 150 mL/hour. Will do a rectal temperature to make sure there is not any fever. Will also send off some blood cultures. Will get a GI opinion. Check electrolytes from today. Will follow. Will also put a scopolamine patch. Care was discussed with the patient. MMODL / IJN: [id number] /
[2018-11-06] MEDS ORDERED: IOPAMIDOL-300 CONTRAST 30 ML VIAL (ORAL USE) PO PRN (17:00)
[2018-11-06 17:21] VITALS: BP 96/67
[2018-11-06 17:24] LABS: Glucose,Whole Blood 117 mg/dL (75-99)
[2018-11-06 17:34] LABS: Calcium 7.8 mg/dL (8.4-10.2); Magnesium 2.5 mg/dL (1.6-2.3)
[2018-11-06] MEDS ORDERED: metroNIDAZOLE-NS PMX 500 MG in SALINE 1 100ML.BAG IVPB SCH (18:00)
[2018-11-06] MEDS ORDERED: CEFEPIME 2 GM in SODIUM CHLORIDE 0.9% 50 ML IVPB SCH (18:00)
[2018-11-06 18:42] VITALS: TEMP 104
[2018-11-06] MEDS ORDERED: SODIUM BICARB 8.4% 50 ML SYR (1 MEQ/ML) ONE (19:00)
[2018-11-06] MEDS ORDERED: EPINEPHrine 10 ML SYRINGE (0.1 MG/ML) ONE (19:00)
[2018-11-06] MEDS ORDERED: ATROPINE SULFATE 0.1 MG/ML 10ML SYRINGE ONE (19:00)
[2018-11-06 19:02] LABS: Glucose,Whole Blood 85 mg/dL (75-99)
[2018-11-06] MEDS ORDERED: DOPamine DRIP 800 MG in DEXTROSE/WATER 1 500ML.BAG IV ONE (19:30)
--- NOTE | 2018-11-06 21:17 | ED ---
Medical Decision Making - Medical Decision Making Called to see patient for CODE BLUE on the floor. Patient is unresponsive and provides no history. Patient lost pulse and CPR was started by nursing staff. Patient was intubated by nursing to assist. Patient did have some transient return of pulse however was very bradycardic and difficult to provide blood pressure. CPR underwent for 44 minutes. Patient was reportedly in for breast cancer and chemotherapy and dehydration. At 1946 patient continued to have no pulse, no spontaneous respirations. No heart sounds. No response to pain. Asystole on the monitor. Time of is 1945. Family is present and aware. Dr. Bowling was notified. Large amount of gastric fluid was removed with OG tube, greater than 1 L. - Lab Data Result diagrams: 11/04/18 13:30 11/06/18 16:45 Lab Results 11/04/18 11/04/18 11/04/18 Range/Units 13:30 13:30 13:30 WBC 5.9 (3.8-10.6) k/uL RBC 3.33 L (3.80-5.40) m/uL Hgb 11.2 L (11.4-16.0) gm/dL Hct 31.8 L (34.0-46.0) % MCV 95.5 (80.0-100.0) fL MCH 33.7 (25.0-35.0) pg MCHC 35.3 (31.0-37.0) g/dL RDW 15.3 (11.5-15.5) % Plt Count 153 (150-450) k/uL Neutrophils % 81 % Lymphocytes % 8 % Monocytes % 5 % Eosinophils % 4 % Basophils % 0 % Neutrophils # 4.8 (1.3-7.7) k/uL Lymphocytes # 0.5 L (1.0-4.8) k/uL Monocytes # 0.3 (0-1.0) k/uL Eosinophils # 0.3 (0-0.7) k/uL Basophils # 0.0 (0-0.2) k/uL Sodium 136 L (137-145) mmol/L Potassium 3.2 L (3.5-5.1) mmol/L Chloride 103 (98-107) mmol/L Carbon Dioxide 27 (22-30) mmol/L Anion Gap 6 mmol/L BUN 25 H (7-17) mg/dL Creatinine 1.06 H (0.52-1.04) mg/dL Est GFR (CKD-EPI)AfAm 59 (>60 ml/min/1.73 sqM) Est GFR (CKD-EPI)NonAf 51 (>60 ml/min/1.73 sqM) Glucose 122 H (74-99) mg/dL Estimated Ave Glu mg/dL Hemoglobin A1c (4.0-6.0) % Calcium 9.0 (8.4-10.2) mg/dL Magnesium (1.6-2.3) mg/dL Total Bilirubin 0.7 (0.2-1.3) mg/dL AST 18 (14-36) U/L ALT 33 (9-52) U/L Alkaline Phosphatase 52 (38-126) U/L Total Creatine Kinase 46 (30-135) U/L CK-MB (CK-2) 0.6 (0.0-2.4) ng/mL CK-MB (CK-2) Rel Index 1.3 Troponin I 0.013 (0.000-0.034) ng/mL Total Protein 5.8 L (6.3-8.2) g/dL Albumin 3.6 (3.5-5.0) g/dL Amylase 51 (30-110) U/L Lipase 243 (23-300) U/L 11/04/18 11/04/18 Range/Units 13:30 13:50 WBC (3.8-10.6) k/uL RBC (3.80-5.40) m/uL Hgb (11.4-16.0) gm/dL Hct (34.0-46.0) % MCV (80.0-100.0) fL MCH (25.0-35.0) pg MCHC (31.0-37.0) g/dL RDW (11.5-15.5) % Plt Count (150-450) k/uL Neutrophils % % Lymphocytes % % Monocytes % % Eosinophils % % Basophils % % Neutrophils # (1.3-7.7) k/uL Lymphocytes # (1.0-4.8) k/uL Monocytes # (0-1.0) k/uL Eosinophils # (0-0.7) k/uL Basophils # (0-0.2) k/uL Sodium (137-145) mmol/L Potassium (3.5-5.1) mmol/L Chloride (98-107) mmol/L Carbon Dioxide (22-30) mmol/L Anion Gap mmol/L BUN (7-17) mg/dL Creatinine (0.52-1.04) mg/dL Est GFR (CKD-EPI)AfAm (>60 ml/min/1.73 sqM) Est GFR (CKD-EPI)NonAf (>60 ml/min/1.73 sqM) Glucose (74-99) mg/dL Estimated Ave Glu mg/dL 111 Hemoglobin A1c 5.5 (4.0-6.0) % Calcium (8.4-10.2) mg/dL Magnesium 1.7 (1.6-2.3) mg/dL Total Bilirubin (0.2-1.3) mg/dL AST (14-36) U/L ALT (9-52) U/L Alkaline Phosphatase (38-126) U/L Total Creatine Kinase (30-135) U/L CK-MB (CK-2) (0.0-2.4) ng/mL CK-MB (CK-2) Rel Index Troponin I (0.000-0.034) ng/mL Total Protein (6.3-8.2) g/dL Albumin (3.5-5.0) g/dL Amylase (30-110) U/L Lipase (23-300) U/L Critical Care Time Critical Care Time: Yes Total Critical Care Time: 32 Disposition Clinical Impression: Dehydration, Gastroenteritis, Ileus, Hypokalemia Disposition: Condition: Stable Preliminary Cause of : Breast cancer, dehydration, cardiac arrest
[2018-11-07] MEDS ORDERED: RIVAROXABAN 15 MG TAB PO SCH (09:00)
--- NOTE | 2018-11-08 06:23 | PN ---
PROGRESS NOTE ADDENDUM TO PROGRESS NOTE DATE OF SERVICE: 11/06/2018. ADDENDUM: In the evening I saw the patient. The patient was feeling weak and tired. Some loose stools, nausea, vomiting. My concern was if the patient having fever. I spoke to nurse, Miranda, told her to get me a temperature. It was afebrile. I then asked the nurse to get me a rectal thermometer. Nurse called me back in a half an hour saying that they could not find a rectal thermometer after looking to other floors. I did ask her to then check with management or check in the ICU and get back to me with a temperature. Then she called me stating that the temperature had come back rectally as 104. Dr. Scanlon who was in the hospital, I did give him a call to come up to see the patient, he said he will come up in a few minutes, as I was concerned about infection and he will coordinate the antibiotics. The patient already was getting IV fluids. Later on I was given a call that the patient was not doing well, they are moving the patient to the ICU. I said to consult air commodore Dr. Pereira and then they called a Code on the patient and Dr. Santana from ER ran the Code and called me that patient had . MMLEÓNL / ANTONIAN: [id number] /
--- NOTE | 2018-11-08 08:32 | DS ---
DISCHARGE SUMMARY DATE OF ADMISSION: 11/04/2018 DATE OF EXPIRATION: 11/06/2018 CAUSE OF : Breast cancer. OTHER MEDICAL CONDITIONS: 1. Dehydration. 2. Paroxysmal atrial fibrillation, currently in sinus rhythm. 3. Secondary pulmonary hypertension. 4. Essential hypertension. 5. Hyperlipidemia. 6. Gastroesophageal reflux disease. 7. Acute renal failure, prerenal. 8. Hypomagnesemia. HOSPITAL COURSE: This is a very pleasant lady who was taking oral chemotherapy for a breast cancer that was actually a different kind and patient started presented with nausea, vomiting, unable to keep anything down. Patient was treated with fluids. The patient had been afebrile. No fever, then the patient is still getting fluids. Then patient succumbed to the underlying condition. A Code was called and patient . CONSULTATIONS: 1. Dr. Scanlon from ID. 2. Dr. West from GI. WILD / DON: [id number] /
--- NOTE | 2018-11-12 14:38 | CDI ---
Date: 11/12/2018 2:13:21 PM From: Aleksandr Knapp Email: Admit Date: 11/04/2018 3:44:00 PM Patient Name: Jennifer Guerrero Visit Number: [id number] Discharge Date: 11/06/2018 10:50:00 PM ATTENTION: The Clinical Documentation Specialists (CDI) and [facility] Coding Staff appreciate your assistance in clarifying documentation. Please respond to the clarification below the line at the bottom and electronically sign. The CDI & [facility] Coding staff will review the response and follow-up if needed. Please note: Queries are made part of the Legal Health Record. If you have any questions, please contact the author of this message via ITS. Dr. Ramu Bowling The patient presented with nausea, vomiting and abdominal pain History/Risk Factors: recurrent breast cancer, currently receiving chemotherapy , GERD Clinical Indicators: Nausea, vomiting, diarrhea, abdominal pain, weak, tired Lab findings: K+ 3.0, Cr 1.31, Ca 7.8, Mg 1.5 Xray of KUB: Findings most consistent with small bowel ileus Other Clinical Indicators: Greater than 1L of gastric fluid was removed with oral gastric tube during code blue. Treatment: NPO, removal of gastric fluid, electrolyte supplements, IVF's In your professional opinion, can you please clarify the clinical significance of the above? Small bowel obstruction Other, please specify Unable to determine unable to determine MTDD
== END 2018-11-06 22:50 | disposition expired | DRG 394 ==
LOC: EC 12:53 → 3NMEDONC 15:44
PROVIDERS: ADMIT Hospitalist; ATTEND Hospitalist
PROC: 5A12012 Performance of Cardiac Output, Single, Manual (ICD-10-PCS; principal; 2018-11-06)
DX: K52.1 Toxic gastroenteritis and colitis (principal); N17.9 Acute kidney failure, unspecified; I46.9 Cardiac arrest, cause unspecified; E86.0 Dehydration; I27.29 Other secondary pulmonary hypertension; I48.0 Paroxysmal atrial fibrillation; E83.42 Hypomagnesemia; C50.911 Malignant neoplasm of unspecified site of right female breast; E11.9 Type 2 diabetes mellitus without complications; R50.9 Fever, unspecified; E78.5 Hyperlipidemia, unspecified; E87.6 Hypokalemia; I10 Essential (primary) hypertension; K21.9 Gastro-esophageal reflux disease without esophagitis; T45.1X5A Adverse effect of antineoplastic and immunosuppressive drugs, initial encounter; R11.2 Nausea with vomiting, unspecified; Z79.01 Long term (current) use of anticoagulants; Z79.899 Other long term (current) drug therapy; Z85.3 Personal history of malignant neoplasm of breast; Z87.891 Personal history of nicotine dependence; Z90.11 Acquired absence of right breast and nipple; Z90.710 Acquired absence of both cervix and uterus; Z87.01 Personal history of pneumonia (recurrent); Z92.21 Personal history of antineoplastic chemotherapy; Z92.3 Personal history of irradiation; Z90.49 Acquired absence of other specified parts of digestive tract; Z98.42 Cataract extraction status, left eye; Z98.41 Cataract extraction status, right eye; Z96.1 Presence of intraocular lens; Z80.0 Family history of malignant neoplasm of digestive organs; Z82.3 Family history of stroke
CPT/HCPCS: 36415; 74018; 80048; 80053; 82150; 82550; 82553; 83036; 83690; 83735; 84132; 84484; 85025; 87040; 87077; 87086; 87186; 87324; 93005; 96361; 96365; 96375; 96376; 99285